=== PATIENT | male | born 1970 | race Caucasian/White ===

== ENCOUNTER 2024-05-01 08:42 | Inpatient (IN) | payer OTHER, SELFPAY ==
[2024-05-01] VITALS (39 sets, daily range): BP systolic 124–186; BP diastolic 83–174; PULSE 2–127; BMI 30.9; BMI 31.4
[2024-05-01 04:36] LABS: % Basophils 0.1 % (0-2); % Eosinophils 0.6 % (0-6); % Immature Granulocytes 0.3 % (0-0.5); % Lymphocytes 18.7 % (20.5-51.1); % Neutrophils 74.3 % (42.2-75.2); Absolute Lymphocytes 1.3 10^3/uL (1.2-3.4); Absolute Monocytes 0.4 10^3/uL (0.1-0.6); Absolute Neutrophils 5.3 10^3/uL (1.4-6.5); Hematocrit 38.6 % (39.0-52.0); Hemoglobin 12.5 g/dL (13.0-18.0); Mean Corp Hgb Conc. 32.4 g/dL (33.0-37.0); Mean Corpuscular Hgb 26.8 pg (27.0-31.0); Mean Corpuscular Volume 82.8 fL (80.0-94.0); Mean Platelet Volume 12.9 fL (7.4-10.4); Nucleated Red Blood Cells % 0 % (-); Platelet Count 186 10^3/uL (130-400); Red Blood Cell Count 4.66 10^6/uL (4.70-6.10); Red Cell Dist. Width 13.2 % (11.5-14.5); White Blood Cell Count 7.2 10^3/uL (4.8-10.8)
[2024-05-01] MEDS: NITROGLYCERIN PREMIX 250 IV (04:45)
[2024-05-01 04:48] LABS: COVID-19 Antigen Negative (Negative)
[2024-05-01 04:51] LABS: ALT (SGPT) 24 U/L (0-50); AST (SGOT) 23 U/L (17-59); Albumin 3.6 g/dl (3.5-5.0); Alkaline Phosphatase 109 U/L (38-126); Blood Urea Nitrogen 27 mg/dl (9-20); Calcium 9.4 mg/dl (8.4-10.2); Carbon Dioxide 26 mmol/L (22-30); Chloride 103 mmol/L (98-107); Estimated Creatinine Clearance 89 ml/min; Glucose 489 mg/dl (70-99); Potassium 4.2 mmol/L (3.5-5.1); Sodium 140 mmol/L (135-145); Total Bilirubin 0.5 mg/dl (0.2-1.3); Total Protein 6.6 g/dl (6.3-8.2); eGFR > 60.00
[2024-05-01 05:04] LABS: Venous Blood Gas B.E. -0.6 mmol/L (-4 to +4); Venous Blood Gas HCO3 25.4 mmol/L (22-27); Venous Blood Gas O2 Sat % 92.8 %; Venous Blood Gas pCO2 46 mmHg (35-48); Venous Blood Gas pH 7.35 (7.32-7.43); Venous Blood Gas pO2 64 mmHg (30-50)
[2024-05-01 05:06] LABS: Venous Blood Gas O2 Therapy 100%
[2024-05-01 05:08] LABS: NT-proBNP 9470 pg/ml; Troponin I 0.076 ng/ml
--- NOTE | 2024-05-01 05:44 | ED.GENMED ---
History of Present Illness
General
Chief Complaint: Breathing Problem
Time Seen by Provider: 05/01/24 04:22
History of Present Illness
History of Present Illness:
53-year-old male with history of diabetes presenting to the emergency department for difficulty breathing. Patient is from [facility], arrives with family. Notes for the past 6 days has been feeling short of breath. [place] symptoms, however has not had any improvement. Denies any known cardiac history. Denies cough or fever. Does note swelling to his lower extremities. Breathing worsened tonight. Denies associated chest pain. Denies
abdominal pain or vomiting. Denies ever having the symptoms in the past. Denies any history of blood clots. Denies additional acute medical complaints.
Phy Exam
Physical Exam
Physical Exam:
General: Acute respiratory
HEENT: protecting airway
Neck: appears supple
CV: Tachycardic, regular rhythm, no evidence of cyanosis
Resp: Increased work of breathing with accessory muscle use, diffuse crackles
Abd: Soft and non-distended, no tenderness to palpation
Extremities: No deformities, +2 pitting edema bilaterally
Neuro: alert, no focal neurologic deficit
: deferred
Rectal: deferred
Psych: Normal affect
Skin: Intact
Scores
Heart Failure Risk
Heart Failure Risk Score: Yes
History of Stroke or TIA: No
History of intubation for respiratory distress: No
Heart rate on ED arrival >/= 110: Yes
SaO2 <90% on arrival on room air: Yes
HR >/=110 during 3min walk test (or too ill to perform test): Yes
ECG has acute ischemic changes: No
Urea >/=12mmol/L (BUN 33.6mg/dL): No
Serum CO2>/=35mmol/L: Yes
Troponin I or T elevated to SD Level (0.4mg/dL): Yes
NT-proBNP >/=5,000ng/L (5,000pg/ml): Yes
HF Risk Score: 8
Admission Status: VERY HIGH RISK 81.2% Consider admission to hospital
Course
Orders/Labs/Results
Orders:
Orders
05/01/24 04:12
Electrocardiogram (*1) Urgent
Reason for Study: Other
Other Reason for Exam: Respiratory Distress
Cardiac Monitoring- Treatment ONCE
EKG- Treatment ONCE
IV Insert/Care/Rem.- Treatment PRN
O2 Therapy [RESP] Urgent
Titrate/Wean O2 to maintain O2 sat greater than (%): 93
Special Instructions: TO MAINTAIN CONTINUOUS O2 SATS >/= 93%
Pulse Ox/cont/shift [RESP] Urgent
Quantity: 1
Special Instructions: continuous pulse ox
05/01/24 04:13
Portable Chest Xray [CR Chest Portable - 1 View] Urgent
Comment:
Reason For Exam: sob
Reason Study Needs to be Portable: Patient Unstable
05/01/24 04:22
Bipap [RESP] Urgent
Patient to use own unit?: No
Inspiratory Pressure (cm H2O): 12
Expiratory Pressure (cm H2O): 5
05/01/24 04:26
COVID-19 Antigen Urgent
Source: Nasal Swab
Complete Blood Count/With Diff Urgent
Comprehensive Metabolic Panel Urgent
NT-proBNP Urgent
Troponin I Urgent
Influenza A+B Rapid Molecular Urgent
OSMAN Source: Nasal Swab
Specimen Description:
05/01/24 04:30
Nitroglycerin 100 mg/250 ml [Nitroglycerin Premix] 100 mg in 250 ml IV PER PROTOCOL
Initial dose in mcg/min, then titrate:: 5
Titrate to keep:: SBP < 160 mmHg
Titrate by mcg/min:: 5 mcg/min, may increase by 10 mcg/min if dose > 20 mcg/min
Frequency of titrations (minutes):: every 3-5 minutes
Maximum dose in mcg/min:: 200
Begin to taper infusion when:: Remained at goal for 2hrs
Taper by mcg/min:: 5 mcg/min
Frequency of taper (minutes) if patient maintains goal:: 30
Taper to off?: Yes
If infusion off & no longer maintaining goal:: Contact Provider
05/01/24 04:59
Venous Blood Gas Urgent
%Oxygen/Room Air: 100
05/01/24 05:02
Nitroglycerin 100 mg/250 ml [Nitroglycerin Premix] 100 mg in 250 ml .ROUTE .STK-MED
05/01/24 05:23
Furosemide [Lasix] 40 mg IV NOW STA
05/01/24 06:14
Insulin Aspart [NOVOLOG vial] 10 units SC NOW STA
Abnormal Lab Results
05/01/24 05/01/24
04:26 04:59
RBC 4.66 L 10^6/uL
(4.70-6.10)
Hgb 12.5 L g/dL
(13.0-18.0)
Hct 38.6 L %
(39.0-52.0)
MCH 26.8 L pg
(27.0-31.0)
MCHC 32.4 L g/dL
(33.0-37.0)
MPV 12.9 H fL
(7.4-10.4)
Lymphocytes % 18.7 L %
(20.5-51.1)
VBG pO2 64 H mmHg
(30-50)
BUN 27 H mg/dl
(9-20)
Glucose 489 H* mg/dl
(70-99)
Troponin I 0.076 H* ng/ml
05/01/24 04:26
05/01/24 04:26
Vital Signs
Initial and Last Documented VS:
Initial Vital Signs
Temp Pulse Resp Pulse Ox
99.0 F 130 32 66
05/01/24 04:15 05/01/24 04:15 05/01/24 04:15 05/01/24 04:15
Last Documented Vital Signs
Temp Pulse Resp BP Pulse Ox
99.0 F 110 16 144/90 97
05/01/24 04:15 05/01/24 06:13 05/01/24 06:10 05/01/24 06:10 05/01/24 06:10
MDM/Problems Addressed
MDM/Problems Addressed:
53-year-old male with history of diabetes presenting to the emergency department for about 1 week of dyspnea. Vital signs on arrival significant for tachycardia and tachypnea, hypoxia.
On exam, patient in obvious respiratory distress, increased work of breathing, retractions. EKG obtained, sinus tachycardia without evidence of acute ischemia. Lung exam has diffuse crackles. Blood pressure is also elevated. Clinically, appears
consistent with flash pulmonary edema, new onset CHF. Respiratory called for BiPAP and x-ray for a chest x-ray. X-ray confirms pulmonary edema. Plan for nitro drip, laboratory analysis, continued close respiratory monitoring.
Patient is improving clinically on BiPAP. Blood pressure is responding appropriately to nitro. Troponin is elevated, suspected ischemic demand. BNP is also elevated, consistent with CHF. Blood glucose noted to be elevated, will check VBG to
assess for evidence of DKA.
No metabolic acidosis or anion gap. Without concern for DKA. Will order insulin. Lasix ordered for volume overload state. Patient continues to clinically improved. Plan for admission for new onset CHF
*EKG
Interpreted by ED Provider?: Yes
EKG Intrepretation Date: 05/01/24
EKG Intrepretation Time: 06:04
Interpretation: normal
Comparison EKG: no comparison EKG present
Heart Rate: 141
Rate: tachycardiac
Rhythm: sinus
Ophiem: normal axis
Interval: normal interval
QRS Pattern: normal QRS
Ischemia: non-specific ST changes
*Critical Care Note
Total Time (30-74mins, 75-104mins- exclusive of procedures): 42
comment:
The high probability of a clinically significant, sudden or life threatening deterioration of the respiratory and cardiac system(s) required my full and direct attention, intervention and personal management. The aggregate critical care time was 42
minutes. This time is in addition to time spent performing reported procedures but includes the following:
[x] Data Review and interpretation
[x] Patient assessment and monitoring of vital signs
[x] Documentation
[x] Medication orders and management
ED Attending Note
-
Portions of this chart may have been created with voice recognition software.� Occasional wrong word or��sound alike� substitutions may have occurred due to the inherent limitations of voice recognition software.
Discharge Plan
Departure
Patient Disposition: Admit
Date of Disposition: 05/01/24
Time of Disposition: 06:22
Presentation/result/management discussed w/ accepting MD/DO: Hospitalist
Patient with high blood pressure during this ER visit?: Yes
Condition: Fair
Discharge Problem:
New onset of congestive heart failure, Acute respiratory distress
Prescriptions:
No Action
Unobtainable
0
Referrals:
NONE,* [Family Provider] -
Interventions
Interventions:
*General Assessment Last Done: 05/01/24 06:13
*Neglect/Abuse Screening Last Done: 05/01/24 06:13
*ED COVID-19 Vaccine History Last Done: 05/01/24 06:13
Discharge Date and Time
Print Language: DJIBOUTIAN
[2024-05-01] MEDS: LASIX 40 MG IV ×2 (06:11→15:47)
[2024-05-01] MEDS: NOVOLOG vial 10 UNITS SC (06:41)
[2024-05-01 07:12] LABS: Glucose - Point of Care 458 mg/dl (70-99)
[2024-05-01 07:49] LABS: Glucose 474 mg/dl (70-99)
--- NOTE | 2024-05-01 07:49 | HPS.HSE ---
Family Physician
-
Family Physician: * NONE
Chief Complaint
-
Shortness of breath
History of Present Illness
53-year-old male from [facility] here complaining of increasing shortness of breath. Symptoms started 6 days ago but progressively worsened over the past 24 hours.
Denies associated chest pain or other complaints.
History obtained via official [facility] back grinder as he only speaks in [facility].
No history of heart disease. Moved to [facility] recently and has a green card. Does not have a primary care doctor. Claims he only takes 1 medication and that is for diabetes.
Medical History
Past Medical History
Past Medical History: Reports Other
Additional Past Medical History:
DM2
Past Surgical History: Reports None
Social History
Tobacco: Non-smoker
Alcohol: None
Drug: None
Personal:
Living: With Family
Family History
Family History: Not pertinent
Allergies / Home Medications
Allergies reflects when Allergies were last updated in [facility].
Home Medications with original date entered in [facility]
Allergy/Medication List:
Allergies
Allergy/AdvReac Type Severity Reaction Status Date / Time
No Known Allergies Allergy Unverified 05/01/24 04:15
Home Medications
Unobtainable 05/01/24
Review of Systems
-
Unable to obtain full review of systems at this time due to: Language Barrier
History Source: Patient and Family
A 12 point ROS was completed and negative except as noted: Yes
Respiratory: Reports Trouble Breathing
Physical Exam
Vital Signs
Vital Signs
Temp Pulse Resp BP Pulse Ox
99.0 F 112 23 147/97 95
05/01/24 04:15 05/01/24 07:00 05/01/24 07:00 05/01/24 07:00 05/01/24 07:00
Physical Exam
General: Well Developed, Well Nourished, No Apparent Distress and Comfortable
HEENT: NormoCephalic, Anicteric and Moist mucous membranes
Respiratory: Crackles
Cardiac: S1/S2 and Regular Rhythm
GI: Soft, Non Tender and Non Distended
Musculoskeletal: No Clubbing, No Cyanosis, Edema, Left Lower Extremity and Edema, Right Lower Extremity
Skin: Warm and Dry
Neuro: Awake, Alert and Oriented
Hematologic/Lymphatic: No Lymphadenopathy
Psych: Calm
Laboratory Results
-
05/01/24 04:26
05/01/24 07:21
Laboratory Results
Total Bilirubin 0.5 mg/dl (0.2-1.3) 05/01/24 04:26
AST 23 U/L (17-59) 05/01/24 04:26
ALT 24 U/L (0-50) 05/01/24 04:26
Alkaline Phosphatase 109 U/L (38-126) 05/01/24 04:26
Troponin I 0.076 ng/ml H* 05/01/24 04:26
Impression/Plan
-
Acute hypoxic respiratory failure -due to acute pulmonary edema. Required BiPAP on arrival, now transition to nasal cannula oxygen 4 L. Chest x-ray shows interstitial and alveolar pulmonary opacities and probable bilateral pleural fluid.
Acute heart failure exacerbation -unknown type. Appears to be a new diagnosis of heart failure. BNP 9470. Admit to IVU. Continue IV Lasix. Check echocardiogram. Consult cardiology. Daily weights.
Hypertensive emergency -presentation with acute heart failure. Initial blood pressure 182/109 in the emergency room. Improved to 147/97 with IV Lasix and IV nitroglycerin. Patient denies history of hypertension. However, does not check blood
pressure at home. Not on antihypertensives at home. Does not have a primary care doctor. Continue IV Lasix. Add lisinopril. Monitor closely. Wean off nitroglycerin drip.
Troponin elevation -without significant EKG changes. Does not have chest pain. Will trend troponins. Cardiology consulted.
DM2 with hyperglycemia -not on insulin at home. Glucose 489 on presentation. Serum bicarbonate normal. No evidence of DKA. Check urinalysis. Beta hydroxybutyrate is normal. Check hemoglobin A1c, start basal/bolus insulin and corrective scale.
He takes an oral diabetes medication at home, obtains it from [facility]. I asked family to bring it in.
Obesity due to excess calories
Full code
Family updated at the bedside.
[2024-05-01 07:52] LABS: B-Hydroxybutyrate 0.21 mmol/L (0.02-0.27)
--- NOTE | 2024-05-01 09:07 | CON.CAR ---
Addendum entered and electronically signed by German Mccarty MD 05/01/24 12:59:
53 yo male with PMH of DM is admitted with progressive SOB and edema. No chest pain. Exam with tachy, irregular rhythm, no murmurs, 1+ LE edema. Cr 0.9. TnI 0.28. EKG: sinus tachy, anterior infarct.
Presentation seems consistent with acute failure. I suspect he may have reduced EF. Continue lasix 40mg IV bid. We will check an echo, and if EF reduced, will proceed to cardiac cath.
HTN emergency with elevated troponin and acute HF. Currently on nitro drip. Will wean. Lisinopril started. If remains stable, will add coreg.
Original Note:
Consultation
Consultation Request
Date/Time Consultation Requested: 05/01/2024 0800
Date/Time Consultation Performed: 05/01/2024 830
Requesting Provider: Dr. Savage
Performing Provider: Dr. Mccarty
Reason for Consultation: SOB, CHF
Medical History
-
Chief Complaint: SOB
History of Present Illness:
53-year-old patient with history of diabetes for approximately 30 years treated with metformin from [facility]. He presented to [facility] with acute shortness of breath which worsened over the last 3 nights. Last night was more intense and
extreme. He has had a cough with clear to white sputum at home. Upon arrival to [facility] he was noted to be hypertensive with acute hypoxic respiratory failure requiring BiPAP. He was treated with IV nitroglycerin and Lasix in the
emergency room. He has now been weaned to nasal cannula. BNP on arrival was 9470. Prior to this event they note that he had a URI several weeks ago which included a cough and fever. He was not tested for flu or COVID at that time. He self
treated at home.
-
His daughter and son-in-law were in the room were able to translate today as they speak Latvian.
-
He has been treated for diabetes for approximately 30 years. He was not aware of any history of hypertension or hyperlipidemia. His brother had open heart surgery around the age of 52 and is also diabetic.
-
He does not smoke or drink alcohol.
Past Medical History
Past Medical History: NIDDM
Past Surgical History: None
Social History
Tobacco: Non-Smoker
Alcohol: None
Family History
Family History: CAD (Brother open heart surgery at age 52)
Allergies / Home Medications
Allergy/AdvReac Type Severity Reaction Status Date / Time
No Known Allergies Allergy Unverified 05/01/24 04:15
�Medication �Instructions �Recorded �Confirmed �Type
Unobtainable 05/01/24 05/01/24 History
Review of Systems
-
History Source: Patient and Family
All other systems: Negative unless noted
Constitutional: No Symptoms
EENT: No Symptoms
Respiratory: Cough and Trouble Breathing
Cardiac: Diaphoresis
Abdomen/GI: No Symptoms
: No Symptoms
Musculoskeletal: No Symptoms
Skin: No Symptoms
Physical Exam
Vital Signs
Temp Pulse Resp BP Pulse Ox
99.0 F 113 23 152/94 95
05/01/24 04:15 05/01/24 08:45 05/01/24 08:45 05/01/24 08:30 05/01/24 08:45
Lab Results
05/01/24 04:26
05/01/24 07:21
Troponin I 0.076 ng/ml H* 05/01/24 04:26
Ape-B-Mtofwnzlmyt Pept 9470 pg/ml 05/01/24 04:26
Physical Exam
General: Well Developed, Well Nourished and No Apparent Distress
Respiratory: Crackles
Cardiac: S1/S2 and Regular Rhythm (Tachycardic)
GI: Soft, Non Tender and Normal Bowel Sounds
Musculoskeletal: No Edema (Mild bilateral lower extremity edema)
Skin: Warm
Neuro: AO x 3
Psych: Calm
Impression / Plan
-
Acute heart failure unknown type:
-Initially required BiPAP now weaned to nasal cannula
-Patient improved in the emergency room with IV nitroglycerin and IV Lasix.
-Plan echocardiogram.
-Trend troponins
-Add GDMT as indicated, lisinopril started
-check lipids
-add asa
Hypertension:
-Hypertensive emergency on admit. Currently on IV nitroglycerin with improved blood pressures
-Continue IV nitroglycerin and IV Lasix at this time
Diabetes:
-Appears he has been on metformin from [facility]. Treatment per primary team
Data Reviewed
-
EKG: Tracing Personally Visualized and interpreted (EKG from 05/01/2024 sinus tachycardia at 141 bpm, poor R wave progression nonspecific ST abnormality)
Radiology: Report Reviewed by me (cxr: Interstitial and alveolar pulmonary opacities and probable bilateral pleural fluid most in keeping with pulmonary edema.)
Labs: Labs Reviewed by me, Discussed with Physician, Discussed with Patient and Discussed with Family
[2024-05-01 09:29] LABS: Glucose - Point of Care 299 mg/dl (70-99)
[2024-05-01] MEDS: LOW STRENGTH ASPIRIN 324 MG PO (09:54)
[2024-05-01] MEDS: LANTUS 0.15 UNITS SC (11:46)
[2024-05-01] MEDS: ZESTRIL 5 MG PO (11:47)
[2024-05-01 12:03] LABS: Troponin I 0.281 ng/ml
[2024-05-01 12:51] LABS: Urine Albumin 3+ (Neg - Trace); Urine Bilirubin Negative (Negative); Urine Character Clear (Clear); Urine Color Yellow; Urine Glucose 3+ (Negative); Urine Ketone Negative (Negative); Urine Leukocyte Negative (Negative); Urine Nitrite Negative (Negative); Urine Occult Blood 1+ (Negative); Urine Specific Gravity 1.015 (<1.030); Urine Urobilinogen Negative (Neg - 1+)
[2024-05-01 12:55] LABS: Glucose - Point of Care 301 mg/dl (70-99)
[2024-05-01 13:49] LABS: Urine Bacteria Few (Negative); Urine Red Blood Cell 0-2 /HPF (0-2); Urine White Cell 0-2 /HPF (0-5)
[2024-05-01] MEDS: NOVOLOG FLEXPEN 5 UNITS SC (14:56)
[2024-05-01] MEDS: NOVOLOG FLEXPEN-LOW RESISTANCE 4 UNITS SC (14:56)
[2024-05-01] MEDS: LOVENOX 40 MG SC (18:05)
[2024-05-01] MEDS: NOVOLOG FLEXPEN-LOW RESISTANCE 2 UNITS SC (18:09)
[2024-05-01 18:10] LABS: Glucose - Point of Care 229 mg/dl (70-99)
[2024-05-01] MEDS: NOVOLOG FLEXPEN SC (18:10)
[2024-05-01 18:14] LABS: Troponin I 0.428 ng/ml
--- NOTE | 2024-05-01 18:28 | PTCARENOTE ---
Pt received from ED with acute CHF and bilateral ANN on nitroglycerin infusion at 5mcg. Pt speaks Uzbek, translation by his daughter and language line/I Pad. Breath sounds decreased 1/4 way up, pt with HOBSON with minimal exertion, diuresing slowly
with IV lasix. Troponins still trending, now at 0.428, aware. Pt denies any discomfort. Accuchecks 200-300 range with sliding scale and meal coverage. Telemetry shows sinus tach with SBP's 120-130's, plan to keep nitroglycerin at 5mcg
overnight. Pt will be NPO for 05/03 for an ECHO and possible cardiac cath.
--- NOTE | 2024-05-01 18:34 | PTCARENOTE ---
Unable to start CHF teaching today due to language issues and no family member present. Will plan to do this when able.
--- NOTE | 2024-05-01 22:31 | PTCARENOTE ---
Pt received at change of shift. VSS, Sinus tachy on tele with HR low 100s. Family member at bedside to assist with translating. Pt with no complaints of CP at this time and SOB only occasionally while talking. Pulse ox 97% on 4L NC. Nitro gtt
currently infusing at 5mcg. Pt. instructed to ring for assistance as needed for ambulating to bathroom. Plan of care discussed with pt and family member who verbalize understanding. Can make needs known. Call villanueva within reach.
[2024-05-01 23:07] LABS: Glucose - Point of Care 223 mg/dl (70-99)
[2024-05-01 23:39] LABS: Troponin I 0.613 ng/ml
[2024-05-01] MEDS: MELATONIN 5 MG PO (23:40)
[2024-05-01] MEDS: ROBITUSSIN DM 5 ML PO (23:40)
[2024-05-02 04:22] VITALS: BP 122/87
[2024-05-02 04:36] VITALS: BMI 31.1
[2024-05-02 05:26] LABS: Blood Urea Nitrogen 35 mg/dl (9-20); Calcium 8.8 mg/dl (8.4-10.2); Carbon Dioxide 27 mmol/L (22-30); Chloride 104 mmol/L (98-107); Estimated Creatinine Clearance 73 ml/min; Glucose 207 mg/dl (70-99); HDL Cholesterol 29 mg/dl; LDL Cholesterol, Calculated 142 mg/dl; Potassium 3.6 mmol/L (3.5-5.1); Sodium 140 mmol/L (135-145); Total Cholesterol 205 mg/dl (50-199); Triglyceride 172 mg/dl (10-149); Very Low Density Lipoprotein 34 mg/dl (0-30); eGFR > 60.00
[2024-05-02 05:37] LABS: Troponin I 0.719 ng/ml
[2024-05-02 07:18] VITALS: BP 137/86
[2024-05-02 07:22] LABS: Glucose - Point of Care 196 mg/dl (70-99)
[2024-05-02] MEDS: ZESTRIL 5 MG PO (08:02)
[2024-05-02] MEDS: LASIX 40 MG IV ×2 (08:02→15:49)
[2024-05-02] MEDS: LOW STRENGTH ASPIRIN 81 MG PO (08:02)
--- NOTE | 2024-05-02 08:17 | W.PN.HOSP.TC ---
Addendum entered and electronically signed by Pedro Savage DO 05/02/24 08:28:
History of latent tuberculosis -treated in 2017. Reviewed records with family.
Original Note:
Today's Communication/Plan
-
Wean off nitroglycerin
Wean down oxygen as able
Continue diuresis
Await hemoglobin A1c
Echocardiogram
N.p.o. after midnight
Assessment / Plan
Assessment / Plan
Gen-AAOx3, NAD
HEENT-NC, AT, anicteric, clear oral mm
Neck-supple
CV-reg, no M, +S1/S2
Lungs-clear B/L
Abd-soft, NT, ND
Ext-no edema
Musculoskeletal-no cyanosis, clubbing
Skin-warm and dry
Neuro-grossly non-focal
Psych-calm, cooperative
Acute hypoxic respiratory failure -due to acute pulmonary edema. Required BiPAP on arrival, subsequently transitioned to nasal cannula oxygen 4 L. Chest x-ray shows interstitial and alveolar pulmonary opacities and probable bilateral pleural
fluid. Still on 4 L nasal cannula oxygen, wean down as able.
Acute heart failure exacerbation -unknown type. Appears to be a new diagnosis of heart failure. Volume status improving, lower extremity edema much improved. Symptomatically he feels better. Continue IV Lasix. Start daily potassium supplements.
Echocardiogram pending.
Hypertensive emergency -presentation with acute heart failure. Initial blood pressure 182/109 in the emergency room. Improved to 147/97 with IV Lasix and IV nitroglycerin. Patient denies history of hypertension. However, does not check blood
pressure at home. Not on antihypertensives at home. Does not have a primary care doctor. Continue IV Lasix. Continue lisinopril, wean off nitroglycerin drip.
Troponin elevation -EKG on admission shows sinus tachycardia with nonspecific T wave changes. Does not have chest pain. Troponin slowly trending up, 0.719 this morning. Anticipate cardiac catheterization this hospitalization pending
echocardiogram. N.p.o. after midnight.
DM2 with hyperglycemia -not on insulin at home, uses metformin 500 mg twice daily. Glucose 489 on presentation, 207 this morning. Serum bicarbonate normal. No evidence of DKA. Hemoglobin A1c pending. In the hospital he is on Lantus 15 units
daily, 5 units aspart AC, low resistance corrective scale.
Obesity due to excess calories
Full code
Family updated at the bedside.
Anticipated Discharge: > 48 hours
Subjective/Interval History
-
Date of Service: May 02, 2024
Patient seen and examined. No shortness of breath or chest pain currently. Did have some shortness of breath during the night. Overall slept better. Family at the bedside helping to translate.
Objective Data
-
Labs:
Laboratory Results
05/02/24
04:31
Sodium 140
Potassium 3.6
Chloride 104
Carbon Dioxide 27
BUN 35 H
Creatinine 1.1
Glucose 207 H
Calcium 8.8
Vital Signs:
Vital Signs
Temp Pulse Resp BP Pulse Ox
97.7 F 95 24 137/86 98
05/02/24 07:16 05/02/24 07:18 05/02/24 07:51 05/02/24 07:18 05/02/24 07:53
I&O
05/01/24 05/02/24 05/03/24
06:59 06:59 06:59
Intake Total 240 / 240
Output Total 1400 / 1400
Balance -1160 / -1160
Review of Systems
-
Unable to obtain full review of systems at this time due to: Language Barrier
History Source: Patient, Family and Coordinated Provider
[2024-05-02] MEDS: NOVOLOG FLEXPEN 5 UNITS SC ×3 (09:29→17:51)
[2024-05-02] MEDS: NOVOLOG FLEXPEN-LOW RESISTANCE 1 UNITS SC ×2 (09:29→14:16)
[2024-05-02] MEDS: KCL 20 MEQ PO (09:30)
[2024-05-02] MEDS: LANTUS 0.15 UNITS SC (09:30)
[2024-05-02 11:23] VITALS: BP 126/87
--- NOTE | 2024-05-02 11:35 | W.PN.CD ---
Today's Communication / Plan
-
cont IV lasix
echo in AM
Impression / Plan
-
Acute heart failure unknown type:
-echo in AM
-we discussed topic of cath if LVEF is depressed (ASA started)
-cont IV lasix with close monitoring of labs and tele
Hypertension:
-Hypertensive emergency on admit. stop nitro drip, and add coreg 6.25mg bid. continue lisinopril 5mg daily.
Diabetes:
-Appears he has been on metformin from [facility]. Treatment per primary team
Physical Exam
Vital Signs/Labs
Vital Signs
Temp Pulse Resp BP Pulse Ox
98.3 F 95 20 137/86 98
05/02/24 11:21 05/02/24 07:18 05/02/24 11:21 05/02/24 07:18 05/02/24 11:21
05/01/24 05/02/24 05/03/24
06:59 06:59 06:59
Actual Weight 79.1 kg 79.5 kg
05/01/24 04:26
05/02/24 04:31
Triglycerides 172 mg/dl (10-149) H 05/02/24 04:31
LDL Cholesterol, Calc 142 mg/dl 05/02/24 04:31
VLDL Cholesterol, Calc 34 mg/dl (0-30) H 05/02/24 04:31
HDL Cholesterol 29 mg/dl 05/02/24 04:31
05/01/24
04:26
Wwq-O-Hwfvbanpmir Pept 9470
LAB Results
05/01/24 05/01/24 05/01/24
04:26 11:27 17:36
Troponin I 0.076 H* 0.281 H* D 0.428 H* D
05/01/24 05/02/24
23:07 04:31
Troponin I 0.613 H* D 0.719 H*
Physical Exam
Constitutional: No acute distress
EENT: Moist mucous membranes
Cardiovascular: Rhythm & rate is regular, Systolic murmur absent, Pedal edema present and JVD present
Respiratory: Respiratory effort normal and Lungs clear to auscul.
Neuro/Psych: AO x 3
Data Reviewed
-
Date of Service: May 02, 2024
EKG: Other (Tele: SR 80s)
Labs: Labs Reviewed by me
[2024-05-02 12:04] LABS: Troponin I 0.689 ng/ml
[2024-05-02] MEDS: COREG 6.25 MG PO ×2 (12:10→19:46)
[2024-05-02 12:58] LABS: Glycohemoglobin (HgbA1c) 12.6 % (4.0-5.6)
[2024-05-02 13:30] LABS: Glucose - Point of Care 184 mg/dl (70-99)
[2024-05-02 15:40] VITALS: BP 112/81
[2024-05-02 17:15] LABS: Glucose - Point of Care 224 mg/dl (70-99)
[2024-05-02] MEDS: NOVOLOG FLEXPEN-LOW RESISTANCE 2 UNITS SC (17:51)
[2024-05-02] MEDS: LOVENOX 40 MG SC (17:52)
--- NOTE | 2024-05-02 18:21 | PTCARENOTE ---
Pt OOB to chair today. Nitroglycerin infusion off @noon, pt started on coreg. Telemetry shows sinus rhythm @90's.Pt still states he is a little short of breath, 99% on 2L. Accuchecks @200, plan for diabetic consult. CHF information relayed to pt via
his daughter who translated, much more to learn.
[2024-05-02 19:41] VITALS: BP 140/90
[2024-05-02 22:29] LABS: Glucose - Point of Care 155 mg/dl (70-99)
[2024-05-02 22:30] VITALS: BP 131/85
--- NOTE | 2024-05-02 22:37 | PTCARENOTE ---
Pt remains SR/sinus tachy on tele with HR 90s-low 100s. No complaints of pain or SOB. Satting 97% on 2L. OOB with x1 assist. Pt NPO at midnight for Echo with possible cardiac cath to follow. Can make needs known. Call villanueva within reach.
[2024-05-03 04:38] VITALS: BP 136/91
[2024-05-03 04:46] VITALS: BMI 30.7
[2024-05-03 05:04] LABS: Glucose - Point of Care 111 mg/dl (70-99)
[2024-05-03 05:43] LABS: Blood Urea Nitrogen 38 mg/dl (9-20); Calcium 8.9 mg/dl (8.4-10.2); Carbon Dioxide 32 mmol/L (22-30); Chloride 102 mmol/L (98-107); Estimated Creatinine Clearance 80 ml/min; Glucose 123 mg/dl (70-99); Potassium 4.6 mmol/L (3.5-5.1); Sodium 140 mmol/L (135-145); eGFR > 60.00
[2024-05-03 07:52] VITALS: BP 144/92
[2024-05-03] MEDS: NOVOLOG FLEXPEN SC (07:52)
[2024-05-03] MEDS: NOVOLOG FLEXPEN-LOW RESISTANCE SC ×3 (07:52→17:17)
[2024-05-03] MEDS: LOW STRENGTH ASPIRIN 81 MG PO (07:55)
[2024-05-03] MEDS: ZESTRIL 5 MG PO (07:55)
[2024-05-03] MEDS: KCL 20 MEQ PO (07:55)
[2024-05-03] MEDS: COREG 6.25 MG PO ×2 (07:55→21:07)
[2024-05-03] MEDS: LASIX 40 MG IV ×2 (07:55→16:19)
[2024-05-03] MEDS: LANTUS 0.15 UNITS SC (09:33)
[2024-05-03 09:34] LABS: Glucose - Point of Care 114 mg/dl (70-99)
--- NOTE | 2024-05-03 09:44 | W.PN.HOSP.TC ---
Today's Communication/Plan
-
see bold
Assessment / Plan
Assessment / Plan
Acute hypoxic respiratory failure -due to acute pulmonary edema. Required BiPAP on arrival, subsequently transitioned to nasal cannula oxygen 4 L. Chest x-ray shows interstitial and alveolar pulmonary opacities and probable bilateral pleural
fluid. Still on 2 L nasal cannula oxygen, wean down as able.
Acute heart failure with a reduced ejection fraction-new diagnosis, Echo w/ EF 30-35%, global hypokinesis. Appreciate cardiology input, continue IV diuresis, may benefit from cardiac catheterization
Hypertensive emergency -presentation with acute heart failure. Initial blood pressure 182/109 in the emergency room. Blood pressure much improved status post IV nitroglycerin drip
Troponin elevation -EKG on admission shows sinus tachycardia with nonspecific T wave changes. Does not have chest pain. Troponin slowly trending up, 0.719 this morning. Started on aspirin 81 mg daily, anticipate cardiac catheterization this
hospitalization
DM2 with hyperglycemia -not on insulin at home, uses metformin 500 mg twice daily. Serum bicarbonate normal. No evidence of DKA. Hemoglobin A1c 12.6. In the hospital he is on Lantus 15 units daily, 5 units aspart AC, low resistance corrective
scale. Continue diabetes education, he will need to continue insulin upon discharge
Obesity due to excess calories
DVT prophylaxis�subcu Lovenox
Full code
Updated family at bedside 05/03
Total time spent to see the patient on the floor, examine the patient, review data and lab results, discuss treatment plan with patient, nursing staff around 50 minutes.
Physical Exam
General: No acute distress
HEENT: Normocephalic, Atraumatic, EOMI, MMM
Respiratory: Bibasilar crackles
Cardiac: Normal S1/S2, Regular Rate and Rhythm
GI: Soft, Nontender, Nondistended, Normal Bowel Sounds
Extremities: No Clubbing, Cyanosis
Moderate pitting bilateral lower extremity edema
Neuro: Nonfocal/Grossly Intact
Psych: Calm, Cooperative
Derm: No Visible lesions
Anticipated Discharge: > 48 hours
Subjective/Interval History
-
Date of Service: May 03, 2024
Shortness of breath improved. No chest pain, no nausea, no vomiting. No fever.
Objective Data
-
Labs:
Laboratory Results
05/03/24
04:36
Sodium 140
Potassium 4.6 D
Chloride 102
Carbon Dioxide 32 H
BUN 38 H
Creatinine 1.0
Glucose 123 H
Calcium 8.9
Vital Signs:
Vital Signs
Temp Pulse Resp BP Pulse Ox
97.8 F 94 20 136/91 99
05/03/24 04:39 05/03/24 04:38 05/03/24 04:39 05/03/24 04:38 05/03/24 04:39
I&O
05/02/24 05/03/24 05/04/24
06:59 06:59 06:59
Intake Total 240 / 240 240 / 240
Output Total 1400 / 1400 400 / 400
Balance -1160 / -1160 -160 / -160
--- NOTE | 2024-05-03 10:01 | PTCARENOTE ---
assumed care of pt from previous shift RN, sinus rhythm on tele, VSS, + peripheral pulses, trace edema to bilateral lower extremities. Lungs diminished, pox 98% on 2L NC. +BS, tolerating PO intake, voids spontaneously. PIV x2 flush easily. Plan of
care reviewed w the pt and his family, questions encouraged.
--- NOTE | 2024-05-03 10:01 | W.PN.CD ---
Today's Communication / Plan
-
Echo
IV diuresis
Med adjustment after IV diuresis
Education
May benefit from cath, lets see echo
Impression / Plan
-
Acute heart failure unknown type:
- echo today
- HF eduction, HF diet
- Diuresis, IV underway
- Anticipate GDMT but regardless of echo anticipate: MRA and SGLT-I and loop diuetic and ARNI vs ARB/MONIK-I, if LVEF low then HF BB as well
Abnormal troponin
- Lets see echo but likely nonischemic myocardial injury from hear failure
- May also have underlying CAD but a type I or II [place] this admit seems unlikely
Abnormal EKG, suggesting Ant [place] age undetermined
- Lets see what echo show => cath may be advisable
- Now on ASA
Hypertension
Diabetes, type II
BMI, 30.7
- Consider GLP1 agonist or GLP1 /GIP agonist
Subjective:
Feeling better
Physical Exam
Vital Signs/Labs
Vital Signs
Temp Pulse Resp BP Pulse Ox
97.8 F 94 20 136/91 99
05/03/24 04:39 05/03/24 04:38 05/03/24 04:39 05/03/24 04:38 05/03/24 04:39
05/02/24 05/03/24 05/04/24
06:59 06:59 06:59
Actual Weight 79.5 kg 78.5 kg
05/01/24 04:26
05/03/24 04:36
Triglycerides 172 mg/dl (10-149) H 05/02/24 04:31
LDL Cholesterol, Calc 142 mg/dl 05/02/24 04:31
VLDL Cholesterol, Calc 34 mg/dl (0-30) H 05/02/24 04:31
HDL Cholesterol 29 mg/dl 05/02/24 04:31
05/01/24
04:26
Ily-S-Ndjtfyunlxd Pept 9470
LAB Results
05/01/24 05/01/24 05/01/24
04:26 11:27 17:36
Troponin I 0.076 H* 0.281 H* D 0.428 H* D
05/01/24 05/02/24 05/02/24
23:07 04:31 11:30
Troponin I 0.613 H* D 0.719 H* 0.689 H*
Physical Exam
Constitutional: No acute distress
EENT: Anicteric
Cardiovascular: Rhythm & rate is regular and Pedal edema present
Respiratory: Respiratory effort normal and Crackles Present
GI: Soft and Distention absent
Neuro/Psych: AO x 3
Data Reviewed
-
Date of Service: May 03, 2024
[2024-05-03] MEDS: NOVOLOG FLEXPEN 5 UNITS SC ×3 (10:20→17:16)
[2024-05-03 11:34] VITALS: BP 130/79
[2024-05-03 12:08] VITALS: BMI 30.7
--- NOTE | 2024-05-03 13:29 | PTCARENOTE ---
pt sent for echo
--- NOTE | 2024-05-03 13:29 | CM ---
Chart reviewed. Patient does not speak Romansh, daughter do and at bedside. Patient is independent of ADLS, lives with his in a ground floor apartment, 7-8 NACHO, 0 DME. Patient does not have insurance. [facility] notified. Bridgett to see
patient and set them up with medical assistance. Plan is for the patient to return home. CM to follow
[2024-05-03 14:19] LABS: Glucose - Point of Care 153 mg/dl (70-99)
[2024-05-03] MEDS: NOVOLOG FLEXPEN-LOW RESISTANCE 1 UNITS SC (14:39)
[2024-05-03 15:04] VITALS: BP 126/88
[2024-05-03] MEDS: LOVENOX 40 MG SC (16:19)
--- NOTE | 2024-05-03 16:58 | W.PN.UPDATE ---
Update Note
Progress Note Update
Per Dr. Nathan, due to reduced EF, we will arrange for cath in AM. Discussed with patient using Polish fulfillment representative on IPAD and he is agreeable. I answered all questions. Discussed with nursing. Patient NPO for AM. He is on aspirin. solar lab technician aware.
[2024-05-03 17:21] LABS: Glucose - Point of Care 141 mg/dl (70-99)
[2024-05-03 19:03] VITALS: BP 137/82
[2024-05-03 21:58] LABS: Glucose - Point of Care 133 mg/dl (70-99)
[2024-05-03 22:44] VITALS: BP 119/80
[2024-05-04] VITALS (21 sets, daily range): BP systolic 67–153; BP diastolic 33–101
--- NOTE | 2024-05-04 02:45 | PTCARENOTE ---
Pt. NSR on monitor. VSS Denies pain or SOB. Ambulates independently in the room. NPO for cath.
[2024-05-04 05:01] LABS: Blood Urea Nitrogen 35 mg/dl (9-20); Calcium 8.3 mg/dl (8.4-10.2); Carbon Dioxide 31 mmol/L (22-30); Chloride 101 mmol/L (98-107); Estimated Creatinine Clearance 79 ml/min; Glucose 102 mg/dl (70-99); Magnesium 1.8 mg/dl (1.6-2.3); Potassium 3.9 mmol/L (3.5-5.1); Sodium 141 mmol/L (135-145); eGFR > 60.00
[2024-05-04 07:30] LABS: Glucose - Point of Care 116 mg/dl (70-99)
[2024-05-04] MEDS: NOVOLOG FLEXPEN-LOW RESISTANCE SC ×3 (07:30→17:14)
[2024-05-04] MEDS: COREG 6.25 MG PO ×2 (07:31→20:49)
[2024-05-04] MEDS: ZESTRIL 5 MG PO (07:31)
[2024-05-04] MEDS: LANTUS 0.15 UNITS SC (07:31)
[2024-05-04] MEDS: LOW STRENGTH ASPIRIN 81 MG PO (07:32)
[2024-05-04] MEDS: NOVOLOG FLEXPEN 5 UNITS SC ×3 (07:33→17:13)
[2024-05-04] MEDS: LASIX 40 MG IV ×2 (07:33→16:07)
[2024-05-04] MEDS: KCL 20 MEQ PO (07:34)
--- NOTE | 2024-05-04 08:28 | PTCARENOTE ---
Assumed care of pt from night RN. Pt has very limited ability to communicate as he is predominantly Telugu speaking. Language line utilized. VSS, CM shows NSR 90's, POX 94% on RA. Pt has remained NPO for CC this am. Dr. Monge in with pt to
explain procedure. Pt denies any pain or discomfort at this time. Remains NPO for CC.
--- NOTE | 2024-05-04 08:42 | W.PN.CD ---
Today's Communication / Plan
-
-
-
Diuresis
Cath
After recovery from cath/any revascularization then will add GDMT for HFrEF
-
-
Impression / Plan
-
Acute heart failure unknown type:
- echo 05/03/2024: LVLEF 30-35%, mild MR, PASP unable to be estimated
- HF eduction, HF diet
- Diuresis, IV underway
- Anticipate GDMT but regardless of echo anticipate: MRA and SGLT-I and loop diuetic and ARNI vs ARB/MONIK-I, if LVEF low then HF BB as well
- For cath today to assess for CAD given HF, abnormal troponin, poor LVEF with risk factor for CAD
Abnormal troponin
- Lets see echo but likely nonischemic myocardial injury from hear failure
- May also have underlying CAD but a type I or II [place] this admit seems unlikely
Abnormal EKG, suggesting Ant [place] age undetermined
- Lets see what echo show => cath may be advisable
- Now on ASA
Hypertension
Diabetes, type II
BMI, 30.7
- Consider GLP1 agonist or GLP1 /GIP agonist
Subjective:
Feeling better
Physical Exam
Vital Signs/Labs
Vital Signs
Temp Pulse Resp BP Pulse Ox
98.3 F 90 16 117/79 94
05/04/24 08:17 05/04/24 08:17 05/04/24 08:17 05/04/24 07:25 05/04/24 08:22
05/03/24 05/04/24 05/05/24
06:59 06:59 06:59
Actual Weight 78.5 kg 76.9 kg
05/01/24 04:26
05/04/24 04:22
Magnesium 1.8 mg/dl (1.6-2.3) 05/04/24 04:22
Triglycerides 172 mg/dl (10-149) H 05/02/24 04:31
LDL Cholesterol, Calc 142 mg/dl 05/02/24 04:31
VLDL Cholesterol, Calc 34 mg/dl (0-30) H 05/02/24 04:31
HDL Cholesterol 29 mg/dl 05/02/24 04:31
05/01/24
04:26
Mqm-R-Zvekeazwokt Pept 9470
LAB Results
05/01/24 05/01/24 05/01/24
11:27 17:36 23:07
Troponin I 0.281 H* D 0.428 H* D 0.613 H* D
05/02/24 05/02/24
04:31 11:30
Troponin I 0.719 H* 0.689 H*
Physical Exam
Constitutional: No acute distress
EENT: Anicteric
Cardiovascular: Rhythm & rate is regular and Pedal edema is absent
Respiratory: Respiratory effort normal and Lungs clear to auscul.
GI: Soft and Distention absent
Neuro/Psych: AO x 3
Data Reviewed
-
Date of Service: May 04, 2024
--- NOTE | 2024-05-04 08:52 | PTCARENOTE ---
Pt to CCL for ht cath.
--- NOTE | 2024-05-04 08:59 | W.PN.HOSP.TC ---
Today's Communication/Plan
-
see bold
Assessment / Plan
Assessment / Plan
Acute hypoxic respiratory failure -due to acute pulmonary edema. Required BiPAP on arrival, subsequently transitioned to nasal cannula oxygen 4 L. Chest x-ray shows interstitial and alveolar pulmonary opacities and probable bilateral pleural
fluid. Still on 2 L nasal cannula oxygen, wean down as able.
Acute heart failure with a reduced ejection fraction-new diagnosis, Echo w/ EF 30-35%, global hypokinesis. Appreciate cardiology input, continue IV diuresis
Hypertensive emergency -presentation with acute heart failure. Initial blood pressure 182/109 in the emergency room. Blood pressure normalized status post IV nitroglycerin drip
Troponin elevation
Multivessel coronary artery disease
-EKG on admission shows sinus tachycardia with nonspecific T wave changes. Does not have chest pain. Troponin peaked at 0.719
-Started on aspirin 81 mg daily, Coreg 6.25 mg twice a day, lisinopril 5 mg daily, and heparin drip
-05/04 cardiac catheterization shows multivessel coronary artery disease
-CT surgery consulted for further recommendations
DM2 with hyperglycemia -not on insulin at home, uses metformin 500 mg twice daily. Serum bicarbonate normal. No evidence of DKA. Hemoglobin A1c 12.6. In the hospital he is on Lantus 15 units daily, 5 units aspart AC, low resistance corrective
scale. Continue diabetes education, he will need to continue insulin upon discharge
Obesity due to excess calories
DVT prophylaxis�heparin drip
Full code
Updated family at bedside 05/03, 05/04
Total time spent to see the patient on the floor, examine the patient, review data and lab results, discuss treatment plan with patient, nursing staff around 45 minutes.
Physical Exam
General: No acute distress
HEENT: Normocephalic, Atraumatic, EOMI, MMM
Respiratory: Bibasilar crackles
Cardiac: Normal S1/S2, Regular Rate and Rhythm
GI: Soft, Nontender, Nondistended, Normal Bowel Sounds
Extremities: No Clubbing, Cyanosis
Moderate pitting bilateral lower extremity edema
Neuro: Nonfocal/Grossly Intact
Psych: Calm, Cooperative
Derm: No Visible lesions
Anticipated Discharge: > 48 hours
Subjective/Interval History
-
Date of Service: May 04, 2024
Shortness of breath resolved. No fever, no vomiting. No chest pain.
Objective Data
-
Labs:
Laboratory Results
05/04/24
04:22
Sodium 141
Potassium 3.9
Chloride 101
Carbon Dioxide 31 H
BUN 35 H
Creatinine 1.0
Glucose 102 H
Calcium 8.3 L
Vital Signs:
Vital Signs
Temp Pulse Resp BP Pulse Ox
98.3 F 90 16 117/79 94
05/04/24 08:17 05/04/24 08:17 05/04/24 08:17 05/04/24 07:25 05/04/24 08:22
I&O
05/03/24 05/04/24 05/05/24
06:59 06:59 06:59
Intake Total 240 / 240
Output Total 400 / 400 1025 / 1025
Balance -160 / -160 -1025 / -1025
[2024-05-04 09:52] LABS: ACT-LR - POC 242 Seconds (116-155)
--- NOTE | 2024-05-04 10:06 | ITS.CL.CATH ---
Audio Visual Collections Coordinator - Catheterization
Cardiac Catheterization
Procedure Report:
CARDIAC CATHETERIZATION REPORT
Date of Procedure: 05/04/2024
Referring: Mendez Nathan M.D.
Indication: New cardiomyopathy, diabetes, multiple coronary artery disease risk factors.
PROCEDURE:
1. Right heart catheterization.
2. Left heart catheterization.
3. Coronary angiography.
4. Successful IFR of the LAD.
ACCESS:
6 Cymro right radial artery.
5 Cymro right antecubital vein.
CATHETERS:
1. 5 Cymro balloon wedge.
2. 5 Cymro JL 3.5.
3. 5 Cymro JR4.
4. 6 Cymro EBU 3.5 guiding catheter.
HEMODYNAMIC DATA
Weight (kg): 76.7
AO (s/d/x mmHg): 118/81/94
LV (s/x mmHg): 120/27
PCWP (a/v/x mmHg): 37/30/27
PA (s/d/x mmHg): 42/28/32
RV (s/x mmHg): 42/16
RA (a/v/x mmHg): //
SVC SvO2 (%): 66.0
PA SvO2 (%): 56.2
SaO2 (%): 84.2
Hbg (g/dL): 10.7
CO (L/min): 8.60
CI (L/min/m2): 4.78
TPG (mmHg): 5
PVR (Nunes Units): 0.58
SVR (dynes*seconds*cm^-5): 726
AVO2 Diff (Volume %): 4.07
AV gradient (x, mmHg): None.
AV area (cm2): Normal.
LEFT VENTRICULOGRAPHY: Not performed.
CORONARY ANGIOGRAPHY
Dominance: Left.
Left Main: Normal size, bifurcating vessel. There is a 40-50% stenosis in the distal vessel leading into the LAD and circumflex.
LAD: Normal size vessel giving rise to 1 significant diagonal. There is diffuse disease within the mid vessel with a discrete, 60-70% lesion in the proximal/mid LAD, spanning the origin of the diagonal. There is a 40% ostial diagonal lesion.
There is a 70% lesion in the mid diagonal.
Ramus: Congenitally absent.
Circumflex: Normal size, dominant vessel giving rise to a single obtuse marginal before terminating as a diffusely diseased LPDA. There is a 90% lesion in the proximal circumflex spanning the origin of the marginal. There is a 80-90% lesion in
the distal circumflex as it turns into the LPDA. There is a focal, 90% lesion in the midsection of the obtuse marginal.
RCA: Small size, nondominant vessel. The vessel is diffusely diseased.
INTERVENTIONS
1. Successful IFR of the 60-70% proximal/mid LAD lesion, demonstrating occlusive disease (IFR = 0.83).
Narrative:
The decision was made to perform physiologic testing. The diagnostic catheter was removed over a wire and exchanged for a(n) 6 Cymro EBU 3.5 guiding catheter. The guiding catheter was advanced into the ascending aorta and seated in the left main
coronary artery. Additional heparin was given to obtain an ACT greater than 250 seconds. An iFR wire was zeroed outside of the body, then inserted into the guiding sheath. The wire was advanced and the transducer was normalized just outside of the
guiding catheter tip. The wire was advanced into the mid LAD. Three iFR measurements were taken. The lesion was determined to be occlusive (0.83).
Closure Device: Vascular band for the right radial artery, manual pressure for the right antecubital vein.
Radiation dose (mGy): 526.24
DAP (cm2.Gy): 43.5092
Fluoroscopy time (minutes): 6.3
Sedation time (minutes): 20
CONCLUSIONS:
1. Left dominant circulation with a 40-50% lesion in the distal left main, a 40% lesion in the ostium of the diagonal followed by 70% lesion in the mid diagonal, and 90% lesion in the proximal circumflex spanning the origin of the obtuse marginal,
and 80-90% lesion in the distal circumflex as it turns into the LPDA which is diffusely diseased, a focal, 90% lesion in the mid section of the obtuse marginal and an occlusive, 60-70% lesion in the proximal/mid LAD that spans the origin of the
diagonal (IFR = 0.83).
2. Severely elevated filling pressures (LVEDP = 27 mmHg, PCWP = 27 mmHg at 76.7 kg).
3. Severe ischemic cardiomyopathy (LVEF = 30-35%) by echocardiography.
RECOMMENDATIONS:
1. Expectant management after cardiac catheterization via right radial/antecubital approach.
2. Limited weight bearing on the right for one week.
3. Consultation with CT surgery regarding optimal revascularization strategy.
4. Aggressive secondary prevention with high-dose, high potency statin.
5. Diuresis.
6. Guideline directed medical therapy as hemodynamics will tolerate.
7. Referral to cardiac rehab.
Copy to: Mendez Nathan M.D.
Sal Monge DO, FACC, FACP
--- NOTE | 2024-05-04 10:32 | PTCARENOTE ---
Assumed care of pt upon tsf from CCL post ht cath. Pt returns to room, radial band intact, pulses normal with good CMS. Family at bedside, able to translate for pt. VSS, CM shows NSR, 70's, POX 97% on 2L n/c. clinical document improvement educator in with family.
--- NOTE | 2024-05-04 11:02 | CM ---
Chart reviewed. Patient is here from [facility], lives with his in a ground floor apartment, 7-8 NACHO, 0 DME. Plan is for the patient to return home. CM to follow
--- NOTE | 2024-05-04 11:11 | CONSULT.CT ---
Consultation
-
Requesting Provider: Sal Monge DO
Performing Provider: Joseph Green PA-C
Reason for Consultation: Multivessel coronary artery disease
Patient History
Physicians
Outpatient Blending Supervisor: None
Inpatient Blending Supervisor: Mendez Nathan MD (General); Sal Monge DO (Interventional)
History of Present Illness
Patient is a 53-year-old male with significant past medical history involving type 2 diabetes on metformin who presented to the emergency department last week with complaints of shortness of breath and increasing lower extremity edema. The patient
was noted to be in acute heart failure and briefly required BiPAP for oxygenation. The patient was diuresed. His oxygenation ultimately improved. Transthoracic echocardiogram was pursued revealed a left ventricular ejection fraction of
approximately 30% which was new. The patient has no prior history of significant heart disease that he is aware of however he did present with significant hypertension. There was also noted to be mild TR and MR. Aortic root was also dilated at 4
cm. Given these findings left heart cath was ultimately pursued to rule out significant coronary artery disease. Left heart cath reveals a left dominant system with multivessel coronary disease including a IFR positive LAD lesion. Given these
findings, his young age, and his diabetes, he was referred for consideration of CABG as the definitive revascularization strategy.
Currently he is resting comfortably. He remains on nasal cannula oxygen. He is accompanied by several family members who speak Kiswahili however the patient himself only speaks Telugu. He reports no chest pain. As previously stated, he has no
prior cardiac history. He has no history of arrhythmias. He has no history of CVA/TIA, liver/kidney dysfunction, dysphagia, bleeding or clotting disorders, varicose veins or vein stripping, recent melena/hematochezia. He does not use alcohol, he
smoked 1 cigarette/day for about 10 years per his family. He lives at home with his other family members. He does not use a cane or walker for ambulation. He does not wear oxygen at home. He notes prior history of open heart surgery with his
brother but he is unsure of what type of surgery he had.
Past Medical History
Type 2 diabetes, [id number]
Uncontrolled hypertension, newly diagnosed
Obesity with BMI 30
Heart failure with reduced ejection fraction, LVEF 30%, newly diagnosed
Past Surgical History
Past Surgical History: None
Social History
Alcohol: None
Drug: None
Tobacco: Former Smoker (1 cigarette/day for approximate 10 years)
Allergies
Allergy/AdvReac Type Severity Reaction Status Date / Time
No Known Allergies Allergy Unverified 05/01/24 04:15
Home Medications
�Medication �Instructions �Recorded �Confirmed �Type
metformin 500 mg tablet 500 mg PO BID Diabetes 05/01/24 05/01/24 History
Review of Systems
-
History Source: Patient and Family
General: Reports No Symptoms
HEENT: Reports No Symptoms
Respiratory: Reports SOB and HOBSON
Cardiac: Reports Edema
Abdomen/GI: Reports No Symptoms
: Reports No Symptoms
Musculoskeletal: Reports No Symptoms
Skin: Reports No Symptoms
Neurological: Reports No Symptoms
Vascular: Reports No Symptoms
Physical Exam
Vital Signs
Temp 98.3 F 05/04/24 08:17
Temp route: Oral 05/04/24 08:17
Pulse 90 05/04/24 08:17
Rhythm: Normal sinus rhythm 05/04/24 08:22
With- Sinus tachycardia 05/02/24 20:00
Resp Rate 16 05/04/24 08:17
Blood pressure 117/79 05/04/24 07:25
Blood pressure extremity used: Left upper arm 05/04/24 04:14
Position: Lying 05/04/24 04:14
MAP (cuff-Duyen Monitor) 91 05/04/24 07:25
SaO2 94 05/04/24 08:22
Nasal Cannula flow liters per minute 2 05/03/24 15:03
Oxygen Mode of Delivery Room air 05/04/24 08:22
Acceptable pain level during hospitalization? 0 05/01/24 04:15
Can the patient verbally communicate their pain? Yes 05/04/24 08:22
Actual Weight 76.9 kg 05/04/24 04:25
Body Mass Index (BMI) 30.0 05/04/24 04:25
Labs
05/04/24 04:22
Hemoglobin A1c 12.6 % (4.0-5.6) H 05/02/24 04:31
Troponin I 0.689 ng/ml H* 05/02/24 11:30
Ntz-N-Lsxybrztycl Pept 9470 pg/ml 05/01/24 04:26
Urinalysis
Urine Color Yellow 05/01/24 12:34
Urine Clarity Clear (Clear) 05/01/24 12:34
Urine pH 5.0 (5.0-9.0) 05/01/24 12:34
Ur Specific [place] 1.015 (<1.030) 05/01/24 12:34
Urine Ketones Negative (Negative) 05/01/24 12:34
Urine Occult Blood 1+ (Negative) A 05/01/24 12:34
Urine Bilirubin Negative (Negative) 05/01/24 12:34
Ur Leukocyte Esterase Negative (Negative) 05/01/24 12:34
Urine RBC 0-2 /HPF (0-2) 05/01/24 12:34
Urine WBC 0-2 /HPF (0-5) 05/01/24 12:34
Urine Glucose 3+ (Negative) A 05/01/24 12:34
Urine Albumin 3+ (Neg - Trace) A 05/01/24 12:34
Diagnostic Studies
Left heart cath 05/04/2024, Dr. Monge
CONCLUSIONS:
1. Left dominant circulation with a 40-50% lesion in the distal left main, a 40% lesion in the ostium of the diagonal followed by 70% lesion in the mid diagonal, and 90% lesion in the proximal circumflex spanning the origin of the obtuse marginal,
and 80-90% lesion in the distal circumflex as it turns into the LPDA which is diffusely diseased, a focal, 90% lesion in the mid section of the obtuse marginal and an occlusive, 60-70% lesion in the proximal/mid LAD that spans the origin of the
diagonal (IFR = 0.83).
2. Severely elevated filling pressures (LVEDP = 27 mmHg, PCWP = 27 mmHg at 76.7 kg).
3. Severe ischemic cardiomyopathy (LVEF = 30-35%) by echocardiography.
Exam
General: Well Developed, Well Nourished and No Apparent Distress
HEENT: Normocephalic and Anicteric
Neck: Trachea Midline
Respiratory: Clear
Cardiac: S1/S2 and Regular Rhythm
GI: Soft, Non Tender and Non Distended
Rectal: Deferred by Provider
Skin: Warm and Dry
Neuro: Awake and Alert
Psych: Calm
Assessment / Plan
-
1. Multivessel coronary artery disease: Given the patient's young age, multivessel coronary artery disease, history of diabetes, CABG will be considered as the definitive revascularization strategy. I reviewed the perioperative expectations with
the patient and his family including postoperative expected recovery and restrictions. They are interested in pursuing potential surgery. I have ordered preoperative risk stratification. Patient will be evaluated by Dr. Phillips who will provide
definitive recommendations regarding surgical candidacy/timing. Medical management of coronary artery disease per cardiology in the interim.
2. New heart failure reduced EF, LVEF 30%: GDMT per cardiology. Will be limited in the preoperative period.
3. Uncontrolled type 2 diabetes, [id number]: A1c is 12.6. Patient will need to be evaluated by diabetes educators. It is highly likely the patient will require insulin on discharge. Medical management of this per primary team.
4. Uncontrolled hypertension, newly diagnosed: Management per primary
5. Obesity (BMI greater than 30): Diet exercise counseling provided.
Thank you for allowing us participate in the care of this patient. The case will be reviewed in detail with the attending surgeon who will make final recommendations in the form of an addendum.
Data Reviewed
-
Spooling Supervisor: Image Personally Visualized and interpreted
Echo: Image Personally Visualized and interpreted
Radiology: Image Personally Visualized and interpreted
Labs: Labs Reviewed by me
Total Time Spent with Patient (in minutes): 60
[2024-05-04 11:12] LABS: Hematocrit 33.3 % (39.0-52.0); Hemoglobin 10.6 g/dL (13.0-18.0); Mean Corp Hgb Conc. 31.8 g/dL (33.0-37.0); Mean Corpuscular Hgb 26.8 pg (27.0-31.0); Mean Corpuscular Volume 84.3 fL (80.0-94.0); Platelet Count 160 10^3/uL (130-400); Red Blood Cell Count 3.95 10^6/uL (4.70-6.10); Red Cell Dist. Width 12.9 % (11.5-14.5); White Blood Cell Count 6.2 10^3/uL (4.8-10.8)
--- NOTE | 2024-05-04 11:15 | PTCARENOTE ---
Vital signs downloaded from previous shift [id number]
[2024-05-04 11:36] LABS: Glucose - Point of Care 89 mg/dl (70-99)
--- NOTE | 2024-05-04 14:12 | PTCARENOTE ---
Air has been slowly removed since back from laboratory technical specialist to IVR. R band now off and 2x2 drsg and Tegaderm drsg applied. + rad pulse present, no bleeding noted. Pt assisted to bathroom and voided yellow urine, stable on feet. Pt now eating late lunch.
--- NOTE | 2024-05-04 15:52 | PN.DE ---
Diabetes Education
- -
Consulted for Diabetes Education
53 year old male admitted with acute CHF, has hx of T2DM, current A1C of 12.6%, Was taking Metformin prior to admission.
Met with pt and family member at bedside in IVU to provide diabetes education- monitor and insulin instructions and was unsuccessful.
Pt and family states he is not feeling well, report severe weakness and numbness to RUE with fine motor deficit. Pt is not ready for diabetes education at this time. Will try again tomorrow at 10am when pt's Dtr is present- Time has been set up with
Dtr.
[2024-05-04] MEDS: HEPARIN 25000 UNITS/250 ML IV (16:08)
[2024-05-04] MEDS: FLUSH (NSS) 2 FLUSH IV (16:11)
--- NOTE | 2024-05-04 16:40 | PTCARENOTE ---
The patient is aaox3. His vital signs are stable. NSR is noted on the monitor. His right wrist and right brachial dressing are c/d/i. He has no complaint of pain. I reviewed his activity restriction with him. Heparin gtt started at 900units/hr per
order. All communication has been done through an seismic interpreter.
[2024-05-04 16:57] LABS: APTT 29.7 Sec (23.4-35.0)
[2024-05-04 17:08] LABS: Glucose - Point of Care 144 mg/dl (70-99)
[2024-05-04 21:49] LABS: Glucose - Point of Care 117 mg/dl (70-99)
[2024-05-04 23:23] LABS: APTT 40.3 Sec (23.4-35.0)
[2024-05-05] VITALS (7 sets, daily range): BP systolic 117–154; BP diastolic 78–95; BMI 29.5
[2024-05-05 05:09] LABS: B.E. 7.3 mmol/L; O2 Saturation % 90.1 % (94-98); PCO2 45 mmHg (35-48); pH 7.46 (7.35-7.45)
[2024-05-05 05:10] LABS: O2 Therapy ROOM AIR
[2024-05-05 05:11] LABS: PO2 53 mmHg (83-108)
--- NOTE | 2024-05-05 05:28 | PTCARENOTE ---
Pt NSR on monitor. VSS. No c/o of pain or SOB. Heparin adjusted per protocol. ABG PO2 53%. [employer] made aware. pt. placed on 2L
[2024-05-05 06:27] LABS: Hematocrit 29.8 % (39.0-52.0); Hemoglobin 9.7 g/dL (13.0-18.0); Mean Corp Hgb Conc. 32.6 g/dL (33.0-37.0); Mean Corpuscular Hgb 27.1 pg (27.0-31.0); Mean Corpuscular Volume 83.2 fL (80.0-94.0); Mean Platelet Volume 14.4 fL (7.4-10.4); Platelet Count 151 10^3/uL (130-400); Red Blood Cell Count 3.58 10^6/uL (4.70-6.10); Red Cell Dist. Width 12.6 % (11.5-14.5); White Blood Cell Count 5.6 10^3/uL (4.8-10.8)
[2024-05-05 06:30] LABS: INR 1.11; PT 14.1 Sec (11.4-14.6)
[2024-05-05 06:31] LABS: APTT 52.4 Sec (23.4-35.0)
[2024-05-05 06:59] LABS: ALT (SGPT) 24 U/L (0-50); AST (SGOT) 27 U/L (17-59); Albumin 2.5 g/dl (3.5-5.0); Alkaline Phosphatase 85 U/L (38-126); Blood Urea Nitrogen 39 mg/dl (9-20); Calcium 8.2 mg/dl (8.4-10.2); Carbon Dioxide 30 mmol/L (22-30); Chloride 101 mmol/L (98-107); Estimated Creatinine Clearance 71 ml/min; Glucose 98 mg/dl (70-99); Sodium 141 mmol/L (135-145); Total Bilirubin 0.2 mg/dl (0.2-1.3); Total Protein 5.2 g/dl (6.3-8.2); eGFR > 60.00
[2024-05-05 07:27] LABS: Glucose - Point of Care 100 mg/dl (70-99)
--- NOTE | 2024-05-05 07:47 | W.PN.HOSP.TC ---
Today's Communication/Plan
-
see bold
Assessment / Plan
Assessment / Plan
Troponin elevation
Multivessel coronary artery disease
-EKG on admission shows sinus tachycardia with nonspecific T wave changes. Does not have chest pain. Troponin peaked at 0.719
-Started on aspirin 81 mg daily, Coreg 6.25 mg twice a day, lisinopril 5 mg daily, and heparin drip
-05/04 cardiac catheterization shows multivessel coronary artery disease
-CT surgery following, plan for CABG next week
Acute hypoxic respiratory failure -due to acute pulmonary edema. Required BiPAP on arrival, subsequently transitioned to nasal cannula oxygen 4 L. Chest x-ray shows interstitial and alveolar pulmonary opacities and probable bilateral pleural
fluid. Still on 2 L nasal cannula oxygen, wean down as able.
Acute heart failure with a reduced ejection fraction-new diagnosis, Echo w/ EF 30-35%, global hypokinesis. Appreciate cardiology input, continue IV diuresis, trend creatinine
Bilateral pleural effusion -IR consulted for thoracentesis
Hypertensive emergency -presentation with acute heart failure. Initial blood pressure 182/109 in the emergency room. Blood pressure normalized status post IV nitroglycerin drip
DM2 with hyperglycemia -not on insulin at home, uses metformin 500 mg twice daily. Serum bicarbonate normal. No evidence of DKA. Hemoglobin A1c 12.6. In the hospital he is on Lantus 15 units daily, 5 units aspart AC, low resistance corrective
scale. Continue diabetes education, he will need to continue insulin upon discharge
Obesity due to excess calories
DVT prophylaxis�heparin drip
Full code
Updated family at bedside 05/03, 05/04
Total time spent to see the patient on the floor, examine the patient, review data and lab results, discuss treatment plan with patient, nursing staff around 40 minutes.
Physical Exam
General: No acute distress
HEENT: Normocephalic, Atraumatic, EOMI, MMM
Respiratory: Bibasilar crackles
Cardiac: Normal S1/S2, Regular Rate and Rhythm
GI: Soft, Nontender, Nondistended, Normal Bowel Sounds
Extremities: No Clubbing, Cyanosis
Moderate pitting bilateral lower extremity edema
Neuro: Nonfocal/Grossly Intact
Psych: Calm, Cooperative
Derm: No Visible lesions
Anticipated Discharge: > 48 hours
Subjective/Interval History
-
Date of Service: May 05, 2024
Shortness of breath resolved. No chest pain. No fever, no vomiting.
Objective Data
-
Labs:
Laboratory Results
05/04/24 05/05/24 05/05/24
23:03 05:00 05:59
WBC 5.6
Hgb 9.7 L
Hct 29.8 L
Plt Count 151
PT 14.1
INR 1.11
APTT 40.3 H 52.4 H
HCO3 32.0 H
Sodium 141
Potassium 4.0
Chloride 101
Carbon Dioxide 30
BUN 39 H
Creatinine 1.1
Glucose 98
Calcium 8.2 L
Total Bilirubin 0.2
AST 27
ALT 24
Alkaline Phosphatase 85
05/05/24
12:35
WBC
Hgb
Hct
Plt Count
PT
INR
APTT Pending
HCO3
Sodium
Potassium
Chloride
Carbon Dioxide
BUN
Creatinine
Glucose
Calcium
Total Bilirubin
AST
ALT
Alkaline Phosphatase
Vital Signs:
Vital Signs
Temp Pulse Resp BP Pulse Ox
98.5 F 86 18 117/81 97
05/05/24 07:27 05/05/24 04:56 05/05/24 07:27 05/05/24 04:56 05/05/24 07:27
I&O
05/04/24 05/05/2424
06:59 06:59 06:59
Intake Total 150 / 150
Output Total 1025 / 1025 875 / 875
Balance -1025 / -1025 -725 / -725
[2024-05-05] MEDS: LOW STRENGTH ASPIRIN 81 MG PO (08:24)
[2024-05-05] MEDS: NOVOLOG FLEXPEN 5 UNITS SC ×3 (08:25→18:13)
[2024-05-05] MEDS: COREG 6.25 MG PO ×2 (08:25→19:44)
[2024-05-05] MEDS: KCL 20 MEQ PO (08:25)
[2024-05-05] MEDS: NOVOLOG FLEXPEN-LOW RESISTANCE SC ×3 (08:25→18:14)
[2024-05-05] MEDS: LASIX 40 MG IV ×2 (08:25→16:12)
[2024-05-05] MEDS: ZESTRIL 5 MG PO (08:25)
[2024-05-05] MEDS: FLUSH (NSS) 2 FLUSH IV (08:26)
[2024-05-05] MEDS: LANTUS 0.15 UNITS SC (08:28)
--- NOTE | 2024-05-05 08:42 | PTCARENOTE ---
The patient is aaox3. His vital signs are stable. NSR is noted on the monitor. His Heparin gtt is running at 1300 units/hr. He has no complaints of pain or SOB. Lungs are decreased BB. I updated him on his upcoming tests and lab draws. His call villanueva
is within reach.
--- NOTE | 2024-05-05 08:48 | W.PN.CD ---
Today's Communication / Plan
-
CABG evaluation.
Impression / Plan
-
Impression/Plan: 53 y/o male with uncontrolled diabetes and HTN admitted with new HFrEF, cardiac catheterization confirming severe multivessel disease with ischemic cardiomyopathy.
#HFrEF
-Acute, improving.
-LVEF 30-35%.
-IV diuresis continues (furosemide 40 mg BID).
-GDMT:
-Beta kia = carvedilol 6.25 mg BID.
-ACEI/ARB/ARNi = Lisinopril 5 mg daily.
-SGLT2i = None.
-MRA =None.
#Abnormal troponin
-The patient does have surgical disease but does not complain of chest pain (diabetes may obscure his symptoms).
-Troponin has peaked and trended down.
#CAD
-Severe.
-The patient has multivessel disease including an obstructive pLAD spanning the origin of D1.
-Given DM, CTS has been consulted for CABG evaluation.
-High dose high potency statin.
#Hypertension
-Chronic, stable.
-Continue carvedilol/lisinopril.
#Diabetes, type II
-Chronic, uncontrolled.
-HbA1c = 12.6%.
-Insulin per primary team.
-The patient will benefit form SGLT2i and GLP-1 analog.
Subjective/Interval History:
Cardiac catheterization showed surgical disease.
CTS consulted.
Weight is down 1.5 kg.
SaO2 96% on 2LNC.
DATA:
TTE, 05/03/2024:
CONCLUSIONS
Moderately reduced left ventricular systolic function (LVEF 30 to 35%). Global
hypokinesis.
Normal RV size and function.
Mild mitral regurgitation.
Unable to estimate PASP due to incomplete TR envelope.
Mildly dilated aortic root (4.0 cm).
No prior study available for comparison.
Cardiac Catheterization, 05/04/2024:
CONCLUSIONS:
1. Left dominant circulation with a 40-50% lesion in the distal left main, a 40% lesion in the ostium of the diagonal followed by 70% lesion in the mid diagonal, and 90% lesion in the proximal circumflex spanning the origin of the obtuse marginal,
and 80-90% lesion in the distal circumflex as it turns into the LPDA which is diffusely diseased, a focal, 90% lesion in the mid section of the obtuse marginal and an occlusive, 60-70% lesion in the proximal/mid LAD that spans the origin of the
diagonal (IFR = 0.83).
2. Severely elevated filling pressures (LVEDP = 27 mmHg, PCWP = 27 mmHg at 76.7 kg).
3. Severe ischemic cardiomyopathy (LVEF = 30-35%) by echocardiography.
Physical Exam
Vital Signs/Labs
Vital Signs
Temp Pulse Resp BP Pulse Ox
36.9 C 86 18 123/79 97
05/05/24 07:27 05/05/24 08:00 05/05/24 07:27 05/05/24 07:24 05/05/24 07:27
05/03/24 05/04/24 05/05/24
11:59 11:59 11:59
Actual Weight 78.5 kg 76.9 kg 75.4 kg
05/05/24 05:59
05/05/24 05:59
PT 14.1 Sec (11.4-14.6) 05/05/24 05:59
INR 1.11 05/05/24 05:59
APTT 52.4 Sec (23.4-35.0) H 05/05/24 05:59
Magnesium 1.8 mg/dl (1.6-2.3) 05/04/24 04:22
Triglycerides 172 mg/dl (10-149) H 05/02/24 04:31
LDL Cholesterol, Calc 142 mg/dl 05/02/24 04:31
VLDL Cholesterol, Calc 34 mg/dl (0-30) H 05/02/24 04:31
HDL Cholesterol 29 mg/dl 05/02/24 04:31
05/01/24
04:26
[id number] Pept 9470
LAB Results
05/02/24
11:30
Troponin I 0.689 H*
Physical Exam
Constitutional: No acute distress and Comfortable
EENT: Anicteric and Moist mucous membranes
Cardiovascular: Rhythm & rate is regular, Pedal edema is absent, JVD pressure is normal, S1S2 is normal and Murmur/rub/gallop absent
Respiratory: Respiratory effort normal, Lungs clear to auscul., Wheeze Absent, Crackles Absent and Rhonchi Absent
GI: Soft, Distention absent, Flat, Non tender and Normal bowel sounds
Neuro/Psych: AO x 3
Other: Cath Site (Right radial access site is C/D/I.)
Data Reviewed
-
Date of Service: May 05, 2024
Medical Decision Making: Reviewed Test Results, Independent Historian Assessment and Test Interpretation
EKG: Tracing Personally Visualized and interpreted and Report Reviewed by me
Echo: Tracing Personally Visualized and interpreted and Report Reviewed by me
X-Ray/CT/US/MRI/NUC/PET: Image Personally Visualized and interpreted and Report Reviewed by me
Medical Tests (PFT, Pathology etc): Image Personally Visualized and interpreted and Report Reviewed by me
Labs: Labs Reviewed by me
--- NOTE | 2024-05-05 11:22 | CM ---
Chart reviewed. Patient is independent of ADLS, lives with his in a ground floor apartment, 7-8 NACHO, 0 DME. Patient does not speak icelandic, supportive daughters at bedside who translates for the patient. Patient waiting for Dr Phillips to
speak with him and the family. Plan is for the patient to return home. CM to follow
[2024-05-05 12:06] LABS: Glucose - Point of Care 128 mg/dl (70-99)
[2024-05-05 12:52] LABS: APTT 67.1 Sec (23.4-35.0)
[2024-05-05 13:53] LABS: Glucose - Point of Care 98 mg/dl (70-99)
[2024-05-05] MEDS: HEPARIN 25000 UNITS/250 ML IV (14:02)
--- NOTE | 2024-05-05 16:11 | W.PN.UPDATE ---
Update Note
Progress Note Update
Patient seen this afternoon about tentative surgical date. Unfortunately, after review patient still needs surgical optimization. Repeat CXR and repeat labs ordered. Surgery will be scheduled for next week. IR consult for B/L thoracentesis.
[2024-05-05] MEDS: FLUSH (NSS) 1 FLUSH IV (16:12)
[2024-05-05 17:24] LABS: Glucose - Point of Care 142 mg/dl (70-99)
[2024-05-05 20:00] LABS: APTT 79.2 Sec (23.4-35.0)
[2024-05-05 22:18] LABS: Glucose - Point of Care 170 mg/dl (70-99)
--- NOTE | 2024-05-05 23:39 | PTCARENOTE ---
Assumed care of patient at change of shift. Denies any pain or discomfort. Tele remains SR, HR in the 80-90's at rest. Pulse ox fluctuating from 89-93% RA. This RN applied 2L for comfort, pt currently sating 94-99% on 2L O2. Right radial/brachial
dressings C/D/I. IV Heparin gtt currently infusing at 14ml/hr. Next ptt due at 01:35. POC ongoing, call villanueva within reach.
[2024-05-06 01:34] VITALS: BP 141/89
[2024-05-06 01:58] LABS: APTT 93.6 Sec (23.4-35.0)
[2024-05-06 07:13] VITALS: BP 126/81
[2024-05-06 07:18] VITALS: BMI 28.7
--- NOTE | 2024-05-06 08:04 | W.PN.CD ---
Addendum entered and electronically signed by Sal Monge DO 05/11/24 22:21:
Response to CDI: Abnormal troponin is due to non-myocardial infarction troponin elevation from severe heart failure.
Original Note:
Today's Communication / Plan
-
Start dapagliflozin 10 mg daily.
CABG planning.
IR consult for thoracentesis.
Impression / Plan
-
Impression/Plan: 53 y/o male with uncontrolled diabetes and HTN admitted with new HFrEF, cardiac catheterization confirming severe multivessel disease with ischemic cardiomyopathy.
#HFrEF
-Acute, improving.
-LVEF 30-35%.
-IV diuresis continues (furosemide 40 mg BID).
-GDMT:
-Beta kia = carvedilol 6.25 mg BID.
-ACEI/ARB/ARNi = Lisinopril 5 mg daily.
-SGLT2i = Start dapagliflozin 10 mg daily.
-MRA =None.
#Abnormal troponin
-The patient does have surgical disease but does not complain of chest pain (diabetes may obscure his symptoms).
-Troponin has peaked and trended down.
#CAD
-Severe.
-The patient has multivessel disease including an obstructive pLAD spanning the origin of D1.
-Given DM, CTS has been consulted for CABG evaluation.
-High dose high potency statin.
#Hypertension
-Chronic, stable.
-Continue carvedilol/lisinopril.
#Diabetes, type II
-Chronic, uncontrolled.
-HbA1c = 12.6%.
-Insulin per primary team.
-The patient will benefit form SGLT2i and GLP-1 analog.
Subjective/Interval History:
Weight down 1.9 kg from yesterday (73.5 <-- 75.4).
CT surgery planning for CABG.
IR consulted for thoracentesis.
Blood pressure stable, even mildly elevated.
SaO2 99% on 2LNC.
Labs pending this morning.
DATA:
TTE, 05/03/2024:
CONCLUSIONS
Moderately reduced left ventricular systolic function (LVEF 30 to 35%). Global
hypokinesis.
Normal RV size and function.
Mild mitral regurgitation.
Unable to estimate PASP due to incomplete TR envelope.
Mildly dilated aortic root (4.0 cm).
No prior study available for comparison.
Cardiac Catheterization, 05/04/2024:
CONCLUSIONS:
1. Left dominant circulation with a 40-50% lesion in the distal left main, a 40% lesion in the ostium of the diagonal followed by 70% lesion in the mid diagonal, and 90% lesion in the proximal circumflex spanning the origin of the obtuse marginal,
and 80-90% lesion in the distal circumflex as it turns into the LPDA which is diffusely diseased, a focal, 90% lesion in the mid section of the obtuse marginal and an occlusive, 60-70% lesion in the proximal/mid LAD that spans the origin of the
diagonal (IFR = 0.83).
2. Severely elevated filling pressures (LVEDP = 27 mmHg, PCWP = 27 mmHg at 76.7 kg).
3. Severe ischemic cardiomyopathy (LVEF = 30-35%) by echocardiography.
Physical Exam
Vital Signs/Labs
Vital Signs
Temp Pulse Resp BP Pulse Ox
36.8 C 81 18 141/89 99
05/06/24 07:18 05/06/24 06:00 05/06/24 07:18 05/06/24 01:34 05/06/24 07:18
05/04/24 05/05/24 05/06/24
11:59 11:59 11:59
Actual Weight 76.9 kg 75.4 kg 73.5 kg
PT 14.1 Sec (11.4-14.6) 05/05/24 05:59
INR 1.11 05/05/24 05:59
APTT 93.6 Sec (23.4-35.0) H 05/06/24 01:40
Magnesium 1.8 mg/dl (1.6-2.3) 05/04/24 04:22
Triglycerides 172 mg/dl (10-149) H 05/02/24 04:31
LDL Cholesterol, Calc 142 mg/dl 05/02/24 04:31
VLDL Cholesterol, Calc 34 mg/dl (0-30) H 05/02/24 04:31
HDL Cholesterol 29 mg/dl 05/02/24 04:31
05/01/24
04:26
[id number] Pept 9470
Physical Exam
Constitutional: No acute distress and Comfortable
EENT: Anicteric and Moist mucous membranes
Cardiovascular: Rhythm & rate is regular, Pedal edema is absent, JVD pressure is normal, S1S2 is normal and Murmur/rub/gallop absent
Respiratory: Respiratory effort normal, Lungs clear to auscul., Wheeze Absent, Crackles Absent and Rhonchi Absent
GI: Soft, Distention absent, Flat, Non tender and Normal bowel sounds
Neuro/Psych: AO x 3
Other: Cath Site (Right radial access site is C/D/I.)
Data Reviewed
-
Date of Service: May 06, 2024
Medical Decision Making: Reviewed Test Results, Independent Historian Assessment and Test Interpretation
EKG: Tracing Personally Visualized and interpreted and Report Reviewed by me
Echo: Tracing Personally Visualized and interpreted and Report Reviewed by me
X-Ray/CT/US/MRI/NUC/PET: Image Personally Visualized and interpreted and Report Reviewed by me
Medical Tests (PFT, Pathology etc): Image Personally Visualized and interpreted and Report Reviewed by me
Labs: Labs Reviewed by me
Old Records: Reviewed
[2024-05-06 08:05] LABS: APTT 94.5 Sec (23.4-35.0)
[2024-05-06 08:06] LABS: Hematocrit 31.3 % (39.0-52.0); Mean Corp Hgb Conc. 31.9 g/dL (33.0-37.0); Mean Corpuscular Hgb 26.7 pg (27.0-31.0); Mean Corpuscular Volume 83.5 fL (80.0-94.0); Mean Platelet Volume 13.7 fL (7.4-10.4); Platelet Count 172 10^3/uL (130-400); Red Blood Cell Count 3.75 10^6/uL (4.70-6.10); Red Cell Dist. Width 12.7 % (11.5-14.5); White Blood Cell Count 5.2 10^3/uL (4.8-10.8)
[2024-05-06] MEDS: HEPARIN 25000 UNITS/250 ML IV (08:14)
[2024-05-06 08:40] LABS: Blood Urea Nitrogen 35 mg/dl (9-20); Calcium 8.6 mg/dl (8.4-10.2); Carbon Dioxide 34 mmol/L (22-30); Chloride 99 mmol/L (98-107); Estimated Creatinine Clearance 70 ml/min; Glucose 112 mg/dl (70-99); Potassium 3.9 mmol/L (3.5-5.1); Sodium 139 mmol/L (135-145); eGFR > 60.00
[2024-05-06 08:41] LABS: Glucose - Point of Care 109 mg/dl (70-99)
[2024-05-06] MEDS: KCL 20 MEQ PO (08:52)
[2024-05-06] MEDS: COREG 6.25 MG PO ×2 (08:52→20:31)
[2024-05-06] MEDS: LANTUS 0.15 UNITS SC (08:53)
[2024-05-06] MEDS: LASIX 40 MG IV ×2 (08:53→16:36)
[2024-05-06] MEDS: LOW STRENGTH ASPIRIN 81 MG PO (08:53)
[2024-05-06] MEDS: NOVOLOG FLEXPEN 5 UNITS SC ×3 (08:54→19:11)
[2024-05-06] MEDS: NOVOLOG FLEXPEN-LOW RESISTANCE SC ×2 (09:06→19:11)
--- NOTE | 2024-05-06 09:17 | W.PN.HOSP.TC ---
Today's Communication/Plan
-
see bold
Assessment / Plan
Assessment / Plan
Troponin elevation
Multivessel coronary artery disease
-EKG on admission shows sinus tachycardia with nonspecific T wave changes. Does not have chest pain. Troponin peaked at 0.719
-Started on aspirin 81 mg daily, Coreg 6.25 mg twice a day, lisinopril 5 mg daily, and heparin drip
-05/04 cardiac catheterization shows multivessel coronary artery disease
-CT surgery following, plan for CABG next week
Acute hypoxic respiratory failure -due to acute pulmonary edema. Required BiPAP on arrival, subsequently transitioned to nasal cannula oxygen 4 L. Chest x-ray shows interstitial and alveolar pulmonary opacities and probable bilateral pleural
fluid. Still on 2 L nasal cannula oxygen, wean down as able.
Acute heart failure with a reduced ejection fraction-new diagnosis, Echo w/ EF 30-35%, global hypokinesis. Appreciate cardiology input, started on , continue IV diuresis, trend creatinine
Bilateral pleural effusion -status post left thoracentesis draining 900 cc of pleural fluid on 05/06
Hypertensive emergency -presentation with acute heart failure. Initial blood pressure 182/109 in the emergency room. Blood pressure normalized status post IV nitroglycerin drip
DM2 with hyperglycemia -not on insulin at home, uses metformin 500 mg twice daily. Serum bicarbonate normal. No evidence of DKA. Hemoglobin A1c 12.6. In the hospital he is on Lantus 15 units daily, 5 units aspart AC, low resistance corrective
scale. Continue diabetes education, he will need to continue insulin upon discharge
Obesity due to excess calories
DVT prophylaxis�heparin drip
Full code
Updated family at bedside 05/03, 05/04
Total time spent to see the patient on the floor, examine the patient, review data and lab results, discuss treatment plan with patient, nursing staff around 39 minutes.
Physical Exam
General: No acute distress
HEENT: Normocephalic, Atraumatic, EOMI, MMM
Respiratory: Bibasilar crackles
Cardiac: Normal S1/S2, Regular Rate and Rhythm
GI: Soft, Nontender, Nondistended, Normal Bowel Sounds
Extremities: No Clubbing, Cyanosis
Moderate pitting bilateral lower extremity edema
Neuro: Nonfocal/Grossly Intact
Psych: Calm, Cooperative
Derm: No Visible lesions
Anticipated Discharge: > 48 hours
Subjective/Interval History
-
Date of Service: May 06, 2024
No shortness of breath. Has mild pain in his thoracentesis site. No fever, no vomiting.
Objective Data
-
Labs:
Laboratory Results
05/06/24 05/06/24 05/06/24
01:40 07:43 07:44
WBC 5.2
Hgb 10.0 L
Hct 31.3 L
Plt Count 172
APTT 93.6 H
Sodium 139
Potassium 3.9
Chloride 99
Carbon Dioxide 34 H
BUN 35 H
Creatinine 1.0
Glucose 112 H
Calcium 8.6
05/06/24
07:45
WBC
Hgb
Hct
Plt Count
APTT 94.5 H
Sodium
Potassium
Chloride
Carbon Dioxide
BUN
Creatinine
Glucose
Calcium
Vital Signs:
Vital Signs
Temp Pulse Resp BP Pulse Ox
98.2 F 82 18 126/81 99
05/06/24 07:18 05/06/24 08:00 05/06/24 07:18 05/06/24 07:13 05/06/24 07:18
I&O
05/05/24 05/06/24 05/07/24
06:59 06:59 06:59
Intake Total 150 / 150 648 / 648
Output Total 875 / 875 600 / 600
Balance -725 / -725 48 /
--- NOTE | 2024-05-06 10:04 | PTCARENOTE ---
Pt sent to IR for thoracentesis.
[2024-05-06 11:31] VITALS: BP 104/70
--- NOTE | 2024-05-06 11:45 | PTCARENOTE ---
Rec'd Pt post L thoracentesis, A,A+O, denies pain, VSS. Pt taken off of O2. O2 sat 96% on RA, he denies SOB. L back bandaid D+I.
--- NOTE | 2024-05-06 12:02 | CM ---
Addendum entered by Kizzy Morejon RN 05/07/24 08:41:
Patient completed the [employer] assistance form. Form faxed to [place] and [place].
Addendum entered by Kizzy Morejon RN 05/06/24 12:16:
Placed a free 30 day coupon in his red discharge folder
Original Note:
Pricing on Farxiga. Patient does not have a prescription plan. I used the stave inspector phone to talk with the patient. The patient and his only work 1-2 days a week, total income is less than 61,000 so he does qualify for the indigent
program. I gave him the paperwork to fill out with his daughters. CM to follow up with the patient's daughters.
[2024-05-06 12:22] LABS: Glucose - Point of Care 170 mg/dl (70-99)
[2024-05-06] MEDS: FARXIGA 10 MG PO (12:28)
[2024-05-06] MEDS: NOVOLOG FLEXPEN-LOW RESISTANCE 1 UNITS SC (12:29)
--- NOTE | 2024-05-06 15:19 | PN.CDI ---
CDI
- -
CDI:
Physician Documentation Request
Admit Date: 05/01/24 08:42
Dear Doctor Saleem,
Clinical Indicators:
Patient admitted with new HFrEF; s/p cardiac cath 05/05.
05/04 Cardiology PN, 'Abnormal troponin...likely nonischemic myocardial injury from hear failure May also have underlying CAD but a type I or II DE this admit seems unlikely...Abnormal EKG, suggesting Ant DE age undetermined'
05/05 Cardiology PN, 'Abnormal troponin-The patient does have surgical disease but does not complain of chest pain (diabetes may obscure his symptoms)...CAD-Severe.-The patient has multivessel disease including an obstructive pLAD spanning the
origin of D1.'
Troponin trend:
05/01/24 05/01/24 05/01/24
04:26 11:27 17:36
Troponin I 0.076 H* 0.281 H* D 0.428 H* D
05/01/24 05/02/24 05/02/24
23:07 04:31 11:30
Troponin I 0.613 H* D 0.719 H* 0.689 H*
Based on the above, could you clarify in the progress notes, the etiology of the abnormal troponin:
N STEMI
Type 2 DE
Non ischemic myocardial injury
Other, please specify
Use of terms such as suspected, likely, concern for, or probable (associated with a specific diagnosis that is being evaluated, monitored, or treated as if it exists) are acceptable and can be coded in the inpatient setting, when documented at the
time of discharge.
Thank you,
Ghislaine Hampton RN BSN
CDI Specialist
available via tiger text
Please use your independent medical judgment in providing your response.
[2024-05-06 16:41] VITALS: BP 128/87
[2024-05-06 18:57] LABS: Glucose - Point of Care 118 mg/dl (70-99)
[2024-05-06 18:58] VITALS: BP 137/83
[2024-05-06 21:51] LABS: Glucose - Point of Care 166 mg/dl (70-99)
[2024-05-06 23:34] VITALS: BP 120/76
[2024-05-07] VITALS (7 sets, daily range): BP systolic 106–145; BP diastolic 69–94; BMI 27.3
[2024-05-07] MEDS: HEPARIN 25000 UNITS/250 ML IV ×2 (02:33→17:56)
--- NOTE | 2024-05-07 06:35 | PTCARENOTE ---
Pt NSR on monitor. VSS Denies pain or SOB. Ambulates independently in the room. safety measures in place
[2024-05-07 07:22] LABS: Blood Urea Nitrogen 40 mg/dl (9-20); Calcium 9.1 mg/dl (8.4-10.2); Carbon Dioxide 31 mmol/L (22-30); Chloride 98 mmol/L (98-107); Estimated Creatinine Clearance 63 ml/min; Glucose 134 mg/dl (70-99); Potassium 4.3 mmol/L (3.5-5.1); Sodium 138 mmol/L (135-145); eGFR > 60.00
[2024-05-07 08:35] LABS: Glucose - Point of Care 119 mg/dl (70-99)
--- NOTE | 2024-05-07 09:03 | W.PN.HOSP.TC ---
Today's Communication/Plan
-
See bold
Assessment / Plan
Assessment / Plan
Troponin elevation
Multivessel coronary artery disease
-EKG on admission shows sinus tachycardia with nonspecific T wave changes. Does not have chest pain. Troponin peaked at 0.719
-Started on aspirin 81 mg daily, Coreg 6.25 mg twice a day, lisinopril 5 mg daily, and heparin drip
-05/04 cardiac catheterization shows multivessel coronary artery disease
-CT surgery following, plan for CABG next week
Acute hypoxic respiratory failure -due to acute pulmonary edema. Required BiPAP on arrival, subsequently transitioned to nasal cannula oxygen 4 L. Chest x-ray shows interstitial and alveolar pulmonary opacities and probable bilateral pleural
fluid. Resolved, now on RA
Acute heart failure with a reduced ejection fraction-new diagnosis, Echo w/ EF 30-35%, global hypokinesis. Appreciate cardiology input, started on , continue IV diuresis, trend creatinine
Bilateral pleural effusion -status post left thoracentesis draining 900 cc of pleural fluid on 05/06
Hypertensive emergency -presentation with acute heart failure. Initial blood pressure 182/109 in the emergency room. Blood pressure normalized status post IV nitroglycerin drip
DM2 with hyperglycemia -not on insulin at home, uses metformin 500 mg twice daily. Serum bicarbonate normal. No evidence of DKA. Hemoglobin A1c 12.6. In the hospital he is on Lantus 15 units daily, 5 units aspart AC, low resistance corrective
scale. Continue diabetes education, he will need to continue insulin upon discharge
Obesity due to excess calories
DVT prophylaxis�heparin drip
Full code
Updated family at bedside 05/03, 05/04, 05/07
Total time spent to see the patient on the floor, examine the patient, review data and lab results, discuss treatment plan with patient, nursing staff around 45 minutes.
Physical Exam
General: No acute distress
HEENT: Normocephalic, Atraumatic, EOMI, MMM
Respiratory: Bibasilar crackles
Cardiac: Normal S1/S2, Regular Rate and Rhythm
GI: Soft, Nontender, Nondistended, Normal Bowel Sounds
Extremities: No Clubbing, Cyanosis
Improving pitting bilateral lower extremity edema
Neuro: Nonfocal/Grossly Intact
Anticipated Discharge: > 48 hours
Subjective/Interval History
-
Date of Service: May 07, 2024
Has a mild cough. No chest pain, no shortness of breath, no palpitations. No fever, no vomiting.
Objective Data
-
Labs:
Laboratory Results
05/07/24
05:58
APTT 97.0 H
Sodium 138
Potassium 4.3
Chloride 98
Carbon Dioxide 31 H
BUN 40 H
Creatinine 1.1
Glucose 134 H
Calcium 9.1
Vital Signs:
Vital Signs
Temp Pulse Resp BP Pulse Ox
98.1 F 75 20 121/75 98
05/07/24 06:59 05/07/24 07:00 05/07/24 06:59 05/07/24 06:59 05/07/24 06:59
I&O
05/06/24 05/07/24 05/08/24
06:59 06:59 06:59
Intake Total 648 / 648 480 / 480
Output Total 600 / 600
Balance 48 / 48 480 / 480
[2024-05-07] MEDS: KCL 20 MEQ PO (09:19)
[2024-05-07] MEDS: LOW STRENGTH ASPIRIN 81 MG PO (09:20)
[2024-05-07] MEDS: LANTUS 0.15 UNITS SC (09:20)
[2024-05-07] MEDS: FARXIGA 10 MG PO (09:20)
[2024-05-07] MEDS: COREG 6.25 MG PO ×2 (09:21→19:56)
[2024-05-07] MEDS: TYLENOL 650 MG PO (09:21)
[2024-05-07] MEDS: LASIX 40 MG IV ×2 (09:24→16:36)
[2024-05-07] MEDS: NOVOLOG FLEXPEN-LOW RESISTANCE SC ×2 (09:25→17:52)
--- NOTE | 2024-05-07 09:25 | W.PN.CD ---
Addendum entered and electronically signed by Johnie Christine MD 05/07/24 10:20:
I saw and examined the patient.
The HIGH SCHOOL ACADEMIC COACH's note was reviewed and I agree with the note.
Comfortable. No chest pain. Lungs clear. Rhythm stable on telemetry. Continue with current medical therapy. Await CT evaluation in progress
Original Note:
Today's Communication / Plan
-
continue medical therapy.
awaiting CT surgery evaluation.
Impression / Plan
-
Impression/Plan: 53 y/o male with uncontrolled diabetes and HTN admitted with new HFrEF, cardiac catheterization confirming severe multivessel disease with ischemic cardiomyopathy.
#HFrEF
-Acute, improving with diuresis, weight is down overnight.
-LVEF 30-35%.
-IV diuresis continues (furosemide 40 mg BID).
-S/P left thoracentesis 05/06/24 with 900ml removed, denies SOB.
-GDMT:
-Beta kia = carvedilol 6.25 mg BID.
-ACEI/ARB/ARNi = Lisinopril 5 mg daily.
-SGLT2i = Start dapagliflozin 10 mg daily.
-MRA =None.
#CAD
-Severe on cath.
-The patient has multivessel disease including an obstructive pLAD spanning the origin of D1.
-Given DM, CTS has been consulted for CABG evaluation. Awaiting evaluation.
-High dose, high potency statin.
#Hypertension
-Chronic, stable.
-Continue carvedilol and lisinopril.
#HLD
-LDL 142, goal LDL is < 55.
-now on Lipitor 80mg daily.
#Diabetes, type II
-Chronic, uncontrolled.
-HbA1c = 12.6%.
-Insulin per primary team.
-On Farxiga now.
Subjective/Interval History:
exam and interviewed performed via Language Line with Estonian anesthesiologist and critical care Jason.
Weight down 9 lbs from yesterday! s/p left thoracentesis yesterday, 900ml removed.
he c/o mild soreness to left lung puncture site from thoracentesis. post CXR normal.
denies SOB.
CT surgery planning for CABG, awaiting evaluation.
DATA:
TTE, 05/03/2024:
CONCLUSIONS
Moderately reduced left ventricular systolic function (LVEF 30 to 35%). Global
hypokinesis.
Normal RV size and function.
Mild mitral regurgitation.
Unable to estimate PASP due to incomplete TR envelope.
Mildly dilated aortic root (4.0 cm).
No prior study available for comparison.
Cardiac Catheterization, 05/04/2024:
CONCLUSIONS:
1. Left dominant circulation with a 40-50% lesion in the distal left main, a 40% lesion in the ostium of the diagonal followed by 70% lesion in the mid diagonal, and 90% lesion in the proximal circumflex spanning the origin of the obtuse marginal,
and 80-90% lesion in the distal circumflex as it turns into the LPDA which is diffusely diseased, a focal, 90% lesion in the mid section of the obtuse marginal and an occlusive, 60-70% lesion in the proximal/mid LAD that spans the origin of the
diagonal (IFR = 0.83).
2. Severely elevated filling pressures (LVEDP = 27 mmHg, PCWP = 27 mmHg at 76.7 kg).
3. Severe ischemic cardiomyopathy (LVEF = 30-35%) by echocardiography.
Physical Exam
Vital Signs/Labs
Vital Signs
Temp Pulse Resp BP Pulse Ox
98.1 F 75 20 121/75 98
05/07/24 06:59 05/07/24 07:00 05/07/24 06:59 05/07/24 06:59 05/07/24 06:59
05/06/24 05/07/24 05/08/24
06:59 06:59 06:59
Actual Weight 153 lb 14.122 oz
05/06/24 07:44
05/07/24 05:58
PT 14.1 Sec (11.4-14.6) 05/05/24 05:59
INR 1.11 05/05/24 05:59
APTT 97.0 Sec (23.4-35.0) H 05/07/24 05:58
Magnesium 1.8 mg/dl (1.6-2.3) 05/04/24 04:22
Triglycerides 172 mg/dl (10-149) H 05/02/24 04:31
LDL Cholesterol, Calc 142 mg/dl 05/02/24 04:31
VLDL Cholesterol, Calc 34 mg/dl (0-30) H 05/02/24 04:31
HDL Cholesterol 29 mg/dl 05/02/24 04:31
05/01/24
04:26
Sbh-W-Gwtqgutboqh Pept 9470
Physical Exam
Constitutional: No acute distress and Comfortable
EENT: Anicteric and Moist mucous membranes
Cardiovascular: Rhythm & rate is regular
Respiratory: Respiratory effort normal, Lungs clear to auscul. and Other (soreness to left lung puncture site of thoracentesis)
GI: Soft, Non tender and Normal bowel sounds
Neuro/Psych: AO x 3
Other: Skin (warm, dry)
Data Reviewed
-
Date of Service: May 07, 2024
Medical Decision Making: Reviewed Test Results
EKG: Tracing Personally Visualized and interpreted
Echo: Report Reviewed by me
X-Ray/CT/US/MRI/NUC/PET: Report Reviewed by me
Labs: Labs Reviewed by me
Old Records: Reviewed
[2024-05-07] MEDS: NOVOLOG FLEXPEN 5 UNITS SC ×3 (09:26→17:52)
--- NOTE | 2024-05-07 09:43 | PTCARENOTE ---
pt continues to be sr on the monitor, hr in the 80s, vss. pt c/o 'back pain' and surgical site. Tylenol given, see MAR. Pt educated on plan of care and pt verbalized understanding. heparin gtt running per protocol, call villanueva within reach.
[2024-05-07 13:29] LABS: Glucose - Point of Care 186 mg/dl (70-99)
[2024-05-07] MEDS: NOVOLOG FLEXPEN-LOW RESISTANCE 1 UNITS SC (13:31)
--- NOTE | 2024-05-07 15:36 | CM ---
Preoperative and postoperative instructions and restrictions taught to the patient through the Ipad Interpretation using Lithuanian. I also went over showering instructions. I gave the patient the Cardiac Surgery Book, to review with his daughters
who speak Tajik. Patient is agreeable to a home visit by CT Transitional RN. Plan is for the patient to return home with CT Transitional RN.
[2024-05-07] MEDS: LIPITOR 80 MG PO (16:36)
--- NOTE | 2024-05-07 17:28 | PTCARENOTE ---
pt continues to be sr on the monitor, hr in the 80s, vss. pt educated on plan of care and pt verbalized understanding. heparin gtt running per protocol, see documentation. pt call villanueva within reach.
[2024-05-07 17:55] LABS: Glucose - Point of Care 121 mg/dl (70-99)
[2024-05-07 20:39] LABS: Glucose - Point of Care 103 mg/dl (70-99)
--- NOTE | 2024-05-07 22:08 | PTCARENOTE ---
Received patient at change of shift. SR on the monitor, HR in the 80s. Heparin gtt running as per protocol. Discussed plan of care with patient and his sister, pt verbalizes understanding. No complaints from pt at this time, call villanueva within reach.
[2024-05-08 04:33] VITALS: BP 108/76
[2024-05-08 04:48] VITALS: BMI 26.5
[2024-05-08 05:30] LABS: APTT 107.3 Sec (23.4-35.0)
[2024-05-08 05:37] LABS: Hematocrit 34.2 % (39.0-52.0); Hemoglobin 11.2 g/dL (13.0-18.0); Mean Corp Hgb Conc. 32.7 g/dL (33.0-37.0); Mean Corpuscular Hgb 27.1 pg (27.0-31.0); Mean Corpuscular Volume 82.6 fL (80.0-94.0); Platelet Count 216 10^3/uL (130-400); Red Blood Cell Count 4.14 10^6/uL (4.70-6.10); Red Cell Dist. Width 12.4 % (11.5-14.5); White Blood Cell Count 6.4 10^3/uL (4.8-10.8)
[2024-05-08 06:04] LABS: Blood Urea Nitrogen 45 mg/dl (9-20); Calcium 9.1 mg/dl (8.4-10.2); Carbon Dioxide 32 mmol/L (22-30); Chloride 97 mmol/L (98-107); Estimated Creatinine Clearance 58 ml/min; Glucose 126 mg/dl (70-99); Sodium 138 mmol/L (135-145); eGFR > 60.00
[2024-05-08 07:53] VITALS: BP 130/81
[2024-05-08 07:57] LABS: Glucose - Point of Care 126 mg/dl (70-99)
--- NOTE | 2024-05-08 08:04 | W.PN.CD ---
Addendum entered and electronically signed by Johnie Christine MD 05/08/24 08:16:
I saw and examined the patient.
The GOVERNMENT EMPLOYEE's note was reviewed and I agree with the note.
Stable. Lungs clear. No chest discomfort overnight
Reduce IV Lasix to daily and continue to monitor. May consider transitioning to oral dosing tomorrow.
CT surgery evaluation in progress
Original Note:
Today's Communication / Plan
-
reduce Lasix 40mg IV to daily and monitor.
Impression / Plan
-
Impression/Plan: 53 y/o male with uncontrolled diabetes and HTN admitted with new HFrEF, cardiac catheterization confirming severe multivessel disease with ischemic cardiomyopathy.
#HFrEF - Acute.
-improving with diuresis, weight is down 4 lbs overnight.
-LVEF 30-35%.
-continue IV diuresis with Lasix 40 mg, switch to daily today and montior.
-S/P left thoracentesis 05/06/24 with 900ml removed, denies SOB.
-repeat CXR this am appears improved.
-GDMT:
-Beta kia = carvedilol 6.25 mg BID.
-ACEI/ARB/ARNi = Lisinopril 5 mg daily, consider switching to Entresto post surgery.
-SGLT2i = Start dapagliflozin 10 mg daily.
-MRA =None.
#CAD
-Severe on cath.
-Multivessel disease including an obstructive pLAD spanning the origin of D1.
-Given DM, CTS has been consulted for CABG evaluation. Awaiting evaluation.
-High dose, high potency statin.
#Hypertension
-Chronic, stable.
-Continue carvedilol and lisinopril.
#HLD
-LDL 142, goal LDL is < 55.
-now on Lipitor 80mg daily.
#Diabetes, type II
-Chronic, uncontrolled.
-HbA1c = 12.6%.
-Insulin per primary team.
-On ga now.
Subjective/Interval History:
exam and interviewed performed via Language Line with [facility] picker/puller Ana.
Weight down 4lbs from yesterday. denies SOB.
CT surgery planning for CABG possibly Friday.
DATA:
TTE, 05/03/2024:
CONCLUSIONS
Moderately reduced left ventricular systolic function (LVEF 30 to 35%). Global
hypokinesis.
Normal RV size and function.
Mild mitral regurgitation.
Unable to estimate PASP due to incomplete TR envelope.
Mildly dilated aortic root (4.0 cm).
No prior study available for comparison.
Cardiac Catheterization, 05/04/2024:
CONCLUSIONS:
1. Left dominant circulation with a 40-50% lesion in the distal left main, a 40% lesion in the ostium of the diagonal followed by 70% lesion in the mid diagonal, and 90% lesion in the proximal circumflex spanning the origin of the obtuse marginal,
and 80-90% lesion in the distal circumflex as it turns into the LPDA which is diffusely diseased, a focal, 90% lesion in the mid section of the obtuse marginal and an occlusive, 60-70% lesion in the proximal/mid LAD that spans the origin of the
diagonal (IFR = 0.83).
2. Severely elevated filling pressures (LVEDP = 27 mmHg, PCWP = 27 mmHg at 76.7 kg).
3. Severe ischemic cardiomyopathy (LVEF = 30-35%) by echocardiography.
Physical Exam
Vital Signs/Labs
Vital Signs
Temp Pulse Resp BP Pulse Ox
98 F 81 18 108/76 97
05/08/24 04:30 05/08/24 05:00 05/08/24 04:30 05/08/24 04:33 05/08/24 04:30
05/07/24 05/08/24 05/09/24
06:59 06:59 06:59
Actual Weight 153 lb 14.122 oz 149 lb 7.574 oz
05/08/24 04:39
05/08/24 04:39
PT 14.1 Sec (11.4-14.6) 05/05/24 05:59
INR 1.11 05/05/24 05:59
APTT 107.3 Sec (23.4-35.0) H 05/08/24 04:39
Magnesium 1.8 mg/dl (1.6-2.3) 05/04/24 04:22
Triglycerides 172 mg/dl (10-149) H 05/02/24 04:31
LDL Cholesterol, Calc 142 mg/dl 05/02/24 04:31
VLDL Cholesterol, Calc 34 mg/dl (0-30) H 05/02/24 04:31
HDL Cholesterol 29 mg/dl 05/02/24 04:31
05/01/24
04:26
Rkx-K-Uhuhwbllbjf Pept 9470
Physical Exam
Constitutional: No acute distress and Comfortable
EENT: Anicteric and Moist mucous membranes
Cardiovascular: Rhythm & rate is regular
Respiratory: Respiratory effort normal
GI: Soft, Non tender and Normal bowel sounds
Neuro/Psych: AO x 3
Other: Skin (warm, dry)
Data Reviewed
-
Date of Service: May 08, 2024
Medical Decision Making: Reviewed Test Results
EKG: Tracing Personally Visualized and interpreted
Echo: Report Reviewed by me
X-Ray/CT/US/MRI/NUC/PET: Image Personally Visualized and interpreted
Labs: Labs Reviewed by me
Old Records: Reviewed
[2024-05-08] MEDS: NOVOLOG FLEXPEN-LOW RESISTANCE SC ×2 (08:27→12:31)
[2024-05-08] MEDS: NOVOLOG FLEXPEN 5 UNITS SC ×3 (08:27→17:43)
[2024-05-08] MEDS: KCL 20 MEQ PO (08:28)
[2024-05-08] MEDS: FARXIGA 10 MG PO (08:28)
[2024-05-08] MEDS: LANTUS 0.15 UNITS SC (08:28)
[2024-05-08] MEDS: LOW STRENGTH ASPIRIN 81 MG PO (08:29)
[2024-05-08] MEDS: COREG 6.25 MG PO ×2 (08:29→19:50)
[2024-05-08] MEDS: LASIX 40 MG IV (09:24)
[2024-05-08] MEDS: LASIX IV (10:39)
--- NOTE | 2024-05-08 10:57 | PTCARENOTE ---
Assumed care of pt from night RN. Pt received awake and alert, Ox3. Language line utilized as pt is from [facility]. Heparin drip infusing through right wrist at 1,400 units/hr, levels are therapeutic. Pt denies any pain or discomfort at this
time. Ambulating freely in room.
[2024-05-08 12:27] VITALS: BP 112/81
[2024-05-08 12:30] LABS: Glucose - Point of Care 145 mg/dl (70-99)
[2024-05-08] MEDS: HEPARIN 25000 UNITS/250 ML IV (12:33)
--- NOTE | 2024-05-08 15:02 | W.PN.HOSP.TC ---
Today's Communication/Plan
-
see bold
Assessment / Plan
Assessment / Plan
Multivessel coronary artery disease
Troponin elevation
-EKG on admission shows sinus tachycardia with nonspecific T wave changes. Does not have chest pain. Troponin peaked at 0.719
-Started on aspirin 81 mg daily, atorvastatin 80 mg at bedtime, Coreg 6.25 mg twice a day, lisinopril 5 mg daily, and heparin drip
-05/04 cardiac catheterization shows multivessel coronary artery disease
-CT surgery following, plan for CABG next week
Acute hypoxic respiratory failure -due to acute pulmonary edema. Required BiPAP on arrival, subsequently transitioned to nasal cannula oxygen 4 L. Chest x-ray shows interstitial and alveolar pulmonary opacities and probable bilateral pleural
fluid. Resolved, now on RA
Acute heart failure with a reduced ejection fraction-new diagnosis, Echo w/ EF 30-35%, global hypokinesis. Appreciate cardiology input, started on . Weight down 13 kg since admission. Lasix 40 mg IV twice daily changed to Lasix 40 mg IV
daily by cardiology
Bilateral pleural effusion -status post left thoracentesis draining 900 cc of pleural fluid on 05/06
Hypertensive emergency -presentation with acute heart failure. Initial blood pressure 182/109 in the emergency room. Blood pressure normalized status post IV nitroglycerin drip
DM2 with hyperglycemia -not on insulin at home, uses metformin 500 mg twice daily. Serum bicarbonate normal. No evidence of DKA. Hemoglobin A1c 12.6. In the hospital he is on Lantus 15 units daily, 5 units aspart AC, low resistance corrective
scale. Continue diabetes education, he will need to continue insulin upon discharge
Constipation�start MiraLAX daily, Colace 100 mg twice a day
DVT prophylaxis�heparin drip
Full code
Updated family at bedside 05/03, 05/04, 05/07, 05/08
Total time spent to see the patient on the floor, examine the patient, review data and lab results, discuss treatment plan with patient, nursing staff around 50 minutes.
Physical Exam
General: No acute distress
HEENT: Normocephalic, Atraumatic, EOMI, MMM
Respiratory: Bibasilar crackles
Cardiac: Normal S1/S2, Regular Rate and Rhythm
GI: Soft, Nontender, Nondistended, Normal Bowel Sounds
Extremities: No Clubbing, Cyanosis
Improving pitting bilateral lower extremity edema
Neuro: Nonfocal/Grossly Intact
Anticipated Discharge: > 48 hours
Subjective/Interval History
-
Date of Service: May 08, 2024
Patient complains of constipation, hard stools. No chest pain, no shortness of breath. No fever, no vomiting.
Objective Data
-
Labs:
Laboratory Results
05/08/24
04:39
WBC 6.4
Hgb 11.2 L
Hct 34.2 L
Plt Count 216 D
APTT 107.3 H
Sodium 138
Potassium 4.0
Chloride 97 L
Carbon Dioxide 32 H
BUN 45 H
Creatinine 1.2
Glucose 126 H
Calcium 9.1
Vital Signs:
Vital Signs
Temp Pulse Resp BP Pulse Ox
98 F 84 16 130/81 94
05/08/24 08:08 05/08/24 08:08 05/08/24 08:08 05/08/24 07:53 05/08/24 08:08
I&O
05/07/24 05/08/24 05/09/24
06:59 06:59 06:59
Intake Total 480 / 480
Balance 480 / 480
[2024-05-08] MEDS: MIRALAX 17 GRAMS PO (15:30)
[2024-05-08] MEDS: COLACE 100 MG PO (15:30)
[2024-05-08 15:49] VITALS: BP 119/72
[2024-05-08] MEDS: NOVOLOG FLEXPEN-LOW RESISTANCE 1 UNITS SC (17:43)
[2024-05-08 17:44] LABS: Glucose - Point of Care 157 mg/dl (70-99)
[2024-05-08] MEDS: LIPITOR 80 MG PO (17:44)
[2024-05-08 19:41] VITALS: BP 100/57
[2024-05-08] MEDS: COLACE PO (20:00)
[2024-05-08 21:05] LABS: Glucose - Point of Care 209 mg/dl (70-99)
[2024-05-08 22:23] VITALS: BP 128/79
--- NOTE | 2024-05-08 22:47 | PTCARENOTE ---
Pt resting most of shift in bed with family at bedside. No c/o pain. Sinus on telemetry. Heparin gtt continued at 1400 unit/hr. call villanueva within reach.
[2024-05-09 04:21] VITALS: BP 110/78
[2024-05-09 04:42] VITALS: BMI 26.6
[2024-05-09 05:01] LABS: APTT 101.9 Sec (23.4-35.0)
[2024-05-09 05:53] LABS: Blood Urea Nitrogen 41 mg/dl (9-20); Calcium 8.8 mg/dl (8.4-10.2); Carbon Dioxide 23 mmol/L (22-30); Chloride 104 mmol/L (98-107); Estimated Creatinine Clearance 58 ml/min; Glucose 146 mg/dl (70-99); Potassium 4.1 mmol/L (3.5-5.1); Sodium 139 mmol/L (135-145); eGFR > 60.00
[2024-05-09] MEDS: HEPARIN 25000 UNITS/250 ML IV (06:27)
[2024-05-09 07:08] VITALS: BP 109/70
[2024-05-09 07:10] LABS: Glucose - Point of Care 163 mg/dl (70-99)
[2024-05-09] MEDS: LASIX 40 MG IV (08:20)
[2024-05-09] MEDS: MIRALAX 17 GRAMS PO (08:20)
[2024-05-09] MEDS: FARXIGA 10 MG PO (08:21)
[2024-05-09] MEDS: KCL 20 MEQ PO (08:21)
[2024-05-09] MEDS: COREG 6.25 MG PO ×2 (08:21→20:20)
[2024-05-09] MEDS: COLACE 100 MG PO ×2 (08:22→20:21)
[2024-05-09] MEDS: LOW STRENGTH ASPIRIN 81 MG PO (08:22)
[2024-05-09] MEDS: LANTUS 0.15 UNITS SC (08:22)
[2024-05-09] MEDS: NOVOLOG FLEXPEN 5 UNITS SC ×2 (08:24→12:28)
[2024-05-09] MEDS: NOVOLOG FLEXPEN-LOW RESISTANCE 1 UNITS SC (08:24)
--- NOTE | 2024-05-09 08:49 | W.PN.HOSP.TC ---
Today's Communication/Plan
-
see bold
Assessment / Plan
Assessment / Plan
Multivessel coronary artery disease
Troponin elevation
-EKG on admission shows sinus tachycardia with nonspecific T wave changes. Does not have chest pain. Troponin peaked at 0.719
-Started on aspirin 81 mg daily, atorvastatin 80 mg at bedtime, Coreg 6.25 mg twice a day, lisinopril 5 mg daily, and heparin drip
-05/04 cardiac catheterization shows multivessel coronary artery disease
-CT surgery following, plan for CABG poss Friday
Acute hypoxic respiratory failure -due to acute pulmonary edema. Required BiPAP on arrival, subsequently transitioned to nasal cannula oxygen 4 L. Chest x-ray shows interstitial and alveolar pulmonary opacities and probable bilateral pleural
fluid. Resolved, now on RA
Acute heart failure with a reduced ejection fraction-new diagnosis, Echo w/ EF 30-35%, global hypokinesis. Appreciate cardiology input, started on . Weight down 13 kg since admission. Status post IV Lasix, now on Lasix 20 mg p.o. daily
Bilateral pleural effusion -status post left thoracentesis draining 900 cc of pleural fluid on 05/06
Hypertensive emergency -presentation with acute heart failure. Initial blood pressure 182/109 in the emergency room. Blood pressure normalized status post IV nitroglycerin drip
DM2 with hyperglycemia -not on insulin at home, uses metformin 500 mg twice daily. Serum bicarbonate normal. No evidence of DKA. Hemoglobin A1c 12.6. Increase Lantus 16 units daily, 6 units aspart AC, low resistance corrective scale. Continue
diabetes education, he will need to continue insulin upon discharge
Constipation�resolved on MiraLAX daily, Colace 100 mg twice a day
DVT prophylaxis�heparin drip
Full code
Total time spent to see the patient on the floor, examine the patient, review data and lab results, discuss treatment plan with patient, nursing staff around 45 minutes.
Physical Exam
General: No acute distress
HEENT: Normocephalic, Atraumatic, EOMI, MMM
Respiratory: Bibasilar crackles
Cardiac: Normal S1/S2, Regular Rate and Rhythm
GI: Soft, Nontender, Nondistended, Normal Bowel Sounds
Extremities: No Clubbing, Cyanosis
Improving pitting bilateral lower extremity edema
Neuro: Nonfocal/Grossly Intact
Anticipated Discharge: > 48 hours
Subjective/Interval History
-
Date of Service: May 09, 2024
Constipation resolved. No chest pain, no shortness of breath. No fever, no vomiting
Objective Data
-
Labs:
Laboratory Results
05/09/24
04:30
APTT 101.9 H
Sodium 139
Potassium 4.1
Chloride 104
Carbon Dioxide 23
BUN 41 H
Creatinine 1.2
Glucose 146 H
Calcium 8.8
Vital Signs:
Vital Signs
Temp Pulse Resp BP Pulse Ox
98.6 F 80 20 109/70 96
05/09/24 07:05 05/09/24 07:08 05/09/24 07:05 05/09/24 07:08 05/09/24 07:08
I&O
05/08/24 05/09/24 05/10/24
06:59 06:59 06:59
Intake Total 168 / 168
Balance 168 / 168
--- NOTE | 2024-05-09 09:09 | W.PN.CD ---
Today's Communication / Plan
-
Stable. No symptoms overnight
changed to Lasix p.o.
Impression / Plan
-
Impression/Plan: 53 y/o male with uncontrolled diabetes and HTN admitted with new HFrEF, cardiac catheterization confirming severe multivessel disease with ischemic cardiomyopathy.
#HFrEF - Acute.
-improving with diuresis, weight is down 4 lbs overnight.
-LVEF 30-35%.
-Changed Lasix p.o.
-S/P left thoracentesis 05/06/24 with 900ml removed, denies SOB.
-repeat CXR this am appears improved.
-GDMT:
-Beta kia = carvedilol 6.25 mg BID.
-ACEI/ARB/ARNi = Lisinopril 5 mg daily, consider switching to Entresto post surgery.
-SGLT2i = Start dapagliflozin 10 mg daily.
-MRA =None.
#CAD
-Severe on cath.
-Multivessel disease including an obstructive pLAD spanning the origin of D1.
-Given DM, CTS has been consulted for CABG evaluation. Awaiting evaluation.
-High dose, high potency statin.
#Hypertension
-Chronic, stable.
-Continue carvedilol and lisinopril.
#HLD
-LDL 142, goal LDL is < 55.
-now on Lipitor 80mg daily.
#Diabetes, type II
-Chronic, uncontrolled.
-HbA1c = 12.6%.
-Insulin per primary team.
-On Farxiga now.
Subjective/Interval History:
exam and interviewed performed via Language Line with [facility] rib chopper Ana.
Weight down 4lbs from yesterday. denies SOB.
CT surgery planning for CABG possibly Friday.
DATA:
TTE, 05/03/2024:
CONCLUSIONS
Moderately reduced left ventricular systolic function (LVEF 30 to 35%). Global
hypokinesis.
Normal RV size and function.
Mild mitral regurgitation.
Unable to estimate PASP due to incomplete TR envelope.
Mildly dilated aortic root (4.0 cm).
No prior study available for comparison.
Cardiac Catheterization, 05/04/2024:
CONCLUSIONS:
1. Left dominant circulation with a 40-50% lesion in the distal left main, a 40% lesion in the ostium of the diagonal followed by 70% lesion in the mid diagonal, and 90% lesion in the proximal circumflex spanning the origin of the obtuse marginal,
and 80-90% lesion in the distal circumflex as it turns into the LPDA which is diffusely diseased, a focal, 90% lesion in the mid section of the obtuse marginal and an occlusive, 60-70% lesion in the proximal/mid LAD that spans the origin of the
diagonal (IFR = 0.83).
2. Severely elevated filling pressures (LVEDP = 27 mmHg, PCWP = 27 mmHg at 76.7 kg).
3. Severe ischemic cardiomyopathy (LVEF = 30-35%) by echocardiography.
Physical Exam
Vital Signs/Labs
Vital Signs
Temp Pulse Resp BP Pulse Ox
98.6 F 80 20 109/70 96
05/09/24 07:05 05/09/24 07:08 05/09/24 07:05 05/09/24 07:08 05/09/24 07:08
05/08/24 05/09/24 05/10/24
06:59 06:59 06:59
Actual Weight 67.8 kg 68.1 kg
05/08/24 04:39
05/09/24 04:30
PT 14.1 Sec (11.4-14.6) 05/05/24 05:59
INR 1.11 05/05/24 05:59
APTT 101.9 Sec (23.4-35.0) H 05/09/24 04:30
Magnesium 1.8 mg/dl (1.6-2.3) 05/04/24 04:22
Triglycerides 172 mg/dl (10-149) H 05/02/24 04:31
LDL Cholesterol, Calc 142 mg/dl 05/02/24 04:31
VLDL Cholesterol, Calc 34 mg/dl (0-30) H 05/02/24 04:31
HDL Cholesterol 29 mg/dl 05/02/24 04:31
05/01/24
04:26
Vnq-T-Mdkrytpqhga Pept 9470
Physical Exam
Constitutional: No acute distress
Cardiovascular: Rhythm & rate is regular
Respiratory: Respiratory effort normal and Lungs clear to auscul.
GI: Soft
Neuro/Psych: Alert
Data Reviewed
-
Date of Service: May 09, 2024
Medical Decision Making: Reviewed Test Results
Labs: Labs Ordered by me
--- NOTE | 2024-05-09 09:50 | PTCARENOTE ---
Assumed care of pt from night RN. Pt received awake and alert, Ox3. VSS, CM shows NSR 80's, POX 95% on RA. Heparin drip infusing through RFA at 1,400 units/hr, levels therapeutic. Pt denies any pain or discomfort, plan for CABG on Friday.
[2024-05-09 11:27] VITALS: BP 100/67
[2024-05-09 12:17] LABS: Glucose - Point of Care 221 mg/dl (70-99)
[2024-05-09] MEDS: NOVOLOG FLEXPEN-LOW RESISTANCE 2 UNITS SC (12:28)
[2024-05-09 15:34] VITALS: BP 114/78
[2024-05-09 16:33] LABS: Glucose - Point of Care 140 mg/dl (70-99)
[2024-05-09] MEDS: NOVOLOG FLEXPEN 6 UNITS SC (16:54)
[2024-05-09] MEDS: NOVOLOG FLEXPEN-LOW RESISTANCE SC (16:54)
[2024-05-09] MEDS: LIPITOR 80 MG PO (16:56)
[2024-05-09 19:41] VITALS: BP 131/81
--- NOTE | 2024-05-09 21:35 | PTCARENOTE ---
Received patient at change of shift. SR on the monitor, Hr in the 80s. Heparin running as per protocol. No complaints from pt at this time, call villanueva within reach.
[2024-05-09 22:42] VITALS: BP 106/64
[2024-05-09 22:46] LABS: Glucose - Point of Care 223 mg/dl (70-99)
[2024-05-10] MEDS: HEPARIN 25000 UNITS/250 ML IV ×2 (01:58→19:44)
[2024-05-10 02:02] VITALS: BP 120/76
[2024-05-10 02:43] LABS: Hematocrit 33.9 % (39.0-52.0); Hemoglobin 11.3 g/dL (13.0-18.0); Mean Corp Hgb Conc. 33.3 g/dL (33.0-37.0); Mean Corpuscular Volume 83.9 fL (80.0-94.0); Platelet Count 204 10^3/uL (130-400); Red Blood Cell Count 4.04 10^6/uL (4.70-6.10); Red Cell Dist. Width 12.3 % (11.5-14.5); White Blood Cell Count 6.6 10^3/uL (4.8-10.8)
[2024-05-10 02:56] LABS: APTT 102.5 Sec (23.4-35.0)
[2024-05-10 03:14] LABS: Blood Urea Nitrogen 47 mg/dl (9-20); Calcium 8.8 mg/dl (8.4-10.2); Carbon Dioxide 26 mmol/L (22-30); Chloride 99 mmol/L (98-107); Estimated Creatinine Clearance 53 ml/min; Glucose 285 mg/dl (70-99); Magnesium 2.3 mg/dl (1.6-2.3); Potassium 4.6 mmol/L (3.5-5.1); Sodium 137 mmol/L (135-145); eGFR > 60.00
[2024-05-10 05:39] VITALS: BMI 26.3
--- NOTE | 2024-05-10 06:00 | W.PN.CT ---
Today's Communication / Plan
-
Plan:
-Cont. current medical management/optimization
-Ongoing preop workup
-Cont. current meds (ASA, Heparin gtt, Coreg, Lipitor, Lasix, Farxiga, Novolog, Lantus)
-Avoid MONIK-I/ARBs 48hrs prior to surgery
-For CABG by Dr. Penn, Friday05/12/24
-Will cont. to closely monitor
Assessment / Plan
-
Assessment:
-Severe 3v CAD/40-50% distal LM
-SOB
-Acute systolic CHF
-ICM (EF 30-35% per TTE 05/03)
-Mild MR
-Mildly dilated aortic root (4.0 cm)
-Recent Tachycardia
-HTN
-HLD
-T2DM (hgb A1C 12.6)
-Former tobacco use (1 cigarette/day x 10 years)
-B/L LE edema
-Mild elevation of right hemidiaphragm
-B/L pleural effusion
-S/P L thoracentesis (900 cc clear anson pleural fluid), 05/06/24; Right effusion resolved with diuresis
Discussed patient care with: Cardiology, Nursing, Respiratory Therapy, Pharmacy and Care Team
Subjective
-
Date of Service: May 10, 2024
No issues overnight. Denies CP/SOB
Objective Data
-
Lab Results
05/10/24 02:10
05/10/24 02:10
PT 14.1 Sec (11.4-14.6) 05/05/24 05:59
INR 1.11 05/05/24 05:59
APTT 102.5 Sec (23.4-35.0) H 05/10/24 02:10
Vital Signs
Vital Signs
Temp Pulse Resp BP Pulse Ox
98.1 F 78 18 120/76 97
05/10/24 02:01 05/10/24 02:02 05/10/24 02:01 05/10/24 02:02 05/10/24 02:01
CT Intake/Output/Weight
05/09/24 05/09/24 05/10/24
06:59 18:59 06:59
Intake Total 168 / 168
Balance 168 / 168
SaO2: 97 (RA)
Physical Exam
-
General: Awake, Oriented and AOx3
Cardiovascular: Regular rate & rhythm and No Murmurs
Respiratory: Decreased Breath Sounds (at bases, otherwise clear)
Incision: Clean, Dry, Intact and Dressing Intact
Extremities: Edema +1
Data Reviewed
-
Lab Results: Results Reviewed
Medications: Active Meds Reviewed
Chest X-Ray: Report Reviewed and Image Reviewed
ECG: Report Reviewed and Image Reviewed
[2024-05-10 07:00] VITALS: BP 100/70
[2024-05-10 07:06] LABS: Glucose - Point of Care 169 mg/dl (70-99)
--- NOTE | 2024-05-10 07:49 | W.PN.CD ---
Today's Communication / Plan
-
start lisinopril 2.5 bid
awaiting surgical consult
Impression / Plan
-
Impression/Plan: 53 y/o male with uncontrolled diabetes and HTN admitted with new HFrEF, cardiac catheterization confirming severe multivessel disease with ischemic cardiomyopathy.
#HFrEF - Acute.
-improving with diuresis, weight is down 4 lbs overnight.
-LVEF 30-35%.
-Changed Lasix p.o.
-S/P left thoracentesis 05/06/24 with 900ml removed, denies SOB.
-GDMT:
-Beta kia = carvedilol 6.25 mg BID.
-ACEI/ARB/ARNi = On no ACEI/ARB now. Need to find COST OF ENTRESTO before starting
-SGLT2i = Start dapagliflozin 10 mg daily.
-MRA =None.
#CAD
-Severe on cath.
-Multivessel disease including an obstructive pLAD spanning the origin of D1.
-Given DM, CTS has been consulted for CABG evaluation. Awaiting evaluation. To my view he appears operable (LAD, diag, OM) with suboptimal targets
-High dose, high potency statin.
#Hypertension
-Chronic, stable.
-Continue carvedilol and lisinopril.
#HLD
-LDL 142, goal LDL is < 55.
-now on Lipitor 80mg daily.
#Diabetes, type II
-Chronic, uncontrolled.
-HbA1c = 12.6%.
-Insulin per primary team.
-On Farxiga now.
Subjective/Interval History:
Feels well
CT surgery planning for CABG possibly Friday.
DATA:
TTE, 05/03/2024:
CONCLUSIONS
Moderately reduced left ventricular systolic function (LVEF 30 to 35%). Global
hypokinesis.
Normal RV size and function.
Mild mitral regurgitation.
Unable to estimate PASP due to incomplete TR envelope.
Mildly dilated aortic root (4.0 cm).
No prior study available for comparison.
Cardiac Catheterization, 05/04/2024:
CONCLUSIONS:
1. Left dominant circulation with a 40-50% lesion in the distal left main, a 40% lesion in the ostium of the diagonal followed by 70% lesion in the mid diagonal, and 90% lesion in the proximal circumflex spanning the origin of the obtuse marginal,
and 80-90% lesion in the distal circumflex as it turns into the LPDA which is diffusely diseased, a focal, 90% lesion in the mid section of the obtuse marginal and an occlusive, 60-70% lesion in the proximal/mid LAD that spans the origin of the
diagonal (IFR = 0.83).
2. Severely elevated filling pressures (LVEDP = 27 mmHg, PCWP = 27 mmHg at 76.7 kg).
3. Severe ischemic cardiomyopathy (LVEF = 30-35%) by echocardiography.
Physical Exam
Vital Signs/Labs
Vital Signs
Temp Pulse Resp BP Pulse Ox
98.1 F 78 18 120/76 99
05/10/24 06:58 05/10/24 02:02 05/10/24 06:58 05/10/24 02:02 05/10/24 06:58
05/09/24 05/10/24 05/11/24
06:59 06:59 06:59
Actual Weight 150 lb 2.157 oz 148 lb 2.41 oz
05/10/24 02:10
05/10/24 02:10
PT 14.1 Sec (11.4-14.6) 05/05/24 05:59
INR 1.11 05/05/24 05:59
APTT 102.5 Sec (23.4-35.0) H 05/10/24 02:10
Magnesium 2.3 mg/dl (1.6-2.3) 05/10/24 02:10
Triglycerides 172 mg/dl (10-149) H 05/02/24 04:31
LDL Cholesterol, Calc 142 mg/dl 05/02/24 04:31
VLDL Cholesterol, Calc 34 mg/dl (0-30) H 05/02/24 04:31
HDL Cholesterol 29 mg/dl 05/02/24 04:31
05/01/24
04:26
Lqm-W-Oknjzymgaoq Pept 9470
Physical Exam
Constitutional: No acute distress and Comfortable
Cardiovascular: Rhythm & rate is regular and Systolic murmur absent
Respiratory: Respiratory effort normal, Lungs clear to auscul., Wheeze Absent and Crackles Absent
GI: Soft and Normal bowel sounds
Neuro/Psych: AO x 3 and Motor deficits absent
Data Reviewed
-
Date of Service: May 10, 2024
--- NOTE | 2024-05-10 08:11 | W.PN.HOSP.TC ---
Today's Communication/Plan
-
Continue current care
Assessment / Plan
Assessment / Plan
Gen-AAOx3, NAD
HEENT-NC, AT, anicteric, clear oral mm
Neck-supple
CV-reg, no M, +S1/S2
Lungs-clear B/L
Abd-soft, NT, ND
Ext-no edema
Musculoskeletal-no cyanosis, clubbing
Skin-warm and dry
Neuro-grossly non-focal
Psych-calm, cooperative
Multivessel coronary artery disease
Troponin elevation
-EKG on admission shows sinus tachycardia with nonspecific T wave changes. Does not have chest pain. Troponin peaked at 0.719
-Started on aspirin 81 mg daily, atorvastatin 80 mg at bedtime, Coreg 6.25 mg twice a day, lisinopril 5 mg daily, and heparin drip
-05/04 cardiac catheterization shows multivessel coronary artery disease
-CT surgery following, plan for CABG poss Friday
Acute hypoxic respiratory failure -due to acute pulmonary edema. Required BiPAP on arrival, subsequently transitioned to nasal cannula oxygen 4 L. Chest x-ray shows interstitial and alveolar pulmonary opacities and probable bilateral pleural
fluid. Resolved, now on RA
Acute heart failure with a reduced ejection fraction-new diagnosis, Echo w/ EF 30-35%, global hypokinesis. Appreciate cardiology input, started on . Weight down 13 kg since admission. Status post IV Lasix, now on Lasix 20 mg p.o. daily
Bilateral pleural effusion -status post left thoracentesis draining 900 cc of pleural fluid on 05/06
Hypertensive emergency -presentation with acute heart failure. Initial blood pressure 182/109 in the emergency room. Blood pressure normalized status post IV nitroglycerin drip
DM2 with hyperglycemia -not on insulin at home, uses metformin 500 mg twice daily. Serum bicarbonate normal. No evidence of DKA. Hemoglobin A1c 12.6. Increase Lantus 16 units daily, 6 units aspart AC, low resistance corrective scale. Continue
diabetes education, he will need to continue insulin upon discharge
Constipation�resolved on MiraLAX daily, Colace 100 mg twice a day
DVT prophylaxis�heparin drip
Full code
Anticipated Discharge: > 48 hours
Subjective/Interval History
-
Date of Service: May 10, 2024
Patient seen and examined. No complaints.
Objective Data
-
Labs:
Laboratory Results
05/10/24
02:10
WBC 6.6
Hgb 11.3 L
Hct 33.9 L
Plt Count 204
APTT 102.5 H
Sodium 137
Potassium 4.6
Chloride 99
Carbon Dioxide 26
BUN 47 H
Creatinine 1.3
Glucose 285 H
Calcium 8.8
Vital Signs:
Vital Signs
Temp Pulse Resp BP Pulse Ox
98.1 F 72 18 100/70 99
05/10/24 06:58 05/10/24 08:00 05/10/24 06:58 05/10/24 07:00 05/10/24 06:58
I&O
05/09/24 05/10/24 05/11/24
06:59 06:59 06:59
Intake Total 168 / 168
Balance 168 / 168
Review of Systems
-
Unable to obtain full review of systems at this time due to: Language Barrier
History Source: Patient
All other systems: Reviewed and negative
[2024-05-10] MEDS: NOVOLOG FLEXPEN 6 UNITS SC ×3 (09:04→17:52)
[2024-05-10] MEDS: NOVOLOG FLEXPEN-LOW RESISTANCE 1 UNITS SC (09:04)
[2024-05-10] MEDS: COLACE 100 MG PO ×2 (09:04→19:43)
[2024-05-10] MEDS: LANTUS 0.16 UNITS SC (09:05)
[2024-05-10] MEDS: LOW STRENGTH ASPIRIN 81 MG PO (09:05)
[2024-05-10] MEDS: LASIX 20 MG PO (09:05)
[2024-05-10] MEDS: KCL 20 MEQ PO (09:06)
[2024-05-10] MEDS: FARXIGA 10 MG PO (09:06)
[2024-05-10] MEDS: MIRALAX 17 GRAMS PO (09:06)
[2024-05-10] MEDS: COREG 6.25 MG PO ×2 (09:06→19:43)
--- NOTE | 2024-05-10 09:47 | PTCARENOTE ---
Received patient this morning resting in bed, IV heparin infusing with PTT at a therapeutic level. Family at the bedside, patient offers no complaints.
[2024-05-10 11:29] VITALS: BP 107/68
[2024-05-10 13:12] LABS: Glucose - Point of Care 214 mg/dl (70-99)
[2024-05-10] MEDS: NOVOLOG FLEXPEN-LOW RESISTANCE 2 UNITS SC (13:12)
--- NOTE | 2024-05-10 13:58 | CM ---
dc plans remain home with when medically stable.
[2024-05-10 15:27] VITALS: BP 114/77
[2024-05-10 17:51] LABS: Glucose - Point of Care 115 mg/dl (70-99)
[2024-05-10] MEDS: NOVOLOG FLEXPEN-LOW RESISTANCE SC (17:51)
[2024-05-10] MEDS: LIPITOR 80 MG PO (17:52)
[2024-05-10 19:39] VITALS: BP 114/78
[2024-05-10 21:23] LABS: Glucose - Point of Care 159 mg/dl (70-99)
[2024-05-10 22:24] VITALS: BP 114/82
[2024-05-11] VITALS (9 sets, daily range): BP systolic 93–149; BP diastolic 66–87; BMI 25.9
--- NOTE | 2024-05-11 00:26 | W.PN.CT ---
Today's Communication / Plan
-
Plan:
-Cont. current medical management/optimization
-Monitor K, 5.2 today. Placed kcl on hold. Cont. diuresis
-Ongoing preop workup
-Cont. current meds (ASA, Heparin gtt, Coreg, Lipitor, Lasix, Farxiga, Novolog, Lantus)
-Avoid MONIK-I/ARBs 48hrs prior to surgery
-For CABG by Dr. Penn, tomorrow 05/12/24
-Will cont. to closely monitor
Assessment / Plan
-
Assessment:
-Severe 3v CAD/40-50% distal LM
-SOB
-Acute systolic CHF
-ICM (EF 30-35% per TTE 05/03); EF 40-45% per TTE 05/10/24
-Mild MR
-Mildly dilated aortic root (4.0 cm)
-Recent Tachycardia
-HTN
-HLD
-T2DM (hgb A1C 12.6)
-Former tobacco use (1 cigarette/day x 10 years)
-B/L LE edema
-Mild elevation of right hemidiaphragm
-B/L pleural effusion
-S/P L thoracentesis (900 cc clear anson pleural fluid), 05/06/24; Right effusion resolved with diuresis
Discussed patient care with: Cardiology, Nursing, Respiratory Therapy, Pharmacy and Care Team
Subjective
-
Date of Service: May 11, 2024
No issues overnight. Denies CP/SOB
Objective Data
-
Lab Results
05/10/24 02:10
PT 14.1 Sec (11.4-14.6) 05/05/24 05:59
INR 1.11 05/05/24 05:59
APTT 102.5 Sec (23.4-35.0) H 05/10/24 02:10
Vital Signs
Vital Signs
Temp Pulse Resp BP Pulse Ox
98.4 F 83 18 114/82 98
05/10/24 22:25 05/10/24 23:00 05/10/24 22:25 05/10/24 22:24 05/10/24 22:25
CT Intake/Output/Weight
05/10/24 05/10/24 05/11/24
06:59 18:59 06:59
Intake Total 720 / 720
Balance 720 / 720
SaO2: 98 (RA)
Physical Exam
-
General: Awake, Oriented and AOx3
Cardiovascular: Regular rate & rhythm, No Murmurs, No Rub and No Gallop
Respiratory: Clear
Incision: Clean, Dry, Intact and Dressing Intact
Data Reviewed
-
Lab Results: Results Reviewed
Medications: Active Meds Reviewed
Chest X-Ray: Report Reviewed and Image Reviewed
ECG: Report Reviewed and Image Reviewed
[2024-05-11 05:03] LABS: Blood Urea Nitrogen 44 mg/dl (9-20); Calcium 8.9 mg/dl (8.4-10.2); Carbon Dioxide 26 mmol/L (22-30); Chloride 101 mmol/L (98-107); Estimated Creatinine Clearance 53 ml/min; Glucose 164 mg/dl (70-99); Magnesium 2.5 mg/dl (1.6-2.3); Potassium 5.2 mmol/L (3.5-5.1); Sodium 137 mmol/L (135-145); eGFR > 60.00
--- NOTE | 2024-05-11 07:37 | W.PN.CD ---
Today's Communication / Plan
-
Hold lasix today
Impression / Plan
-
Impression/Plan: 53 y/o male with uncontrolled diabetes and HTN admitted with new HFrEF, cardiac catheterization confirming severe multivessel disease with ischemic cardiomyopathy.
#HFrEF - Acute.
-improved with diuresis, weight is down 28 lbs since arrival. Now 146.
- He is dry and BP low this AM (88systolic)
- Hold Lasix today
-LVEF 30-35%.
-S/P left thoracentesis 05/06/24 with 900ml removed, denies SOB.
-GDMT:
-Beta kia = carvedilol 6.25 mg BID.
-ACEI/ARB/ARNi = On no ACEI/ARB now. Need to find COST OF ENTRESTO before starting. BP low today so no ACEI/ARB
-SGLT2i = Start dapagliflozin 10 mg daily.
-MRA =None.
#CAD
-Severe on cath.
-Multivessel disease including an obstructive pLAD spanning the origin of D1.
-Given DM, CTS has been consulted for CABG evaluation. CABG planned. To my view he appears operable (LAD, diag, OM) with suboptimal targets
-High dose, high potency statin.
#Hypertension
-Chronic, stable.
-Continue carvedilol and lisinopril.
#HLD
-LDL 142, goal LDL is < 55.
-now on Lipitor 80mg daily.
#Diabetes, type II
-Chronic, uncontrolled.
-HbA1c = 12.6%.
-Insulin per primary team.
-On Farxiga now.
Subjective/Interval History:
Feels well
No CP, SOB
DATA:
TTE, 05/03/2024:
CONCLUSIONS
Moderately reduced left ventricular systolic function (LVEF 30 to 35%). Global
hypokinesis.
Normal RV size and function.
Mild mitral regurgitation.
Unable to estimate PASP due to incomplete TR envelope.
Mildly dilated aortic root (4.0 cm).
No prior study available for comparison.
Cardiac Catheterization, 05/04/2024:
CONCLUSIONS:
1. Left dominant circulation with a 40-50% lesion in the distal left main, a 40% lesion in the ostium of the diagonal followed by 70% lesion in the mid diagonal, and 90% lesion in the proximal circumflex spanning the origin of the obtuse marginal,
and 80-90% lesion in the distal circumflex as it turns into the LPDA which is diffusely diseased, a focal, 90% lesion in the mid section of the obtuse marginal and an occlusive, 60-70% lesion in the proximal/mid LAD that spans the origin of the
diagonal (IFR = 0.83).
2. Severely elevated filling pressures (LVEDP = 27 mmHg, PCWP = 27 mmHg at 76.7 kg).
3. Severe ischemic cardiomyopathy (LVEF = 30-35%) by echocardiography.
Physical Exam
Vital Signs/Labs
Vital Signs
Temp Pulse Resp BP Pulse Ox
98.2 F 85 18 93/68 100
05/11/24 07:37 05/11/24 04:00 05/11/24 07:37 05/11/24 03:54 05/11/24 07:37
05/10/24 05/11/24 05/12/24
06:59 06:59 06:59
Actual Weight 148 lb 2.41 oz 146 lb 2.664 oz
05/10/24 02:10
05/11/24 03:59
PT 14.1 Sec (11.4-14.6) 05/05/24 05:59
INR 1.11 05/05/24 05:59
APTT 102.5 Sec (23.4-35.0) H 05/10/24 02:10
Magnesium 2.5 mg/dl (1.6-2.3) H 05/11/24 03:59
Triglycerides 172 mg/dl (10-149) H 05/02/24 04:31
LDL Cholesterol, Calc 142 mg/dl 05/02/24 04:31
VLDL Cholesterol, Calc 34 mg/dl (0-30) H 05/02/24 04:31
HDL Cholesterol 29 mg/dl 05/02/24 04:31
05/01/24
04:26
Iwo-H-Ujpadsvktxd Pept 9470
Physical Exam
Constitutional: No acute distress and Comfortable
Cardiovascular: Rhythm & rate is regular
Respiratory: Respiratory effort normal, Lungs clear to auscul., Wheeze Absent and Crackles Absent
GI: Soft and Normal bowel sounds
Neuro/Psych: AO x 3 and Motor deficits absent
Data Reviewed
-
Date of Service: May 11, 2024
[2024-05-11 08:15] LABS: Glucose - Point of Care 138 mg/dl (70-99)
[2024-05-11 08:48] LABS: Glucose - Point of Care 198 mg/dl (70-99)
[2024-05-11] MEDS: COLACE 100 MG PO ×2 (08:54→20:44)
[2024-05-11] MEDS: LOW STRENGTH ASPIRIN 81 MG PO (08:54)
[2024-05-11] MEDS: COREG 6.25 MG PO ×2 (08:55→20:44)
[2024-05-11] MEDS: LANTUS 0.16 UNITS SC (08:56)
[2024-05-11] MEDS: MIRALAX 17 GRAMS PO (08:56)
[2024-05-11] MEDS: NOVOLOG FLEXPEN-LOW RESISTANCE 1 UNITS SC ×2 (08:58→13:56)
[2024-05-11] MEDS: NOVOLOG FLEXPEN 6 UNITS SC ×3 (08:59→18:05)
[2024-05-11 13:41] LABS: Glucose - Point of Care 164 mg/dl (70-99)
[2024-05-11] MEDS: HEPARIN 25000 UNITS/250 ML IV (13:45)
--- NOTE | 2024-05-11 14:50 | W.PN.HOSP.TC ---
Today's Communication/Plan
-
N.p.o. after midnight
Assessment / Plan
Assessment / Plan
Gen-AAOx3, NAD
HEENT-NC, AT, anicteric, clear oral mm
Neck-supple
CV-reg, no M, +S1/S2
Lungs-clear B/L
Abd-soft, NT, ND
Ext-no edema
Musculoskeletal-no cyanosis, clubbing
Skin-warm and dry
Neuro-grossly non-focal
Psych-calm, cooperative
Multivessel coronary artery disease
-05/04 cardiac catheterization shows multivessel coronary artery disease
-CT surgery following, plan for CABG poss Friday
Acute hypoxic respiratory failure -due to acute pulmonary edema. Required BiPAP on arrival, subsequently transitioned to nasal cannula oxygen 4 L. Chest x-ray shows interstitial and alveolar pulmonary opacities and probable bilateral pleural
fluid. Resolved, now on
Acute heart failure with a reduced ejection fraction-new diagnosis, Echo w/ EF 30-35%, global hypokinesis. Appreciate cardiology input, started on . Weight down 13 kg since admission. Lasix on hold as per cardiology. Appears dry.
Hyperkalemia -stop potassium supplements.
Bilateral pleural effusion -status post left thoracentesis draining 900 cc of pleural fluid on 05/06
Hypertensive emergency -presentation with acute heart failure. Initial blood pressure 182/109 in the emergency room. Blood pressure normalized status post IV nitroglycerin drip
DM2 with hyperglycemia -not on insulin at home, uses metformin 500 mg twice daily. Serum bicarbonate normal. No evidence of DKA. Hemoglobin A1c 12.6%. Increase Lantus 16 units daily, 6 units aspart AC, low resistance corrective scale. Continue
diabetes education, he will need to continue insulin upon discharge
Constipation�resolved on MiraLAX daily, Colace 100 mg twice a day
DVT prophylaxis�heparin drip
Full code
Anticipated Discharge: > 48 hours
Subjective/Interval History
-
Date of Service: May 11, 2024
Patient seen and examined. No complaints.
Objective Data
-
Labs:
Laboratory Results
05/11/24
03:59
Sodium 137
Potassium 5.2 H
Chloride 101
Carbon Dioxide 26
BUN 44 H
Creatinine 1.3
Glucose 164 H
Calcium 8.9
Vital Signs:
Vital Signs
Temp Pulse Resp BP Pulse Ox
98.6 F 77 20 112/71 99
05/11/24 11:03 05/11/24 09:00 05/11/24 11:03 05/11/24 07:35 05/11/24 11:03
I&O
05/10/24 05/11/24 05/12/24
06:59 06:59 06:59
Intake Total 720 / 720
Balance 720 / 720
Review of Systems
-
History Source: Patient
All other systems: Reviewed and negative
--- NOTE | 2024-05-11 15:50 | PTCARENOTE ---
BP 111/72 in R arm. While taking L arm BP, Pt's family walked in and Pt was talking to all of them, BP 146/87. BP them rechecked in R arm 134/84.
[2024-05-11] MEDS: LIPITOR 80 MG PO (18:00)
[2024-05-11 18:04] LABS: Glucose - Point of Care 222 mg/dl (70-99)
[2024-05-11] MEDS: NOVOLOG FLEXPEN-LOW RESISTANCE 2 UNITS SC (18:06)
--- NOTE | 2024-05-11 21:45 | PTCARENOTE ---
Assumed care of pt from carter RN. Pt admitted into room 2265 for CVOR prep. Pt is Mongolian speaking - family there to help translate and Ipad language line utilized. Pt SR on the tele monitor. HR 70s. BP stable. Pt on RA. POX 100%. Lung sounds
diminished at the bases. Deep breathing encouraged. Abdomen soft/nontender. +BS. Pt voiding independently w/o issue. Right arm cath sites intact and [employer]. Left arm pink band restriction on for poss radial harvest. Right forearm IV CDI. Heparin
infusing per protocol. Pt clipped and given first CHG shower. Gown and linens changed. See worklist for full nursing assessment and interventions. Call villanueva within reach.
[2024-05-11 22:26] LABS: Glucose - Point of Care 146 mg/dl (70-99)
[2024-05-12] VITALS (24 sets, daily range): BP systolic 76–122; BP diastolic 64–81; BMI 25.9
--- NOTE | 2024-05-12 00:05 | PTCARENOTE ---
No change in assessment. VSS. SR on the tele monitor. HR 70s. Heparin infusing per protocol. Call villanueva within reach.
[2024-05-12 04:38] LABS: Glucose - Point of Care 127 mg/dl (70-99)
[2024-05-12 04:39] LABS: Hematocrit 36.6 % (39.0-52.0); Mean Corp Hgb Conc. 32.8 g/dL (33.0-37.0); Mean Corpuscular Hgb 26.7 pg (27.0-31.0); Mean Corpuscular Volume 81.5 fL (80.0-94.0); Mean Platelet Volume 11.8 fL (7.4-10.4); Platelet Count 235 10^3/uL (130-400); Red Blood Cell Count 4.49 10^6/uL (4.70-6.10); Red Cell Dist. Width 12.5 % (11.5-14.5); White Blood Cell Count 7.2 10^3/uL (4.8-10.8)
[2024-05-12 04:50] LABS: APTT 95.9 Sec (23.4-35.0)
[2024-05-12 05:07] LABS: Blood Urea Nitrogen 48 mg/dl (9-20); Carbon Dioxide 22 mmol/L (22-30); Chloride 102 mmol/L (98-107); Estimated Creatinine Clearance 53 ml/min; Glucose 129 mg/dl (70-99); Magnesium 2.4 mg/dl (1.6-2.3); Sodium 138 mmol/L (135-145); eGFR > 60.00
--- NOTE | 2024-05-12 05:29 | DOWNTIME ---
There was a [facility] Downtime on 05/12/2024 from 0100 to 05/12/2024 at 0355. Downtime documentation of patient's care, including medication administrations, has been reconciled in the electronic record per guidelines. Refer to the
patient's paper chart under the miscellaneous tab to see printed paper medication records and downtime forms.
--- NOTE | 2024-05-12 05:30 | PTCARENOTE ---
No change in assessment. VSS. Labs drawn and sent. NPO since midnight. Pt given second CHG shower. Gown and linens changed. Pt updated on plan for the morning. Heparin infusing per protocol. Family at bedside. Call villanueva within reach.
[2024-05-12] MEDS: LOPRESSOR 25 MG PO (06:06)
[2024-05-12] MEDS: MAGNESIUM OXIDE 500 MG PO (06:06)
[2024-05-12] MEDS: BACTROBAN 2% OINTMENT 1 APPLIC NASAL ×2 (06:06→19:16)
[2024-05-12] MEDS: PROTONIX 40 MG PO (06:06)
--- NOTE | 2024-05-12 06:20 | W.CVOR.SURPR ---
CVOR Surgeon Immed Pre Op
-
CARDIAC SURGERY ATTENDING:
I have examined this patient prior to performance of the scheduled procedure.
The patient's condition is unchanged from the time of the dictated/written History and
Physical and the patient is able to undergo the scheduled procedure.
I have previously met at length with Mr Lexii Donaldson and his family with the aid of a sailing officer present via video conferencing. We have discussed his pathology, the postoperative interventions, the associated operative risks (including, but not
limited to, , stroke, NE, arrhythmia, PNA, ABRIL/F, bleeding, and infection), the expected in-hospital postprocedural course, and expected outpatient recovery. All questions have been answered to the best of my abilities. I believe he will
benefit from surgical coronary revascularization anticipate WELLINGTON to LAD, greater saphenous vein to his OM1, and potential greater saphenous vein to D1 (will require intraoperative assessment). The patient's coronaries are all congenitally quite
small with multivessel CAD present. His right coronary does is a very small, nondominant vessel. It is encouraging, that post medical therapy, his LVEF has improved from an initial 30 to 35% to a most recent 40 to 45%.
I met with Mr. Lexii Donaldson and his family again this morning and confirmed there were no additional questions.
Michael Penn M.D.
[phone]
[2024-05-12 07:22] LABS: ACT+ - POC 104 Seconds (82-134)
[2024-05-12 08:22] LABS: Urine Albumin 3+ (Neg - Trace); Urine Bilirubin Negative (Negative); Urine Character Clear (Clear); Urine Color Yellow; Urine Glucose 3+ (Negative); Urine Ketone Negative (Negative); Urine Leukocyte Trace (Negative); Urine Nitrite Negative (Negative); Urine Occult Blood 2+ (Negative); Urine Urobilinogen Negative (Neg - 1+)
--- NOTE | 2024-05-12 08:36 | CM ---
Reviewed chart. Mr. Donaldson is in the operating room. Prior to admission he resides with his spouse in a ground floor apartment with seven steps to enter. Prior to admission he was independent with ambulation and adls. He does not have any DME
in the home. He does not have any health insurance or a prescription plan. Medical work-up in progress. The discharge plan is to return home with his spouse and a home visit by the Cardiothoracic Transitional Care Nurse when medically stable.
[2024-05-12 08:47] LABS: Urine Amorphous Seen
[2024-05-12 08:49] LABS: Urine White Cell 0-2 /HPF (0-5)
[2024-05-12 09:23] LABS: ACT+ - POC 489 Seconds (82-134)
[2024-05-12 09:52] LABS: B.E. - POC -0.4 mmol/L; Glucose - POC 146 mg/dl (70-99); HCO3 - POC 24 mmol/L (21-29); Hematocrit - POC 39 % PCV (42-52); Hemodilution- POC No; Hemoglobin Calculated - POC 13.3; Ionized Calcium - POC 1.19 mmol/L (1.12-1.27); PCO2 - POC 39 mmHg (35-45); PO2 - POC 406 mmHg (80-100); POC Comment BASELINE; Potassium - POC 5.3 mmol/L (3.6-5.0); Sodium - POC 137 mmol/L (135-145)
[2024-05-12 10:00] LABS: ACT+ - POC 482 Seconds (82-134)
[2024-05-12 10:11] LABS: ACT+ - POC 530 Seconds (82-134)
[2024-05-12 10:33] LABS: ACT+ - POC 497 Seconds (82-134)
[2024-05-12 10:54] LABS: B.E. - POC -0.4 mmol/L; Glucose - POC 147 mg/dl (70-99); HCO3 - POC 24 mmol/L (21-29); Hematocrit - POC 30 % PCV (42-52); Hemodilution- POC Yes; Hemoglobin Calculated - POC 10.3; Ionized Calcium - POC 1.01 mmol/L (1.12-1.27); O2 Saturation %Calculated-POC 99.7 % (92-96); PCO2 - POC 35 mmHg (35-45); PO2 - POC 192 mmHg (80-100); POC Comment CPB; Sodium - POC 135 mmol/L (135-145); pH - POC 7.43 (7.35-7.45)
[2024-05-12 11:02] LABS: ACT+ - POC 519 Seconds (82-134)
[2024-05-12 11:09] LABS: B.E. - POC -1.1 mmol/L; Glucose - POC 125 mg/dl (70-99); HCO3 - POC 24 mmol/L (21-29); Hematocrit - POC 29 % PCV (42-52); Hemodilution- POC Yes; Hemoglobin Calculated - POC 9.8; O2 Saturation %Calculated-POC 99.9 % (92-96); PCO2 - POC 40 mmHg (35-45); PO2 - POC 272 mmHg (80-100); POC Comment CPB; Potassium - POC 6.4 mmol/L (3.6-5.0); Sodium - POC 134 mmol/L (135-145); pH - POC 7.39 (7.35-7.45)
[2024-05-12 11:16] LABS: ACT+ - POC 517 Seconds (82-134)
[2024-05-12] MEDS: COLACE PO (11:29)
[2024-05-12] MEDS: LANTUS SC (11:29)
[2024-05-12] MEDS: COREG PO (11:29)
[2024-05-12] MEDS: MIRALAX PO (11:30)
[2024-05-12] MEDS: LOW STRENGTH ASPIRIN PO (11:30)
[2024-05-12] MEDS: NOVOLOG FLEXPEN-LOW RESISTANCE SC ×2 (11:31→16:16)
[2024-05-12] MEDS: NOVOLOG FLEXPEN SC ×4 (11:31→17:16)
[2024-05-12 11:34] LABS: ACT+ - POC 511 Seconds (82-134)
[2024-05-12 11:35] LABS: Glucose - POC 132 mg/dl (70-99); HCO3 - POC 26 mmol/L (21-29); Hematocrit - POC 31 % PCV (42-52); Hemodilution- POC Yes; Hemoglobin Calculated - POC 10.7; Ionized Calcium - POC 1.04 mmol/L (1.12-1.27); O2 Saturation %Calculated-POC 99.8 % (92-96); PCO2 - POC 40 mmHg (35-45); PO2 - POC 236 mmHg (80-100); POC Comment WARM; Potassium - POC 6.7 mmol/L (3.6-5.0); Sodium - POC 135 mmol/L (135-145); pH - POC 7.41 (7.35-7.45)
[2024-05-12 11:42] LABS: ACT+ - POC 489 Seconds (82-134)
[2024-05-12 11:55] LABS: ACT+ - POC 483 Seconds (82-134)
[2024-05-12 11:57] LABS: B.E. - POC -2.9 mmol/L; Glucose - POC 133 mg/dl (70-99); HCO3 - POC 23 mmol/L (21-29); Hematocrit - POC 30 % PCV (42-52); Hemodilution- POC Yes; Hemoglobin Calculated - POC 10.1; Ionized Calcium - POC 1.01 mmol/L (1.12-1.27); O2 Saturation %Calculated-POC 99.9 % (92-96); PCO2 - POC 44 mmHg (35-45); PO2 - POC 283 mmHg (80-100); POC Comment WARM; Potassium - POC 6.1 mmol/L (3.6-5.0); Sodium - POC 137 mmol/L (135-145); pH - POC 7.33 (7.35-7.45)
[2024-05-12 12:05] LABS: ACT+ - POC 470 Seconds (82-134)
[2024-05-12 12:15] LABS: ACT+ - POC 485 Seconds (82-134)
--- NOTE | 2024-05-12 12:23 | CON.INTV ---
Consultation
Consultation Request
Date/Time Consultation Requested: 05/12/2024- PM
Date/Time Consultation Performed: 05/12/2024- PM
Requesting Provider: Cardiovascular surgery
Performing Provider: Dr. Walker
Reason for Consultation: Postoperative ventilator/critical care management
Medical History
-
Chief Complaint: CAD
History of Present Illness:
53-year-old male with history of hypertension, hyperlipidemia, diabetes who was admitted with CHF and noted to have significant multivessel CAD and underwent CABG-film tests checker consulted for postoperative ventilator/critical care management 05/12/2024.
Past Medical History
Past Medical History: None (Hypertension. Hyperlipidemia. Diabetes. CAD.)
Social History
Tobacco: Non-smoker
Alcohol: None
Drug: None
Personal:
Living: With Family
Occupational Exposures: No known asbestos exposure
Environmental Exposures: No known tuberculosis exposure
Family History
Family History: Other (Brother-CAD/open heart surgery 52 years old)
Allergies / Home Medications
Allergies
Allergy/AdvReac Type Severity Reaction Status Date / Time
No Known Allergies Allergy Unverified 05/01/24 04:15
Home Medications
�Medication �Instructions �Recorded �Confirmed �Last Taken �Type
metformin 500 mg tablet 500 mg PO BID Diabetes 05/01/24 05/01/24 1 Day Ago History
~04/30/24
Review of Systems
-
Unable to Obtain full review of systems at this time due to: Other (Per HPI)
Vitals / Labs / Diagnostic Testing
Vital Signs
Temp Pulse Resp BP Pulse Ox
98.4 F 78 16 122/79 99
05/12/24 04:16 05/12/24 06:06 05/12/24 04:16 05/12/24 06:06 05/12/24 04:16
Lab Data
05/12/24 04:22
05/12/24 04:22
Laboratory Results
05/12/24
04:22
APTT 95.9 H
Diagnostic Testing:
Physical Exam
-
Exam:
Well-nourished and well-developed in no apparent distress
HEENT-atraumatic, normocephalic, oral tracheal intubation
Heart-regular rate and rhythm-no murmurs, rubs or gallops
Chest-clear to auscultation, no wheezes, crackles, median sternotomy bandage is not removed
Abdomen soft nondistended
Extremities-no cyanosis, clubbing, edema and good peripheral pulses
Integument-intact, no rashes, lesions or ecchymosis
Neurologically not alert, not oriented, not moving any of his extremities sedated on a ventilator
Assessment
-
53-year-old male with history of hypertension, hyperlipidemia, diabetes who was admitted with CHF and noted to have significant multivessel CAD and underwent CABG-film tests checker consulted for postoperative ventilator/critical care management 05/12/2024.
Significant multivessel CAD
Status post CAB x 3-WELLINGTON-LAD, GSV-D1, GSV-OM1-05/12/2024 Dr. Penn
CHF-reduced EF
Mild iagcve-hajrifvdvn-diwydunbxf 12.0
Hyperkalemia
Bilateral pleural effusions status post left thoracentesis--900 mL pleural fluid 05/06/2024
Recent hypertensive emergency
Hyperglycemia
Constipation
Conditions present prior to admission:
Hypertension.
Hyperlipidemia.
Diabetes.
CAD.
Family history premature CAD
Plan
Ventilator settings reviewed
FiO2 will be weaned
Minute ventilation will be adjusted
Arterial blood gases will be monitored
Spontaneous breathing trial will be attempted with hopeful extubation after anesthesia/sedation wear off
Pulmonary artery catheter parameters will be followed
Pressors/antihypertensive/inotropes/diuretics will be provided as needed
Monitor chest tube output
Monitor hemoglobin
Monitor platelet count and coags
Transfuse blood product if needed
CT surgery following chest tubes
Monitor blood sugar
Insulin drip per protocol
Aspiration precautions
VAP prevention protocol
DVT prophylaxis
Early nutrition
Early mobilization
Critical care statement: A total of 50 minutes of critical care time was provided for this patient today. This includes management of ventilator, spontaneous breathing trial, arterial blood gases, pressors, of unstable vital signs, evaluation of the
patient at bedside, reviewing the patient's pertinent medical records including radiographs, microbiology, laboratory evaluations, and discussion with primary team and critical care nursing.
Diagnostic data:
Chest x-ray 05/10/2024-stable mild elevation right hemidiaphragm
CT chest 05/04/2024-moderate bilateral pleural effusions with compressive atelectasis, patchy groundglass opacification in both lungs consistent with groundglass pulmonary edema
Echocardiogram-transesophageal 05/12/2024-EF 40-45%, stage II diastolic dysfunction, mild sessile atheroma distal aortic arch
Echocardiogram 05/03/2024-
Cardiac catheterization 05/04/24-70% mid diagonal, 90% lesion proximal circumflex, 90% distal circumflex lesion, 90% mid section obtuse marginal and 70% lesion proximal/mid LAD with severely elevated filling pressures-27 and severe ischemic
cardiomyopathy EF 30%
Data Reviewed
-
EKG: Report reviewed by me
Radiology: Report reviewed by me
CT Scan: Report reviewed by me
Medical Tests (Nuc Med, Echo etc): Report reviewed by me
Labs: Labs reviewed by me
Old Records: Reviewed
Critical Care Time (in minutes): 50
[2024-05-12 12:26] LABS: B.E. - POC 0.8 mmol/L; Glucose - POC 135 mg/dl (70-99); HCO3 - POC 25 mmol/L (21-29); Hematocrit - POC 30 % PCV (42-52); Hemodilution- POC Yes; Hemoglobin Calculated - POC 10.2; Ionized Calcium - POC 1.16 mmol/L (1.12-1.27); O2 Saturation %Calculated-POC 99.9 % (92-96); PCO2 - POC 39 mmHg (35-45); PO2 - POC 299 mmHg (80-100); POC Comment WARM; Sodium - POC 138 mmol/L (135-145); pH - POC 7.42 (7.35-7.45)
[2024-05-12 12:33] LABS: ACT+ - POC 120 Seconds (82-134)
--- NOTE | 2024-05-12 13:01 | W.IMMPOSTOP ---
Addendum entered and electronically signed by Michael Penn MD 05/12/24 14:35:
[id number]
Original Note:
Surgical Immed Post Op Note
-
CARDIAC SURGERY OPERATIVE NOTE:
Preoperative Dx:
Uncontrolled DM II
HTN
New HFrEF
Multivessel CAD w/ ischemic cardiomyopathy
Postoperative Dx:
Same
Procedures:
1) Median sternotomy
2) Takedown of WELLINGTON (narrow pedicle)
3) Endoscopic harvest/prep of LLE GSV
4) CABG x 3 (WELLINGTON to LAD, GSV to D1, GSV to OM1)
5) ELAA
Surgeon:
Michael Penn M.D.
Assistants:
Vazquez FajardoAShagufta; endoscopic harvest/prep of LLE GSV; certified surgical tech/first assistant
Chinedu Candelario PBriaA.-C.; closure of LLE GSV incision and [id number] sternotomy closure
Anesthesia:
Jc Ibrahim M.D.
Perfusion:
Aleksandra Vo.CBriaP.; XC: 92min, CPB 152min
Findings:
WELLINGTON was healthy appearing conduit w/ ELD 2.5mm - very brisk blood flow
GSV was a variable conduit w/ ELD ranging from 2.0mm-3.5mm; some segments w/ thin vanegas; 1 midpoint suture repair was required (excluded from use)
LAD was visible on the epicardial surface distally, midpoint anastomosis performed just distal to D2, vessel identified under epicardial adipose tissue and very shallow (<0.5mm) amount of myocardium. LAD was extensively calcified throughout its
course, relatively normal vanegas at anastomotic site. ELD 2.25mm
D1 was visible on the epicardial surface. This vessel was profoundly calcified throughout its course. I found a spot at the distal third that was amenable to bypass, but the vessel was quite small at this location ~1mm or slightly less.
Anastomosis performed over 1.0mm shunt that just barely fit into this coronary target.
OM1 was visible on the epicardial surface. This vessel was profoundly calcified throughout its course. I found a spot at its midpoint that was amenable to bypass. This vessel had an ELD of 1.4mm, anastomosis performed over a 1.0mm shunt.
There was good backbleeding from both vein grafts upon completion of proximal coronary anastomoses
Upon release of partial aortic clamp and inspection of the vein grafts, there was a segment of the graft to the OM1 approximately 2.5cm in length that was quite small comparative to the rest of this conduit. This had been unappreciated
previously. I was not satisfied with the appearance of this segment and opted to resect this portion. The proximal was controlled with clips, transected, & oversewn. I performed a rjuq-aw-jvaj anastomosis off the GSV to D1 at the level of the
mid-main PA. I was extremely satisfied with the appearance of the final anastomosis and lie of the vein grafts.
Intraoperative flow-probe transit time U/S assessment demonstrated excellent flow in the GSV to the OM1 and in the WELLINGTON to LAD. The flow in the GSV to D1 was present but comparatively less. This is consistent with the small size of this distal
coronary target w/ limited runoff.
Pt. w/o Hx of AF, but on SELVIN assessment he had significant low flow in his CHUCHO - I opted to ELAA w/ a 45mm AtriClip
Complications:
None
Implants:
CT x 4 (B/L pleural, inferior mediastinal, superior mediastinal)
Sternal wires x 8
Sternal 'X' plate & 8 - 14mm screws
Condition:
90 sinus. 95/51. 14/5. CVP 3. CO/CI: 3.2/1.9. 100%
GTTS: dobutamine 2, insulin 1, precedex 0.5
Stable/guarded to CTICU
[2024-05-12 13:10] LABS: B.E. - POC -1.5 mmol/L; Glucose - POC 126 mg/dl (70-99); HCO3 - POC 23 mmol/L (21-29); Hematocrit - POC 28 % PCV (42-52); Hemodilution- POC Yes; Hemoglobin Calculated - POC 9.4; Ionized Calcium - POC 1.13 mmol/L (1.12-1.27); PCO2 - POC 37 mmHg (35-45); PO2 - POC 415 mmHg (80-100); POC Comment POST; Potassium - POC 5.3 mmol/L (3.6-5.0); Sodium - POC 139 mmol/L (135-145)
[2024-05-12] MEDS: NSS 500 IV (13:30)
--- NOTE | 2024-05-12 13:30 | PTCARENOTE ---
Received pt from [facility]. Pt is intubated and sedated. On Insulin, Precedex, Dobutamine, and Nitro. Milly 3. NSR on monitor. no wires, Juliette @ 45. IJ Cordis to KVO. L radial a-line. zeroed and calibrated. B/P:124/64, HR: 92. + pulses, - edema, Sternal
incision with Aquacel, no drainage present. Lungs clear, diminished in bases, E/T tube size 8.0, 23 @ lip. FIO2 60% POX 100, Meds X2, L&R Pleural C/T, draining red fluid, WNL. Hypoactive BS, abdomen soft. Burgos intact, draining clear, yellow fluid
WNL. Right 20g PVA.
[2024-05-12 13:35] LABS: Glucose - Point of Care 130 mg/dl (70-99)
[2024-05-12 13:40] LABS: B.E. -2.2 mmol/L; HCO3 22.3 mmol/L (21-28); Ionized Calcium 1.22 mMOL/L (1.15-1.33); O2 Saturation % 98.8 % (94-98); PCO2 36 mmHg (35-48); PO2 187 mmHg (83-108); Sodium 135 mMOL/L (136-145)
[2024-05-12 13:43] LABS: Mixed Venous O2 Saturation 67.3 %
[2024-05-12 13:48] LABS: Hematocrit 27.4 % (39.0-52.0); Hemoglobin 9.3 g/dL (13.0-18.0); Platelet Count 136 10^3/uL (130-400)
[2024-05-12] MEDS: ANCEF 10 IV ×2 (14:00)
[2024-05-12] MEDS: NEURONTIN PO ×2 (14:01→17:15)
[2024-05-12] MEDS: CARDENE 200 IV (14:01)
[2024-05-12 14:03] LABS: Blood Urea Nitrogen 40 mg/dl (9-20); Estimated Creatinine Clearance 58 ml/min; Glucose 131 mg/dl (70-99); Magnesium 3.3 mg/dl (1.6-2.3)
[2024-05-12 14:09] LABS: APTT 32.7 Sec (23.4-35.0)
--- NOTE | 2024-05-12 14:15 | PTCARENOTE ---
NSR on monitor. Peep changed on ventilator to 7 per CTNP Susana, respiratory notified.
[2024-05-12 15:02] LABS: Glucose - Point of Care 134 mg/dl (70-99)
[2024-05-12 15:10] LABS: B.E. -2.1 mmol/L; HCO3 22.3 mmol/L (21-28); O2 Saturation % 98.7 % (94-98); PCO2 36 mmHg (35-48); PO2 166 mmHg (83-108)
[2024-05-12 15:19] LABS: PT 18.2 Sec (11.4-14.6)
[2024-05-12] MEDS: TYLENOL PO (15:20)
--- NOTE | 2024-05-12 15:29 | W.PN.CD ---
Addendum entered and electronically signed by Mendez Nathan MD 05/12/24 17:30:
I saw and examined the patient.
The RESEARCH PROFESSOR's note was reviewed and I agree with the note.
Comment: On exam cardiac rub is present. EKG good, no pericarditis changes. Intraop SELVIN showed improved LVEF on post-surgery study.
Original Note:
Today's Communication / Plan
-
Follow telemetry
Postoperative management per CT surgery
Impression / Plan
-
Impression/Plan: 53 y/o male with uncontrolled diabetes and HTN admitted with new HFrEF, cardiac catheterization confirming severe multivessel disease with ischemic cardiomyopathy.
CAD S/P CABG x 3 (Bree�LAD, GSV�D1, GSV�OM1), by Dr. Penn 05/12/2024
-On Cardene
-Postoperative report pending
-EKG with prolonged QT, EKG in a.m.
-High dose high potency statin
-Follow telemetry
#HFrEF (LVEF 40-45%) - Acute.
Ischemic cardiomyopathy
-Improved with diuresis, weight is down 28 lbs since arrival, LVEF was also 30-35% initially
-S/P left thoracentesis 05/06/24 with 900ml removed, denies SOB.
-GDMT as tolerated:
-Beta kia = carvedilol 6.25 mg BID.
-ACEI/ARB/ARNi = On no ACEI/ARB pre-op. Case management to mejia Entresto.
-SGLT2i = Start dapagliflozin 10 mg daily.
-MRA = None.
-Trend daily weight, I/O, and BMP
-Heart failure education
#Hypertension
-Chronic, stable.
-Continue carvedilol
#HLD
-LDL 142, goal LDL is < 55.
-Now on Lipitor 80mg daily.
#Diabetes, type II
-Chronic, uncontrolled.
-HbA1c = 12.6%.
-Insulin per primary team.
-On [facility] now.
Subjective/Interval History:
Intubated and sedated on mechanical ventilation
DATA:
TTE, 05/03/2024:
CONCLUSIONS
Moderately reduced left ventricular systolic function (LVEF 30 to 35%). Global
hypokinesis.
Normal RV size and function.
Mild mitral regurgitation.
Unable to estimate PASP due to incomplete TR envelope.
Mildly dilated aortic root (4.0 cm).
No prior study available for comparison.
Cardiac Catheterization, 05/04/2024:
CONCLUSIONS:
1. Left dominant circulation with a 40-50% lesion in the distal left main, a 40% lesion in the ostium of the diagonal followed by 70% lesion in the mid diagonal, and 90% lesion in the proximal circumflex spanning the origin of the obtuse marginal,
and 80-90% lesion in the distal circumflex as it turns into the LPDA which is diffusely diseased, a focal, 90% lesion in the mid section of the obtuse marginal and an occlusive, 60-70% lesion in the proximal/mid LAD that spans the origin of the
diagonal (IFR = 0.83).
2. Severely elevated filling pressures (LVEDP = 27 mmHg, PCWP = 27 mmHg at 76.7 kg).
3. Severe ischemic cardiomyopathy (LVEF = 30-35%) by echocardiography.
Physical Exam
Vital Signs/Labs
Vital Signs
Temp Pulse Resp BP Pulse Ox
97.2 F 86 14 91/67 100
05/12/24 15:00 05/12/24 15:00 05/12/24 15:00 05/12/24 15:00 05/12/24 15:00
05/11/24 05/12/24 05/13/24
06:59 06:59 06:59
Actual Weight 66.3 kg 66.4 kg
05/12/24 13:31
PT 14.1 Sec (11.4-14.6) 05/05/24 05:59
INR 1.11 05/05/24 05:59
APTT 95.9 Sec (23.4-35.0) H 05/12/24 04:22
Magnesium 3.3 mg/dl (1.6-2.3) H 05/12/24 13:31
Triglycerides 172 mg/dl (10-149) H 05/02/24 04:31
LDL Cholesterol, Calc 142 mg/dl 05/02/24 04:31
VLDL Cholesterol, Calc 34 mg/dl (0-30) H 05/02/24 04:31
HDL Cholesterol 29 mg/dl 05/02/24 04:31
05/01/24
04:26
Glm-I-Wxciqpmaqur Pept 9470
Physical Exam
Constitutional: No acute distress and Comfortable
EENT: Anicteric and Moist mucous membranes
Cardiovascular: Rhythm & rate is regular, Pedal edema is absent and Rub present
Respiratory: Lungs clear to auscul. and Other (Mechanical ventilation)
GI: Soft, Distention absent, Flat, Non tender and Normal bowel sounds
Neuro/Psych: Other (Sedated)
Other: Skin (Warm and dry without edema)
Data Reviewed
-
Date of Service: May 12, 2024
--- NOTE | 2024-05-12 15:53 | PTCARENOTE ---
NSR on monitor. Patient continues with assistance from the ventilator. Eye opening to voice x1. Family was at bedside for visit. Assessment of needs ongoing.
[2024-05-12 16:03] LABS: Glucose - Point of Care 129 mg/dl (70-99)
[2024-05-12] MEDS: OFIRMEV 100 IV (16:09)
[2024-05-12 17:00] LABS: Glucose - Point of Care 110 mg/dl (70-99)
[2024-05-12] MEDS: PACERONE PO (17:15)
[2024-05-12] MEDS: LIPITOR PO (17:16)
--- NOTE | 2024-05-12 17:20 | PTCARENOTE ---
Cpap trial imitated, pt apneic unable to maintain respirations. Will retrial when pt is more alert. Pt family visited, nursing assessment unchanged from prior
[2024-05-12 17:45] LABS: Hematocrit 29.4 % (39.0-52.0); Hemoglobin 9.9 g/dL (13.0-18.0); Platelet Count 164 10^3/uL (130-400)
[2024-05-12] MEDS: ASPIRIN 300 MG RECTAL (17:50)
[2024-05-12 18:10] LABS: Glucose - Point of Care 90 mg/dl (70-99)
[2024-05-12] MEDS: ANCEF 5 IV (18:19)
[2024-05-12] MEDS: DILAUDID 0.25 MG IV (18:24)
[2024-05-12] MEDS: ZOFRAN 4 MG IV (19:03)
[2024-05-12 19:06] LABS: Glucose - Point of Care 103 mg/dl (70-99)
[2024-05-12] MEDS: SENOKOT-S PO (19:17)
[2024-05-12 19:55] LABS: B.E. -3.3 mmol/L; HCO3 22.1 mmol/L (21-28); Ionized Calcium 1.23 mMOL/L (1.15-1.33); O2 Saturation % 98.7 % (94-98); PCO2 40 mmHg (35-48); PO2 197 mmHg (83-108); Potassium 5.4 mMOL/L (3.5-5.1); pH 7.35 (7.35-7.45)
--- NOTE | 2024-05-12 20:28 | RESPNOTE ---
pt extubated at 2000 per MD order, pt suctioned orally and down ETT prior to extubation, pt extubated without incident. pt able to vocalize, no stridor present. placed on 6L NC
--- NOTE | 2024-05-12 21:00 | PTCARENOTE ---
Assumed care of pt from dayshift RN. Walking rounds completed. Pt SR on the tele monitor. HR 80-90s. +Rub. A-line BP's 100-140s/60s. Cuff BP's 80-100/70s. PAPs 20's/teens. CVP ~8. CI: 2.33. CO: 3.94. Palpable pulses throughout. Trace edema present
in bilateral hands. Pt placed to CPAP by respiratory therapy @1914. ABG drawn and sent @1944. Per CTPA - okay to extubate pt. Pt extubated to 6 L NC w/ respiratory therapy. POX 100%. Pt AAOx3. Mediastinal CTx2 and R/L pleural CT to -20 suction, no
air-leak noted, and output WNL. Abdomen soft/nontender. Hypoactive BS. Burgos catheter CDI and draining yellow urine >30 ml/hr. All surgical sites stable. CT dressing CDI. Right IJ cordis w/ [place] @45 cm CDI. Left radial a-line CDI. All lines leveled,
zeroed, and flushed. Glycemic protocol followed. Dobutamine infusing as ordered. Pt on/off Cardene per protocol. See worklist for full VS / I&O's, interventions, and complete nursing assessment. Call villanueva within reach.
[2024-05-12] MEDS: SODIUM BICARBONATE 50 MEQ IV (21:08)
[2024-05-12 21:14] LABS: Glucose - Point of Care 83 mg/dl (70-99)
[2024-05-12 21:42] LABS: B.E. -0.8 mmol/L; HCO3 23.4 mmol/L (21-28); O2 Saturation % 98.7 % (94-98); PCO2 36 mmHg (35-48); PO2 229 mmHg (83-108); Potassium 4.7 mMOL/L (3.5-5.1); pH 7.42 (7.35-7.45)
[2024-05-12] MEDS: TYLENOL 1000 MG PO (22:08)
[2024-05-12] MEDS: NEURONTIN 100 MG PO (22:53)
[2024-05-12] MEDS: PACERONE 200 MG PO (22:53)
[2024-05-12 22:58] LABS: Glucose - Point of Care 94 mg/dl (70-99)
[2024-05-13] VITALS (27 sets, daily range): BP systolic 77–122; BP diastolic 53–71; BMI 26.5
--- NOTE | 2024-05-13 00:33 | PTCARENOTE ---
Pt reassessed. Pt SR on the tele monitor. HR 80-90s. BP 100s/60s. PAPs 20s/teens. CVP ~ 4-8. CI: 3.03 CO: 5.11. [place] and a-line leveled, zeroed, and flushed. Pt on 4 L NC. POX 100%. CT assessment unchanged. Output WNL. Burgos catheter CDI and
draining yellow urine >30 mL/hr. All surgical sites stable. Glycemic protocol followed. Dobutamine titrated off per protocol. VS and I&Os as documented in worklist. Call villanueva within reach.
[2024-05-13 01:21] LABS: Glucose - Point of Care 100 mg/dl (70-99)
[2024-05-13 02:05] LABS: Glucose - Point of Care 103 mg/dl (70-99)
[2024-05-13] MEDS: ROXICODONE 5 MG PO ×3 (02:54→21:51)
[2024-05-13] MEDS: ANCEF 5 IV ×2 (02:54→12:07)
[2024-05-13 03:00] LABS: Glucose - Point of Care 102 mg/dl (70-99)
[2024-05-13 03:15] LABS: Hematocrit 27.8 % (39.0-52.0); Hemoglobin 9.1 g/dL (13.0-18.0); Mean Corp Hgb Conc. 32.7 g/dL (33.0-37.0); Mean Corpuscular Hgb 27.9 pg (27.0-31.0); Mean Corpuscular Volume 85.3 fL (80.0-94.0); Platelet Count 166 10^3/uL (130-400); Red Blood Cell Count 3.26 10^6/uL (4.70-6.10); Red Cell Dist. Width 12.9 % (11.5-14.5); White Blood Cell Count 11.1 10^3/uL (4.8-10.8)
--- NOTE | 2024-05-13 03:53 | PTCARENOTE ---
No acute change in assessment. Pt SR on the tele monitor. HR 80s. BP 110's/60s. Levo infusing as ordered to keep MAP >65. PAP's 20s/10-teens. CVP 5-7. CI: 2.38 CO: 4.03. All lines leveled, zeroed, and flushed. Pt on 2 L NC. POX 100%. CT assessment
unchanged from original. All surgical sites stable. Burgos catheter CDI. Glycemic protocol followed. Labs drawn and sent. EKG obtained. Pt repositioned in bed. See MAR for pain medicine administration. Call villanueva within reach.
[2024-05-13 04:07] LABS: Glucose - Point of Care 89 mg/dl (70-99)
[2024-05-13 04:11] LABS: Blood Urea Nitrogen 42 mg/dl (9-20); Calcium 8.3 mg/dl (8.4-10.2); Carbon Dioxide 24 mmol/L (22-30); Chloride 107 mmol/L (98-107); Estimated Creatinine Clearance 50 ml/min; Glucose 101 mg/dl (70-99); Magnesium 2.9 mg/dl (1.6-2.3); Potassium 4.9 mmol/L (3.5-5.1); Sodium 141 mmol/L (135-145); eGFR > 60.00
[2024-05-13 05:23] LABS: Glucose - Point of Care 102 mg/dl (70-99)
[2024-05-13] MEDS: TYLENOL 1000 MG PO ×3 (06:22→21:52)
--- NOTE | 2024-05-13 06:30 | W.PN.CT ---
Today's Communication / Plan
-
-pod #1
-no significant issues overnight
-CI 2.28, CO 3.86. Drips: Levo 1, Insulin. Dobut off at midnight
-CT output: 2 meds 60/100, 2 pleur 70/140 in 12/24 hrs
-deline
-d/c Burgos
-continue insulin drip
-current meds (ASA, Plavix, Lipitor, Lopressor, Amio, Protonix)
-encourage IS, OOB
-encourage IS, OOB
Assessment / Plan
-
Assessment:
-s/p CABG x 3 (WELLINGTON to LAD, GSV to D1, GSV to OM1); LLE GSV; ELAA w/ a 45mm AtriClip on 05/12/24, pod #1
-Intraop SELVIN: LVEF preop approx 40-45% and postop approximately 50-55% with improved regional wall motion. CHUCHO has been clipped with a residual lumen measuring 0.47 cm. No color Doppler flow is noted distal to the clip.
-Severe 3v CAD/40-50% distal LM
-SOB
-Acute systolic CHF
-ICM (EF 30-35% per TTE 05/03); EF 40-45% per TTE 05/10/24
-Mild MR
-Mildly dilated aortic root (4.0 cm)
-Recent Tachycardia
-HTN
-HLD
-T2DM (hgb A1C 12.6)
-Former tobacco use (1 cigarette/day x 10 years)
-B/L LE edema
-Mild elevation of right hemidiaphragm
-B/L pleural effusion
-S/P L thoracentesis (900 cc clear anson pleural fluid), 05/06/24; Right effusion resolved with diuresis
-Acute postop blood loss anemia - stable, no transfusion
-Acute postop atelectasis
-Acute postop hypovolemia with subsequent hypervolemia
Discussed patient care with: Nursing and Care Team
Subjective
Procedure
-s/p CABG x 3 (WELLIGNTON to LAD, GSV to D1, GSV to OM1); LLE GSV; ELAA w/ a 45mm AtriClip on 05/12/24
-
Date of Service: May 12, 2024
Objective Data
-
Lab Results
05/12/24 16:57
05/12/24 13:31
PT 18.2 Sec (11.4-14.6) H 05/12/24 13:31
INR 1.50 05/12/24 13:31
APTT 32.7 Sec (23.4-35.0) 05/12/24 13:31
Vital Signs
Vital Signs
Temp Pulse Resp BP Pulse Ox
99.3 F 98 16 107/70 100
05/12/24 21:00 05/12/24 21:00 05/12/24 21:00 05/12/24 21:00 05/12/24 21:00
CT Intake/Output/Weight
05/12/24 05/12/24 05/13/24
06:59 18:59 06:59
Intake Total 154 / 634 198.4 / 268.8 70.4 / 268.8
Output Total 640 / 950 310 / 950
Balance 154 / 634 -441.6 / -681.2 -239.6 / -681.2
SaO2: 100
Physical Exam
-
General: Awake and AOx3
Cardiovascular: Regular rate & rhythm, No Murmurs and Rub
Respiratory: Decreased Breath Sounds
Sternum: Stable
Incision: Clean, Dry and Dressing Intact
Extremities: No Edema
Data Reviewed
-
Lab Results: Results Reviewed
Medications: Active Meds Reviewed
Chest X-Ray: Report Reviewed and Image Reviewed
ECG: Report Reviewed and Image Reviewed
--- NOTE | 2024-05-13 07:04 | W.PN.CD ---
Today's Communication / Plan
-
Continue routine post operative management.
Pain control/chest tube management per CT surgery.
Impression / Plan
-
Impression/Plan: 53 y/o male with uncontrolled diabetes and HTN admitted with new HFrEF, cardiac catheterization confirming severe multivessel disease with ischemic cardiomyopathy, now s/p CABG x3.
#CAD
-New diagnosis this admission.
-S/P CABG x 3 (Bree�LAD, GSV�D1, GSV�OM1) by Dr. Penn, 05/12/2024.
-S/P LAAE (#45 AtriClip).
-Routine post operative care.
-Continue pressors (norepinephrine) and inotropes to maintain MAP > 65 mmHg, CI > 1.8 L/min/m2.
-GDMT as hemodynamics will tolerate.
-High dose, high potency statin.
#HFrEF (LVEF 40-45%) - Acute.
Ischemic cardiomyopathy
-Improved with diuresis, weight is down 28 lbs since arrival, LVEF was also 30-35% initially
-S/P left thoracentesis 05/06/24 with 900ml removed, denies SOB.
-GDMT as tolerated:
-Beta kia = carvedilol 6.25 mg BID - currently on hold while he recovers from surgery.
-ACEI/ARB/ARNi = On no ACEI/ARB pre-op. Case management to roberto Rubio.
-SGLT2i = dapagliflozin on hold.
-MRA = None.
-Trend daily weight, I/O, and BMP.
-Heart failure education.
#Hypertension
-Chronic, stable.
-Currently requiring norepinephrine.
#HLD
-LDL 142, goal LDL is < 55.
-Continue atorvastatin 80mg daily.
#Diabetes, type II
-Chronic, uncontrolled.
-HbA1c = 12.6%.
-Insulin per primary team.
-Restart dapagliflozin when appropriate.
Subjective/Interval History:
Extubated post op yesterday.
Remains on norepinephrine to maintain MAP > 65 mmHg.
Weight is up 1.4 kg from yesterday.
SaO2 100% on 2LNC.
DATA:
TTE, 05/03/2024:
CONCLUSIONS
Moderately reduced left ventricular systolic function (LVEF 30 to 35%). Global
hypokinesis.
Normal RV size and function.
Mild mitral regurgitation.
Unable to estimate PASP due to incomplete TR envelope.
Mildly dilated aortic root (4.0 cm).
No prior study available for comparison.
Cardiac Catheterization, 05/04/2024:
CONCLUSIONS:
1. Left dominant circulation with a 40-50% lesion in the distal left main, a 40% lesion in the ostium of the diagonal followed by 70% lesion in the mid diagonal, and 90% lesion in the proximal circumflex spanning the origin of the obtuse marginal,
and 80-90% lesion in the distal circumflex as it turns into the LPDA which is diffusely diseased, a focal, 90% lesion in the mid section of the obtuse marginal and an occlusive, 60-70% lesion in the proximal/mid LAD that spans the origin of the
diagonal (IFR = 0.83).
2. Severely elevated filling pressures (LVEDP = 27 mmHg, PCWP = 27 mmHg at 76.7 kg).
3. Severe ischemic cardiomyopathy (LVEF = 30-35%) by echocardiography.
SELVIN, 05/12/2024:
CONCLUSIONS
Mild global LV dysfunction. Overall LVEF is approximately 40-45%.
Stage II Diastolic dysfunction.
Mildly dilated left atrium.
Trace pulmonic insufficiency.
Mild sessile atheroma seen in the distal aortic arch and proximal descending
aorta.
POST OPERATIVE FINDINGS
The patient underwent a CABG on bypass and LA appendage clipping. Postop
rhythm remains sinus. RV and LV function both appear more vigorous. Overall
LVEF is now approximately 50-55% with improved regional wall motion. All
valves appear to be functioning normally. CHUCHO has been clipped with a residual
lumen measuring 0.47 cm. No color Doppler flow is noted distal to the clip.
Aortic scan is unchanged.
Physical Exam
Vital Signs/Labs
Vital Signs
Temp Pulse Resp BP Pulse Ox
36.6 C 89 16 96/70 100
05/13/24 06:00 05/13/24 06:15 05/13/24 06:15 05/13/24 06:00 05/13/24 06:15
05/11/24 05/12/24 05/13/24
11:59 11:59 11:59
Actual Weight 66.3 kg 66.4 kg 67.8 kg
05/13/24 03:08
05/13/24 03:08
PT 18.2 Sec (11.4-14.6) H 05/12/24 13:31
INR 1.50 05/12/24 13:31
APTT 32.7 Sec (23.4-35.0) 05/12/24 13:31
Magnesium 2.9 mg/dl (1.6-2.3) H 05/13/24 03:08
Triglycerides 172 mg/dl (10-149) H 05/02/24 04:31
LDL Cholesterol, Calc 142 mg/dl 05/02/24 04:31
VLDL Cholesterol, Calc 34 mg/dl (0-30) H 05/02/24 04:31
HDL Cholesterol 29 mg/dl 05/02/24 04:31
05/01/24
04:26
Fwe-D-Ijukwfrfxlb Pept 9470
Physical Exam
Constitutional: No acute distress and Comfortable
EENT: Anicteric and Moist mucous membranes
Cardiovascular: Rhythm & rate is regular, Pedal edema is absent and S1S2 is normal
Respiratory: Respiratory effort normal, Lungs clear to auscul., Wheeze Absent, Crackles Absent and Rhonchi Absent
GI: Soft, Distention absent, Flat, Non tender and Normal bowel sounds
Neuro/Psych: AO x 3
Data Reviewed
-
Date of Service: May 13, 2024
Medical Decision Making: Reviewed Test Results, Independent Historian Assessment and Test Interpretation
EKG: Tracing Personally Visualized and interpreted and Report Reviewed by me
Echo: Tracing Personally Visualized and interpreted and Report Reviewed by me
X-Ray/CT/US/MRI/NUC/PET: Image Personally Visualized and interpreted and Report Reviewed by me
Medical Tests (PFT, Pathology etc): Image Personally Visualized and interpreted and Report Reviewed by me
Labs: Labs Reviewed by me
[2024-05-13 07:06] LABS: Glucose - Point of Care 110 mg/dl (70-99)
--- NOTE | 2024-05-13 07:26 | W.PN.INTV ---
Today's Communication / Plan
Recommendations
Tolerated extubation
Wean FiO2
Begin to deline
Continue insulin drip
Monitor chest tube output
Assessment
-
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
Significant multivessel CAD
Status post CAB x 3-WELLINGTON-LAD, GSV-D1, GSV-OM1-05/12/2024 Dr. Penn
CHF-reduced EF
Mild flxncr-pprjksbuvz-vdtexiswwf 12.0
Hyperkalemia
Bilateral pleural effusions status post left thoracentesis--900 mL pleural fluid 05/06/2024
Recent hypertensive emergency
Hyperglycemia
Constipation
Conditions present prior to admission:
Hypertension.
Hyperlipidemia.
Diabetes.
CAD.
Family history premature CAD
Plan
Tolerated extubation
Wean FiO2
Encourage incentive spirometry
Increase activity
Aspiration precautions
Pulmonary artery catheter and arterial line will be removed
Pressors have been weaned
Continue to monitor chest tube output
Follow hemoglobin
Continue to follow platelet count and coags
Transfuse blood product as needed
CT surgery following chest tubes as well
Follow blood sugar
Insulin supplementation continues as needed
Early nutrition
Early mobilization
DVT prophylaxis
Remains on insulin drip-flash ranging crewmember will continue to follow
Critical care statement: A total of 35 minutes of critical care time was provided for this patient today. This includes management of ventilator, spontaneous breathing trial, arterial blood gases, pressors, of unstable vital signs, insulin drip
management, evaluation of the patient at bedside, reviewing the patient's pertinent medical records including radiographs, microbiology, laboratory evaluations, and discussion with primary team and critical care nursing.
Diagnostic data:
Chest x-ray 05/10/2024-stable mild elevation right hemidiaphragm
CT chest 05/04/2024-moderate bilateral pleural effusions with compressive atelectasis, patchy groundglass opacification in both lungs consistent with groundglass pulmonary edema
Echocardiogram-transesophageal 05/12/2024-EF 40-45%, stage II diastolic dysfunction, mild sessile atheroma distal aortic arch
Echocardiogram 05/03/2024-
Cardiac catheterization 05/04/24-70% mid diagonal, 90% lesion proximal circumflex, 90% distal circumflex lesion, 90% mid section obtuse marginal and 70% lesion proximal/mid LAD with severely elevated filling pressures-27 and severe ischemic
cardiomyopathy EF 30%
Subjective Dataa
Subjective Data
Date of Service:
Date of Service: May 13, 2024
Chief Complaint: J2E[employer] Architect Follow Up and Pulmonary Follow Up
Subjective:
Tolerated extubation, still some shortness of breath, pain controlled, no complaints of abdominal pain
Review of Systems
General: Other (Per HPI)
Objective Data
Data Reviewed
Vital Signs / I&O / Oxygen:
Vital Signs
Temp Pulse Resp BP Pulse Ox
98 F 84 16 86/65 100
05/13/24 06:00 05/13/24 07:00 05/13/24 07:00 05/13/24 07:00 05/13/24 07:00
Intake and Output
05/12/24 05/13/24 05/14/24
06:59 06:59 06:59
Intake Total 634 / 634 659.2 / 677.4 18.2 / 18.2
Output Total 1600 / 1620 20 / 20
Balance 634 / 634 -940.8 / -942.6 -1.8 / -1.8
SaO2 [CPAP/PSV] 100
SaO2 [SIMV] 100
SaO2 100
Nasal Cannula flow liters per 2
minute
Labs/Micro/Reports
Lab Data
05/13/24 03:08
05/13/24 03:08
Laboratory Results
05/12/24 05/12/24 05/12/24
13:31 14:57 19:43
PT 18.2 H
INR 1.50
APTT 32.7
pH 7.40 7.40 7.35
pCO2 36 36 40
pO2 187 H 166 H 197 H
HCO3 22.3 22.3 22.1
O2 Delivery Level Not Reportable
05/12/24
21:37
PT
INR
APTT
pH 7.42
pCO2 36
pO2 229 H
HCO3 23.4
O2 Delivery Level Not Reportable
--- NOTE | 2024-05-13 07:41 | W.PN.ANS.POP ---
Anesthesia Post Operative
- Anesthesia Post Op Note
Vital Signs Stable-See Nursing Note: Yes
Airway Patent: Yes
Adequate Pain Control: Yes
Change in Mental Status: No
Current Postoperative Nausea & Vomiting: No
Anesthesia Complications: No
General Anesthetic Recall: No
Unplanned Admission: No
Post Op Hydration Adequate: Yes
[2024-05-13 08:56] LABS: Glucose - Point of Care 104 mg/dl (70-99)
[2024-05-13] MEDS: SENOKOT-S 1 TABLET PO ×2 (08:56→19:55)
[2024-05-13] MEDS: NEURONTIN 100 MG PO ×3 (08:56→21:52)
[2024-05-13] MEDS: MAGNESIUM OXIDE PO ×2 (08:56→09:02)
[2024-05-13] MEDS: LOW STRENGTH ASPIRIN 81 MG PO (08:56)
[2024-05-13] MEDS: PLAVIX 75 MG PO (08:56)
[2024-05-13] MEDS: PACERONE 200 MG PO ×3 (08:56→21:52)
[2024-05-13] MEDS: PROTONIX 40 MG PO (08:56)
[2024-05-13] MEDS: LIDOCAINE 4% PATCH 1 PATCH TOPICAL (08:56)
[2024-05-13] MEDS: BACTROBAN 2% OINTMENT 1 APPLIC NASAL ×2 (08:58→19:55)
[2024-05-13] MEDS: LOPRESSOR PO (08:58)
[2024-05-13] MEDS: NOVOLOG FLEXPEN SC ×3 (09:00→14:08)
--- NOTE | 2024-05-13 10:09 | PTCARENOTE ---
assumed care of pt from previous shift RN, sinus rhythm on tele, bp labile Levophed titrated as per order, + peripheral pulses, no edema. Lungs diminished, pox 100% on 2L NC, coughing and deep breathing encouraged. +bs, tolerating PO intake, pt is
DTV. MSI w antibacterial dressing intact, left leg MONIK wrap in place. CT x4 w minimal amount of drainage. PIV w insulin infusing as per glycemic protocol, Right IJ cordis w KVO and levophed. pt was medicated for pain at change of shift w good
result. Plan of care reviewed w the pt using director of retail analytics, questions encouraged.
[2024-05-13] MEDS: LR 500 IV (10:55)
[2024-05-13 11:35] LABS: Glucose - Point of Care 136 mg/dl (70-99)
[2024-05-13] MEDS: CALCIUM GLUCONATE 100 IV (12:07)
--- NOTE | 2024-05-13 12:16 | PTCARENOTE ---
Levophed remains at 1mcg, pt tolerated clear liquid breakfast. Minimal OP from CTs.
[2024-05-13 13:24] LABS: Glucose - Point of Care 139 mg/dl (70-99)
[2024-05-13] MEDS: NSS IV (13:38)
--- NOTE | 2024-05-13 13:42 | CM ---
called [facility] patient assistance program to inquire if a non-[place] citizen can be covered. they said NO. pt is uneligible for the program. Yamilet eagle.
--- NOTE | 2024-05-13 14:52 | PTCARENOTE ---
pt assisted OOB to chair, tolerated well.
[2024-05-13 15:28] LABS: Glucose - Point of Care 135 mg/dl (70-99)
[2024-05-13] MEDS: ProAmatine 2.5 MG PO (17:45)
[2024-05-13] MEDS: LIPITOR 80 MG PO (17:45)
[2024-05-13] MEDS: NOVOLOG FLEXPEN 2 UNITS SC (17:46)
[2024-05-13 17:52] LABS: Glucose - Point of Care 183 mg/dl (70-99)
--- NOTE | 2024-05-13 18:00 | PTCARENOTE ---
pt unable to void, bladder scanned for 588ml, straight cath'ed for 550ml.
[2024-05-13 19:03] LABS: Glucose - Point of Care 159 mg/dl (70-99)
[2024-05-13] MEDS: MAGNESIUM OXIDE 500 MG PO (19:55)
--- NOTE | 2024-05-13 20:00 | PTCARENOTE ---
PT AAOx4 w/ complaints of pain but refusing pain medicine. NS VSS, x4CT with minmal drainage, all surgical sights CDI, all access lines WNL. see worklist for detailed assessment
[2024-05-13 21:57] LABS: Glucose - Point of Care 299 mg/dl (70-99)
[2024-05-13 23:14] LABS: Glucose - Point of Care 307 mg/dl (70-99)
[2024-05-13 23:14] LABS: Glucose - Point of Care 238 mg/dl (70-99)
[2024-05-14] VITALS (17 sets, daily range): BP systolic 88–134; BP diastolic 60–76; PULSE 76; O2SAT 99; BMI 27.7
--- NOTE | 2024-05-14 | PTCARENOTE ---
no change from previous assessment
[2024-05-14 00:26] LABS: Glucose - Point of Care 174 mg/dl (70-99)
[2024-05-14 01:24] LABS: Glucose - Point of Care 178 mg/dl (70-99)
[2024-05-14 02:52] LABS: Glucose - Point of Care 124 mg/dl (70-99)
--- NOTE | 2024-05-14 04:13 | W.PN.CT ---
Today's Communication / Plan
-
-pod #2
-no significant issues overnight
-Drips: Levo 1 on and off, Insulin.
-CT output: 2 meds 100/160, 2 pleur 150/240 in 12/24 hrs
-got Ca, 500 LR and started on Midodrine 2.5 tid on 05/13 for hypotension. Lopressor held
-current meds (ASA, Plavix, Lipitor, Amio, Protonix)
-encourage IS, OOB
Assessment / Plan
-
Assessment:
-s/p CABG x 3 (WELLINGTON to LAD, GSV to D1, GSV to OM1); LLE GSV; ELAA w/ a 45mm AtriClip on 05/12/24, pod #2
-Intraop SELVIN: LVEF preop approx 40-45% and postop approximately 50-55% with improved regional wall motion. CHUCHO has been clipped with a residual lumen measuring 0.47 cm. No color Doppler flow is noted distal to the clip.
-Severe 3v CAD/40-50% distal LM
-SOB
-Acute systolic CHF
-ICM (EF 30-35% per TTE 05/03); EF 40-45% per TTE 05/10/24
-Mild MR
-Mildly dilated aortic root (4.0 cm)
-Recent Tachycardia
-HTN
-HLD
-T2DM (hgb A1C 12.6)
-Former tobacco use (1 cigarette/day x 10 years)
-B/L LE edema
-Mild elevation of right hemidiaphragm
-B/L pleural effusion
-S/P L thoracentesis (900 cc clear anson pleural fluid), 05/06/24; Right effusion resolved with diuresis
-Acute postop blood loss anemia - stable, no transfusion
-Acute postop atelectasis
-Acute postop hypovolemia with subsequent hypervolemia
-Acute postop hypotension, possibly d/t vasoplegia
-Acute postop urinary retention
Discussed patient care with: Nursing and Care Team
Subjective
Procedure
-s/p CABG x 3 (WELLINGTON to LAD, GSV to D1, GSV to OM1); LLE GSV; ELAA w/ a 45mm AtriClip on 05/12/24
-
Date of Service: May 14, 2024
Objective Data
-
PT 18.2 Sec (11.4-14.6) H 05/12/24 13:31
INR 1.50 05/12/24 13:31
APTT 32.7 Sec (23.4-35.0) 05/12/24 13:31
Vital Signs
Vital Signs
Temp Pulse Resp BP Pulse Ox
98.2 F 80 11 105/68 94
05/14/24 02:00 05/14/24 02:15 05/14/24 02:15 05/14/24 00:00 05/13/24 16:00
CT Intake/Output/Weight
05/13/24 05/13/24 05/14/24
06:59 18:59 06:59
Intake Total 460.8 / 677.4 865.8 / 865.8
Output Total 960 / 1620 700 / 800 100 / 800
Balance -499.2 / -942.6 165.8 / 65.8 -100 / 65.8
SaO2: 94
Physical Exam
-
General: Awake and AOx3
Cardiovascular: Regular rate & rhythm, No Murmurs and +Rub
Respiratory: Decreased Breath Sounds
Sternum: Stable
Incision: Clean, Dry and Dressing Intact
Extremities: No Edema b/l
Data Reviewed
-
Lab Results: Results Reviewed
Medications: Active Meds Reviewed
Chest X-Ray: Report Reviewed and Image Reviewed
ECG: Report Reviewed and Image Reviewed
[2024-05-14 04:36] LABS: Glucose - Point of Care 127 mg/dl (70-99)
[2024-05-14 04:50] LABS: Hematocrit 24.4 % (39.0-52.0); Hemoglobin 7.9 g/dL (13.0-18.0); Mean Corp Hgb Conc. 32.4 g/dL (33.0-37.0); Mean Corpuscular Hgb 27.8 pg (27.0-31.0); Mean Corpuscular Volume 85.9 fL (80.0-94.0); Platelet Count 155 10^3/uL (130-400); Red Blood Cell Count 2.84 10^6/uL (4.70-6.10); Red Cell Dist. Width 12.9 % (11.5-14.5); White Blood Cell Count 9.6 10^3/uL (4.8-10.8)
[2024-05-14 05:10] LABS: Blood Urea Nitrogen 54 mg/dl (9-20); Calcium 8.2 mg/dl (8.4-10.2); Carbon Dioxide 27 mmol/L (22-30); Chloride 105 mmol/L (98-107); Estimated Creatinine Clearance 46 ml/min; Glucose 129 mg/dl (70-99); Magnesium 2.8 mg/dl (1.6-2.3); Potassium 4.6 mmol/L (3.5-5.1); Sodium 137 mmol/L (135-145); eGFR 55.67
[2024-05-14 07:04] LABS: Glucose - Point of Care 68 mg/dl (70-99)
[2024-05-14] MEDS: TYLENOL 1000 MG PO ×3 (07:12→20:14)
[2024-05-14 07:16] LABS: Glucose - Point of Care 119 mg/dl (70-99)
--- NOTE | 2024-05-14 07:56 | W.PN.INTV ---
Today's Communication / Plan
Recommendations
Wean insulin drip
Wean oxygen
Wean pressors
Monitor chest tube output
Diuresis per cardiology
Assessment
-
53-year-old male with history of hypertension, hyperlipidemia, diabetes who was admitted with CHF and noted to have significant multivessel CAD and underwent CABG-sounding device operator consulted for postoperative ventilator/critical care management 05/12/2024.
Significant multivessel CAD
Status post CAB x 3-WELLINGTON-LAD, GSV-D1, GSV-OM1-05/12/2024 Dr. Penn
CHF-reduced EF
Mild lowxgu-toqqjevhds-mkxdwwlvvl 12.0
Hyperkalemia
Bilateral pleural effusions status post left thoracentesis--900 mL pleural fluid 05/06/2024
Recent hypertensive emergency
Hyperglycemia
Constipation
Conditions present prior to admission:
Hypertension.
Hyperlipidemia.
Diabetes.
CAD.
Family history premature CAD
Plan
Tolerated extubation-respiratory status stable
Wean FiO2-currently on nasal cannula
Incentive spirometry encouraged again
Increase activity
Aspiration precautions
Deline
Continue to monitor chest tube output
Follow hemoglobin
Continue to follow platelet count and coags
Transfuse blood product as needed
CT surgery following chest tubes as well
Cardiology following-correspondence reviewed
Gentle diuresis
Follow blood sugar
Insulin supplementation continues as needed
Early nutrition
Early mobilization
DVT prophylaxis
Reviewed with at the bedside
If able to be weaned off insulin drip and downgraded to telemetry then sounding device operator will sign off-call pulmonary with respiratory issues
Critical care statement: A total of 32 minutes of critical care time was provided for this patient today. This includes management of ventilator, spontaneous breathing trial, arterial blood gases, pressors, of unstable vital signs, insulin drip
management, evaluation of the patient at bedside, reviewing the patient's pertinent medical records including radiographs, microbiology, laboratory evaluations, and discussion with primary team and critical care nursing.
Diagnostic data:
Chest x-ray 05/10/2024-stable mild elevation right hemidiaphragm
CT chest 05/04/2024-moderate bilateral pleural effusions with compressive atelectasis, patchy groundglass opacification in both lungs consistent with groundglass pulmonary edema
Echocardiogram-transesophageal 05/12/2024-EF 40-45%, stage II diastolic dysfunction, mild sessile atheroma distal aortic arch
Echocardiogram 05/03/2024-
Cardiac catheterization 05/04/24-70% mid diagonal, 90% lesion proximal circumflex, 90% distal circumflex lesion, 90% mid section obtuse marginal and 70% lesion proximal/mid LAD with severely elevated filling pressures-27 and severe ischemic
cardiomyopathy EF 30%
Subjective Dataa
Subjective Data
Date of Service:
Date of Service: May 14, 2024
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
Subjective:
Out of bed, some chest tube site pain, no shortness of breath, blood pressure marginal, no abdominal pain
Review of Systems
General: Other (Per HPI)
Objective Data
Data Reviewed
Vital Signs / I&O / Oxygen:
Vital Signs
Temp Pulse Resp BP Pulse Ox
98.3 F 77 13 134/64 97
05/14/24 06:00 05/14/24 07:30 05/14/24 07:30 05/14/24 06:51 05/14/24 07:30
Intake and Output
05/13/24 05/14/24 05/15/24
06:59 06:59 06:59
Intake Total 659.2 / 677.4 865.8 / 865.8
Output Total 1600 / 1620 930 / 930
Balance -940.8 / -942.6 -64.2 / -64.2
SaO2 [CPAP/PSV] 100
SaO2 [SIMV] 100
SaO2 97
Nasal Cannula flow liters per 2
minute
Physical Exam
General: Respiratory Distress (n) and Comfortable
HEENT: Normocephalic, Anicteric and Moist Mucous Membranes
Cardiovascular: Regular Rhythm
Respiratory: Wheeze (n), Crackles, Rhonchi (n), Non-Labored Respirations, Accessory Resp Muscle Use (n) and Stridor (n)
GI: Soft, Non Distended and Non Tender
Neurology: Awake, Alert and No Motor Deficits
Skin: Warm, Good Color, Cyanosis (n), Jaundice (n) and Rash (n)
Labs/Micro/Reports
Lab Data
05/14/24 04:28
05/14/24 04:28
--- NOTE | 2024-05-14 08:08 | W.PN.CD ---
Today's Communication / Plan
-
weaned off pressors overnight: perhaps can start Toprol XL tomorrow
trend Cr
will likely need IV lasix after pRBC today
Impression / Plan
-
Impression/Plan: 53 y/o male with uncontrolled diabetes and HTN admitted with new HFrEF, cardiac catheterization confirming severe multivessel disease with ischemic cardiomyopathy, now s/p CABG x3.
#CAD
-New diagnosis this admission.
-S/P CABG x 3 (Bree�LAD, GSV�D1, GSV�OM1) by Dr. Penn, 05/12/2024.
-S/P LAAE (#45 AtriClip).
-weaned from pressors overnight
-ASA, Plavix, atorvastatin 80mg daily
#HFrEF (LVEF 40-45%) - Acute.
#Ischemic cardiomyopathy
-Improved with diuresis, weight is down significantly since arrival, LVEF was also 30-35% initially
-S/P left thoracentesis 05/06/24 with 900ml removed
-GDMT as tolerated:
-Beta kia = was on coreg, now with lower BP post op, can use Toprol XL once BP improves
-ACEI/ARB/ARNi = On no ACEI/ARB pre-op. Looks like does not have coverage for entresto. Assess for valsartan once renal function and BP improve.
-SGLT2i = lack of prescription plan will limit
-MRA = None. Assess for aldactone once renal function and BP improve.
-Trend daily weight, I/O, and BMP.
-Heart failure education.
#Hypertension
-Chronic, but BP low post op: monitor
#HLD
-LDL 142, goal LDL is < 55.
-Continue atorvastatin 80mg daily.
#Diabetes, type II
-Chronic, uncontrolled.
-HbA1c = 12.6%.
-Insulin per primary team.
-Restart dapagliflozin if able to get prescription coverage
Subjective/Interval History:
Weaned off pressors overnight.
Sitting in chair.
DATA:
TTE, 05/03/2024:
CONCLUSIONS
Moderately reduced left ventricular systolic function (LVEF 30 to 35%). Global
hypokinesis.
Normal RV size and function.
Mild mitral regurgitation.
Unable to estimate PASP due to incomplete TR envelope.
Mildly dilated aortic root (4.0 cm).
No prior study available for comparison.
Cardiac Catheterization, 05/04/2024:
CONCLUSIONS:
1. Left dominant circulation with a 40-50% lesion in the distal left main, a 40% lesion in the ostium of the diagonal followed by 70% lesion in the mid diagonal, and 90% lesion in the proximal circumflex spanning the origin of the obtuse marginal,
and 80-90% lesion in the distal circumflex as it turns into the LPDA which is diffusely diseased, a focal, 90% lesion in the mid section of the obtuse marginal and an occlusive, 60-70% lesion in the proximal/mid LAD that spans the origin of the
diagonal (IFR = 0.83).
2. Severely elevated filling pressures (LVEDP = 27 mmHg, PCWP = 27 mmHg at 76.7 kg).
3. Severe ischemic cardiomyopathy (LVEF = 30-35%) by echocardiography.
SELVIN, 05/12/2024:
CONCLUSIONS
Mild global LV dysfunction. Overall LVEF is approximately 40-45%.
Stage II Diastolic dysfunction.
Mildly dilated left atrium.
Trace pulmonic insufficiency.
Mild sessile atheroma seen in the distal aortic arch and proximal descending
aorta.
POST OPERATIVE FINDINGS
The patient underwent a CABG on bypass and LA appendage clipping. Postop
rhythm remains sinus. RV and LV function both appear more vigorous. Overall
LVEF is now approximately 50-55% with improved regional wall motion. All
valves appear to be functioning normally. CHUCHO has been clipped with a residual
lumen measuring 0.47 cm. No color Doppler flow is noted distal to the clip.
Aortic scan is unchanged.
Physical Exam
Vital Signs/Labs
Vital Signs
Temp Pulse Resp BP Pulse Ox
98.3 F 77 13 134/64 97
05/14/24 06:00 05/14/24 07:30 05/14/24 07:30 05/14/24 06:51 05/14/24 07:30
05/13/24 05/14/24 05/15/24
06:59 06:59 06:59
Actual Weight 67.8 kg 70.9 kg
05/14/24 04:28
05/14/24 04:28
PT 18.2 Sec (11.4-14.6) H 05/12/24 13:31
INR 1.50 05/12/24 13:31
APTT 32.7 Sec (23.4-35.0) 05/12/24 13:31
Magnesium 2.8 mg/dl (1.6-2.3) H 05/14/24 04:28
Triglycerides 172 mg/dl (10-149) H 05/02/24 04:31
LDL Cholesterol, Calc 142 mg/dl 05/02/24 04:31
VLDL Cholesterol, Calc 34 mg/dl (0-30) H 05/02/24 04:31
HDL Cholesterol 29 mg/dl 05/02/24 04:31
05/01/24
04:26
Exd-R-Vrumrmgtqwd Pept 9470
Physical Exam
Constitutional: No acute distress
EENT: Moist mucous membranes
Cardiovascular: Rhythm & rate is regular, Systolic murmur absent, Pedal edema present and JVD present
Respiratory: Respiratory effort normal and Lungs clear to auscul.
Neuro/Psych: Alert
Data Reviewed
-
Date of Service: May 14, 2024
EKG: Tracing Personally Visualized and interpreted and Other (Tele: NSR 80s)
Labs: Labs Reviewed by me
[2024-05-14 08:21] LABS: Glucose - Point of Care 168 mg/dl (70-99)
[2024-05-14] MEDS: CALCIUM GLUCONATE 100 IV ×2 (08:24→08:32)
[2024-05-14] MEDS: NOVOLOG FLEXPEN 2 UNITS SC (08:32)
[2024-05-14] MEDS: BACTROBAN 2% OINTMENT 1 APPLIC NASAL ×2 (08:49→20:14)
[2024-05-14] MEDS: LIDOCAINE 4% PATCH 1 PATCH TOPICAL (08:49)
[2024-05-14] MEDS: VITAMIN C 250 MG PO (08:50)
[2024-05-14] MEDS: PLAVIX 75 MG PO (08:50)
[2024-05-14] MEDS: ProAmatine 5 MG PO ×3 (08:50→18:04)
[2024-05-14] MEDS: FEOSOL 325 MG PO (08:50)
[2024-05-14] MEDS: PROTONIX 40 MG PO (08:50)
[2024-05-14] MEDS: SENOKOT-S 1 TABLET PO ×2 (08:50→20:15)
[2024-05-14] MEDS: MUCINEX 600 MG PO ×2 (08:50→20:15)
[2024-05-14] MEDS: LOW STRENGTH ASPIRIN 81 MG PO (08:50)
[2024-05-14] MEDS: NEURONTIN 100 MG PO ×3 (08:50→20:15)
[2024-05-14] MEDS: PACERONE 200 MG PO ×3 (08:51→20:15)
[2024-05-14] MEDS: CALCIUM GLUCONATE 1000 MG IV (08:58)
[2024-05-14] MEDS: NOVOLIN R INSULIN INFUSION 100 IV (09:12)
[2024-05-14 09:16] LABS: Glucose - Point of Care 182 mg/dl (70-99)
--- NOTE | 2024-05-14 09:45 | PN.DE.MGMTRT ---
Insulin Management
- -
05/14/2024: Diabetes Management Consult
53 year old male admitted on 05/01 with new HFrEF-->Cardiac catheterization confirming severe MVD with ischemic cardiomyopathy. Now s/p CABG x3
PMH: HTN, HLD, CAD, uncontrolled T2DM, A1C 12.6%. 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
Diabetes mgt consulted on 05/14/2024 to assist transition off glycemic protocol.
Pre-op diabetes regimen included Lantus 16 units daily and NovoLog 6 units AC with corrective insulin
Pt awake, sitting up in chair, offers no complaints, able to discuss diabetes mgt.
Has been on CCGP x48 hrs post-op. Will transition off gtt to SQ insulin.
Give Lantus 15 units NOW, turn drip off 1 hr after administering Lantus. Cr 1.5(baseline 1), eGFR 55.67
Will start NovoLog 8 units AC and Lantus 15 units @ HS with moderate corrective insulin
Start Farxiga 10mg daily if Cr trends down. HOLD Metformin due to ABRIL. Change diet to 1800 alva HH diet.
Will follow and make further adjustments if needed.
Pt will need diabetes education for monitor and insulin instructions on Friday.
Diabetes History
- -
Type of Diabetes: 2 requiring insulin
Pre-Admission Diabetes Regimen
05/14/24
04:28
Creatinine 1.5 H
Lab Results
Hemoglobin A1c 12.6 % (4.0-5.6) H 05/02/24 04:31
Insulin Pump Settings
IP Diabetes Regimen
05/13/24 05/13/24 05/13/24
11:33 13:23 15:26
Glucose
POC Glucose 136 H 139 H 135 H
05/13/24 05/13/24 05/13/24
17:39 19:02 21:56
Glucose
POC Glucose 183 H 159 H 299 H
05/13/24 05/13/24 05/14/24
23:10 23:12 00:23
Glucose
POC Glucose 307 H 238 H 174 H
05/14/24 05/14/24 05/14/24
01:21 02:51 04:28
Glucose 129 H
POC Glucose 178 H 124 H
05/14/24 05/14/24 05/14/24
04:33 07:03 07:14
Glucose
POC Glucose 127 H 68 L 119 H
05/14/24 05/14/24
08:20 09:15
Glucose
POC Glucose 168 H 182 H
Meal type: Dinner
Meal type: Breakfast
Amount consumed: 100%
Patient Education
--- NOTE | 2024-05-14 09:46 | PTCARENOTE ---
assumed care of pt from previous shift RN, sinus rhythm on tele, left radial vanessa leveled and zeroed, + peripheral pulses, trace edema noted. Lungs diminished, pox 98% on RA. +bs, tolerating PO intake, bladder scans monitored. Right IJ cordis w KVO
infusing, PIV w insulin as per glycemic. PRBC transfusion completed. MSI w antibacterial dressing intact, CTs w minimal amount of drainage. Family at bedside. Plan of care reviewed and questions encouraged.
[2024-05-14] MEDS: LANTUS 0.15 UNITS SC ×2 (10:48→20:15)
[2024-05-14 10:49] LABS: Glucose - Point of Care 169 mg/dl (70-99)
[2024-05-14] MEDS: LASIX 20 MG IV (11:57)
--- NOTE | 2024-05-14 12:01 | PTCARENOTE ---
pt bladder scanned for 500ml. pt is not uncomfortable and does not want to be straight cathed. Lasix administered as ordered. Will continue to monitor pt.
[2024-05-14 13:09] LABS: Glucose - Point of Care 150 mg/dl (70-99)
[2024-05-14] MEDS: NOVOLOG FLEXPEN 8 UNITS SC ×2 (13:18→17:58)
[2024-05-14] MEDS: NOVOLOG FLEXPEN-MODERATE RESISTANCE 1 UNITS SC (13:18)
[2024-05-14] MEDS: NSS 500 IV (14:12)
--- NOTE | 2024-05-14 14:27 | PTCARENOTE ---
vanessa removed as ordered. Pt unable to void. Bladder scanned for 766ml. Burgos replaced per Dr. Penn. 800ml yellow urine in return. Pt tolerated.
--- NOTE | 2024-05-14 14:39 | CM ---
Reviewed chart. Met with Mr. Donaldson and his daughter to review discharge plans. Mr. Donaldson was sleeping. Reviewed with his daughter. She states prior to admission he resides with his spouse and son in an apartment with six steps to enter.
She states prior to admission he was independent with ambulation ad adls. He does not have any DME in the home. He does not have any health insurance at this time. We reviewed a home visit by the Transitional Care Nurse. She is agreeable to a
home visit. Medical work-up in progress. The discharge plan is to return home with his spouse and son and a home visit by the Cardiothoracic Transitional Care Nurse when medically stable.
[2024-05-14] MEDS: FLOMAX 0.4 MG PO (15:24)
[2024-05-14 17:58] LABS: Glucose - Point of Care 228 mg/dl (70-99)
[2024-05-14] MEDS: NOVOLOG FLEXPEN-MODERATE RESISTANCE 3 UNITS SC (17:58)
[2024-05-14] MEDS: LIPITOR 80 MG PO (18:04)
--- NOTE | 2024-05-14 20:01 | PTCARENOTE ---
Pt received from outgoing RN, pt aaox4, daughter at bedside for translation as need, VSS, 2LNC, CT x4, Burgos, Rt IJ cordis, pain controlled, Qhs BS check, Sternum incisional dressing CDI.
[2024-05-14 20:15] LABS: Glucose - Point of Care 278 mg/dl (70-99)
--- NOTE | 2024-05-14 23:40 | PTCARENOTE ---
pt reassessment unchanged from previous, vss, soft BP, 2lnc, CT x4, walter, Rt Ij cordis, pain controlled.
[2024-05-15] VITALS (16 sets, daily range): BP systolic 97–119; BP diastolic 65–75; PULSE 77; O2SAT 97–98; BMI 28.3
[2024-05-15 04:21] LABS: Hematocrit 27.1 % (39.0-52.0); Hemoglobin 8.9 g/dL (13.0-18.0); Mean Corp Hgb Conc. 32.8 g/dL (33.0-37.0); Mean Corpuscular Hgb 27.5 pg (27.0-31.0); Mean Corpuscular Volume 83.6 fL (80.0-94.0); Mean Platelet Volume 12.4 fL (7.4-10.4); Platelet Count 149 10^3/uL (130-400); Red Blood Cell Count 3.24 10^6/uL (4.70-6.10); Red Cell Dist. Width 13.2 % (11.5-14.5); White Blood Cell Count 9.7 10^3/uL (4.8-10.8)
--- NOTE | 2024-05-15 04:33 | PTCARENOTE ---
pt reassessment unchanged from previous, vss, 2lnc, nsr, rt ij cordis, ct x4, walter, am labs collected
[2024-05-15 04:47] LABS: Blood Urea Nitrogen 55 mg/dl (9-20); Calcium 7.7 mg/dl (8.4-10.2); Carbon Dioxide 28 mmol/L (22-30); Chloride 103 mmol/L (98-107); Estimated Creatinine Clearance 53 ml/min; Glucose 180 mg/dl (70-99); Magnesium 2.7 mg/dl (1.6-2.3); Potassium 5.9 mmol/L (3.5-5.1); Sodium 134 mmol/L (135-145); eGFR > 60.00
[2024-05-15] MEDS: TYLENOL 1000 MG PO ×3 (05:02→22:34)
[2024-05-15 05:37] LABS: Blood Urea Nitrogen 54 mg/dl (9-20); Calcium 7.8 mg/dl (8.4-10.2); Carbon Dioxide 29 mmol/L (22-30); Chloride 102 mmol/L (98-107); Estimated Creatinine Clearance 50 ml/min; Glucose 177 mg/dl (70-99); Potassium 5.8 mmol/L (3.5-5.1); Sodium 133 mmol/L (135-145); eGFR > 60.00
[2024-05-15] MEDS: NOVOLIN R 10 UNITS IV (06:01)
[2024-05-15] MEDS: DEXTROSE 50% SYRINGE 12.5 GRAMS IV (06:02)
[2024-05-15] MEDS: CALCIUM CHLORIDE 10% SYRINGE 1000 MG IV (06:02)
--- NOTE | 2024-05-15 06:14 | W.PN.CT ---
Addendum entered and electronically signed by Michael Penn MD 05/15/24 08:53:
I saw and examined the patient.
The PA's note was reviewed and I agree with the note.
Comment:
UO ok, creat 1.4, follow hyperkalemia - recheck labs this afternoon
D/C CTs
Maintain walter - tolerating flomax - voiding trial Friday at [facility]
ASA/plavix, lipitor, amio, holding BB
OOB/IS
Original Note:
Today's Communication / Plan
-
-pod #3
-K 5.8 this am (re-checked)- tx with Ca and insulin with D50. Check BMP at 8 am
-Cr trended down - 1.4 today (1.5 on 05/14 and 1.3 preop)
-CT output: 2 meds , 2 pleur 20/160 in 12/24 hrs
-hg improved, 8.9 today, after getting 1 pRBC 05/14
-sbp 90s - on Midodrine 5 tid
-diuresed with 20 iv Lasix on 05/14 (UO 850)- continue
-current meds (ASA, Plavix, Lipitor, Amio, Protonix). Holding BB d/t low BP
-encourage IS, OOB
Assessment / Plan
-
Assessment:
-s/p CABG x 3 (WELLINGTON to LAD, GSV to D1, GSV to OM1); LLE GSV; ELAA w/ a 45mm AtriClip on 05/12/24, pod #3
-Intraop SELVIN: LVEF preop approx 40-45% and postop approximately 50-55% with improved regional wall motion. CHUCHO has been clipped with a residual lumen measuring 0.47 cm. No color Doppler flow is noted distal to the clip.
-Severe 3v CAD/40-50% distal LM
-SOB
-Acute systolic CHF
-ICM (EF 30-35% per TTE 05/03); EF 40-45% per TTE 05/10/24
-Mild MR
-Mildly dilated aortic root (4.0 cm)
-Recent Tachycardia
-HTN
-HLD
-T2DM (hgb A1C 12.6)
-Former tobacco use (1 cigarette/day x 10 years)
-B/L LE edema
-Mild elevation of right hemidiaphragm
-B/L pleural effusion
-S/P L thoracentesis (900 cc clear anson pleural fluid), 05/06/24; Right effusion resolved with diuresis
-Acute postop blood loss anemia - stable, no transfusion
-Acute postop atelectasis
-Acute postop hypovolemia with subsequent hypervolemia
-Acute postop hypotension, possibly d/t vasoplegia
-Acute postop urinary retention
-Acute postop hyperkalemia
Discussed patient care with: Nursing and Care Team
Subjective
Procedure
-s/p CABG x 3 (WELLINGTON to LAD, GSV to D1, GSV to OM1); LLE GSV; ELAA w/ a 45mm AtriClip on 05/12/24
-
Date of Service: May 15, 2024
Objective Data
-
Lab Results
05/15/24 04:10
PT 18.2 Sec (11.4-14.6) H 05/12/24 13:31
INR 1.50 05/12/24 13:31
APTT 32.7 Sec (23.4-35.0) 05/12/24 13:31
Vital Signs
Vital Signs
Temp Pulse Resp BP Pulse Ox
98.2 F 74 15 97/65 99
05/15/24 04:05 05/15/24 04:05 05/15/24 04:05 05/15/24 04:05 05/15/24 04:05
CT Intake/Output/Weight
05/14/24 05/14/24 05/15/24
06:59 18:59 06:59
Intake Total 617 / 817 200 / 817
Output Total 230 / 930 1050 / 1555 505 / 1555
Balance -230 / -64.2 -433 / -738 -305 / -738
SaO2: 99
Physical Exam
-
General: Awake and AOx3
Cardiovascular: Regular rate & rhythm, No Murmurs and No Rub
Respiratory: Decreased Breath Sounds
Sternum: Stable
Incision: Clean, Dry and Intact
Extremities: No Edema
Abdomen: soft, nontender, nondistended, + bowel sounds
Data Reviewed
-
Lab Results: Results Reviewed
Medications: Active Meds Reviewed
Chest X-Ray: Report Reviewed and Image Reviewed
ECG: Report Reviewed and Image Reviewed
--- NOTE | 2024-05-15 06:25 | PTCARENOTE ---
hyperkalemia on AM labs, 5.9 treatment with 12.5g D50, insulin R 10units IVP. low CA 7.7, 1g calcium chloride IVP. Repeat BMP @ 0800
[2024-05-15 07:51] LABS: Glucose - Point of Care 184 mg/dl (70-99)
--- NOTE | 2024-05-15 08:00 | PTCARENOTE ---
Patient care assumed at 0700. Patient is Azeri speaking with language line present in room. Daughter is also bedside. Patient fully alert and oriented, denies significant pain. Pt on 2LNC, O2 sats 98% with no shortness of breath. Chest tube x4
in place and connected to wall suction, no signs of air leak or crepitus present. Patient NSR 70-80. BP stable. OOB to chair with assistance x1-2 for meals . Consumed 100% of breakfast, well tolerated. Pulses palpable. Burgos catheter present. RIJ
cordis present and infusing with KVO.
--- NOTE | 2024-05-15 08:00 | W.PN.CD ---
Today's Communication / Plan
-
- Correct hyperkalemia
- Diuresis
- Insulin and glucose. Kayexalate.
Impression / Plan
-
Impression/Plan: 53 y/o male with uncontrolled diabetes and HTN admitted with new HFrEF, cardiac catheterization confirming severe multivessel disease with ischemic cardiomyopathy, now s/p CABG x3.
#CAD
-New diagnosis this admission.
-S/P CABG x 3 (Bree�LAD, GSV�D1, GSV�OM1) by Dr. Penn, 05/12/2024.
-S/P LAAE (#45 AtriClip).
-off pressors
-s/p PRBC
-ASA, Plavix, atorvastatin 80mg daily
#HFrEF (LVEF 40-45%) - Acute on ?chronic.
-Diuresis with transfusion
#Ischemic cardiomyopathy
-Improved with diuresis, weight is down significantly since arrival, LVEF was also 30-35% initially
-S/P left thoracentesis 05/06/24 with 900ml removed
-GDMT as tolerated: (Limited at this time due to hypotension)
-Beta kia = was on coreg, now with lower BP post op, can use Toprol XL once BP improves
-ACEI/ARB/ARNi = On no ACEI/ARB pre-op. Looks like does not have coverage for entresto. Assess for valsartan once renal function and BP improve.
-SGLT2i = lack of prescription plan will limit
-MRA = None. Assess for aldactone once renal function and BP improve.
-Trend daily weight, I/O, and BMP.
-Heart failure education.
#Hypertension
-Chronic, but BP low post op: monitor
-On Midodrine for now.
#HLD
-LDL 142, goal LDL is < 55.
-Continue atorvastatin 80mg daily.
#Diabetes, type II
-Chronic, uncontrolled.
-HbA1c = 12.6%.
-Insulin per primary team.
-Restart dapagliflozin if able to get prescription coverage
# Hyperkalemia
- s/p D50 and insulin
- recheck david with Cr improving. .
Subjective/Interval History:
OOB.
Chest tubes are out.
DATA:
TTE, 05/03/2024:
CONCLUSIONS
Moderately reduced left ventricular systolic function (LVEF 30 to 35%). Global
hypokinesis.
Normal RV size and function.
Mild mitral regurgitation.
Unable to estimate PASP due to incomplete TR envelope.
Mildly dilated aortic root (4.0 cm).
No prior study available for comparison.
Cardiac Catheterization, 05/04/2024:
CONCLUSIONS:
1. Left dominant circulation with a 40-50% lesion in the distal left main, a 40% lesion in the ostium of the diagonal followed by 70% lesion in the mid diagonal, and 90% lesion in the proximal circumflex spanning the origin of the obtuse marginal,
and 80-90% lesion in the distal circumflex as it turns into the LPDA which is diffusely diseased, a focal, 90% lesion in the mid section of the obtuse marginal and an occlusive, 60-70% lesion in the proximal/mid LAD that spans the origin of the
diagonal (IFR = 0.83).
2. Severely elevated filling pressures (LVEDP = 27 mmHg, PCWP = 27 mmHg at 76.7 kg).
3. Severe ischemic cardiomyopathy (LVEF = 30-35%) by echocardiography.
SELVIN, 05/12/2024:
CONCLUSIONS
Mild global LV dysfunction. Overall LVEF is approximately 40-45%.
Stage II Diastolic dysfunction.
Mildly dilated left atrium.
Trace pulmonic insufficiency.
Mild sessile atheroma seen in the distal aortic arch and proximal descending
aorta.
POST OPERATIVE FINDINGS
The patient underwent a CABG on bypass and LA appendage clipping. Postop
rhythm remains sinus. RV and LV function both appear more vigorous. Overall
LVEF is now approximately 50-55% with improved regional wall motion. All
valves appear to be functioning normally. CHUCHO has been clipped with a residual
lumen measuring 0.47 cm. No color Doppler flow is noted distal to the clip.
Aortic scan is unchanged.
Physical Exam
Vital Signs/Labs
Vital Signs
Temp Pulse Resp BP Pulse Ox
97.9 F 78 16 101/67 96
05/15/24 07:53 05/15/24 07:53 05/15/24 07:53 05/15/24 07:53 05/15/24 07:53
05/14/24 05/15/24 05/16/24
06:59 06:59 06:59
Actual Weight 70.9 kg 72.4 kg
05/15/24 04:10
PT 18.2 Sec (11.4-14.6) H 05/12/24 13:31
INR 1.50 05/12/24 13:31
APTT 32.7 Sec (23.4-35.0) 05/12/24 13:31
Magnesium 2.7 mg/dl (1.6-2.3) H 05/15/24 04:10
Triglycerides 172 mg/dl (10-149) H 05/02/24 04:31
LDL Cholesterol, Calc 142 mg/dl 05/02/24 04:31
VLDL Cholesterol, Calc 34 mg/dl (0-30) H 05/02/24 04:31
HDL Cholesterol 29 mg/dl 05/02/24 04:31
05/01/24
04:26
Szu-P-Qjvwjfpekhn Pept 9470
Physical Exam
Constitutional: No acute distress and Comfortable
EENT: Anicteric and Moist mucous membranes
Cardiovascular: Rhythm & rate is regular, JVD pressure is normal and Systolic murmur absent
Respiratory: Respiratory effort normal, Wheeze Absent and Crackles Absent
GI: Soft, Non tender and Normal bowel sounds
Neuro/Psych: Alert, Oriented and AO x 3
Data Reviewed
-
Date of Service: May 15, 2024
Medical Decision Making: Reviewed Test Results, Independent Historian Assessment and Test Interpretation
EKG: Tracing Personally Visualized and interpreted
Echo: Report Reviewed by me
Labs: Labs Reviewed by me
Old Records: Reviewed
Critical Care Time (in minutes): 32
[2024-05-15] MEDS: VITAMIN C 250 MG PO (08:03)
[2024-05-15] MEDS: LOW STRENGTH ASPIRIN 81 MG PO (08:03)
[2024-05-15] MEDS: MUCINEX 600 MG PO ×2 (08:04→20:17)
[2024-05-15] MEDS: ProAmatine 5 MG PO ×3 (08:05→18:24)
[2024-05-15] MEDS: SENOKOT-S 1 TABLET PO ×2 (08:05→20:17)
[2024-05-15] MEDS: NEURONTIN 100 MG PO ×3 (08:05→22:34)
[2024-05-15] MEDS: PLAVIX 75 MG PO (08:05)
[2024-05-15] MEDS: PROTONIX 40 MG PO (08:05)
[2024-05-15] MEDS: PACERONE 200 MG PO ×3 (08:05→22:34)
[2024-05-15] MEDS: FEOSOL 325 MG PO (08:06)
[2024-05-15] MEDS: BACTROBAN 2% OINTMENT 1 APPLIC NASAL ×2 (08:06→20:16)
[2024-05-15 08:58] LABS: Blood Urea Nitrogen 50 mg/dl (9-20); Calcium 8.7 mg/dl (8.4-10.2); Carbon Dioxide 26 mmol/L (22-30); Chloride 104 mmol/L (98-107); Estimated Creatinine Clearance 58 ml/min; Glucose 162 mg/dl (70-99); Potassium 5.1 mmol/L (3.5-5.1); Sodium 135 mmol/L (135-145); eGFR > 60.00
[2024-05-15] MEDS: NOVOLOG FLEXPEN 8 UNITS SC ×3 (09:00→19:03)
[2024-05-15] MEDS: NOVOLOG FLEXPEN-MODERATE RESISTANCE 1 UNITS SC ×3 (09:00→19:04)
[2024-05-15 11:23] LABS: Glucose - Point of Care 180 mg/dl (70-99)
[2024-05-15] MEDS: LIDOCAINE 4% PATCH 1 PATCH TOPICAL (11:48)
[2024-05-15] MEDS: LASIX 20 MG IV (12:12)
[2024-05-15] MEDS: NSS 500 IV (12:17)
--- NOTE | 2024-05-15 14:17 | PTCARENOTE ---
Patient ambulated down halls with cardiac rehab and RN, very well tolerated. Patient now on room air, maintaining sufficient O2 sats. Chest tubes x4 discontinued, dressing applied. Lasix IV given. Burgos still in place. Burgos care complete. Consumed
100% of lunch.
[2024-05-15 16:59] LABS: Glucose - Point of Care 166 mg/dl (70-99)
--- NOTE | 2024-05-15 17:23 | PTCARENOTE ---
Patient assessment unchanged from prior. Patient denies pain. OOB as tolerated. Frequently using I.S. Tolerating meals. Vital signs stable.
[2024-05-15] MEDS: LIPITOR 80 MG PO (18:24)
--- NOTE | 2024-05-15 21:00 | PTCARENOTE ---
Patient received resting in bed. Family at bedside. Patient A+A+Ox3. No neurological deficits noted. Patient assisted to bathroom with assist x1. Sternal precautions. Positive BM. Patient back to bed. Room air. SpO2 97%. Chest tube
dressing intact. Heart rate 70-80's. Sinus Rhythm. Blood pressure 118/71 (85). Patient with no c/o chest pain, pressure or discomfort. Burgos catheter intact. 200 ml yellow urine. Sternal dressing intact. Left groin and left knee incision
intact - Open to air. Positive, palpable pulses. No c/o pain or discomfort. Right I.J. Cordis. Assessment as documented.
[2024-05-15 22:30] LABS: Glucose - Point of Care 265 mg/dl (70-99)
[2024-05-15] MEDS: FLOMAX 0.4 MG PO (22:34)
[2024-05-15] MEDS: LANTUS 0.15 UNITS SC (22:35)
[2024-05-16] VITALS (9 sets, daily range): BP systolic 79–131; BP diastolic 57–81; BMI 28.3
--- NOTE | 2024-05-16 00:30 | PTCARENOTE ---
Patient sleeping without difficulty. Family member sleeping in room. No further changes from previous assessment.
--- NOTE | 2024-05-16 04:33 | W.PN.CT ---
Addendum entered and electronically signed by Michael Penn MD 05/16/24 09:17:
I saw and examined the patient.
The PA's note was reviewed and I agree with the note.
Comment:
D/C walter - voiding trial
OOB/IS/ambulate
D/C planning for 1-2 days
Original Note:
Today's Communication / Plan
-
-pod #4
-pt looks and feels better, asking to d/c Walter
-follow K and Cr
-diuresed with 20 iv Lasix 05/15- UO 1025
-BP improved- on Midodrine 5 tid, tolerating Flomax
-current meds (ASA, Plavix, Lipitor, Amio, Midodrine, Flomax, Protonix). Holding BB d/t low BP
-encourage IS, OOB
Assessment / Plan
-
Assessment:
-s/p CABG x 3 (WELLINGTON to LAD, GSV to D1, GSV to OM1); LLE GSV; ELAA w/ a 45mm AtriClip on 05/12/24, pod #4
-Intraop SELVIN: LVEF preop approx 40-45% and postop approximately 50-55% with improved regional wall motion. CHUCHO has been clipped with a residual lumen measuring 0.47 cm. No color Doppler flow is noted distal to the clip.
-Severe 3v CAD/40-50% distal LM
-SOB
-Acute systolic CHF
-ICM (EF 30-35% per TTE 05/03); EF 40-45% per TTE 05/10/24
-Mild MR
-Mildly dilated aortic root (4.0 cm)
-Recent Tachycardia
-HTN
-HLD
-T2DM (hgb A1C 12.6)
-Former tobacco use (1 cigarette/day x 10 years)
-B/L LE edema
-Mild elevation of right hemidiaphragm
-B/L pleural effusion
-S/P L thoracentesis (900 cc clear anson pleural fluid), 05/06/24; Right effusion resolved with diuresis
-Acute postop blood loss anemia - stable, no transfusion
-Acute postop atelectasis
-Acute postop hypovolemia with subsequent hypervolemia
-Acute postop hypotension, possibly d/t vasoplegia
-Acute postop urinary retention- s/p reinsertion of Walter 05/14, Flomax started
-Acute postop hyperkalemia
Discussed patient care with: Nursing and Care Team
Subjective
Procedure
-s/p CABG x 3 (WELLINGTON to LAD, GSV to D1, GSV to OM1); LLE GSV; ELAA w/ a 45mm AtriClip on 05/12/24
-
Date of Service: May 16, 2024
Objective Data
-
PT 18.2 Sec (11.4-14.6) H 05/12/24 13:31
INR 1.50 05/12/24 13:31
APTT 32.7 Sec (23.4-35.0) 05/12/24 13:31
Vital Signs
Vital Signs
Temp Pulse Resp BP Pulse Ox
98.9 F 78 18 119/70 97
05/15/24 22:30 05/16/24 02:00 05/15/24 22:30 05/15/24 22:34 05/15/24 22:30
CT Intake/Output/Weight
05/15/24 05/15/24 05/16/24
06:59 18:59 06:59
Intake Total 200 / 817 1080 / 1640 560 / 1640
Output Total 505 / 1555 1025 / 1225 200 / 1225
Balance -305 / -738 55 / 415 360 / 415
SaO2: 97
Physical Exam
-
General: Awake and AOx3
Cardiovascular: Regular rate & rhythm, No Murmurs and Rub
Respiratory: Decreased Breath Sounds
Sternum: Stable
Incision: Clean, Dry and Intact
Extremities: No Edema
Abdomen: soft, nontender, nondisted, +bowel sounds, +BM
Data Reviewed
-
Lab Results: Results Reviewed
Medications: Active Meds Reviewed
Chest X-Ray: Report Reviewed and Image Reviewed
ECG: Report Reviewed and Image Reviewed
--- NOTE | 2024-05-16 05:30 | PTCARENOTE ---
Patient A+A+Ox3. No neurological deficits noted. AM labs collected and sent. Burgos 600 ml. Standing scale weight 72.4 kg. Patient back to sleep. Assessment/Interventions.
[2024-05-16] MEDS: TYLENOL 1000 MG PO ×2 (05:35→22:31)
[2024-05-16] MEDS: NSS 500 IV (05:35)
[2024-05-16 06:06] LABS: Blood Urea Nitrogen 48 mg/dl (9-20); Carbon Dioxide 27 mmol/L (22-30); Chloride 101 mmol/L (98-107); Estimated Creatinine Clearance 58 ml/min; Glucose 174 mg/dl (70-99); Magnesium 2.2 mg/dl (1.6-2.3); Potassium 5.3 mmol/L (3.5-5.1); Sodium 135 mmol/L (135-145); eGFR > 60.00
[2024-05-16 08:00] LABS: Mean Corp Hgb Conc. 33.3 g/dL (33.0-37.0); Mean Corpuscular Hgb 28.5 pg (27.0-31.0); Mean Corpuscular Volume 85.4 fL (80.0-94.0); Platelet Count 180 10^3/uL (130-400); Red Blood Cell Count 3.16 10^6/uL (4.70-6.10); Red Cell Dist. Width 12.9 % (11.5-14.5); White Blood Cell Count 8.9 10^3/uL (4.8-10.8)
--- NOTE | 2024-05-16 08:00 | PTCARENOTE ---
Patient AAOx3. VSS. NSR. RA. Burgos present still. draining anson urine. IV lasix to be given this AM. OOB in chair. no complaints of pain at this time.will continue to monitor.
[2024-05-16] MEDS: NOVOLOG FLEXPEN 8 UNITS SC ×3 (08:08→18:13)
[2024-05-16] MEDS: NOVOLOG FLEXPEN-MODERATE RESISTANCE 1 UNITS SC ×3 (08:08→18:15)
[2024-05-16] MEDS: BACTROBAN 2% OINTMENT 1 APPLIC NASAL (08:10)
[2024-05-16] MEDS: LIDOCAINE 4% PATCH TOPICAL (08:12)
[2024-05-16 08:14] LABS: Glucose - Point of Care 167 mg/dl (70-99)
[2024-05-16] MEDS: NEURONTIN 100 MG PO ×3 (08:19→22:30)
[2024-05-16] MEDS: PROTONIX 40 MG PO (08:19)
[2024-05-16] MEDS: PLAVIX 75 MG PO (08:19)
[2024-05-16] MEDS: ProAmatine 5 MG PO ×3 (08:19→18:08)
[2024-05-16] MEDS: PACERONE 200 MG PO ×3 (08:19→22:31)
[2024-05-16] MEDS: LOW STRENGTH ASPIRIN 81 MG PO (08:20)
[2024-05-16] MEDS: FEOSOL 325 MG PO (08:20)
[2024-05-16] MEDS: VITAMIN C 250 MG PO (08:20)
[2024-05-16] MEDS: MUCINEX 600 MG PO ×2 (08:20→20:16)
[2024-05-16] MEDS: SENOKOT-S 1 TABLET PO ×2 (08:20→20:16)
[2024-05-16] MEDS: LASIX 20 MG IV (11:32)
[2024-05-16 12:58] LABS: Glucose - Point of Care 198 mg/dl (70-99)
[2024-05-16] MEDS: LIPITOR 80 MG PO (18:08)
[2024-05-16] MEDS: TYLENOL PO (18:09)
[2024-05-16 18:13] LABS: Glucose - Point of Care 181 mg/dl (70-99)
--- NOTE | 2024-05-16 21:00 | PTCARENOTE ---
Patient received OOB in chair. Patient A+A+Ox3. No neurological deficits noted. Patient assisted to bathroom then to bed with minimal assistance. Sternal Precautions. Voided. Positive BM. No c/o dizziness or lightheadedness. Room air. SpO2
99%. Sinus Rhythm. Heart rate 80's. Blood pressure 117/72 (86). No c/o chest pain, pressure or discomfort. Sternal dressing intact. Chest tube dressing removed - 4 sutures intact - Open to air. Left groin puncture site. Left knee incision -
Surgical adhesive - Open to air. Bilateral lower extremity edema. Positive, palpable pulses. Patient's family member staying in room. Assessment as documented.
[2024-05-16 22:27] LABS: Glucose - Point of Care 235 mg/dl (70-99)
[2024-05-16] MEDS: LANTUS 0.15 UNITS SC (22:30)
[2024-05-17] VITALS (14 sets, daily range): BP systolic 104–137; BP diastolic 67–84; PULSE 84; O2SAT 98; BMI 28.5
--- NOTE | 2024-05-17 00:30 | PTCARENOTE ---
Patient sleeping without difficulty. Family member sleeping in room. Assessment as documented.
--- NOTE | 2024-05-17 04:15 | PTCARENOTE ---
Patient rang call villanueva to go to bathroom. Patient A+A+Ox3. No neurological deficits noted. Patient assisted to bathroom. Voided. Washed face. Patient back to bed. Standing scale weight 72.9 kg. Right I.J. Cordis removed without difficulty -
MD order/Therapy complete. No c/o pain or discomfort. Assessment/Interventions as documented.
[2024-05-17 04:26] LABS: Hemoglobin 9.5 g/dL (13.0-18.0); Mean Corp Hgb Conc. 32.8 g/dL (33.0-37.0); Mean Corpuscular Hgb 28.1 pg (27.0-31.0); Mean Corpuscular Volume 85.8 fL (80.0-94.0); Mean Platelet Volume 11.4 fL (7.4-10.4); Platelet Count 241 10^3/uL (130-400); Red Blood Cell Count 3.38 10^6/uL (4.70-6.10); Red Cell Dist. Width 12.7 % (11.5-14.5); White Blood Cell Count 8.4 10^3/uL (4.8-10.8)
[2024-05-17 04:35] LABS: Blood Urea Nitrogen 49 mg/dl (9-20); Calcium 7.8 mg/dl (8.4-10.2); Carbon Dioxide 26 mmol/L (22-30); Chloride 98 mmol/L (98-107); Estimated Creatinine Clearance 58 ml/min; Glucose 206 mg/dl (70-99); Magnesium 2.1 mg/dl (1.6-2.3); Potassium 5.4 mmol/L (3.5-5.1); Sodium 133 mmol/L (135-145); eGFR > 60.00
--- NOTE | 2024-05-17 05:06 | W.PN.CT ---
Today's Communication / Plan
-
-pod #5
-follow K and Cr, K remains elevated despite diuresis
-Burgos DCd, flomax stopped 2/2 orthostasis.
-BP improved- on Midodrine 5 tid
-current meds (ASA, Plavix, Lipitor, Amio, Midodrine, Protonix). Holding BB d/t low BP
-encourage IS, OOB
Assessment / Plan
-
Assessment:
-s/p CABG x 3 (WELLINGTON to LAD, GSV to D1, GSV to OM1); LLE GSV; ELAA w/ a 45mm AtriClip on 05/12/24, pod #5
-Intraop SELVIN: LVEF preop approx 40-45% and postop approximately 50-55% with improved regional wall motion. CHUCHO has been clipped with a residual lumen measuring 0.47 cm. No color Doppler flow is noted distal to the clip.
-Severe 3v CAD/40-50% distal LM
-SOB
-Acute systolic CHF
-ICM (EF 30-35% per TTE 05/03); EF 40-45% per TTE 05/10/24
-Mild MR
-Mildly dilated aortic root (4.0 cm)
-Recent Tachycardia
-HTN
-HLD
-T2DM (hgb A1C 12.6)
-Former tobacco use (1 cigarette/day x 10 years)
-B/L LE edema
-Mild elevation of right hemidiaphragm
-B/L pleural effusion
-S/P L thoracentesis (900 cc clear anson pleural fluid), 05/06/24; Right effusion resolved with diuresis
-Acute postop blood loss anemia - stable, no transfusion
-Acute postop atelectasis
-Acute postop hypovolemia with subsequent hypervolemia
-Acute postop hypotension, possibly d/t vasoplegia
-Acute postop urinary retention- s/p reinsertion of Burgos 05/14, Flomax started
-Acute postop hyperkalemia
Subjective
Procedure
-s/p CABG x 3 (WELLINGTON to LAD, GSV to D1, GSV to OM1); LLE GSV; ELAA w/ a 45mm AtriClip on 05/12/24
-
Date of Service: May 17, 2024
Objective Data
-
Lab Results
05/17/24 03:38
05/17/24 03:38
PT 18.2 Sec (11.4-14.6) H 05/12/24 13:31
INR 1.50 05/12/24 13:31
APTT 32.7 Sec (23.4-35.0) 05/12/24 13:31
Vital Signs
Vital Signs
Temp Pulse Resp BP Pulse Ox
98.9 F 82 16 137/84 95
05/17/24 03:30 05/17/24 03:32 05/17/24 03:30 05/17/24 03:32 05/17/24 03:30
CT Intake/Output/Weight
05/16/24 05/16/24 05/17/24
06:59 18:59 06:59
Intake Total 830 / 1910 70 / 400 330 / 400
Output Total 800 / 1825 250 / 250
Balance 30 / 85 -180 / 150 330 / 150
SaO2: 95
Physical Exam
-
General: Awake and AOx3
Cardiovascular: Regular rate & rhythm, No Murmurs and No Rub
Respiratory: Clear and Equal
Sternum: Stable
Incision: Clean, Dry and Dressing Intact
Extremities: No Edema and No Erythema
Data Reviewed
-
Lab Results: Results Reviewed
Medications: Active Meds Reviewed
Chest X-Ray: Report Reviewed
ECG: Report Reviewed
[2024-05-17] MEDS: TYLENOL PO (05:50)
[2024-05-17] MEDS: LOW STRENGTH ASPIRIN 81 MG PO (08:07)
[2024-05-17] MEDS: FEOSOL 325 MG PO (08:07)
[2024-05-17] MEDS: PROTONIX 40 MG PO (08:07)
[2024-05-17] MEDS: LIDOCAINE 4% PATCH TOPICAL (08:07)
[2024-05-17] MEDS: NEURONTIN 100 MG PO ×3 (08:07→21:16)
[2024-05-17] MEDS: SENOKOT-S 1 TABLET PO ×2 (08:07→20:18)
[2024-05-17] MEDS: ProAmatine 5 MG PO (08:07)
[2024-05-17] MEDS: MUCINEX 600 MG PO ×2 (08:07→20:18)
[2024-05-17] MEDS: PLAVIX 75 MG PO (08:07)
[2024-05-17] MEDS: PACERONE 200 MG PO (08:07)
[2024-05-17] MEDS: VITAMIN C 250 MG PO (08:07)
[2024-05-17] MEDS: NSS IV (08:08)
[2024-05-17 08:14] LABS: Glucose - Point of Care 188 mg/dl (70-99)
--- NOTE | 2024-05-17 08:15 | W.PN.CD ---
Today's Communication / Plan
-
Wean off of midodrine.
Furosemide 40 mg IV this morning.
D/C amiodarone (possible cause of hyperkalemia).
Low potassium diet.
Propensity for hyperkalemia will make it difficult to titrate GDMT,
Impression / Plan
-
Impression/Plan: 53 y/o male with uncontrolled diabetes and HTN admitted with new HFrEF, cardiac catheterization confirming severe multivessel disease with ischemic cardiomyopathy, now s/p CABG x3.
#CAD
-New diagnosis this admission.
-S/P CABG x 3 (Bree�LAD, GSV�D1, GSV�OM1) by Dr. Penn, 05/12/2024.
-S/P LAAE (#45 AtriClip).
-Ambulate.
-Encourage incentive spirometry.
-ASA, atorvastatin 80mg daily.
-Continue clopidogrel for [ ] days.
#HFrEF (LVEF 40-45%)
-Acute.
-Improved with diuresis, weight is down significantly since arrival, but now creeping back up.
-Furosemide 40 mg IV this morning.
#Ischemic cardiomyopathy
-New diagnosis this admission.
-LVEF was 30-35% initially, improved to 50-55% on postoperative SELVIN evaluation.
-S/P left thoracentesis 05/06/24 with 900ml removed.
-GDMT as tolerated: (Limited at this time due to hypotension)
-Beta kia = Currently limited by hypotension.
-ACEI/ARB/ARNi = On no ACEI/ARB pre-op. Looks like does not have coverage for sacubitril/valsartan. Assess for ACEI/ARB once renal function and BP improve.
-SGLT2i = Limited by lack of health insurance.
-MRA = None. Assess for spironolactone once renal function and BP improve.
-Decrease midodrine and assess BP.
#Hypertension
-Chronic, but BP low post op.
-On Midodrine for now but BP's now 130. I would favor holding today and monitoring response as we try to start GDMT (again, we need to streamline medications).
#HLD
-LDL 142, goal LDL is < 55.
-Continue atorvastatin 80mg daily.
#Diabetes, type II
-Chronic, uncontrolled.
-HbA1c = 12.6%.
-Insulin per primary team.
-Restart dapagliflozin if able to get prescription coverage.
# Hyperkalemia
-Acute but persistent.
-Increase furosemide and monitor with more diuresis.
-Low potassium diet.
-Start Lokelma if needed.
-Possibly due to beta kia affect of amiodarone?
Subjective/Interval History:
Weight is up to 72.9 kg (baseline around 66.4 after being diuresed).
Hypotensive yesterday (79/58 mmHg @ 8:54). BP much improved this morning (137/84 mmHg).
Currently receiving midodrine 5 mg TID.
Furosemide 20 mg IV is ineffective.
Given lack of health insurance, we need to focus on streamlining medications.
K+ remains high at 5.4. Renal function has normalized (Cr = 1.2). No obvious medication causes (K+ sparing diuretic, ACEI/ARB, heparin/beta ika).
DATA:
TTE, 05/03/2024:
CONCLUSIONS
Moderately reduced left ventricular systolic function (LVEF 30 to 35%). Global
hypokinesis.
Normal RV size and function.
Mild mitral regurgitation.
Unable to estimate PASP due to incomplete TR envelope.
Mildly dilated aortic root (4.0 cm).
No prior study available for comparison.
Cardiac Catheterization, 05/04/2024:
CONCLUSIONS:
1. Left dominant circulation with a 40-50% lesion in the distal left main, a 40% lesion in the ostium of the diagonal followed by 70% lesion in the mid diagonal, and 90% lesion in the proximal circumflex spanning the origin of the obtuse marginal,
and 80-90% lesion in the distal circumflex as it turns into the LPDA which is diffusely diseased, a focal, 90% lesion in the mid section of the obtuse marginal and an occlusive, 60-70% lesion in the proximal/mid LAD that spans the origin of the
diagonal (IFR = 0.83).
2. Severely elevated filling pressures (LVEDP = 27 mmHg, PCWP = 27 mmHg at 76.7 kg).
3. Severe ischemic cardiomyopathy (LVEF = 30-35%) by echocardiography.
SELVIN, 05/12/2024:
CONCLUSIONS
Mild global LV dysfunction. Overall LVEF is approximately 40-45%.
Stage II Diastolic dysfunction.
Mildly dilated left atrium.
Trace pulmonic insufficiency.
Mild sessile atheroma seen in the distal aortic arch and proximal descending
aorta.
POST OPERATIVE FINDINGS
The patient underwent a CABG on bypass and LA appendage clipping. Postop
rhythm remains sinus. RV and LV function both appear more vigorous. Overall
LVEF is now approximately 50-55% with improved regional wall motion. All
valves appear to be functioning normally. CHUCHO has been clipped with a residual
lumen measuring 0.47 cm. No color Doppler flow is noted distal to the clip.
Aortic scan is unchanged.
Physical Exam
Vital Signs/Labs
Vital Signs
Temp Pulse Resp BP Pulse Ox
37.2 C 82 16 137/84 95
05/17/24 03:30 05/17/24 03:32 05/17/24 03:30 05/17/24 03:32 05/17/24 05:09
05/15/24 05/16/24 05/17/24
11:59 11:59 11:59
Actual Weight 72.4 kg 72.4 kg 72.9 kg
05/17/24 03:38
05/17/24 03:38
PT 18.2 Sec (11.4-14.6) H 05/12/24 13:31
INR 1.50 05/12/24 13:31
APTT 32.7 Sec (23.4-35.0) 05/12/24 13:31
Magnesium 2.1 mg/dl (1.6-2.3) 05/17/24 03:38
Triglycerides 172 mg/dl (10-149) H 05/02/24 04:31
LDL Cholesterol, Calc 142 mg/dl 05/02/24 04:31
VLDL Cholesterol, Calc 34 mg/dl (0-30) H 05/02/24 04:31
HDL Cholesterol 29 mg/dl 05/02/24 04:31
05/01/24
04:26
[id number] Pept [id number]
Physical Exam
Constitutional: No acute distress and Comfortable
EENT: Anicteric and Moist mucous membranes
Cardiovascular: Rhythm & rate is regular, Pedal edema is absent, JVD pressure is normal, S1S2 is normal and Murmur/rub/gallop absent
Respiratory: Respiratory effort normal, Lungs clear to auscul., Wheeze Absent, Crackles Absent and Rhonchi Absent
GI: Soft, Distention absent, Flat, Non tender and Normal bowel sounds
Neuro/Psych: AO x 3
Data Reviewed
-
Date of Service: May 17, 2024
Medical Decision Making: Reviewed Test Results, Independent Historian Assessment, Test Interpretation and Review of Case with other Provider
EKG: Tracing Personally Visualized and interpreted and Report Reviewed by me
Echo: Tracing Personally Visualized and interpreted and Report Reviewed by me
X-Ray/CT/US/MRI/NUC/PET: Image Personally Visualized and interpreted and Report Reviewed by me
Medical Tests (PFT, Pathology etc): Image Personally Visualized and interpreted and Report Reviewed by me
Labs: Labs Reviewed by me
Old Records: Reviewed
--- NOTE | 2024-05-17 08:26 | PTCARENOTE ---
assumed care of pt from previous shift RN, sinus rhythm on tele, VSS. Lungs diminished, coughing and deep breathing encouraged. +bs, tolerating PO intake, voids spontaneously. PIV flushes easily. Post op sites stable. Plan of care reviewed w the pt
and questions.
--- NOTE | 2024-05-17 08:28 | PN.DE.MGMTRT ---
Insulin Management
- -
05/17/2024: Diabetes Management F/U:
53 year old male admitted on 05/01 with new HFrEF-->Cardiac catheterization confirming severe MVD with ischemic cardiomyopathy. Now s/p CABG x3
PMH: HTN, HLD, CAD, uncontrolled T2DM, A1C 12.6%. Was taking Metformin 500mg BID [employer].
Diabetes mgt consulted on 05/14/2024 to assist transition off glycemic protocol.
Pre-op diabetes regimen included Lantus 16 units daily and NovoLog 6 units AC with corrective insulin
Pt awake, sitting up in chair, offers no complaints, able to discuss diabetes mgt. Multiple family members at bedside
Transitioned off gtt to SQ insulin on 05/14. Cr improved to 1.2 (baseline 1), eGFR >60 today
05/16 premeal range 167 to 198, FBG 206 this AM.
Had a lengthy visit with pt via language line- datastage developer # [id number]. Pt states he has no insurance and financially incapable of managing monthly cost of insulin or oral diabetes medications. Explained to pt and emphasized importance of optimal
glucose control s/p CABG to avoid complications.
Pt had misconception of his current healthcare coverage. He was under the impression that all his medications will be provided by the hospital at no cost.
After a lengthy discussion, pt and family were agreeable to 70/30 Novolin that he can obtain from [facility]
Will start 70/30- 25 units BID, 1st dose at dinner time. Cont Metformin 1000 mg BID nd moderate corrective insulin with meals
Will follow and make further adjustments if needed.
Provided diabetes education for monitor and insulin instructions today- please see diabetes education note.
Diabetes History
- -
Type of Diabetes: 2 requiring insulin
Pre-Admission Diabetes Regimen
05/17/24
03:38
Creatinine 1.2
Lab Results
Hemoglobin A1c 12.6 % (4.0-5.6) H 05/02/24 04:31
Insulin Pump Settings
IP Diabetes Regimen
05/16/24 05/16/24 05/16/24
12:57 18:12 22:25
Glucose
POC Glucose 198 H 181 H 235 H
05/17/24 05/17/24
03:38 08:13
Glucose 206 H
POC Glucose 188 H
Meal type: Dinner
Meal type: Lunch
Amount consumed: 100%
Amount consumed: 75%
Patient Education
[2024-05-17] MEDS: NOVOLOG FLEXPEN-MODERATE RESISTANCE 1 UNITS SC (08:51)
[2024-05-17] MEDS: NOVOLOG FLEXPEN 8 UNITS SC (08:51)
--- NOTE | 2024-05-17 08:58 | PTCARENOTE ---
reviewed insulin administration using insulin pen with the patient and his family. Pt will demonstrate how to inject himself with next meal. Questions encouraged.
[2024-05-17] MEDS: FARXIGA 10 MG PO (11:59)
[2024-05-17] MEDS: LASIX 40 MG IV (11:59)
--- NOTE | 2024-05-17 12:22 | PTCARENOTE ---
2 view CXR completed, pt worked w cardiac rehab. Post op dressings removed, shower completed.
[2024-05-17] MEDS: NOVOLOG FLEXPEN 10 UNITS SC (13:47)
[2024-05-17] MEDS: TYLENOL 1000 MG PO ×2 (13:48→21:16)
[2024-05-17] MEDS: NOVOLOG FLEXPEN-MODERATE RESISTANCE SC ×2 (13:48→17:18)
[2024-05-17 13:49] LABS: Glucose - Point of Care 108 mg/dl (70-99)
--- NOTE | 2024-05-17 15:05 | PN.DE ---
Diabetes Education
- -
Met with Mr. Donaldson with several family members at bedside.
Provided Contour Next Ez glucometer but advised pt to go to [facility] and obtain ReliOn meter given the financial burden he expressed. Pt states that he has a working meter at home. Reviewed proper testing technique for obtaining a blood glucose, new
testing pattern given and expected results as noted in take home education booklet. Discussed action of 70/30 insulin as well as symptoms and treatment of hypoglycemia. Aware to check blood glucose fasting and before dinner, inject 70/30 Novolin
insulin in stomach and eat in 10-20 minutes and, rotate sites. Aware to store insulin pens that are not in use in the refrigerator. Instructions with poor return demonstration using the glucometer and insulin pen were noted and result of 114 mg/dl
before lunch. Pt complaining of poor vision including vision loss in right eye. States he can not manage the frequent glucose monitoring, nor insulin administration at home due to his vision problems. He is hoping that his will be able to
manage it all.
Discussed importance of checking blood sugars at least 2x/day to assess food/medication effect on his BS, reducing CHO intake, and being active.
Pt requested RX for test strips and lancets for the Contour Next Ez glucometer, as well as pen needles at discharge. States he is gong to look into obtaining health insurance come May and that he should be able to afford the supplies.
--- NOTE | 2024-05-17 15:37 | PTCARENOTE ---
Rec'd pt as a transfer from CVICU at 1440. Pt on TELE monitor in NSR, VSS, and pt AAO*3. Pt demonstrated understanding of sternal precautions and strict I+O monitoring continues. Pt Nancy speaking with hospital harness racing handicapper at bedside. PT denied
any pain or discomfort. Oriented pt to unit. Pt resting at bedside with family and call villanueva within reach.
--- NOTE | 2024-05-17 16:07 | CM ---
Reviewed chart. Met with Mr. Donaldson and his son to review discharge plans. He is not ready for discharge today. Telephone call to [facility] Medical Assistance Office to check on status of application. Prior to admission he resides spouse and
son in an apartment with six steps to enter. He ambulated in the hallway and did the stairs today. He currently does not have any health insurance. Medical work-up in progress. The discharge plan is to return home with his spouse and son and a
home visit by the Transitional Care Nurse when medically stable.
[2024-05-17 17:12] LABS: Glucose - Point of Care 105 mg/dl (70-99)
[2024-05-17] MEDS: TYLENOL 650 MG PO (17:21)
[2024-05-17] MEDS: LIPITOR 80 MG PO (17:25)
[2024-05-17] MEDS: ProAmatine 2.5 MG PO (17:25)
[2024-05-17] MEDS: GLUCOPHAGE 1000 MG PO (19:05)
[2024-05-17] MEDS: NOVOLOG MIX 70/30 FLEXPEN 25 UNITS SC (19:05)
[2024-05-17 19:06] LABS: Glucose - Point of Care 114 mg/dl (70-99)
[2024-05-17] MEDS: LOPRESSOR 12.5 MG PO (20:18)
[2024-05-17 22:08] LABS: Glucose - Point of Care 119 mg/dl (70-99)
[2024-05-18] VITALS (8 sets, daily range): BP systolic 102–141; BP diastolic 65–86; PULSE 93; O2SAT 98–100; BMI 28.0
[2024-05-18 04:39] LABS: Ionized Calcium 1.18 mMOL/L (1.15-1.33)
--- NOTE | 2024-05-18 04:40 | W.PN.CT ---
Today's Communication / Plan
-
Plan:
-No major issues overnight
-BP improving
-Denies further lightheadedness/orthostasis
-Placed Midodrine as PRN order
-K is stable @ 5.2
-Cont. current meds (ASA, Plavix, Lipitor, Amio, Midodrine, Protonix). Holding BB d/t low BP
-Encourage IS, OOB
-Home today
Assessment / Plan
-
Assessment:
-s/p CABG x 3 (WELLINGTON to LAD, GSV to D1, GSV to OM1); LLE GSV; ELAA w/ a 45mm AtriClip on 05/12/24, pod #5
-Intraop SELVIN: LVEF preop approx 40-45% and postop approximately 50-55% with improved regional wall motion. CHUCHO has been clipped with a residual lumen measuring 0.47 cm. No color Doppler flow is noted distal to the clip.
-Severe 3v CAD/40-50% distal LM
-SOB
-Acute systolic CHF
-ICM (EF 30-35% per TTE 05/03); EF 40-45% per TTE 05/10/24
-Mild MR
-Mildly dilated aortic root (4.0 cm)
-Recent Tachycardia
-HTN
-HLD
-T2DM (hgb A1C 12.6)
-Former tobacco use (1 cigarette/day x 10 years)
-B/L LE edema
-Mild elevation of right hemidiaphragm
-B/L pleural effusion
-S/P L thoracentesis (900 cc clear anson pleural fluid), 05/06/24; Right effusion resolved with diuresis
-Acute postop blood loss anemia - stable, no transfusion
-Acute postop atelectasis
-Acute postop hypovolemia with subsequent hypervolemia
-Acute postop hypotension, possibly d/t vasoplegia
-Acute postop urinary retention- s/p reinsertion of Burgos 05/14, Flomax started
-Acute postop hyperkalemia
-Acute postop orthostasis
Discussed patient care with: Cardiology, Nursing, Respiratory Therapy, Pharmacy and Care Team
Subjective
Procedure
-s/p CABG x 3 (WELLINGTON to LAD, GSV to D1, GSV to OM1); LLE GSV; ELAA w/ a 45mm AtriClip on 05/12/24
-
Date of Service: May 18, 2024
Pt offers no complaints, wants to go home
Objective Data
-
PT 18.2 Sec (11.4-14.6) H 05/12/24 13:31
INR 1.50 05/12/24 13:31
APTT 32.7 Sec (23.4-35.0) 05/12/24 13:31
Vital Signs
Vital Signs
Temp Pulse Resp BP Pulse Ox
98.3 F 81 18 112/81 97
05/18/24 04:12 05/18/24 04:06 05/18/24 04:12 05/18/24 04:06 05/18/24 04:12
CT Intake/Output/Weight
05/17/24 05/17/24 05/18/24
06:59 18:59 06:59
Intake Total 330 / 400 100 / 100
Output Total 200 / 200
Balance 330 / 150 -100 / -100
SaO2: 97 (RA)
Physical Exam
-
General: Awake, Oriented and AOx3
Cardiovascular: Regular rate & rhythm, No Murmurs, No Rub and No Gallop
Respiratory: Decreased Breath Sounds
Sternum: Stable
Incision: Clean, Dry, Intact and Dressing Intact
Extremities: No Edema
Data Reviewed
-
Lab Results: Results Reviewed
Medications: Active Meds Reviewed
Chest X-Ray: Report Reviewed and Image Reviewed
ECG: Report Reviewed and Image Reviewed
[2024-05-18 04:53] LABS: Hematocrit 33.9 % (39.0-52.0); Mean Corp Hgb Conc. 32.4 g/dL (33.0-37.0); Mean Corpuscular Volume 83.3 fL (80.0-94.0); Mean Platelet Volume 10.2 fL (7.4-10.4); Platelet Count 356 10^3/uL (130-400); Red Blood Cell Count 4.07 10^6/uL (4.70-6.10); White Blood Cell Count 9.1 10^3/uL (4.8-10.8)
[2024-05-18 05:11] LABS: Blood Urea Nitrogen 42 mg/dl (9-20); Calcium 8.5 mg/dl (8.4-10.2); Carbon Dioxide 26 mmol/L (22-30); Chloride 102 mmol/L (98-107); Estimated Creatinine Clearance 53 ml/min; Glucose 82 mg/dl (70-99); Magnesium 2.2 mg/dl (1.6-2.3); Potassium 5.2 mmol/L (3.5-5.1); Sodium 139 mmol/L (135-145); eGFR > 60.00
[2024-05-18] MEDS: TYLENOL 1000 MG PO ×2 (05:43→13:28)
[2024-05-18] MEDS: CALCIUM GLUCONATE 100 IV (05:44)
--- NOTE | 2024-05-18 06:04 | PTCARENOTE ---
Pt NSR on monitor. AAOx3. Denies pain. Bladder scan for 945ml. Pt instructed to urinate. Post void residual 248ml
[2024-05-18] MEDS: VITAMIN C 250 MG PO (08:33)
[2024-05-18] MEDS: NOVOLOG MIX 70/30 FLEXPEN 25 UNITS SC (08:33)
[2024-05-18 08:34] LABS: Glucose - Point of Care 102 mg/dl (70-99)
[2024-05-18] MEDS: GLUCOPHAGE 1000 MG PO ×2 (08:34→17:01)
[2024-05-18] MEDS: MUCINEX 600 MG PO (08:34)
[2024-05-18] MEDS: PLAVIX 75 MG PO (08:34)
[2024-05-18] MEDS: SENOKOT-S 1 TABLET PO (08:34)
[2024-05-18] MEDS: FARXIGA 10 MG PO (08:34)
[2024-05-18] MEDS: LIDOCAINE 4% PATCH 1 PATCH TOPICAL (08:34)
[2024-05-18] MEDS: FEOSOL 325 MG PO (08:34)
[2024-05-18] MEDS: PROTONIX 40 MG PO (08:34)
[2024-05-18] MEDS: NEURONTIN 100 MG PO (08:34)
[2024-05-18] MEDS: LOW STRENGTH ASPIRIN 81 MG PO (08:34)
[2024-05-18] MEDS: NOVOLOG FLEXPEN-MODERATE RESISTANCE SC ×2 (08:41→12:06)
--- NOTE | 2024-05-18 09:22 | PN.DE.MGMTRT ---
Insulin Management
- -
05/18/2024: Diabetes Management Follow up:
53 year old male admitted on 05/01 with new HFrEF-->Cardiac catheterization confirming severe MVD with ischemic cardiomyopathy. Now s/p CABG x3
PMH: HTN, HLD, CAD, uncontrolled T2DM, A1C 12.6%. 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
Diabetes mgt consulted on 05/14/2024 to assist transition off glycemic protocol.
Pre-op diabetes regimen included Lantus 16 units daily and NovoLog 6 units AC with corrective insulin
Pt awake, sitting up in chair, offers no complaints, able to discuss diabetes mgt. Language line used for accuracy Canvas Repairer #[id number].
Transitioned off gtt to SQ insulin on 05/14. Cr improved to 1.2 (baseline 1), eGFR >60 today
05/17 premeal range 105 to 188, FBG 102 this AM.
05/17 ROBERTO CARLOS Mcdermott had a lengthy visit with pt via language line- loan processing supervisor # [id number]. Pt states he has no insurance and financially incapable of managing monthly cost of insulin or oral diabetes medications. Explained to pt and emphasized
importance of optimal glucose control s/p CABG to avoid complications.
Pt had misconception of his current healthcare coverage. He was under the impression that all his medications will be provided by the hospital at no cost.
05/18 70/30- 25 units BID, started 05/17 1st dose at dinner time with Metformin 1000 mg BID and moderate corrective insulin with meals. Fasting glucose this AM 102. Patient received 25 units of 70/30. Pre lunch glucose 63. Will reduce 70/30
dose to 22 units BID.
With customer training specialist reviewed steps for glucose monitor. Had customer training specialist discuss with patient cost of test strips and lancets. Instructed patient using customer training specialist on use of vial and syringe as that is most cost effective. He is able to return
demonstrate drawing up 25 units of insulin. Had customer training specialist remind patient glucose is tested before each meal and bedtime and insulin is taken 10 minutes before breakfast and 10 minutes before dinner.
Per CM vial and syringe prescriptions have been placed in ambulatory orders.
Will follow and make further adjustments if needed.
Provided diabetes education for monitor and insulin instructions today- please see diabetes education note.
Diabetes History
- -
Type of Diabetes: 2 requiring insulin
Pre-Admission Diabetes Regimen
05/18/24
04:32
Creatinine 1.3
Lab Results
Hemoglobin A1c 12.6 % (4.0-5.6) H 05/02/24 04:31
Insulin Pump Settings
IP Diabetes Regimen
05/17/24 05/17/24 05/17/24
13:46 17:11 19:05
Glucose
POC Glucose 108 H 105 H 114 H
05/17/24 05/18/24 05/18/24
22:06 04:32 08:32
Glucose 82
POC Glucose 119 H 102 H
Meal type: Dinner
Amount consumed: 100%
Patient Education
--- NOTE | 2024-05-18 09:28 | PTCARENOTE ---
2% CHG wipes, meds given with a sip of water. NPO since midnight.
--- NOTE | 2024-05-18 09:46 | W.PN.CD ---
Today's Communication / Plan
-
continue BB
No MONIK/ARB/ARNI or spironolactone with current potassium level. Can be reasessedin follow up
can continue low dose diuretic. Monitor weights, BP and renal function
Impression / Plan
-
Impression/Plan: 53 y/o male with uncontrolled diabetes and HTN admitted with new HFrEF, cardiac catheterization confirming severe multivessel disease with ischemic cardiomyopathy, now s/p CABG x3.
#CAD
-New diagnosis this admission.
-S/P CABG x 3 (Bree�LAD, GSV�D1, GSV�OM1) by Dr. Penn, 05/12/2024.
-S/P LAAE (#45 AtriClip).
-Ambulate.
-Encourage incentive spirometry.
-ASA, atorvastatin 80mg daily.
#HFrEF (LVEF 40-45%)
-Acute.
-Improved with diuresis, weight is down significantly since arrival, but now creeping back up.
#Ischemic cardiomyopathy
-New diagnosis this admission.
-LVEF was 30-35% initially, improved to 50-55% on postoperative SELVIN evaluation.
-S/P left thoracentesis 05/06/24 with 900ml removed.
-GDMT as tolerated: (Limited at this time due to hypotension)
-Beta kia = Currently limited by hypotension.
-ACEI/ARB/ARNi = On no ACEI/ARB pre-op. Looks like does not have coverage for sacubitril/valsartan. Assess for ACEI/ARB once renal function, potassium and BP improve. Can be assessed as outpatient.
-SGLT2i = Limited by lack of health insurance.
-MRA = Not on with current level of potassium\\
- low dose lasix
-Midodrine now PRN
#HLD
-LDL 142, goal LDL is < 55.
-Continue atorvastatin 80mg daily.
#Diabetes, type II
-Chronic, uncontrolled.
-HbA1c = 12.6%.
-Insulin per primary team.
-Restart dapagliflozin if able to get prescription coverage.
# Hyperkalemia. improvement
-continue furosemide
-Low potassium diet.
Subjective/Interval History:
DATA:
TTE, 05/03/2024:
CONCLUSIONS
Moderately reduced left ventricular systolic function (LVEF 30 to 35%). Global
hypokinesis.
Normal RV size and function.
Mild mitral regurgitation.
Unable to estimate PASP due to incomplete TR envelope.
Mildly dilated aortic root (4.0 cm).
No prior study available for comparison.
Cardiac Catheterization, 05/04/2024:
CONCLUSIONS:
1. Left dominant circulation with a 40-50% lesion in the distal left main, a 40% lesion in the ostium of the diagonal followed by 70% lesion in the mid diagonal, and 90% lesion in the proximal circumflex spanning the origin of the obtuse marginal,
and 80-90% lesion in the distal circumflex as it turns into the LPDA which is diffusely diseased, a focal, 90% lesion in the mid section of the obtuse marginal and an occlusive, 60-70% lesion in the proximal/mid LAD that spans the origin of the
diagonal (IFR = 0.83).
2. Severely elevated filling pressures (LVEDP = 27 mmHg, PCWP = 27 mmHg at 76.7 kg).
3. Severe ischemic cardiomyopathy (LVEF = 30-35%) by echocardiography.
SELVIN, 05/12/2024:
CONCLUSIONS
Mild global LV dysfunction. Overall LVEF is approximately 40-45%.
Stage II Diastolic dysfunction.
Mildly dilated left atrium.
Trace pulmonic insufficiency.
Mild sessile atheroma seen in the distal aortic arch and proximal descending
aorta.
POST OPERATIVE FINDINGS
The patient underwent a CABG on bypass and LA appendage clipping. Postop
rhythm remains sinus. RV and LV function both appear more vigorous. Overall
LVEF is now approximately 50-55% with improved regional wall motion. All
valves appear to be functioning normally. CHUCHO has been clipped with a residual
lumen measuring 0.47 cm. No color Doppler flow is noted distal to the clip.
Aortic scan is unchanged.
Physical Exam
Vital Signs/Labs
Vital Signs
Temp Pulse Resp BP Pulse Ox
98.4 F 84 18 119/83 97
05/18/24 08:13 05/18/24 08:15 05/18/24 08:13 05/18/24 08:15 05/18/24 08:13
05/17/24 05/18/24 05/19/24
06:59 06:59 06:59
Actual Weight 72.9 kg 71.6 kg
05/18/24 04:32
05/18/24 04:32
PT 18.2 Sec (11.4-14.6) H 05/12/24 13:31
INR 1.50 05/12/24 13:31
APTT 32.7 Sec (23.4-35.0) 05/12/24 13:31
Magnesium 2.2 mg/dl (1.6-2.3) 05/18/24 04:32
Triglycerides 172 mg/dl (10-149) H 05/02/24 04:31
LDL Cholesterol, Calc 142 mg/dl 05/02/24 04:31
VLDL Cholesterol, Calc 34 mg/dl (0-30) H 05/02/24 04:31
HDL Cholesterol 29 mg/dl 05/02/24 04:31
05/01/24
04:26
Ggf-P-Omonxjoksfk Pept [id number]
Physical Exam
Constitutional: No acute distress
EENT: Anicteric
Cardiovascular: Rhythm & rate is regular
GI: Soft
Neuro/Psych: Alert
Data Reviewed
-
Date of Service: May 18, 2024
Medical Decision Making: Reviewed Test Results
X-Ray/CT/US/MRI/NUC/PET: Report Reviewed by me
Medical Tests (PFT, Pathology etc): Report Reviewed by me
Labs: Labs Reviewed by me
[2024-05-18] MEDS: TOPROL XL 12.5 MG PO (10:07)
[2024-05-18] MEDS: LASIX 20 MG PO (10:07)
[2024-05-18 12:04] LABS: Glucose - Point of Care 63 mg/dl (70-99)
[2024-05-18 12:26] LABS: Glucose - Point of Care 77 mg/dl (70-99)
--- NOTE | 2024-05-18 13:28 | W.DCSUMMARY ---
Discharge Summary
Discharge Data
Date of Admission: 05/01/24
Date of Discharge: 05/18/24
Total time spent discharging patient (in min): 65
-
Pending Results: No
Hospital Course
Primary care physician:
None
Outpatient food aide:
Jac
Inpatient consultants:
CBC, intensivists, anesthesia, diabetes management, interventional radiology
Procedures:
1. Coronary artery bypass grafting x 3 (VENTURA-LAD, SVG-D1, SVG-OM1) & LAAC
Primary Diagnosis:
1. Multivessel coronary artery disease with ischemic cardiomyopathy
Secondary Diagnoses:
1. Uncontrolled diabetes type 2
2. Hypertension
3. Heart failure with reduced ejection fraction
4. Hyperlipidemia
HPI: 53-year-old male from [facility] presented to [facility] on 05/01 with increasing shortness of breath. He was found to have a reduced ejection fraction and left heart cath confirmed multivessel disease. Therefore patient was taken to
CT surgery.
Hospital course:
Patient was admitted on 05/01 for increased shortness of breath. Left heart cath on 05/04 revealed multivessel disease. On 05/06 patient had a left thoracentesis that drained -900. While he intermittently preoperatively he was diuresed with Lasix.
He was eventually taken to the CV OR on 05/12 for coronary artery bypass with Dr. Penn. Postoperatively he returned to the CVICU on dobutamine, Precedex, insulin, and nitro infusions. Patient's PEEP was increased to 7 and nitroglycerin was
switched to cardiac and for blood pressure control. Patient was eventually extubated later that evening and started on Levophed. On 05/13 postoperative day 1, patient remained on Levophed and was given calcium along with midodrine supplementation
for blood pressure control. He was also given 250 mL of lactated Ringer's. Blood pressure remained controlled so arterial line was removed. Burgos catheter was removed however patient had acute urinary retention and was straight cathed. On 05/14
postoperative day #2 patient received 1 unit of packed red blood cells along with 20 mg of IV Lasix. He was transitioned off his insulin drip and downgraded to telemetry status. His Burgos catheter was reinserted for recurrent urinary retention and
Flomax was started. On 05/15 postoperative day 3, patient's orthostatics improved on midodrine and chest tubes were removed. He was again diuresed with 20 mg of IV Lasix. On 05/16 postoperative day 4, patient again complained of lightheadedness
standing up and Flomax was discontinued. His Burgos catheter was removed and patient was able to void without difficulty. Cordis was removed and he was again diuresed with Lasix. On 05/17 postoperative day #5, midodrine was weaned. Amiodarone was
discontinued due to persistent hyperkalemia and beta-kia was resumed. On 05/18 postoperative day #6 patient was stable with medication changes and was discharged home. Due to his lack of insurance patient was not discharged on Entresto. His
prescriptions were given to him with the aid of case management.
Home medication changes:
SEE BELOW
Discharge Plan
-
Patient Disposition: Home (Routine Discharge)
Discharge Diagnosis/Procedures: CAD, acute heart failure
Condition: Fair
Diet: Low Cholesterol and Diabetic, Carb Controlled
Driving Restrictions: Not until seen by your Dr
Bathing Restrictions: OK to Shower
Other Services: Cardiac Rehab
Specialty Instructions: Weigh Daily- Call MD for wt gain/loss 3 lbs overnight/5 lbs in 1 week
Activity Restrictions/Additional Instructions:
ACTIVITY:
-No strenuous activity: no heavy lifting, pushing, pulling anything over 15 pounds for one month
-continue to use stairs as tolerated
DRIVING RESTRICTIONS:
-No driving for one month or until approved by your surgeon
WOUND CARE:
-Shower daily. Use soap & water.
-No lotions, creams or powders on incision area.
DIET:
-continue a low fat/low cholesterol diet.
-IF you are diabetic, continue carb controlled diet.
CARDIAC REHAB:
-Please make appointment to start in 5-6 weeks with your local hospital program. (See Cardiac Rehabilitation Discharge Booklet).
SPECIALTY INSTRUCTIONS:
-Weigh yourself daily. Call your physician for any weight gain/loss of 3 lbs overnight or 5 lbs in one week.
-REPORT any clicking noise or uneven appearance of your sternum to your surgeon immediately.
-If you smoke, you are instructed to quit. The OR smoking hotline phone number is [phone]
Instructions: *PCP/Other Chief Lock Operator Heart Failure Instructions
Referrals:
CT Transitional Care Nurse [Outside]
Tamara Sargent NP [Specified Professional Personl] - 06/21/24 9:00 am
NONE,* [Family Provider] -
Michael Penn MD [Active] - 06/15/24 2:00 pm
Prescriptions:
New
atorvastatin 80 mg Tablet
80 mg PO QPM Qty: 30 2RF
aspirin 81 mg Tablet,Chewable
81 mg PO DAILY Qty: 0 2RF
clopidogrel 75 mg Tablet
75 mg PO DAILY Qty: 30 2RF
midodrine 5 mg Tablet
5 mg PO BID Qty: 60 0RF
acetaminophen 325 mg Tablet
650 mg PO Q4HPRN PRN (Reason: mild pain,headache,temp >101F ) Qty: 0 0RF
furosemide 20 mg Tablet
20 mg PO Q48H Qty: 10 0RF
metoprolol succinate 25 mg Tablet Extended Release 24 Hr
12.5 mg PO DAILY Qty: 60 0RF
metformin 1,000 mg Tablet
1,000 mg PO BID@0800,1700 Qty: 60 0RF
Novolin 70/30 U-100 Insulin 100 unit/mL (70-30) Suspension
22 unit SC BID@0800,1700 Qty: 1 0RF
(DME) insulin syringe-needle U-100 [Insulin Syringe] 1 mL 29 gauge x 1/2' Syringe
Qty: 100 0RF
Rx Instructions:
As Directed
Discontinued
metformin 500 mg Tablet
500 mg PO BID
Discharge Orders:
Discharge Patient (As Directed); Ordered 05/18/24
Ordered By: Yesi Lei
Care Plan Goals
Care Plan Goals:
Problem: Readiness for enhanced knowledge related to diagnosis and treatment plan
Goal: Understand your diagnosis and treatment plan needs, including medications if applicable.
Instructions: Know your diagnosis, underlying causes and treatment plan options, including medications if applicable. Consult with your health care team to learn about your diagnosis and treatment plan, including medications if applicable.
Discharge Date and Time
Discharge Date/Time: 05/18/24 18:15
Print Language: SUDANESE
[2024-05-18] MEDS: NSS IV (13:45)
[2024-05-18 14:25] LABS: Glucose - Point of Care 172 mg/dl (70-99)
--- NOTE | 2024-05-18 14:53 | CM ---
spoke to pt in room via wastewater analyst. pt confirmed he does have a green card. i explained that if he is approved for medical assistance it woud cover him for a year including perscriptions and outpatient services/MD visits. pt/family in the process of
collecting all documentation and have been in contact with [facility]. pt/family expressed they have no money for his meds at this time. i priced his dc meds with Steph in the pharmacy. called Yanelis Oseguera of the [employer] and she approved the cost of
$159.08. scripts sent to pharmacy with instructions that pt will be going home today and would need a 30 day supply only. pt/family told that once MA is active he can fill scripts with that insurance. If he does not get approved, pt can go to
[facility] with note that he did not qualify for MA. pt/family verbalized understanding.
[2024-05-18 16:18] LABS: Glucose - Point of Care 188 mg/dl (70-99)
[2024-05-18] MEDS: NOVOLOG FLEXPEN-MODERATE RESISTANCE 1 UNITS SC (17:00)
[2024-05-18] MEDS: NOVOLOG MIX 70/30 FLEXPEN 22 UNITS SC (17:00)
[2024-05-18] MEDS: LIPITOR 80 MG PO (17:01)
[2024-05-18] MEDS: NEURONTIN PO (17:01)
--- NOTE | 2024-05-18 17:23 | PTCARENOTE ---
Patient discharged to home. Discharge teaching provided to patient and daughter, they verbalized understanding. IV and telemetry removed. Medications for 1 month provided to patient. Teaching provided on his new medications provided, verbalized
understanding. [facility] to follow up at home
--- NOTE | 2024-05-19 12:26 | W.HF.CON ---
Heart Failure
- LV Function
Left ventricular function study result: LV Ejection fraction 41-49%
Ejection Fraction Percentage: 40-45
- ARNI
Patient already on ARNI: No
Heart Failure ARNI Contraindication: Hyperkalemia
Heart Failure ARNI Not Indicated: LV Ejection Fraction >/= 40%
- ACEI/ARB
Patient already on ACEI/ARB: No
Heart Failure ACEI/ARB Contraindication: Hyperkalemia
Heart Failure ACEI/ARB Not Indicated: LV Ejection Fraction > 40%
- Beta Loy
Patient already on Evidence Based Beta Loy: Yes
- Mineralocorticord Receptor Antagonist
Patient already on MRA: No
Heart Failure MRA Contraindication: Hyperkalemia - serum >5
Heart Failure MRA Not Indicated: LV Ejection Fraction > 40%
- SGLT-2 Inhibitor
Patient already on SGLT-2 Inhibitor: No
Heart Failure SGLT-2 Inhibitor Contraindication: Patient Refusal
Heart Failure SGLT-2 Inhibitor Not Indicated: LV Ejection Fraction >40%
- NYHA CHF Classification
NYHA CHF Classification Level: Class III - Symptoms w/ min exertion, interferes w/ nml daily activity
- ACC/AHA Stage
ACC/AHA Stage: Stage C: Symptomatic Heart Failure
== END 2024-05-18 18:15 | disposition home or self-care (01) | DRG 233 ==
LOC: IVU 08:42
PROVIDERS: Clinical Nurse Specialist Acute Care; Family Medicine; Internal Medicine Cardiovascular Disease; Nurse Practitioner; Nurse Practitioner Adult Health; Physician Assistant Medical; Radiology Diagnostic Radiology; ADMITTING PHYSICIAN Hospitalist; ATTENDING PHYSICIAN Thoracic Surgery (Cardiothoracic Vascular Surgery); CONSULT PHYSICIAN Internal Medicine; CONSULT PHYSICIAN Internal Medicine Critical Care Medicine; CONSULT PHYSICIAN Thoracic Surgery (Cardiothoracic Vascular Surgery); EMERGENCY PHYSICIAN Student in an Organized Health Care Education/Training Program
PROC: 4A023N8 Measurement of Cardiac Sampling and Pressure, Bilateral, Percutaneous Approach (ICD-10-PCS; 2024-05-04)
PROC: 4A033BC Measurement of Arterial Pressure, Coronary, Percutaneous Approach (ICD-10-PCS; 2024-05-04)
PROC: B2111ZZ Fluoroscopy of Multiple Coronary Arteries using Low Osmolar Contrast (ICD-10-PCS; 2024-05-04)
PROC: 0W9B3ZX Drainage of Left Pleural Cavity, Percutaneous Approach, Diagnostic (ICD-10-PCS; 2024-05-06)
PROC: 02L70CK Occlusion of Left Atrial Appendage with Extraluminal Device, Open Approach (ICD-10-PCS; 2024-05-12)
PROC: 02100A9 Bypass Coronary Artery, One Artery from Left Internal Mammary with Autologous Arterial Tissue, Open Approach (ICD-10-PCS; 2024-05-12)
PROC: 0211093 Bypass Coronary Artery, Two Arteries from Coronary Artery with Autologous Venous Tissue, Open Approach (ICD-10-PCS; 2024-05-12)
PROC: 06BQ4ZZ Excision of Left Saphenous Vein, Percutaneous Endoscopic Approach (ICD-10-PCS; 2024-05-12)
PROC: 5A1221Z Performance of Cardiac Output, Continuous (ICD-10-PCS; 2024-05-12)
PROC: 30233N1 Transfusion of Nonautologous Red Blood Cells into Peripheral Vein, Percutaneous Approach (ICD-10-PCS; 2024-05-14)
DX: I11.0 Hypertensive heart disease with heart failure (principal); I50.21 Acute systolic (congestive) heart failure; J96.01 Acute respiratory failure with hypoxia; I16.1 Hypertensive emergency; D62 Acute posthemorrhagic anemia; J91.8 Pleural effusion in other conditions classified elsewhere; J95.89 Other postprocedural complications and disorders of respiratory system, not elsewhere classified; J98.11 Atelectasis; E66.09 Other obesity due to excess calories; Z68.30 Body mass index [BMI] 30.0-30.9, adult; E11.65 Type 2 diabetes mellitus with hyperglycemia; I5A Non-ischemic myocardial injury (non-traumatic); I95.81 Postprocedural hypotension; I25.5 Ischemic cardiomyopathy; I25.10 Atherosclerotic heart disease of native coronary artery without angina pectoris; E78.5 Hyperlipidemia, unspecified; E87.5 Hyperkalemia; K59.00 Constipation, unspecified; R33.9 Retention of urine, unspecified; R42 Dizziness and giddiness; Z59.71 Insufficient health insurance coverage; Z79.84 Long term (current) use of oral hypoglycemic drugs; Z87.09 Personal history of other diseases of the respiratory system; Z87.891 Personal history of nicotine dependence; Z82.49 Family history of ischemic heart disease and other diseases of the circulatory system; Z83.3 Family history of diabetes mellitus
CPT/HCPCS: 93308; 32555; 71045; 71046; 71250; 80048; 80053; 80061; 81003; 81015; 82010; 82248; 82330; 82565; 82805; 82810; 82947; 82962; 83036; 83735; 83880; 84132; 84302; 84484; 84520; 85014; 85018; 85025; 85027; 85049; 85347; 85610; 85730; 86850; 86900; 86901; 86920; 87502; 87811; 93005; 93306; 93312; 93320; 93325; 93460; 93799; 93880; 93970; 94002; 94660; 96365; 96366; 96372; 96375; 99291; C1769; C1894; P9016; P9047; Q9967

== ENCOUNTER → 2024-09-03 08:11 | Outpatient (REF) | payer OTHER, SELFPAY | LOC: RCS 08:11 | PROVIDERS: ATTENDING PHYSICIAN Nurse Practitioner | DX: I25.10 Atherosclerotic heart disease of native coronary artery without angina pectoris (principal); E87.5 Hyperkalemia; I95.81 Postprocedural hypotension; I50.20 Unspecified systolic (congestive) heart failure | CPT/HCPCS: 93306 ==

== ENCOUNTER 2024-11-24 21:26 | Inpatient (IN) | payer OTHER, SELFPAY ==
[2024-11-24] VITALS (13 sets, daily range): BP systolic 157–184; BP diastolic 90–103; BMI 33.4; BMI 31.8
[2024-11-24 16:49] LABS: % Basophils 0.3 % (0-2); % Eosinophils 4.6 % (0-6); % Immature Granulocytes 0.2 % (0-0.5); % Lymphocytes 23.7 % (20.5-51.1); % Monocytes 6.4 % (1.7-9.3); % Neutrophils 64.8 % (42.2-75.2); Absolute Eosinophils 0.3 10^3/uL (0-0.7); Absolute Lymphocytes 1.4 10^3/uL (1.2-3.4); Absolute Monocytes 0.4 10^3/uL (0.1-0.6); Absolute Neutrophils 3.9 10^3/uL (1.4-6.5); Hematocrit 31.5 % (39.0-52.0); Hemoglobin 10.2 g/dL (13.0-18.0); Mean Corp Hgb Conc. 32.4 g/dL (33.0-37.0); Mean Corpuscular Volume 86.5 fL (80.0-94.0); Mean Platelet Volume 12.2 fL (7.4-10.4); Nucleated Red Blood Cells % 0 % (-); Platelet Count 170 10^3/uL (130-400); Red Blood Cell Count 3.64 10^6/uL (4.70-6.10); Red Cell Dist. Width 13.5 % (11.5-14.5); White Blood Cell Count 6.1 10^3/uL (4.8-10.8)
[2024-11-24 17:09] LABS: ALT (SGPT) 31 U/L (0-50); AST (SGOT) 31 U/L (17-59); Albumin 2.8 g/dl (3.5-5.0); Alkaline Phosphatase 75 U/L (38-126); Blood Urea Nitrogen 21 mg/dl (9-20); Calcium 8.2 mg/dl (8.4-10.2); Carbon Dioxide 28 mmol/L (22-30); Chloride 108 mmol/L (98-107); Estimated Creatinine Clearance 92 ml/min; Glucose 144 mg/dl (70-99); Potassium 4.7 mmol/L (3.5-5.1); Sodium 141 mmol/L (135-145); Total Bilirubin 0.4 mg/dl (0.2-1.3); Total Protein 5.8 g/dl (6.3-8.2); eGFR > 60.00
[2024-11-24 17:21] LABS: Troponin I < 0.012 ng/ml
[2024-11-24 17:23] LABS: INR 1.04; PT 14.1 Sec (11.4-14.6)
[2024-11-24 18:07] LABS: NT-proBNP 2710 pg/ml
[2024-11-24] MEDS: LASIX 40 MG IV (19:03)
--- NOTE | 2024-11-24 19:36 | ED.GENMED ---
History of Present Illness
General
Chief Complaint: Swelling
Source: patient and family
Time Seen by Provider: 11/24/24 17:37
History of Present Illness
History of Present Illness:
54-year-old male who presents with progressive dyspnea on exertion, weakness, leg swelling. Family states that has been progressive over some time. Started getting worse when he returned to work. He did have open heart surgery back in April.
No current chest pain. States laying in bed he feels a little short of breath but better. Family admits that despite cardiology changing his medications, he has not had good blood pressure control.
Past History
Past History
ED Past Medical History: CAD, CHF, HTN and NIDDM
ED Past Surgical History: Cardiac (April 2024 three-vessel bypass, atrial clip)
Phy Exam
Physical Exam
Physical Exam:
CONSTITUTIONAL Patient alert and oriented to person, place and time. Well-appearing. Vital signs reviewed.
HEAD atraumatic, normocephalic.
EYES eyelids normal to inspection, Extraocular muscles intact, Conjunctiva normal, Sclera normal.
NECK normal range of motion, Trachea midline, no jugular venous distention.
RESPIRATORY CHEST No respiratory distress noted, Chest expansion equal, wheezing bilaterally
CARDIOVASCULAR regular rate and rhythm, Heart sounds normal.
ABDOMEN abdomen nontender, Bowel sounds normal. Mild distention
BACK normal inspection, no obvious deformities
UPPER EXTREMITY range of motion normal, Motor strength normal, no cyanosis, no edema.
LOWER EXTREMITY range of motion normal, Motor strength normal, no cyanosis, bilateral lower extremity edema.
NEURO Speech normal, No focal motor deficits, Timur coma scale 15, Memory normal, Cranial Nerves intact to screening exam.
SKIN skin warm, dry, and normal in color.
Scores
Heart Failure Risk
Heart Failure Risk Score: Yes
History of Stroke or TIA: No
History of intubation for respiratory distress: No
Heart rate on ED arrival >/= 110: No
SaO2 <90% on arrival on room air: No
HR >/=110 during 3min walk test (or too ill to perform test): Yes
ECG has acute ischemic changes: No
Urea >/=12mmol/L (BUN 33.6mg/dL): No
Serum CO2>/=35mmol/L: No
Troponin I or T elevated to CO Level (0.4mg/dL): No
NT-proBNP >/=5,000ng/L (5,000pg/ml): No
HF Risk Score: 2
Admission Status: MEDIUM RISK 9.2% Consider observation or discharge to home with homecare & f/u visit to PCP/Documentation Nurse, or SNF for treatment
Course
Orders/Labs/Results
Orders:
Orders
11/24/24 16:23
EKG [Electrocardiogram (*1)] Urgent
Reason for Study: Chest Pain
EKG- Treatment ONCE
11/24/24 16:42
Complete Blood Count/With Diff Urgent
Comprehensive Metabolic Panel Urgent
NT-proBNP Urgent
Comment: ADD ON
Prothrombin Time Urgent
Troponin I Urgent
11/24/24 17:02
Add On- LAB Urgent
Tests Added?: BNP
11/24/24 18:40
Furosemide [Lasix] 40 mg IV NOW STA
CR Chest - 2 Views Urgent
Comment:
Reason For Exam: sob, LE edema
11/24/24 19:35
Nitroglycerin Ointment [Nitro-Bid] 1 inch TOPICAL NOW STA
Nitroglycerin Sublingual [Nitrostat (Sublingual)] 0.4 mg SL NOW STA
Abnormal Lab Results
11/24/24
16:42
RBC 3.64 L 10^6/uL
(4.70-6.10)
Hgb 10.2 L g/dL
(13.0-18.0)
Hct 31.5 L %
(39.0-52.0)
MCHC 32.4 L g/dL
(33.0-37.0)
MPV 12.2 H fL
(7.4-10.4)
Chloride 108 H mmol/L
(98-107)
BUN 21 H mg/dl
(9-20)
Glucose 144 H mg/dl
(70-99)
Calcium 8.2 L mg/dl
(8.4-10.2)
Total Protein 5.8 L g/dl
(6.3-8.2)
Albumin 2.8 L g/dl
(3.5-5.0)
11/24/24 16:42
11/24/24 16:42
Vital Signs
Initial and Last Documented VS:
Initial Vital Signs
Temp Pulse Resp BP Pulse Ox
97.9 F 78 18 179/103 97
11/24/24 16:24 11/24/24 16:24 11/24/24 16:24 11/24/24 16:24 11/24/24 16:24
Last Documented Vital Signs
Temp Pulse Resp BP Pulse Ox
98.5 F 84 21 157/93 95
11/24/24 17:45 11/24/24 20:00 11/24/24 20:00 11/24/24 20:00 11/24/24 20:00
MDM/Problems Addressed
Differential Diagnosis Includes:
PE, pericardial fusion, CHF, ACS
MDM/Problems Addressed:
Acute CHF, uncontrolled hypertension
*Radiology
Radiology exam reviewed: preliminary read by ED provider (CHF)
*Pulse Oximetry
Patient hypoxic: no
*EKG
Interpreted by ED Provider?: Yes
Interpretation: abnormal
Rate: normal
Rhythm: sinus
[place]: normal axis
Ischemia: non-specific ST changes
*Incinerator Plant General Supervisor Interpretation
Rate: normal
Interpretation: normal
Rhythm: sinus
*Critical Care Note
Total Time (30-74mins, 75-104mins- exclusive of procedures): 42 minutes
Data Reviewed
Review of Other/Old Records Reveals: Operative Reports (October 2023 CT surgery operative report reviewed) and Discharge Summary (Discharge summary reviewed from October 2023)
Source: patient and family
Prescriptions/Medications Considered But Not Given:
Consider nitro drip for now will apply Nitropaste after sublingual bolus
Patient Management
Discussion with other providers: Hospitalist
Escalation/DeEscalation of care consider admission/obs:
54-year-old male with history of coronary bypass who presents with progressive dyspnea and lower extremity swelling. Peers to have CHF given his wheezing, chest x-ray and lower extremity edema. Diurese. Treat with nitroglycerin paste for now
until reassessed. May consider drip if blood pressure remains hypertensive
ED Attending Note
-
Portions of this chart may have been created with voice recognition software.� Occasional wrong word or��sound alike� substitutions may have occurred due to the inherent limitations of voice recognition software.
Discharge Plan
Departure
Patient Disposition: Admit
Date of Disposition: 11/24/24
Time of Disposition: 19:42
Admit to: Telemetry
Presentation/result/management discussed w/ accepting MD/DO: Hospitalist
Discharge Problem:
Acute CHF (congestive heart failure), Uncontrolled hypertension
Prescriptions:
No Action
atorvastatin 80 mg Tablet
80 mg PO QPM Qty: 30 2RF
aspirin 81 mg Tablet,Chewable
81 mg PO DAILY Qty: 0 2RF
clopidogrel 75 mg Tablet
75 mg PO DAILY Qty: 30 2RF
midodrine 5 mg Tablet
5 mg PO BID Qty: 60 0RF
acetaminophen 325 mg Tablet
650 mg PO Q4HPRN PRN (Reason: mild pain,headache,temp >101F ) Qty: 0 0RF
furosemide 20 mg Tablet
20 mg PO Q48H Qty: 10 0RF
metoprolol succinate 25 mg Tablet Extended Release 24 Hr
12.5 mg PO DAILY Qty: 60 0RF
metformin 1,000 mg Tablet
1,000 mg PO BID@0800,1700 Qty: 60 0RF
Novolin 70/30 U-100 Insulin 100 unit/mL (70-30) Suspension
22 unit SC BID@0800,1700 Qty: 1 0RF
(DME) insulin syringe-needle U-100 [Insulin Syringe] 1 mL 29 gauge x 1/2' Syringe
Qty: 100 0RF
Rx Instructions:
As Directed
Referrals:
Virginie Alvarez MD [Family Provider] -
Interventions
Interventions:
*Risk Screen - Suicide Last Done: 11/24/24 16:24
*General Assessment Last Done: 11/24/24 17:45
*Neglect/Abuse Screening Last Done: 11/24/24 16:24
*ED- Fall Risk Assessment Last Done: 11/24/24 17:45
*ED COVID-19 Vaccine History Last Done: 11/24/24 17:45
ED- Cardiac Assessment Last Done: 11/24/24 17:45
ED- Pulmonary Assessment Last Done: 11/24/24 17:45
ED-Skin Assessment Last Done: 11/24/24 17:45
Discharge Date and Time
Print Language: LUX[place]
[2024-11-24] MEDS: NITRO-BID 1 INCH TOPICAL ×2 (19:51→23:35)
[2024-11-24] MEDS: NITROSTAT (SUBLINGUAL) 0.4 MG SL (19:52)
--- NOTE | 2024-11-24 20:29 | HPS.HSE ---
Family Physician
-
Family Physician: Virginie Alvarez MD
Chief Complaint
-
shortness of breath
History of Present Illness
Mr. Lexii Donaldson is a 54 yo man with hx CAD s/p CABG 05/20, essential HTN, NIDDM presents to the ER with progressive shortness of breath.
Patient states that since surgery he has had intermittent swelling. Last night he was walking and felt short of breath. He called his PCP this morning who directed him to ER. Currently he is feeling better. Denies current chest pain.
No recent fevers/chills/ nausea/vomiting/diarrhea.
His daughter helps him with his medications.
Medical History
Past Medical History
Past Medical History: Reports Other
Additional Past Medical History:
NIDDM, essential HTN, CAR s/p CABG 2023
Past Surgical History: Reports Cardiac
Social History
Tobacco: Non-smoker
Alcohol: None
Drug: None
Personal:
Living: With Family
Family History
Family History: Not pertinent
Allergies / Home Medications
Allergies reflects when Allergies were last updated in [employer].
Home Medications with original date entered in [employer]
Allergy/Medication List:
Allergies
Allergy/AdvReac Type Severity Reaction Status Date / Time
No Known Allergies Allergy Verified 11/24/24 16:24
Home Medications
acetaminophen 325 mg tablet 650 mg (2 x 325 mg) PO Q4HPRN PRN mild pain,headache,temp >101F #0 tabs 05/17/24
aspirin 81 mg chewable tablet 81 mg PO DAILY Blood clot prevention/tx #0 tabs 05/17/24
atorvastatin 80 mg tablet 80 mg PO QPM #30 tabs 05/17/24
clopidogrel 75 mg tablet 75 mg PO DAILY #30 tabs 05/17/24
insulin syringe-needle U-100 1 mL 29 gauge x 1/2' (Insulin Syringe) #100 ea 05/18/24
metformin 1,000 mg tablet 1,000 mg PO BID@0800,1700 #60 tabs 05/18/24
carvedilol 6.25 mg tablet 6.25 mg PO BID 11/24/24
insulin human U-100 NPH-regulr 70-30 mix 100 unit/mL subcutaneous susp (Novolin 70/30 U-100 Insulin) 18 unit SC BID@0800,1700 11/24/24
Review of Systems
-
History Source: Patient
A 12 point ROS was completed and negative except as noted: Yes
Physical Exam
Vital Signs
Vital Signs
Temp Pulse Resp BP Pulse Ox
98.5 F 84 21 157/93 95
11/24/24 17:45 11/24/24 20:00 11/24/24 20:00 11/24/24 20:00 11/24/24 20:00
Physical Exam
General: No Apparent Distress
HEENT: PERRLA
Respiratory: Clear; No Wheezes
Cardiac: S1/S2, Regular Rhythm, Murmur and JVD
GI: Soft and Non Tender
Musculoskeletal: Edema, Left Lower Extremity and Edema, Right Lower Extremity
Skin: Warm and Dry; No Rash
Neuro: AO x 3
Psych: Calm
Laboratory Results
-
11/24/24 16:42
11/24/24 16:42
Laboratory Results
PT 14.1 Sec (11.4-14.6) 11/24/24 16:42
INR 1.04 11/24/24 16:42
Total Bilirubin 0.4 mg/dl (0.2-1.3) 11/24/24 16:42
AST 31 U/L (17-59) 11/24/24 16:42
ALT 31 U/L (0-50) 11/24/24 16:42
Alkaline Phosphatase 75 U/L (38-126) 11/24/24 16:42
Troponin I < 0.012 ng/ml 11/24/24 16:42
Data Reviewed
-
Diagnostic Radiology: Report Reviewed by me
Lab Data: Labs Reviewed by me
Impression/Plan
-
Mr. Lexii Donaldson is a 54 yo man with hx CAD s/p CABG 05/20, essential HTN, NIDDM presents to the ER with progressive shortness of breath.
Triage VS: T 97.9, P 78, RR 18, BP 179/103, SpO2 97%
LABS: WBC 6.1, Hg 10.2, PLT 170, Na 141, K+ 4.7, Cl 108, CO2 28, Cr 0.9, Glucose 144, liver enzymes WNL, Trop < 0.012, BNP 2710
EKG: NSR @ 83, t wave flattening lateral leads
TTE 09/03/24
CONCLUSIONS
Normal biventricular size and systolic function without regional wall motion
abnormality. Estimated LVEF 50-55%.
Mild/moderate mitral regurgitation.
Compared to 05/10/24: LVEF has improved from 40-45% to 50-55%. MR has
progressed from mild to mild/moderate
MAR: IV Lasix, nitro topical and subL
Heart Failure mildly reduced EF, acute exacerbation
Mild to Moderate MR
-per daughter, patient is no longer taking lasix
-s/p Lasix 40mg IV in ER
-admit to telemetry
-continue Lasix 40mg IV QD
-daily weights, strict I/O
-Cardiology consult
-trend Troponin
Essential HTN
Hypertensive Urgency
-give home Coreg dose now
-nitro paste
CAD s/p CABG 04/2024
-continue RESERVATION AGENT Asa/Plavix/Statn
-RESERVATION AGENT Coreg
IDDM
-patient is on 70/30 18 units BID
-will order NPH 8 units BID for now, adjust as needed
-RESERVATION AGENT Metformin
-ISS
DVT PPx SCD
FULL CODE
Patient's daughter was updated and confirmed med list (she is French speaking)
76 minutes spent on patient care
[2024-11-24] MEDS: COREG 6.25 MG PO (21:14)
[2024-11-24] MEDS: FLUSH (NSS) 1 FLUSH IV (21:16)
[2024-11-24] MEDS: LIPITOR 80 MG PO (23:36)
[2024-11-24 23:43] LABS: Glucose - Point of Care 222 mg/dl (70-99)
[2024-11-25] VITALS (7 sets, daily range): BP systolic 132–179; BP diastolic 72–109; BMI 31.4
[2024-11-25 00:39] LABS: Troponin I < 0.012 ng/ml
[2024-11-25] MEDS: NITRO-BID 1 INCH TOPICAL (05:55)
[2024-11-25 06:28] LABS: Hematocrit 29.7 % (39.0-52.0); Hemoglobin 9.7 g/dL (13.0-18.0); Mean Corp Hgb Conc. 32.7 g/dL (33.0-37.0); Mean Corpuscular Hgb 28.3 pg (27.0-31.0); Mean Corpuscular Volume 86.6 fL (80.0-94.0); Mean Platelet Volume 12.4 fL (7.4-10.4); Platelet Count 169 10^3/uL (130-400); Red Blood Cell Count 3.43 10^6/uL (4.70-6.10); Red Cell Dist. Width 13.6 % (11.5-14.5); White Blood Cell Count 5.9 10^3/uL (4.8-10.8)
[2024-11-25 06:51] LABS: Troponin I < 0.012 ng/ml
[2024-11-25 07:21] LABS: Blood Urea Nitrogen 19 mg/dl (9-20); Calcium 8.4 mg/dl (8.4-10.2); Carbon Dioxide 27 mmol/L (22-30); Chloride 109 mmol/L (98-107); Estimated Creatinine Clearance 89 ml/min; Glucose 128 mg/dl (70-99); Magnesium 1.6 mg/dl (1.6-2.3); Potassium 4.3 mmol/L (3.5-5.1); Sodium 141 mmol/L (135-145); eGFR > 60.00
[2024-11-25 07:51] LABS: TSH Reflex To Free T4 1.36 uIU/ml (0.47-4.68)
[2024-11-25] MEDS: LASIX 40 MG IV ×2 (08:48→16:14)
[2024-11-25 08:50] LABS: Glucose - Point of Care 136 mg/dl (70-99)
[2024-11-25] MEDS: PLAVIX 75 MG PO (08:53)
[2024-11-25] MEDS: LOW STRENGTH ASPIRIN 81 MG PO (08:53)
[2024-11-25 08:54] LABS: Glycohemoglobin (HgbA1c) 8.6 % (4.0-5.6)
[2024-11-25] MEDS: GLUCOPHAGE 1000 MG PO ×2 (08:54→17:31)
[2024-11-25] MEDS: COREG 6.25 MG PO ×2 (08:54→19:59)
[2024-11-25] MEDS: NOVOLOG FLEXPEN-LOW RESISTANCE SC (08:57)
[2024-11-25] MEDS: HUMULIN N KWIKPEN 8 UNITS SC ×2 (08:57→17:31)
--- NOTE | 2024-11-25 10:03 | CM ---
Patient seen bedside. Spoke w/ patient's daughter via phone for initial assessment, patient not fluent in [place]. Patient is a 54 yo man with hx CAD s/p CABG 05/20, essential HTN, NIDDM presents to the ER with progressive shortness of breath.
Patient resides w/ spouse and sister in a ground flr apartment- 6 steps to enter. Patient is independent w/ ambulating, no device required. Independent w/ ADLs. Denies SNF hx. [facility] in the past.
Address, points of contact and insurance verified
PCP: Virginie Alvarez
Pharmacy: [facility]
Plan: Anticipate home, no needs
--- NOTE | 2024-11-25 10:13 | CON.CAR ---
Addendum entered and electronically signed by Sohan Chauhan MD 11/25/24 14:09:
I saw and examined the patient.
The ENROBING MACHINE OPERATOR's note was reviewed and I agree with the note.
Comment: 54-year-old male known to Dr. Barber history of CAD status post CABG in 2023, hypertension, & diabetes, presents for evaluation of increasing shortness of breath and weakness over the past week. He has had increased swelling in the
abdomen and legs. It does not appear that he is weighing himself. He was believed to have CHF surrounding his CAB. He is currently feeling a bit better with diuresis. On exam he has a regular rate and rhythm normal S1-S2 no murmur rubs or
gallops were appreciated lungs were clear to auscultation bilaterally extremities were 1-2+ pitting edema in the legs, he is alert and oriented x 3. EKG shows s table from prior normal sinus rhythm with nonspecific ST-T wave changes unchanged from
prior. Chest x-ray shows pulmonary edema. Overall, findings consistent with a new diagnosis of heart failure with preserved ejection fraction. Will begin IV diuresis and continue with intensive monitoring of his electrolytes, rhythm and blood
pressure. CHF team consult as needed. In the past he had hyperkalemia this has resolved. Will try to initiate MRA and ARB collect carefully. Will ask case management to mejia out SGLT2 inhibitors which would help us manage his potassium levels.
Hopefully with Lasix, he will be able to tolerate these agents. He was not on any home dose of loop diuretic, this will likely need to change. Otherwise he is not having any chest pain. There are no ischemic changes. Will continue current OMT.
Will follow.
Original Note:
Consultation
Consultation Request
Date/Time Consultation Requested: 11/24/24 2216
Date/Time Consultation Performed: 11/25/24 1014
Requesting Provider: Dr. Mckeon
Performing Provider: Yamilet AZEVEDO for Dr. Chauhan
Reason for Consultation: CHF
Medical History
-
Chief Complaint: SOB
History of Present Illness:
54 y/o male (patient of Dr. Sampson) with hypertension, diabetes, CAD s/p CABG April 2024 (VENTURA-LAD, SVG-D1, SVG-OM1, CHUCHO clip) who is here for evaluation of SOB and weakness x 6 days. There is also abdominal and leg swelling. He does not
monitor weights. He is admitted for CHF and is being diuresed. Family was on phone and helped with translation and we were able to communicate effectively.
Past Medical History
Past Medical History: CAD, HTN and NIDDM (on insulin)
Social History
Tobacco: Non-Smoker
Family History
Family History: Early CAD (brother)
Allergies / Home Medications
Allergy/AdvReac Type Severity Reaction Status Date / Time
No Known Allergies Allergy Verified 11/24/24 16:24
�Medication �Instructions �Recorded �Confirmed �Type
acetaminophen 325 mg tablet 650 mg (2 x 325 mg) PO Q4HPRN PRN 05/17/24 11/24/24 Rx
mild pain,headache,temp >101F #0
tabs
aspirin 81 mg chewable tablet 81 mg PO DAILY Blood clot 05/17/24 11/24/24 Rx
prevention/tx #0 tabs
atorvastatin 80 mg tablet 80 mg PO QPM #30 tabs 05/17/24 11/24/24 Rx
clopidogrel 75 mg tablet 75 mg PO DAILY #30 tabs 05/17/24 11/24/24 Rx
insulin syringe-needle U-100 1 mL #100 ea 05/18/24 Rx
29 gauge x 1/2' (Insulin Syringe)
metformin 1,000 mg tablet 1,000 mg PO BID@0800,1700 #60 tabs 05/18/24 11/24/24 Rx
carvedilol 6.25 mg tablet 6.25 mg PO BID Heart Failure 11/24/24 11/24/24 History
insulin human U-100 NPH-regulr 18 unit SC BID@0800,1700 Diabetes 11/24/24 11/24/24 History
70-30 mix 100 unit/mL subcutaneous
susp (Novolin 70/30 U-100 Insulin)
Review of Systems
-
History Source: Patient
All other systems: Negative unless noted
Constitutional: Other (weakness)
Respiratory: Trouble Breathing
Musculoskeletal: Edema
Physical Exam
Vital Signs
Temp Pulse Resp BP Pulse Ox
98 F 92 18 168/96 98
11/25/24 07:50 11/25/24 08:48 11/25/24 07:50 11/25/24 08:48 11/25/24 07:50
Lab Results
11/25/24 06:19
11/25/24 06:19
Troponin I < 0.012 ng/ml 11/25/24 06:19
Jby-M-Zdtmntuyxfy Pept 2710 pg/ml 11/24/24 16:42
Physical Exam
General: Well Developed, Well Nourished and No Apparent Distress
HEENT: Normocephalic and Anicteric
Cardiac: Regular Rhythm and Peripheral Edema (mild BLE edema)
Skin: Warm and Dry
Neuro: AO x 3
Psych: Calm
Impression / Plan
-
Kmsxd-vh-lilewbp HFrecEF:
-Echo 09/03/24: Normal biventricular size and systolic function without regional wall motion abnormality. Estimated LVEF 50-55%. Mild/moderate mitral regurgitation.
-continue IV diuresis, will adjust to BID- requires intensive monitoring
-will add spironolactone and mejia SGLT2I. Of note, hyperkalemia noted in past, so will have to monitor, but currently K+ fine.
-weight in office 09/17/24 74 kg, currently 80 kg.
-CHF education
CAD with hx CABG:
-stable
-on ASA, Plavix, statin, BB
-trops normal, EKG stable
HTN:
-BP's elevated on arrival
-losartan added, spironolactone to be added
-monitor with medicine adjustments
DM:
-on insulin
-management per primary
Data Reviewed
-
EKG: Tracing Personally Visualized and interpreted (NSR, non-specific T abnormality)
Radiology: Report Reviewed by me (Minor congestive heart failure.)
Medical Tests (Nuc Med, Echo etc): Report Reviewed by me (Echo 09/03/24: Normal biventricular size and systolic function without regional wall motion abnormality. Estimated LVEF 50-55%. Mild/moderate mitral regurgitation. )
Labs: Labs Reviewed by me
--- NOTE | 2024-11-25 10:27 | W.PN.HOSP.TC ---
Today's Communication/Plan
-
IV diuresis
Assessment / Plan
Assessment / Plan
Impression
Mr. Lexii Donaldson is a 54 yo man with hx CAD s/p CABG 05/20, essential HTN, NIDDM presents to the ER with progressive shortness of breath.
Acute CHF preserved/recovered EF.
Acute pulmonary edema secondary to above.
Other conditions:
CAD status post CABG 05/20.
Essential hypertension
IDDM.
Obesity with BMI 31
Plan:
TTE 09/03/24
CONCLUSIONS
Normal biventricular size and systolic function without regional wall motion
abnormality. Estimated LVEF 50-55%.
Mild/moderate mitral regurgitation.
Acute CHF preserved/recovered EF.
Noted with accelerated hypertension upon admission.
Acute pulmonary edema, mild
No evidence of respiratory distress. Patient not required supplemental oxygen upon presentation.
Not on diuretics prior to presentation. Report discontinued at May 2024.
Exam with peripheral lower extremity edema
ECG without ischemia. Negative cardiac markers.
Noted elevated pro CHF BNP, although below baseline
Dyspnea improved with diuresis
Continue IV Lasix monitoring daily weight and renal function
Continue Coreg.
Stop Nitropaste
GDMT. Will add losartan. Need to check cost for SGLT2 inhibitor.
Cardiology evaluation
CAD with history of CABG 05/20.
Chest pain-free on presentation
On DAPT prior to admission.? Give any long-term indication for dual antiplatelet therapy at this point.
Continue Coreg.
Continue statin
Accelerated hypertension possibly in the settings of volume overload
Monitor BP trend with diuresis.
Continue Coreg.
Add losartan
IDDM 2
Hemoglobin A1c 8.5.
Suspect diabetic nephropathy given proteinuria
MONIK/ARB/SGLT2 would be beneficial
Continue current regimen with insulin and metformin.
Basal bolus protocol with serial Accu-Cheks
Anticipated Discharge: 24 - 48 hours
Subjective/Interval History
-
Date of Service: November 25, 2024
Objective Data
-
Labs:
Laboratory Results
11/25/24
06:19
WBC 5.9
Hgb 9.7 L
Hct 29.7 L
Plt Count 169
Sodium 141
Potassium 4.3
Chloride 109 H
Carbon Dioxide 27
BUN 19
Creatinine 0.9
Glucose 128 H
Calcium 8.4
Vital Signs:
Vital Signs
Temp Pulse Resp BP Pulse Ox
98 F 92 18 168/96 98
11/25/24 07:50 11/25/24 08:48 11/25/24 07:50 11/25/24 08:48 11/25/24 07:50
Physical Exam
-
General: Well Developed and No Apparent Distress
HEENT: Normocephalic, Atraumatic and Moist Mucous Membranes
Respiratory: Clear to Auscultation
Cardiac: Regular Rhythm, S1/S2 and Other (Bilateral lower extremity edema); Negative Murmur, Rub or Gallop
GI: Soft, Nontender, Nondistended and Normal Bowel Sounds; Negative Organomegaly
Rectal: Deferred by Provider
Musculoskeletal: No Clubbing, No Cyanosis and No Edema
Skin: Negative Rash
Neuro: Nonfocal/Grossly Intact
[2024-11-25] MEDS: COZAAR 50 MG PO (11:34)
[2024-11-25 11:49] LABS: Glucose - Point of Care 170 mg/dl (70-99)
[2024-11-25] MEDS: NOVOLOG FLEXPEN-LOW RESISTANCE 1 UNITS SC ×2 (13:20→17:32)
[2024-11-25] MEDS: ALDACTONE 25 MG PO (13:23)
[2024-11-25 17:04] LABS: Glucose - Point of Care 192 mg/dl (70-99)
[2024-11-25] MEDS: LIPITOR 80 MG PO (17:30)
[2024-11-25 21:42] LABS: Glucose - Point of Care 116 mg/dl (70-99)
[2024-11-26] VITALS (7 sets, daily range): BP systolic 139–188; BP diastolic 80–110; BMI 29.5
[2024-11-26] MEDS: APRESOLINE 5 MG IV (04:19)
[2024-11-26 06:59] LABS: Blood Urea Nitrogen 26 mg/dl (9-20); Calcium 8.8 mg/dl (8.4-10.2); Carbon Dioxide 29 mmol/L (22-30); Chloride 104 mmol/L (98-107); Estimated Creatinine Clearance 78 ml/min; Glucose 110 mg/dl (70-99); Potassium 4.3 mmol/L (3.5-5.1); Sodium 139 mmol/L (135-145); eGFR > 60.00
[2024-11-26 08:07] LABS: Glucose - Point of Care 105 mg/dl (70-99)
--- NOTE | 2024-11-26 08:45 | W.PN.CD ---
Today's Communication / Plan
-
Valsartan start, increase coreg
cont iv diuresis
pricing of entresto and sglt2i
Complains of right leg pain
Impression / Plan
-
Dwqvz-qc-caosbbv HFmrEF EF ~45%:
-Echo 09/03/24: below
-continue IV diuresis, will adjust to BID- requires intensive monitoring
-GDMT: Switch losartan to valsartan and increase (priced Entresto), pricing of sglt2i, increase coreg, cont spironolactone
-weight in office 09/17/24 74 kg, currently 80 kg.
-CHF education
CAD with hx CABG:
-stable
-on ASA, Plavix, statin, BB
-trops normal, EKG stable
HTN:
-switch losartan to valsartan
- increase coreg
- cont diuresis
DM:
-on insulin
-management per primary
Subjective: Feeling better but still swelling
Echo Nov 25 2024: CONCLUSIONS
Mildly depressed left ventricular systolic function. Global hypokinesis.
Left ventricular ejection fraction is 46% by Smith's biplane method of discs.
Stage I diastolic dysfunction suggestive of abnormal relaxation and increased
filling pressures.
Trace aortic regurgitation.
Compared to the prior on 09/03/24, EF is now mildly depressed from 50-55% on the
prior study.
Physical Exam
Vital Signs/Labs
Vital Signs
Temp Pulse Resp BP Pulse Ox
98 F 85 18 172/92 94
11/26/24 08:16 11/26/24 08:16 11/26/24 08:16 11/26/24 08:16 11/26/24 08:16
11/25/24 11/26/24 11/27/24
06:59 06:59 06:59
Actual Weight 177 lb 1 oz 166 lb 8 oz
11/25/24 06:19
11/26/24 06:01
PT 14.1 Sec (11.4-14.6) 11/24/24 16:42
INR 1.04 11/24/24 16:42
Magnesium 1.6 mg/dl (1.6-2.3) 11/25/24 06:19
11/24/24
16:42
Kqx-B-Qfuyecnptap Pept 2710
LAB Results
11/24/24 11/24/24 11/25/24
16:42 23:55 06:19
Troponin I < 0.012 < 0.012 < 0.012
Physical Exam
Constitutional: No acute distress and Comfortable
EENT: Anicteric
Cardiovascular: Rhythm & rate is regular and Pedal edema present
Respiratory: Respiratory effort normal and Lungs clear to auscul.
GI: Soft
Neuro/Psych: AO x 3
Data Reviewed
-
Date of Service: November 26, 2024
EKG: Tracing Personally Visualized and interpreted (sr )
Echo: Report Reviewed by me
Labs: Labs Reviewed by me
[2024-11-26] MEDS: NOVOLOG FLEXPEN-LOW RESISTANCE SC (08:53)
[2024-11-26] MEDS: GLUCOPHAGE 1000 MG PO ×2 (08:54→17:15)
[2024-11-26] MEDS: PLAVIX 75 MG PO (08:54)
[2024-11-26] MEDS: ALDACTONE 25 MG PO (08:54)
[2024-11-26] MEDS: LOW STRENGTH ASPIRIN 81 MG PO (08:54)
[2024-11-26] MEDS: DIOVAN 80 MG PO (08:54)
[2024-11-26] MEDS: HUMULIN N KWIKPEN 8 UNITS SC ×2 (08:55→17:15)
[2024-11-26] MEDS: LASIX 40 MG IV ×2 (08:55→17:14)
[2024-11-26] MEDS: COREG 12.5 MG PO ×2 (08:57→21:00)
[2024-11-26] MEDS: COZAAR PO (09:03)
[2024-11-26] MEDS: COREG PO (09:03)
[2024-11-26 12:09] LABS: Glucose - Point of Care 183 mg/dl (70-99)
[2024-11-26] MEDS: NOVOLOG FLEXPEN-LOW RESISTANCE 1 UNITS SC ×2 (12:28→17:15)
--- NOTE | 2024-11-26 13:54 | W.PN.HOSP.TC ---
Today's Communication/Plan
-
IV diuresis with increased dose of Lasix to twice daily.
Remains suboptimally controlled. Coreg increased.
Aldactone added.
Pricing for Entresto/SGLT2 inhibitor
Assessment / Plan
Assessment / Plan
Impression
Mr. Lexii Donaldson is a 54 yo man with hx CAD s/p CABG 05/20, essential HTN, NIDDM presents to the ER with progressive shortness of breath.
Acute CHF preserved/recovered EF.
Acute pulmonary edema secondary to above.
Other conditions:
CAD status post CABG 05/20.
Essential hypertension
IDDM.
Obesity with BMI 31
Plan:
TTE 09/03/24
CONCLUSIONS
Normal biventricular size and systolic function without regional wall motion
abnormality. Estimated LVEF 50-55%.
Mild/moderate mitral regurgitation.
Acute CHF preserved/recovered EF.
Noted with accelerated hypertension upon admission.
Acute pulmonary edema, mild
No evidence of respiratory distress. Patient not required supplemental oxygen upon presentation.
Not on diuretics prior to presentation. Report discontinued at May 2024.
Exam with peripheral lower extremity edema
ECG without ischemia. Negative cardiac markers.
Noted elevated pro CHF BNP, although below baseline
Dyspnea improved with diuresis
Continue IV Lasix monitoring daily weight and renal function
Continue Coreg.
Stop Nitropaste
GDMT. Initiated on valsartan. CM consultation for ARNI, SGLT2 inhibitor pricing
Cardiology evaluation
CAD with history of CABG 05/20.
Chest pain-free on presentation
On DAPT prior to admission.? Give any long-term indication for dual antiplatelet therapy at this point.
Continue Coreg.
Continue statin
Accelerated hypertension possibly in the settings of volume overload
Monitor BP trend with diuresis.
Continue Coreg.
Add losartan
IDDM 2
Hemoglobin A1c 8.5.
Suspect diabetic nephropathy given proteinuria
MONIK/ARB/SGLT2 would be beneficial
Continue current regimen with insulin and metformin.
Basal bolus protocol with serial Accu-Cheks
Anticipated Discharge: 24 - 48 hours
Subjective/Interval History
-
Date of Service: November 26, 2024
Objective Data
-
Labs:
Laboratory Results
11/26/24
06:01
Sodium 139
Potassium 4.3
Chloride 104
Carbon Dioxide 29
BUN 26 H
Creatinine 1.0
Glucose 110 H
Calcium 8.8
Vital Signs:
Vital Signs
Temp Pulse Resp BP Pulse Ox
98.1 F 92 18 153/96 96
11/26/24 11:37 11/26/24 11:37 11/26/24 11:37 11/26/24 11:37 11/26/24 11:37
I&O
11/25/24 11/26/24 11/27/24
06:59 06:59 06:59
Intake Total 480 / 480
Output Total 800 / 800
Balance -320 / -320
Physical Exam
-
General: Well Developed and No Apparent Distress
HEENT: Normocephalic, Atraumatic and Moist Mucous Membranes
Respiratory: Clear to Auscultation
Cardiac: Regular Rhythm, S1/S2 and Other (Bilateral lower extremity edema); Negative Murmur, Rub or Gallop
GI: Soft, Nontender, Nondistended and Normal Bowel Sounds; Negative Organomegaly
Rectal: Deferred by Provider
Musculoskeletal: No Clubbing, No Cyanosis and No Edema
Skin: Negative Rash
Neuro: Nonfocal/Grossly Intact
--- NOTE | 2024-11-26 16:42 | CM ---
Received consult to check prices for the following medications: Farxiga 10 mg daily, Jardiance 10 mg daily, Entresto 24/26 mg daily.
Placed a call to patient's pharmacy, [facility] in [place] and spoke with a pharmacy intake coordinator named, Kassie. She stated that all 3 medications would be covered at 100 percent or very close to it as patient has the state's Medicaid plan. Will relay to
attending.
[2024-11-26 16:56] LABS: Glucose - Point of Care 158 mg/dl (70-99)
[2024-11-26] MEDS: LIPITOR 80 MG PO (17:15)
[2024-11-26 21:14] LABS: Glucose - Point of Care 181 mg/dl (70-99)
[2024-11-27 03:17] VITALS: BP 140/82
[2024-11-27 06:00] VITALS: BMI 28.3
[2024-11-27 06:11] LABS: Blood Urea Nitrogen 32 mg/dl (9-20); Calcium 8.8 mg/dl (8.4-10.2); Carbon Dioxide 31 mmol/L (22-30); Chloride 99 mmol/L (98-107); Estimated Creatinine Clearance 63 ml/min; Glucose 93 mg/dl (70-99); Potassium 3.8 mmol/L (3.5-5.1); Sodium 138 mmol/L (135-145); eGFR > 60.00
[2024-11-27 07:05] VITALS: BP 141/86
[2024-11-27 08:04] LABS: Glucose - Point of Care 99 mg/dl (70-99)
[2024-11-27] MEDS: NOVOLOG FLEXPEN-LOW RESISTANCE SC (08:34)
[2024-11-27] MEDS: ALDACTONE 25 MG PO (08:35)
[2024-11-27] MEDS: DIOVAN 80 MG PO (08:35)
[2024-11-27] MEDS: LOW STRENGTH ASPIRIN 81 MG PO (08:35)
[2024-11-27] MEDS: GLUCOPHAGE 1000 MG PO ×2 (08:35→17:24)
[2024-11-27] MEDS: PLAVIX 75 MG PO (08:35)
[2024-11-27] MEDS: COREG 12.5 MG PO ×2 (08:35→20:47)
[2024-11-27] MEDS: HUMULIN N KWIKPEN 8 UNITS SC ×2 (08:36→17:25)
[2024-11-27] MEDS: FLUSH (NSS) 2 FLUSH IV (08:36)
[2024-11-27] MEDS: LASIX 40 MG IV ×2 (08:36→17:22)
[2024-11-27 11:00] VITALS: BP 153/90
[2024-11-27 11:22] LABS: Glucose - Point of Care 159 mg/dl (70-99)
--- NOTE | 2024-11-27 11:50 | W.PN.HOSP.TC ---
Today's Communication/Plan
-
Continue current regimen
Plan to transition ARB to ARNI
Plan to add SGLT2i if affordable
Continue Lasix for now, close to euvolemia
Assessment / Plan
Assessment / Plan
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
Noted with accelerated hypertension upon admission, Acute mild pulmonary edema, elevated BNP
No evidence of respiratory distress. Patient not required supplemental oxygen upon presentation.
Not on diuretics prior to presentation, Reported they were discontinued in May 2024.
Exam with peripheral lower extremity edema that is now resolved
ECG without ischemia. Negative cardiac markers.
Dyspnea improved with diuresis
Continue IV Lasix, monitoring daily weight and renal function
Continue carvedilol, MRA, ARB for GDMT, plan for ARB ->ARNI and SGLT2i
Approaching euvolemia
#CAD with history of CABG 05/20.
Chest pain-free on presentation
On DAPT, carvedilol, high intensity statin
Was on Nitropaste however discontinued
No signs of ACS here
#Accelerated hypertension
possibly in the settings of volume overload
Monitor BP trend with diuresis.
Was on carvedilol; Aldactone, valsartan were added here
Blood pressure remains borderline high
#IDDM 2
Hemoglobin A1c 8.5.
Suspect diabetic nephropathy given proteinuria
MONIK/ARB + SGLT2 would be beneficial
Continue current regimen with insulin and metformin.
Basal bolus protocol with serial Accu-Cheks
DVT prophylaxis: SCDs
CODE STATUS: Full code
Diet: Carb controlled, 48 ounce of far, 2 g sodium restriction
Family updated at the bedside 11/27
Anticipated Discharge: 24 - 48 hours
Subjective/Interval History
-
Date of Service: November 27, 2024
Seen and examined at the bedside with multiple family members. No acute events reported. AFVSS
Labs today are stable. Remains comfortable on room air. Denies chest pain or anginal equivalents
Denies any new complaints as of this morning and states he feels well. Family helped provide interpreting services
Objective Data
-
Labs:
Laboratory Results
11/27/24
05:28
Sodium 138
Potassium 3.8
Chloride 99
Carbon Dioxide 31 H
BUN 32 H
Creatinine 1.1
Glucose 93
Calcium 8.8
Vital Signs:
Vital Signs
Temp Pulse Resp BP Pulse Ox
98.2 F 100 18 153/90 97
11/27/24 11:00 11/27/24 11:00 11/27/24 11:00 11/27/24 11:00 11/27/24 11:00
I&O
11/26/24 11/27/24 11/28/24
06:59 06:59 06:59
Intake Total 480 / 480 1200 / 1200
Output Total 800 / 800
Balance -320 / -320 1200 / 1200
Review of Systems
-
History Source: Patient
All other systems: Reviewed and negative
Physical Exam
-
General: Well Developed, Well Nourished, No Apparent Distress and Comfortable
HEENT: Normocephalic, Atraumatic, Moist Mucous Membranes and Anicteric
Respiratory: Clear to Auscultation and Non Labored Respirations; Negative Accessory Resp Muscle Use
Cardiac: Regular Rhythm and S1/S2; Negative Murmur, Rub or Gallop
GI: Soft, Nontender, Nondistended and Normal Bowel Sounds
Musculoskeletal: No Clubbing, No Cyanosis, No Edema and Other
Skin: Warm, Dry, Normal Turgor and Other (Surgical scar of LLE); Negative Rash
Neuro: AO x 3 and Nonfocal/Grossly Intact; Negative Tremors
Psych: Calm
Data Reviewed
-
Labs: Labs Reviewed by me and Discussed with Patient
[2024-11-27] MEDS: NOVOLOG FLEXPEN-LOW RESISTANCE 1 UNITS SC ×2 (12:29→17:24)
--- NOTE | 2024-11-27 16:06 | W.PN.CD ---
Today's Communication / Plan
-
Movto to Entresto
Move to PO Lasix tomorrow morning
Add SGLT2-I as outpatient as he has had many med changes
Impression / Plan
-
Dvwyd-nj-iuzofkf HFmrEF EF ~45%:
-Echo 09/03/24: below
-Move to PO Lasix starting 11/28/2024
-GDMT: Entresto, sglt2i, are affordable => move to Entresto.
- Will defer SGLt2-i to office, many med changes already.
- All meds are affordable.
- on increased coreg, and new spironolactone
-weight in office 09/17/24 74 kg, currently 80 kg.
-CHF education
CAD with hx CABG:
-stable
-on ASA, Plavix, statin, BB
-trops normal, EKG stable
HTN, not at goal, but meds just increased
DM, on insulin, consider GLP1 agonist
Subjective: Feeling better and improved swelling
Echo Nov 25 2024:
Mildly depressed left ventricular systolic function. Global hypokinesis.
Left ventricular ejection fraction is 46% by Smith's biplane method of discs.
Stage I diastolic dysfunction suggestive of abnormal relaxation and increased
filling pressures.
Trace aortic regurgitation.
Compared to the prior on 09/03/24, EF is now mildly depressed from 50-55% on the
prior study.
Physical Exam
Vital Signs/Labs
Vital Signs
Temp Pulse Resp BP Pulse Ox
98.2 F 100 18 153/90 97
11/27/24 11:00 11/27/24 11:00 11/27/24 11:00 11/27/24 11:00 11/27/24 11:00
11/26/24 11/27/24 11/28/24
06:59 06:59 06:59
Actual Weight 75.523 kg 72.348 kg
11/25/24 06:19
11/27/24 05:28
PT 14.1 Sec (11.4-14.6) 11/24/24 16:42
INR 1.04 11/24/24 16:42
Magnesium 1.6 mg/dl (1.6-2.3) 11/25/24 06:19
11/24/24
16:42
Jju-W-Uqatkwsdpfl Pept 2710
LAB Results
11/24/24 11/24/24 11/25/24
16:42 23:55 06:19
Troponin I < 0.012 < 0.012 < 0.012
Physical Exam
Constitutional: No acute distress
EENT: Anicteric
Cardiovascular: Rhythm & rate is regular and Pedal edema is absent
Respiratory: Respiratory effort normal and Lungs clear to auscul.
GI: Soft and Distention absent
Neuro/Psych: AO x 3
Data Reviewed
-
Date of Service: November 27, 2024
[2024-11-27 16:17] LABS: Glucose - Point of Care 158 mg/dl (70-99)
[2024-11-27 16:30] VITALS: BP 151/82
[2024-11-27] MEDS: LIPITOR 80 MG PO (17:25)
[2024-11-27 19:41] VITALS: BP 148/90
[2024-11-27] MEDS: ENTRESTO 49 MG/51 MG 1 TAB PO (20:48)
[2024-11-27 21:23] LABS: Glucose - Point of Care 218 mg/dl (70-99)
[2024-11-27 23:33] VITALS: BP 137/91
[2024-11-28] VITALS (7 sets, daily range): BP systolic 81–166; BP diastolic 51–93; PULSE 78–81; BMI 27.5
[2024-11-28 06:52] LABS: Blood Urea Nitrogen 38 mg/dl (9-20); Calcium 8.8 mg/dl (8.4-10.2); Carbon Dioxide 31 mmol/L (22-30); Chloride 99 mmol/L (98-107); Estimated Creatinine Clearance 57 ml/min; Glucose 141 mg/dl (70-99); Magnesium 1.4 mg/dl (1.6-2.3); Potassium 4.3 mmol/L (3.5-5.1); Sodium 137 mmol/L (135-145); eGFR > 60.00
[2024-11-28 07:59] LABS: Glucose - Point of Care 141 mg/dl (70-99)
[2024-11-28] MEDS: NOVOLOG FLEXPEN-LOW RESISTANCE SC ×2 (08:28→16:58)
[2024-11-28] MEDS: ENTRESTO 49 MG/51 MG 1 TAB PO (08:36)
[2024-11-28] MEDS: PLAVIX 75 MG PO (08:38)
[2024-11-28] MEDS: LOW STRENGTH ASPIRIN 81 MG PO (08:38)
[2024-11-28] MEDS: GLUCOPHAGE 1000 MG PO ×2 (08:38→16:59)
[2024-11-28] MEDS: HUMULIN N KWIKPEN 8 UNITS SC ×2 (08:38→16:58)
[2024-11-28] MEDS: COREG 12.5 MG PO ×2 (08:38→19:56)
[2024-11-28] MEDS: ALDACTONE 25 MG PO (08:38)
[2024-11-28] MEDS: LASIX 40 MG PO (08:38)
[2024-11-28] MEDS: MAGNESIUM SULFATE 50 IV (09:11)
[2024-11-28 12:09] LABS: Glucose - Point of Care 191 mg/dl (70-99)
[2024-11-28] MEDS: NOVOLOG FLEXPEN-LOW RESISTANCE 1 UNITS SC (12:14)
--- NOTE | 2024-11-28 13:07 | W.PN.CD ---
Today's Communication / Plan
-
Given new orthostasis:
- Will need to back off of meds and add/increase more slowly
- Will stop Entresto for now and add as outpatient
- Plan to add SGLT2-I as outpatient
- All meds are affordable
Impression / Plan
-
Light headed this AM with orthostatic BP changes
- Will need to back off of meds and add/increase more slowly
- Will stop Entresto for now and add as outpatient
Dlzaf-jt-duvyyoy HFmrEF EF ~45%:
-Echo 09/03/24: below
-Moved to PO Lasix starting 11/28/2024
-GDMT: Entresto, sglt2i, are affordable
- Will stop Entresto (just started yesterday) for now and add as outpatient
- Will defer SGLt2-i to office, many med changes already.
- All meds are affordable.
- on increased coreg, and new spironolactone
-weight in office 09/17/24 74 kg, currently 80 kg. => now weight is 70.4 kg (variable scale??)
-CHF education
CAD with hx CABG:
-stable
-on ASA, Plavix, statin, BB
-trops normal, EKG stable
HTN, not at goal, but meds just increased
DM, on insulin, consider GLP1 agonist
Subjective: Feeling better and improved swelling.Dizzy in bathroom this AM
Echo Nov 25 2024:
Mildly depressed left ventricular systolic function. Global hypokinesis.
Left ventricular ejection fraction is 46% by Smith's biplane method of discs.
Stage I diastolic dysfunction suggestive of abnormal relaxation and increased
filling pressures.
Trace aortic regurgitation.
Compared to the prior on 09/03/24, EF is now mildly depressed from 50-55% on the
prior study.
Physical Exam
Vital Signs/Labs
Vital Signs
Temp Pulse Resp BP Pulse Ox
98.3 F 79 18 120/73 97
11/28/24 11:34 11/28/24 11:34 11/28/24 11:34 11/28/24 11:34 11/28/24 11:34
11/27/24 11/28/24 11/29/24
06:59 06:59 06:59
Actual Weight 72.348 kg 70.449 kg
11/25/24 06:19
11/28/24 04:48
PT 14.1 Sec (11.4-14.6) 11/24/24 16:42
INR 1.04 11/24/24 16:42
Magnesium 1.4 mg/dl (1.6-2.3) L 11/28/24 04:48
11/24/24
16:42
Lnj-J-Jxcbqmgokjj Pept 2710
Data Reviewed
-
Date of Service: November 28, 2024
--- NOTE | 2024-11-28 13:17 | W.PN.HOSP.TC ---
Today's Communication/Plan
-
Hold ARNI
Continue other GDMT
Continue oral
Trend orthostatic vitals
Telemetry
Assessment / Plan
Assessment / Plan
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
Noted with accelerated hypertension upon admission, Acute mild pulmonary edema, elevated BNP
No evidence of respiratory distress. Patient not required supplemental oxygen upon presentation.
Not on diuretics prior to presentation, Reported they were discontinued in May 2024.
Exam with peripheral lower extremity edema that is now resolved
ECG without ischemia. Negative cardiac markers.
Dyspnea improved with diuresis
Continue PO Lasix, monitoring daily weight and renal function
Continue carvedilol, MRA for GDMT; consider SGLT2i
Did not tolerate ARNI as he developed orthostasis
#Orthostatic hypotension
Secondary to GDMT; symptomatically presented 11/28
Orthostatic vital signs were positive and associated with symptoms
Discussed with cardiology who is holding ARNI
Monitor orthostatic vitals here
#CAD with history of CABG 05/20.
Chest pain-free on presentation
On DAPT, carvedilol, high intensity statin
Was on Nitropaste however discontinued
No signs of ACS here
#Accelerated hypertension
possibly in the settings of volume overload
Monitor BP trend with diuresis.
Was on carvedilol; Aldactone added here
Blood pressure remains borderline high
#IDDM 2
Hemoglobin A1c 8.5.
Suspect diabetic nephropathy given proteinuria
MONIK/ARB + SGLT2i would be beneficial given his diabetes
Continue current regimen with insulin and metformin.
Basal bolus protocol with serial Accu-Cheks
DVT prophylaxis: SCDs
CODE STATUS: Full code
Diet: Carb controlled, 48 ounce of far, 2 g sodium restriction
Family updated at the bedside 11/27
Anticipated Discharge: 24 - 48 hours
Subjective/Interval History
-
Date of Service: November 28, 2024
Seen and examined at the bedside. No acute events reported overnight. AFVSS this morning
Patient states he had some dizziness when standing up today. Checked orthostatic vital signs that were positive. Cardiology holding Entresto
Denies any other new complaints this morning
Objective Data
-
Labs:
Laboratory Results
11/28/24
04:48
Sodium 137
Potassium 4.3
Chloride 99
Carbon Dioxide 31 H
BUN 38 H
Creatinine 1.2
Glucose 141 H
Calcium 8.8
Vital Signs:
Vital Signs
Temp Pulse Resp BP Pulse Ox
98.3 F 79 18 120/73 97
11/28/24 11:34 11/28/24 11:34 11/28/24 11:34 11/28/24 11:34 11/28/24 11:34
I&O
11/27/24 11/28/24 11/29/24
06:59 06:59 06:59
Intake Total 1200 / 1200 660 / 660 480 / 480
Balance 1200 / 1200 660 / 660 480 / 480
Review of Systems
-
History Source: Patient
All other systems: Reviewed and negative
Physical Exam
-
General: Well Developed, Well Nourished, No Apparent Distress and Comfortable
HEENT: Normocephalic, Atraumatic, Moist Mucous Membranes and Anicteric
Respiratory: Clear to Auscultation and Non Labored Respirations; Negative Rales
Cardiac: Regular Rhythm and S1/S2; Negative Murmur, Rub or Gallop
GI: Soft, Nontender and Normal Bowel Sounds
Musculoskeletal: No Clubbing, No Cyanosis and No Edema
Skin: Warm, Dry and Normal Turgor; Negative Rash
Neuro: AO x 3 and Nonfocal/Grossly Intact
Psych: Calm
Data Reviewed
-
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
Labs: Labs Reviewed by me and Discussed with Patient
[2024-11-28 16:48] LABS: Glucose - Point of Care 126 mg/dl (70-99)
[2024-11-28] MEDS: LIPITOR 80 MG PO (16:59)
[2024-11-28 21:38] LABS: Glucose - Point of Care 110 mg/dl (70-99)
[2024-11-29 03:18] VITALS: BP 117/78
[2024-11-29 06:00] VITALS: BMI 27.2
[2024-11-29 07:30] LABS: Glucose - Point of Care 110 mg/dl (70-99)
[2024-11-29 07:35] VITALS: BP 102/64; BP 87/58; PULSE 80; PULSE 83
[2024-11-29 08:09] LABS: Blood Urea Nitrogen 42 mg/dl (9-20); Calcium 8.8 mg/dl (8.4-10.2); Carbon Dioxide 32 mmol/L (22-30); Chloride 100 mmol/L (98-107); Estimated Creatinine Clearance 53 ml/min; Glucose 115 mg/dl (70-99); Potassium 4.7 mmol/L (3.5-5.1); Sodium 137 mmol/L (135-145); eGFR > 60.00
--- NOTE | 2024-11-29 08:10 | W.PN.CD ---
Addendum entered and electronically signed by Yan Gomes MD 11/29/24 08:22:
He is also complaining of what sounds like claudication with history of atherosclerotic disease. Should get JUSTIN/PVRs as an outpatient.
Original Note:
Today's Communication / Plan
-
Recheck orthostatic vitals
Stop daily Lasix. Will use as needed for weight gain.
Continue BB and MRA
Impression / Plan
-
54-year-old male known to Dr. Sampson history of CAD status post CABG in 2023, hypertension, & diabetes, presents for evaluation of increasing shortness of breath and weakness, found to have new HF with mildly reduced EF.
Orthostasis
- Suspect due to dehydration. Weight is down. Creatinine and BUN are up.
- Still lightheaded this a.m. Recheck orthostatics.
- Stop daily Lasix. Will use as needed dosing based on weight.
- Entresto stopped. Last dose 11/28/24. Will hold off on ARB for now given persistent orthostatic symptoms.
Hngiq-af-spmbllq HFmrEF EF ~45%:
- TTE 11/25/2024: LVEF 46%, stage I DD, trace AR
- Appears too dry at 153 lb. Moved to PO Lasix starting 11/28/2024. Switch to as needed dosing.
- GDMT: Entresto, sglt2i are affordable
-- Continue carvedilol (increased to 12.5 twice daily this admission)
-- Continue spironolactone (started this admission)
-- Entresto stopped due to orthostasis.
-- SGLT2 inhibitor affordable but not started due to orthostasis and many med changes. Consider outpatient.
-CHF education
CAD with hx CABG:
-stable
-on ASA, Plavix, statin, BB
-trops normal, EKG stable
HTN, not at goal, but meds just increased
DM, on insulin, consider GLP1 agonist
Subjective: Still dizzy with standing this morning. Left calf pain when he walks.
Telemetry: No alarms
Echo Nov 25 2024:
Mildly depressed left ventricular systolic function. Global hypokinesis.
Left ventricular ejection fraction is 46% by Smith's biplane method of discs.
Stage I diastolic dysfunction suggestive of abnormal relaxation and increased
filling pressures.
Trace aortic regurgitation.
Compared to the prior on 09/03/24, EF is now mildly depressed from 50-55% on the
prior study.
Physical Exam
Vital Signs/Labs
Vital Signs
Temp Pulse Resp BP Pulse Ox
98.1 F 84 16 117/78 99
11/29/24 03:18 11/29/24 03:18 11/29/24 03:18 11/29/24 03:18 11/29/24 03:18
11/28/24 11/29/24 11/30/24
06:59 06:59 06:59
Actual Weight 155 lb 5 oz 153 lb 7 oz
11/29/24 06:33
PT 14.1 Sec (11.4-14.6) 11/24/24 16:42
INR 1.04 11/24/24 16:42
Magnesium 2.0 mg/dl (1.6-2.3) 11/29/24 06:33
11/24/24
16:42
Jzi-D-Qzapsuvvzyp Pept 2710
Physical Exam
Constitutional: No acute distress and Comfortable
Cardiovascular: Rhythm & rate is regular, Pedal edema is absent, S1S2 is normal and Murmur/rub/gallop absent
Respiratory: Respiratory effort normal and Lungs clear to auscul.
Neuro/Psych: AO x 3
Data Reviewed
-
Date of Service: November 29, 2024
Medical Decision Making: Reviewed Test Results, Independent Historian Assessment, Test Interpretation and Review of Case with other Provider
EKG: Tracing Personally Visualized and interpreted
Echo: Report Reviewed by me
X-Ray/CT/US/MRI/NUC/PET: Report Reviewed by me
Labs: Labs Reviewed by me
[2024-11-29 08:14] LABS: % Basophils 0.3 % (0-2); % Eosinophils 2.5 % (0-6); % Immature Granulocytes 0.3 % (0-0.5); % Monocytes 6.4 % (1.7-9.3); % Neutrophils 62.5 % (42.2-75.2); Absolute Eosinophils 0.2 10^3/uL (0-0.7); Absolute Lymphocytes 1.9 10^3/uL (1.2-3.4); Absolute Monocytes 0.4 10^3/uL (0.1-0.6); Absolute Neutrophils 4.2 10^3/uL (1.4-6.5); Hematocrit 36.7 % (39.0-52.0); Hemoglobin 11.9 g/dL (13.0-18.0); Mean Corp Hgb Conc. 32.4 g/dL (33.0-37.0); Mean Corpuscular Hgb 27.5 pg (27.0-31.0); Mean Corpuscular Volume 84.8 fL (80.0-94.0); Mean Platelet Volume 12.9 fL (7.4-10.4); Nucleated Red Blood Cells % 0 % (-); Platelet Count 206 10^3/uL (130-400); Red Blood Cell Count 4.33 10^6/uL (4.70-6.10); Red Cell Dist. Width 13.2 % (11.5-14.5); White Blood Cell Count 6.7 10^3/uL (4.8-10.8)
[2024-11-29] MEDS: NOVOLOG FLEXPEN-LOW RESISTANCE SC (08:32)
[2024-11-29] MEDS: LOW STRENGTH ASPIRIN 81 MG PO (09:35)
[2024-11-29] MEDS: LASIX PO (09:35)
[2024-11-29] MEDS: PLAVIX 75 MG PO (09:35)
[2024-11-29] MEDS: GLUCOPHAGE 1000 MG PO ×2 (09:38→17:34)
[2024-11-29] MEDS: HUMULIN N KWIKPEN 8 UNITS SC ×2 (09:38→17:36)
[2024-11-29] MEDS: ALDACTONE PO (09:40)
[2024-11-29] MEDS: COREG PO (09:40)
[2024-11-29 11:12] VITALS: BP 148/77
[2024-11-29 12:34] LABS: Glucose - Point of Care 183 mg/dl (70-99)
[2024-11-29] MEDS: NOVOLOG FLEXPEN-LOW RESISTANCE 1 UNITS SC ×2 (12:51→17:35)
[2024-11-29 15:15] VITALS: BP 99/63
--- NOTE | 2024-11-29 16:22 | CM ---
Chart reviewed. Care ongoing at this time
Cardio following
Plan: Home, no needs when stable
[2024-11-29 16:33] LABS: Glucose - Point of Care 168 mg/dl (70-99)
[2024-11-29] MEDS: LIPITOR 80 MG PO (17:34)
--- NOTE | 2024-11-29 17:58 | W.PN.HOSP.TC ---
Today's Communication/Plan
-
ABRIL with creatinine rising to 1.3 with orthostasis baseline
Hold Lasix
Hold Aldactone
Continue Coreg with caution but
Previously started ARB held as well due to soft BP/orthostasis
Assessment / Plan
Assessment / Plan
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
Noted with accelerated hypertension upon admission, Acute mild pulmonary edema, elevated BNP
No evidence of respiratory distress. Patient not required supplemental oxygen upon presentation.
Not on diuretics prior to presentation, Reported they were discontinued in May 2024.
Exam with peripheral lower extremity edema that is now resolved
ECG without ischemia. Negative cardiac markers.
Dyspnea improved with diuresis
ABRIL with creatinine rising to 1.3 with orthostasis baseline
Hold Lasix
Hold Aldactone
Continue Coreg with caution but
Previously started ARB held as well due to soft BP/orthostasis
#Orthostatic hypotension
Secondary to GDMT; symptomatically presented 11/28
Orthostatic vital signs were positive and associated with symptoms
Discussed with cardiology who is holding ARNI
Monitor orthostatic vitals here
#CAD with history of CABG 05/20.
Chest pain-free on presentation
On DAPT, carvedilol, high intensity statin
Was on Nitropaste however discontinued
No signs of ACS here
#Accelerated hypertension
possibly in the settings of volume overload
Monitor BP trend with diuresis.
Was on carvedilol; Aldactone added here
Blood pressure remains borderline high
#IDDM 2
Hemoglobin A1c 8.5.
Suspect diabetic nephropathy given proteinuria
MONIK/ARB + SGLT2i would be beneficial given his diabetes
Continue current regimen with insulin and metformin.
Basal bolus protocol with serial Accu-Cheks
DVT prophylaxis: SCDs
CODE STATUS: Full code
Diet: Carb controlled, 48 ounce of far, 2 g sodium restriction
Family updated at the bedside 5/3
Anticipated Discharge: 24 - 48 hours
Subjective/Interval History
-
Date of Service: November 29, 2024
Objective Data
-
Labs:
Laboratory Results
11/29/24
06:33
WBC 6.7
Hgb 11.9 L D
Hct 36.7 L
Plt Count 206 D
Sodium 137
Potassium 4.7
Chloride 100
Carbon Dioxide 32 H
BUN 42 H
Creatinine 1.3
Glucose 115 H
Calcium 8.8
Vital Signs:
Vital Signs
Temp Pulse Resp BP Pulse Ox
98.1 F 96 18 99/63 97
11/29/24 15:15 11/29/24 15:15 11/29/24 15:15 11/29/24 15:15 11/29/24 15:15
I&O
11/28/24 11/29/24 11/30/24
06:59 06:59 06:59
Intake Total 660 / 660 1020 / 1020 360 / 360
Output Total 800 / 800
Balance 660 / 660 1020 / 1020 -440 / -440
[2024-11-29 19:49] VITALS: BP 106/67
[2024-11-29] MEDS: COREG 12.5 MG PO (21:27)
[2024-11-29 21:49] LABS: Glucose - Point of Care 143 mg/dl (70-99)
[2024-11-29 23:45] VITALS: BP 93/64
[2024-11-30] VITALS (7 sets, daily range): BP systolic 75–187; BP diastolic 45–101; PULSE 84–89; BMI 27.4
[2024-11-30 08:03] LABS: Blood Urea Nitrogen 41 mg/dl (9-20); Calcium 8.6 mg/dl (8.4-10.2); Carbon Dioxide 31 mmol/L (22-30); Chloride 102 mmol/L (98-107); Estimated Creatinine Clearance 57 ml/min; Glucose 134 mg/dl (70-99); Potassium 4.6 mmol/L (3.5-5.1); Sodium 136 mmol/L (135-145); eGFR > 60.00
[2024-11-30 08:04] LABS: Glucose - Point of Care 126 mg/dl (70-99)
--- NOTE | 2024-11-30 08:43 | W.PN.CD ---
Today's Communication / Plan
-
Awaiting orthostasis to improve may need to cut back on coreg if continues to be an issue
Impression / Plan
-
54-year-old male known to Dr. Sampson history of CAD status post CABG in 2023, hypertension, & diabetes, presents for evaluation of increasing shortness of breath and weakness, found to have new HF with mildly reduced EF.
Orthostasis
- Improving; likely from increased meds and lasix
- Stop daily Lasix. Will use as needed dosing based on weight.
- Entresto stopped. Last dose 11/28/24. Will hold off on ARB for now given persistent orthostatic symptoms.
Gaaub-rp-yxjqhkl HFmrEF EF ~45%:
- TTE 11/25/2024: LVEF 46%, stage I DD, trace AR
- Appears too dry at 153 lb. Moved to PO Lasix starting 11/28/2024. Switch to as needed dosing.
- GDMT: Entresto, sglt2i are affordable
-- Continue carvedilol (increased to 12.5 twice daily this admission)
-- Continue spironolactone (started this admission)
-- Entresto stopped due to orthostasis.
-- SGLT2 inhibitor affordable but not started due to orthostasis and many med changes. Consider outpatient.
-CHF education
CAD with hx CABG:
-stable
-on ASA, Plavix, statin, BB
-trops normal, EKG stable
HTN, not at goal, but meds just increased
DM, on insulin, consider GLP1 agonist
Subjective: Improved dizziness but still present Left calf pain when he walks.
Telemetry: No alarms
Echo Nov 25 2024:
Mildly depressed left ventricular systolic function. Global hypokinesis.
Left ventricular ejection fraction is 46% by Smith's biplane method of discs.
Stage I diastolic dysfunction suggestive of abnormal relaxation and increased
filling pressures.
Trace aortic regurgitation.
Compared to the prior on 09/03/24, EF is now mildly depressed from 50-55% on the
prior study.
Physical Exam
Vital Signs/Labs
Vital Signs
Temp Pulse Resp BP Pulse Ox
97.8 F 78 18 139/82 100
11/30/24 03:54 11/30/24 03:54 11/30/24 03:54 11/30/24 03:54 11/30/24 03:54
11/29/24 11/30/24 12/01/24
06:59 06:59 06:59
Actual Weight 153 lb 7 oz 154 lb 7 oz
11/29/24 06:33
11/30/24 06:45
PT 14.1 Sec (11.4-14.6) 11/24/24 16:42
INR 1.04 11/24/24 16:42
Magnesium 2.0 mg/dl (1.6-2.3) 11/29/24 06:33
11/24/24
16:42
Mny-N-Ifcwtfbqxwk Pept 2710
Physical Exam
Constitutional: No acute distress and Comfortable
EENT: Anicteric
Cardiovascular: Rhythm & rate is regular and Pedal edema is absent
Respiratory: Respiratory effort normal and Lungs clear to auscul.
GI: Soft
Neuro/Psych: AO x 3
Data Reviewed
-
Date of Service: November 30, 2024
Medical Decision Making: Reviewed Test Results
EKG: Tracing Personally Visualized and interpreted (sr)
Echo: Report Reviewed by me
Labs: Labs Reviewed by me
[2024-11-30] MEDS: NOVOLOG FLEXPEN-LOW RESISTANCE SC (08:58)
[2024-11-30] MEDS: ALDACTONE PO (08:59)
[2024-11-30] MEDS: COREG PO ×2 (09:00→22:42)
[2024-11-30] MEDS: PLAVIX 75 MG PO (09:01)
[2024-11-30] MEDS: GLUCOPHAGE 1000 MG PO ×2 (09:01→17:14)
[2024-11-30] MEDS: LOW STRENGTH ASPIRIN 81 MG PO (09:02)
[2024-11-30] MEDS: HUMULIN N KWIKPEN 8 UNITS SC ×2 (09:03→18:25)
[2024-11-30 12:00] LABS: Glucose - Point of Care 204 mg/dl (70-99)
[2024-11-30] MEDS: NOVOLOG FLEXPEN-LOW RESISTANCE 2 UNITS SC ×2 (13:10→18:26)
[2024-11-30 16:14] LABS: Glucose - Point of Care 225 mg/dl (70-99)
--- NOTE | 2024-11-30 16:24 | W.PN.HOSP.TC ---
Today's Communication/Plan
-
Remains orthostatic
Creatinine improved down to 1.2.
Monitor off diuretics.
Assessment / Plan
Assessment / Plan
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
Noted with accelerated hypertension upon admission, Acute mild pulmonary edema, elevated BNP
No evidence of respiratory distress. Patient not required supplemental oxygen upon presentation.
Not on diuretics prior to presentation, Reported they were discontinued in May 2024.
Exam with peripheral lower extremity edema that is now resolved
ECG without ischemia. Negative cardiac markers.
Dyspnea improved with diuresis
ABRIL with creatinine rising to 1.3 with orthostasis baseline
Hold Lasix
Hold Aldactone
Continue Coreg with caution but
Previously started ARB held as well due to soft BP/orthostasis
#Orthostatic hypotension
Secondary to GDMT; symptomatically presented 11/28
Orthostatic vital signs were positive and associated with symptoms
Discussed with cardiology who is holding ARNI
Monitor orthostatic vitals here
#CAD with history of CABG 05/20.
Chest pain-free on presentation
On DAPT, carvedilol, high intensity statin
Was on Nitropaste however discontinued
No signs of ACS here
#Accelerated hypertension
possibly in the settings of volume overload
Monitor BP trend with diuresis.
Was on carvedilol; Aldactone added here
Blood pressure remains borderline high
#IDDM 2
Hemoglobin A1c 8.5.
Suspect diabetic nephropathy given proteinuria
MONIK/ARB + SGLT2i would be beneficial given his diabetes
Continue current regimen with insulin and metformin.
Basal bolus protocol with serial Accu-Cheks
DVT prophylaxis: SCDs
CODE STATUS: Full code
Diet: Carb controlled, 48 ounce of far, 2 g sodium restriction
Family updated at the bedside 11/27
Anticipated Discharge: 24 - 48 hours
Subjective/Interval History
-
Date of Service: November 30, 2024
Objective Data
-
Labs:
Laboratory Results
11/30/24
06:45
Sodium 136
Potassium 4.6
Chloride 102
Carbon Dioxide 31 H
BUN 41 H
Creatinine 1.2
Glucose 134 H
Calcium 8.6
Vital Signs:
Vital Signs
Temp Pulse Resp BP Pulse Ox
98.0 F 94 16 129/77 97
11/30/24 15:32 11/30/24 15:32 11/30/24 15:32 11/30/24 15:32 11/30/24 15:32
I&O
11/29/24 11/30/24 12/01/24
06:59 06:59 06:59
Intake Total 1020 / 1020 840 / 840
Output Total 2024
Balance 1020 / 1020 -1185 / -1185
Physical Exam
-
General: Well Developed, Well Nourished, No Apparent Distress and Comfortable
HEENT: Normocephalic, Atraumatic, Moist Mucous Membranes and Anicteric
Respiratory: Clear to Auscultation and Non Labored Respirations; Negative Rales
Cardiac: Regular Rhythm and S1/S2; Negative Murmur, Rub or Gallop
GI: Soft, Nontender and Normal Bowel Sounds
Musculoskeletal: No Clubbing, No Cyanosis and No Edema
Skin: Warm, Dry and Normal Turgor; Negative Rash
Neuro: AO x 3 and Nonfocal/Grossly Intact
Psych: Calm
[2024-11-30] MEDS: LIPITOR 80 MG PO (17:14)
[2024-11-30] MEDS: COMPAZINE 5 MG IV (20:04)
[2024-11-30 21:40] LABS: Glucose - Point of Care 110 mg/dl (70-99)
[2024-12-01] VITALS (10 sets, daily range): BP systolic 72–158; BP diastolic 46–92; PULSE 85–130; BMI 27.1
[2024-12-01 08:15] LABS: Glucose - Point of Care 96 mg/dl (70-99)
--- NOTE | 2024-12-01 08:17 | W.PN.CD ---
Today's Communication / Plan
-
Give 1L IVF and reassess orthostatics
Give Carvedilol for SVT
Holding other GDMT and diuresis
Impression / Plan
-
54-year-old male known to Dr. Sampson history of CAD status post CABG in 2023, hypertension, & diabetes, presents for evaluation of increasing shortness of breath and weakness, found to have new HF with mildly reduced EF.
Orthostasis
- No improvement despite holding diuresis
- Give 1L IVF and reassess
- Encourage PO intake
- Entresto and MRA are being held
Supraventricular tachycardia
- Asymptomatic. Started 12/01 at 4 AM
- Carvedilol has been held for orthostasis
- Resume Carvedilol and give IVF as above for orthostasis
- Continue to monitor on telemetry
Zvast-wf-hrkfkws HFmrEF EF ~45%:
- TTE 11/25/2024: LVEF 46%, stage I DD, trace AR
- Appears too dry at 153 lb. IVF as above
- GDMT: Entresto, sglt2i are affordable
-- Continue carvedilol (increased to 12.5 twice daily this admission)
-- Hold spironolactone for ABRIL (started this admission)
-- Entresto stopped due to orthostasis.
-- SGLT2 inhibitor affordable but not started due to orthostasis and many med changes. Consider outpatient.
-CHF education
ABRIL
- Likely due to dehydration
- Improving with holding diuretics
- Continue to hold Spironolactone
CAD with hx CABG:
-stable
-on ASA, Plavix, statin, BB
-trops normal, EKG stable
HTN, not at goal, but meds just increased
DM, on insulin, consider GLP1 agonist
Subjective: Persistently orthostatic. No palpitations
Telemetry: SVT starting at 4 AM
Echo Nov 25 2024:
Mildly depressed left ventricular systolic function. Global hypokinesis.
Left ventricular ejection fraction is 46% by Smith's biplane method of discs.
Stage I diastolic dysfunction suggestive of abnormal relaxation and increased
filling pressures.
Trace aortic regurgitation.
Compared to the prior on 09/03/24, EF is now mildly depressed from 50-55% on the
prior study.
Physical Exam
Vital Signs/Labs
Vital Signs
Temp Pulse Resp BP Pulse Ox
97.7 F 92 18 132/88 97
12/01/24 03:39 12/01/24 03:39 12/01/24 03:39 12/01/24 03:39 12/01/24 03:39
11/30/24 12/01/24 12/02/24
06:59 06:59 06:59
Actual Weight 154 lb 7 oz 153 lb 1.6 oz
11/29/24 06:33
11/30/24 06:45
PT 14.1 Sec (11.4-14.6) 11/24/24 16:42
INR 1.04 11/24/24 16:42
Magnesium 2.0 mg/dl (1.6-2.3) 11/29/24 06:33
11/24/24
16:42
Jgg-S-Yxgwuoweoxs Pept 2710
Physical Exam
Constitutional: No acute distress and Comfortable
Cardiovascular: Rhythm & rate is regular (regular rhythm, fast rate), Pedal edema is absent, S1S2 is normal and Murmur/rub/gallop absent
Respiratory: Respiratory effort normal and Lungs clear to auscul.
Neuro/Psych: AO x 3
Data Reviewed
-
Date of Service: December 01, 2024
Medical Decision Making: Reviewed Test Results, Independent Historian Assessment, Test Interpretation and Review of Case with other Provider
EKG: Tracing Personally Visualized and interpreted
Echo: Report Reviewed by me
X-Ray/CT/US/MRI/NUC/PET: Report Reviewed by me
Labs: Labs Reviewed by me
[2024-12-01] MEDS: GLUCOPHAGE 1000 MG PO ×2 (08:56→17:00)
[2024-12-01] MEDS: PLAVIX 75 MG PO (08:56)
[2024-12-01] MEDS: NOVOLOG FLEXPEN-LOW RESISTANCE SC (08:56)
[2024-12-01] MEDS: HUMULIN N KWIKPEN 8 UNITS SC ×2 (08:56→17:04)
[2024-12-01] MEDS: LOW STRENGTH ASPIRIN 81 MG PO (08:56)
[2024-12-01] MEDS: COREG 12.5 MG PO ×2 (08:56→20:07)
[2024-12-01] MEDS: NSS 500 IV (09:03)
[2024-12-01 12:24] LABS: Glucose - Point of Care 233 mg/dl (70-99)
[2024-12-01] MEDS: NOVOLOG FLEXPEN-LOW RESISTANCE 2 UNITS SC (12:40)
--- NOTE | 2024-12-01 15:16 | W.PN.HOSP.TC ---
Today's Communication/Plan
-
Orthostatic with periods of SVT missing Coreg dose
Gentle rehydration.
Continue Coreg
Hold diuretics
Assessment / Plan
Assessment / Plan
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
Noted with accelerated hypertension upon admission, Acute mild pulmonary edema, elevated BNP
No evidence of respiratory distress. Patient not required supplemental oxygen upon presentation.
Not on diuretics prior to presentation, Reported they were discontinued in May 2024.
Exam with peripheral lower extremity edema that is now resolved
ECG without ischemia. Negative cardiac markers.
Dyspnea improved with diuresis
ABRIL with creatinine rising to 1.3 with orthostasis
Hold Lasix
Hold Aldactone
Continue Coreg with caution
Previously started ARB held as well due to soft BP/orthostasis
#Orthostatic hypotension
Secondary to GDMT; symptomatically presented 11/28
Orthostatic vital signs were positive and associated with symptoms
Discussed with cardiology who is holding ARNI
Monitor orthostatic vitals here
#CAD with history of CABG 05/20.
Chest pain-free on presentation
On DAPT, carvedilol, high intensity statin
Was on Nitropaste however discontinued
No signs of ACS here
#Accelerated hypertension
possibly in the settings of volume overload
Monitor BP trend with diuresis.
Was on carvedilol; Aldactone added here
Blood pressure remains borderline high
#IDDM 2
Hemoglobin A1c 8.5.
Suspect diabetic nephropathy given proteinuria
MONIK/ARB + SGLT2i would be beneficial given his diabetes
Continue current regimen with insulin and metformin.
Basal bolus protocol with serial Accu-Cheks
DVT prophylaxis: SCDs
CODE STATUS: Full code
Diet: Carb controlled, 48 ounce of far, 2 g sodium restriction
Family updated at the bedside 11/27
Anticipated Discharge: 24 - 48 hours
Subjective/Interval History
-
Date of Service: December 01, 2024
Objective Data
-
Vital Signs:
Vital Signs
Temp Pulse Resp BP Pulse Ox
98.2 F 87 18 151/92 100
12/01/24 11:58 12/01/24 11:58 12/01/24 11:58 12/01/24 11:58 12/01/24 11:58
I&O
11/30/24 12/01/24 12/02/24
06:59 06:59 06:59
Intake Total 840 / 840 840 / 840 500 / 500
Output Total 2024 1200 / 1200
Balance -1185 / -1185 -360 / -360 500 / 500
Physical Exam
-
General: Well Developed, Well Nourished, No Apparent Distress and Comfortable
HEENT: Normocephalic, Atraumatic, Moist Mucous Membranes and Anicteric
Respiratory: Clear to Auscultation and Non Labored Respirations; Negative Rales
Cardiac: Regular Rhythm and S1/S2; Negative Murmur, Rub or Gallop
GI: Soft, Nontender and Normal Bowel Sounds
Musculoskeletal: No Clubbing, No Cyanosis and No Edema
Skin: Warm, Dry and Normal Turgor; Negative Rash
Neuro: AO x 3 and Nonfocal/Grossly Intact
Psych: Calm
[2024-12-01] MEDS: LIPITOR 80 MG PO (17:00)
[2024-12-01] MEDS: NOVOLOG FLEXPEN-LOW RESISTANCE 3 UNITS SC (17:04)
[2024-12-01 17:05] LABS: Glucose - Point of Care 258 mg/dl (70-99)
[2024-12-01 21:02] LABS: Glucose - Point of Care 256 mg/dl (70-99)
[2024-12-02 03:14] VITALS: BP 135/70
[2024-12-02 06:00] VITALS: BMI 27.7
[2024-12-02 07:10] VITALS: BP 133/82; BP 168/94; BP 89/58; PULSE 79; PULSE 82; PULSE 85
[2024-12-02 07:16] LABS: Glucose - Point of Care 111 mg/dl (70-99)
[2024-12-02] MEDS: NOVOLOG FLEXPEN-LOW RESISTANCE SC ×3 (07:39→16:53)
[2024-12-02] MEDS: COREG 12.5 MG PO ×2 (08:18→19:57)
[2024-12-02] MEDS: GLUCOPHAGE 1000 MG PO ×2 (08:18→17:03)
[2024-12-02] MEDS: HUMULIN N KWIKPEN 8 UNITS SC ×2 (08:18→17:03)
[2024-12-02] MEDS: LOW STRENGTH ASPIRIN 81 MG PO (08:18)
[2024-12-02] MEDS: PLAVIX 75 MG PO (08:18)
[2024-12-02] MEDS: ZESTRIL 5 MG PO (08:31)
[2024-12-02] MEDS: FARXIGA 10 MG PO (08:32)
--- NOTE | 2024-12-02 08:57 | W.PN.CD ---
Today's Communication / Plan
-
- Will start Farxiga.
- Continue current dose of carvedilol (increased to 12.5 twice daily this admission); blood pressure is now stable, elevated this am.
- No Lasix for now.
- Entresto stopped due to orthostasis.
- Will place on lisinopril 5 mg daily for now.
- Will resume spironolactone at a lower dose of 12.5 mg tomorrow morning.
Impression / Plan
-
54-year-old male known to Dr. Sampson history of CAD status post CABG in 2023, hypertension, & diabetes, presents for evaluation of increasing shortness of breath and weakness, found to have new HF with mildly reduced EF.
Khutl-cx-exfsxuh HFmrEF EF ~45%:
- TTE 11/25/2024: LVEF 46%, stage I DD, trace AR
- Received IV fluids yesterday; hypotensive--appeared dry.
- GDMT:
- Will start Farxiga.
- Continue current dose of carvedilol (increased to 12.5 twice daily this admission); blood pressure is now stable, elevated this am.
- No Lasix for now.
- Entresto stopped due to orthostasis.
- Will place on lisinopril 5 mg daily for now.
- Will resume spironolactone at a lower dose of 12.5 mg tomorrow morning.
Supraventricular tachycardia
- Asymptomatic. Started 12/01 at 4 AM
- Currently stable on current dose of carvedilol; continue.
ABRIL
- Likely due to dehydration
- Improved with volume administration.
- Continue to monitor renal function.
CAD with hx CABG:
- Remains stable
-Continue ASA, Plavix, statin, BB
HTN
- Labile; plan as above.
DM, on insulin, consider GLP1 agonist
Echo Nov 25 2024:
Mildly depressed left ventricular systolic function. Global hypokinesis.
Left ventricular ejection fraction is 46% by Smith's biplane method of discs.
Stage I diastolic dysfunction suggestive of abnormal relaxation and increased
filling pressures.
Trace aortic regurgitation.
Compared to the prior on 09/03/24, EF is now mildly depressed from 50-55% on the
prior study.
Physical Exam
Vital Signs/Labs
Vital Signs
Temp Pulse Resp BP Pulse Ox
98.3 F 82 16 168/94 94
12/02/24 07:10 12/02/24 08:18 12/02/24 07:10 12/02/24 08:18 12/02/24 07:10
12/01/24 12/02/24 12/03/24
06:59 06:59 06:59
Actual Weight 69.445 kg 70.817 kg
11/29/24 06:33
11/30/24 06:45
PT 14.1 Sec (11.4-14.6) 11/24/24 16:42
INR 1.04 11/24/24 16:42
Magnesium 2.0 mg/dl (1.6-2.3) 11/29/24 06:33
11/24/24
16:42
Exj-Z-[id number] Pept 2710
Physical Exam
Constitutional: No acute distress and Comfortable
EENT: Anicteric
Cardiovascular: Rhythm & rate is regular, Pedal edema is absent, Systolic murmur absent and S1S2 is normal
Respiratory: Respiratory effort normal and Lungs clear to auscul.
GI: Soft
Neuro/Psych: AO x 3
Other: Skin (Warm, dry, intact)
Data Reviewed
-
Date of Service: December 02, 2024
EKG: Tracing Personally Visualized and interpreted (Telemetry: Sinus rhythm)
Labs: Labs Reviewed by me
--- NOTE | 2024-12-02 11:08 | CM ---
Patient functionally appears to be at baseline per nursing documentation.
Plan: Case management will continue to follow and assist with discharge planning. Will watch for needs.
[2024-12-02 11:17] VITALS: BP 120/76
[2024-12-02 11:45] LABS: Glucose - Point of Care 125 mg/dl (70-99)
--- NOTE | 2024-12-02 14:49 | W.PN.HOSP.TC ---
Today's Communication/Plan
-
Transient hypotension/Entresto with mild ABRIL improving.
Resuming Coreg, Aldactone with addition of lisinopril and Farxiga.
Monitor for recurrent orthostasis
Assessment / Plan
Assessment / Plan
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
Noted with accelerated hypertension upon admission, Acute mild pulmonary edema, elevated BNP
No evidence of respiratory distress. Patient not required supplemental oxygen upon presentation.
Not on diuretics prior to presentation, Reported they were discontinued in May 2024.
Exam with peripheral lower extremity edema that is now resolved
ECG without ischemia. Negative cardiac markers.
Dyspnea improved with diuresis
Transient hypotension/Entresto with mild ABRIL improving.
Resuming Coreg, Aldactone with addition of lisinopril and Farxiga.
Monitor for recurrent orthostasis
#CAD with history of CABG 05/20.
Chest pain-free on presentation
On DAPT, carvedilol, high intensity statin
Was on Nitropaste however discontinued
No signs of ACS here
#Accelerated hypertension
possibly in the settings of volume overload
Monitor BP trend with diuresis.
Was on carvedilol; Aldactone added here
Blood pressure remains borderline high
#IDDM 2
Hemoglobin A1c 8.5.
Suspect diabetic nephropathy given proteinuria
MONIK/ARB + SGLT2i would be beneficial given his diabetes
Continue current regimen with insulin and metformin.
Basal bolus protocol with serial Accu-Cheks
DVT prophylaxis: SCDs
CODE STATUS: Full code
Diet: Carb controlled, 48 ounce of far, 2 g sodium restriction
Family updated at the bedside 11/27
Anticipated Discharge: 24 - 48 hours
Subjective/Interval History
-
Date of Service: December 02, 2024
Objective Data
-
Vital Signs:
Vital Signs
Temp Pulse Resp BP Pulse Ox
98.2 F 88 16 120/76 98
12/02/24 11:17 12/02/24 11:17 12/02/24 11:17 12/02/24 11:17 12/02/24 11:17
I&O
12/01/24 12/02/24 12/03/24
06:59 06:59 06:59
Intake Total 840 / 840 1280 / 1280 640 / 640
Output Total 1200 / 1200 1900 / 1900 1475 / 1475
Balance -360 / -360 -620 / -620 -835 / -835
Physical Exam
-
General: Well Developed, Well Nourished, No Apparent Distress and Comfortable
HEENT: Normocephalic, Atraumatic, Moist Mucous Membranes and Anicteric
Respiratory: Clear to Auscultation and Non Labored Respirations; Negative Rales
Cardiac: Regular Rhythm and S1/S2; Negative Murmur, Rub or Gallop
GI: Soft, Nontender and Normal Bowel Sounds
Musculoskeletal: No Clubbing, No Cyanosis and No Edema
Skin: Warm, Dry and Normal Turgor; Negative Rash
Neuro: AO x 3 and Nonfocal/Grossly Intact
Psych: Calm
[2024-12-02 15:31] VITALS: BP 120/73
[2024-12-02 16:47] LABS: Glucose - Point of Care 107 mg/dl (70-99)
[2024-12-02] MEDS: LIPITOR 80 MG PO (17:03)
[2024-12-02 19:33] VITALS: BP 135/78
[2024-12-02 21:18] LABS: Glucose - Point of Care 111 mg/dl (70-99)
[2024-12-02 23:37] VITALS: BP 135/83
[2024-12-03 03:51] VITALS: BP 146/88
[2024-12-03 06:00] VITALS: BMI 27.4
[2024-12-03 07:30] VITALS: BP 110/71; BP 156/95; BP 70/48; PULSE 75; PULSE 76; PULSE 82
[2024-12-03 08:14] LABS: Glucose - Point of Care 90 mg/dl (70-99)
[2024-12-03 08:14] LABS: Blood Urea Nitrogen 35 mg/dl (9-20); Calcium 9.1 mg/dl (8.4-10.2); Carbon Dioxide 28 mmol/L (22-30); Chloride 104 mmol/L (98-107); Estimated Creatinine Clearance 63 ml/min; Glucose 97 mg/dl (70-99); Potassium 5.1 mmol/L (3.5-5.1); Sodium 140 mmol/L (135-145); eGFR > 60.00
--- NOTE | 2024-12-03 08:22 | W.PN.CD ---
Today's Communication / Plan
-
Cont current meds
Lasix 40 mg PO for weight gain of 3-5 lbs overnight or in a week
we will arrange follow up
We will sign off pls call with questions/concerns.
Impression / Plan
-
54-year-old male known to Dr. Sampson history of CAD status post CABG in 2023, hypertension, & diabetes, presents for evaluation of increasing shortness of breath and weakness, found to have new HF with mildly reduced EF.
Uuwlu-el-zzaozwu HFmrEF EF ~45%:
- TTE 11/25/2024: LVEF 46%, stage I DD, trace AR
- Received IV fluids yesterday; hypotensive--appeared dry.
- GDMT:
- Will start Farxiga.
- Continue current dose of carvedilol (increased to 12.5 twice daily this admission); blood pressure is now stable, elevated this am.
- No Lasix for now.
- Entresto stopped due to orthostasis.
- Will place on lisinopril 5 mg daily for now.
- Will resume spironolactone at a lower dose of 12.5 mg tomorrow morning.
Supraventricular tachycardia
- Asymptomatic. Started 12/01 at 4 AM
- Currently stable on current dose of carvedilol; continue.
ABRIL
- Likely due to dehydration
- Improved with volume administration.
- Continue to monitor renal function.
CAD with hx CABG:
- Remains stable
-Continue ASA, Plavix, statin, BB
HTN
- Labile; plan as above.
DM, on insulin, consider GLP1 agonist
Subjective:
Echo Nov 25 2024:
Mildly depressed left ventricular systolic function. Global hypokinesis.
Left ventricular ejection fraction is 46% by Smith's biplane method of discs.
Stage I diastolic dysfunction suggestive of abnormal relaxation and increased
filling pressures.
Trace aortic regurgitation.
Compared to the prior on 09/03/24, EF is now mildly depressed from 50-55% on the
prior study.
Physical Exam
Vital Signs/Labs
Vital Signs
Temp Pulse Resp BP Pulse Ox
97.9 F 89 15 146/88 95
12/03/24 03:51 12/03/24 03:51 12/03/24 03:51 12/03/24 03:51 12/03/24 03:51
12/02/24 12/03/24 12/04/24
06:59 06:59 06:59
Actual Weight 156 lb 2 oz 154 lb 7 oz
11/29/24 06:33
12/03/24 07:00
PT 14.1 Sec (11.4-14.6) 11/24/24 16:42
INR 1.04 11/24/24 16:42
Magnesium 2.0 mg/dl (1.6-2.3) 11/29/24 06:33
11/24/24
16:42
Rtc-H-Rasrrjzhrnh Pept 2710
Physical Exam
Constitutional: No acute distress and Comfortable
EENT: Anicteric
Cardiovascular: Rhythm & rate is regular and Pedal edema is absent
Respiratory: Respiratory effort normal and Lungs clear to auscul.
GI: Soft
Neuro/Psych: AO x 3
Data Reviewed
-
Date of Service: December 03, 2024
Medical Decision Making: Reviewed Test Results
EKG: Tracing Personally Visualized and interpreted (sr)
Echo: Report Reviewed by me
Labs: Labs Reviewed by me
[2024-12-03] MEDS: NOVOLOG FLEXPEN-LOW RESISTANCE SC ×2 (08:32→12:21)
[2024-12-03] MEDS: ZESTRIL 5 MG PO (09:51)
[2024-12-03] MEDS: COREG 12.5 MG PO (09:51)
[2024-12-03] MEDS: ALDACTONE 12.5 MG PO (09:51)
[2024-12-03] MEDS: LOW STRENGTH ASPIRIN 81 MG PO (09:51)
[2024-12-03] MEDS: GLUCOPHAGE 1000 MG PO (09:51)
[2024-12-03] MEDS: PLAVIX 75 MG PO (09:51)
[2024-12-03] MEDS: HUMULIN N KWIKPEN 8 UNITS SC (09:55)
[2024-12-03] MEDS: FARXIGA 10 MG PO (09:55)
--- NOTE | 2024-12-03 10:37 | W.DS.TRANS ---
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
-
Discharge Instructions:
Discharge Diagnosis/Procedures Acute CHF
Diet 2 Gram Sodium
Instructions: *CBC Heart Failure Instructions
Stand-Alone Forms:
Changes to Home Medications: Yes
Discharge Medications:
DC Medications w/original date entered in [facility]
acetaminophen 325 mg tablet 650 mg (2 x 325 mg) PO Q4HPRN PRN mild pain,headache,temp >101F #0 tabs 05/17/24
aspirin 81 mg chewable tablet 81 mg PO DAILY Blood clot prevention/tx #0 tabs 05/17/24
atorvastatin 80 mg tablet 80 mg PO QPM #30 tabs 05/17/24
clopidogrel 75 mg tablet 75 mg PO DAILY #30 tabs 05/17/24
insulin syringe-needle U-100 1 mL 29 gauge x 1/2' (Insulin Syringe) #100 ea 05/18/24
metformin 1,000 mg tablet 1,000 mg PO BID@0800,1700 #60 tabs 05/18/24
carvedilol 12.5 mg tablet 12.5 mg PO BID #60 tabs 12/03/24
dapagliflozin propanediol 10 mg tablet 10 mg PO DAILY #30 tabs 12/03/24
furosemide 40 mg tablet (Lasix) 40 mg PO DAILY PRN Weight gain #30 tabs 12/03/24
insulin human U-100 NPH-regulr 70-30 mix 100 unit/mL subcutaneous susp (Novolin 70/30 U-100 Insulin) 10 unit (0.1 mL) SC BID@0800,1700 Diabetes #0 mL 12/03/24
lisinopril 5 mg tablet 5 mg PO DAILY #30 tabs 12/03/24
spironolactone 25 mg tablet 12.5 mg (1/2 x 25 mg) PO DAILY #30 tabs 12/03/24
Home Medication Changes
Coreg increased.
Lisinopril initiated.
Farxiga initiated.
Aldactone initiated.
Lasix initiated on as needed basis for weight gain 3 to 5 pounds overnight or over 1 week.
Insulin dose reduced
Pending Results: No
[2024-12-03 11:20] VITALS: BP 151/93
[2024-12-03 12:17] LABS: Glucose - Point of Care 142 mg/dl (70-99)
--- NOTE | 2024-12-06 10:55 | W.HF.CON ---
Heart Failure
- LV Function
Left ventricular function study result: LV Ejection fraction 41-49%
Ejection Fraction Percentage: 46
- ARNI
Patient already on ARNI: No
Heart Failure ARNI Contraindication: Hypotension
- ACEI/ARB
Patient already on ACEI/ARB: Yes
- Beta Loy
Patient already on Evidence Based Beta Loy: Yes
- Mineralocorticord Receptor Antagonist
Patient already on MRA: Yes
- SGLT-2 Inhibitor
Patient already on SGLT-2 Inhibitor: Yes
- NYHA CHF Classification
NYHA CHF Classification Level: Class III - Symptoms w/ min exertion, interferes w/ nml daily activity
- ACC/AHA Stage
ACC/AHA Stage: Stage C: Symptomatic Heart Failure
== END 2024-12-03 13:28 | disposition home or self-care (01) | DRG 291 ==
LOC: 4 EAST ACU 21:26
PROVIDERS: Internal Medicine; ADMITTING PHYSICIAN Student in an Organized Health Care Education/Training Program; ATTENDING PHYSICIAN Internal Medicine; CONSULT PHYSICIAN Internal Medicine Cardiovascular Disease; EMERGENCY PHYSICIAN Emergency Medicine; FAMILY PHYSICIAN Family Medicine
DX: I11.0 Hypertensive heart disease with heart failure (principal); I50.21 Acute systolic (congestive) heart failure; N17.9 Acute kidney failure, unspecified; I47.10 Supraventricular tachycardia, unspecified; I25.10 Atherosclerotic heart disease of native coronary artery without angina pectoris; Z95.1 Presence of aortocoronary bypass graft; Z79.4 Long term (current) use of insulin; E11.9 Type 2 diabetes mellitus without complications; Z79.82 Long term (current) use of aspirin; Z79.84 Long term (current) use of oral hypoglycemic drugs; Z79.899 Other long term (current) drug therapy; Z79.02 Long term (current) use of antithrombotics/antiplatelets; I16.0 Hypertensive urgency; E86.0 Dehydration; Z82.49 Family history of ischemic heart disease and other diseases of the circulatory system; I95.2 Hypotension due to drugs
CPT/HCPCS: 71046; 80048; 80053; 82962; 83036; 83735; 83880; 84443; 84484; 85025; 85027; 85610; 93005; 93306; 96374; 99291

== ENCOUNTER 2025-05-13 11:56 | Inpatient (IN) | payer OTHER, SELFPAY ==
[2025-05-13] VITALS (7 sets, daily range): BP systolic 133–202; BP diastolic 68–84
--- NOTE | 2025-05-13 08:12 | ED.GENMED ---
History of Present Illness
<En Stewart MD, Resident - Last Filed: 05/13/25 10:19>
General
Chief Complaint: Breathing Problem
Source: patient and family
Exam Limitations: none
Time Seen by Provider: 05/13/25 07:54
History of Present Illness
History of Present Illness:
Patient is a 54-year-old male who presents with sudden shortness of breath associated with abdominal swelling, bilateral lower extremity swelling, dry cough, and a progressive weight gain since 1 month that has gotten progressively worse. Aggravated
on exertion and on lying flat. No fever, chills, nausea, vomiting, abdominal pain, diarrhea, constipation, palpitations, headache, visual disturbances, acute mental status changes, no hematochezia or melena. Daughter states patient was seen in
hospital in November for heart failure and was discharged on with as needed Lasix 20 mg once there is a weight gain of 3 to 5 pounds. Their primary care doctor changed the regiment to 5 mg a day but only gave them a 15-day prescription and patient was
unable to obtain Lasix from the pharmacy for over a month now. He has a past medical history significant for coronary artery disease status post CABG, hypertension, diabetes mellitus. He follows [facility] cardiology.
Past History
<En Stewart MD, Resident - Last Filed: 05/13/25 10:19>
Past History
ED Past Medical History: CAD, CHF, HTN and NIDDM
ED Past Surgical History: Cardiac (April 2024 three-vessel bypass, atrial clip)
Social History
Tobacco: Non-smoker
Alcohol: None
Drug: None
Personal:
Living: with family
Review of Systems
<En Stewart MD, Resident - Last Filed: 05/13/25 10:19>
Review of Systems
All Other Systems: ROS reviewed and negative except as documented in HPI and ROS
Phy Exam
<En Stewart MD, Resident - Last Filed: 05/13/25 10:19>
General Physical Exam
General Presentation: well appearing
General Skin: warm
General Habitus: normal
General Mental: alert
Cardiovascular Exam
Cardiovascular Exam: regular rate/rhythm, no JVD, no murmur and normal peripheral pulses
Pulmonary Exam
Pulmonary Exam: other (There is bilateral mild rales heard on auscultation )
Gastrointestinal Exam
Gastrointestinal Exam: normal bowel sounds, non tender, soft and distended
Neurological Exam
Neurological Exam: alert and oriented x3
Scores
<En Stewart MD, Resident - Last Filed: 05/13/25 10:19>
Heart Failure Risk
Heart Failure Risk Score: Yes
History of Stroke or TIA: No
History of intubation for respiratory distress: No
Heart rate on ED arrival >/= 110: No
SaO2 <90% on arrival on room air: No
HR >/=110 during 3min walk test (or too ill to perform test): No
ECG has acute ischemic changes: No
Urea >/=12mmol/L (BUN 33.6mg/dL): No
Serum CO2>/=35mmol/L: No
Troponin I or T elevated to IN Level (0.4mg/dL): No
NT-proBNP >/=5,000ng/L (5,000pg/ml): No
HF Risk Score: 0
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
Course
<En Stewart MD, Resident - Last Filed: 05/13/25 10:19>
Orders/Labs/Results
Orders:
Orders
05/13/25 07:36
Electrocardiogram (*1) Urgent
Reason for Study: Shortness of Breath
EKG- Treatment ONCE
05/13/25 08:01
Chest [CR Chest - 2 Views ] Urgent
Comment:
Reason For Exam: shortness of breath
05/13/25 08:14
Furosemide [Lasix] 40 mg IV NOW STA
05/13/25 08:15
CBC/With Diff [Complete Blood Count/With Diff] Urgent
CMP [Comprehensive Metabolic Panel] Urgent
Pro-BNP [NT-proBNP] Urgent
Troponin I Urgent
Abnormal Lab Results
05/13/25
08:15
RBC 2.91 L 10^6/uL
(4.70-6.10)
Hgb 8.2 L g/dL
(13.0-18.0)
Hct 26.1 L %
(39.0-52.0)
MCHC 31.4 L g/dL
(33.0-37.0)
MPV 13.8 H fL
(7.4-10.4)
Absolute Lymphs (auto) 1.1 L 10^3/uL
(1.2-3.4)
Neutrophils % 76.7 H %
(42.2-75.2)
Lymphocytes % 13.4 L %
(20.5-51.1)
Potassium 6.5 H* mmol/L
(3.5-5.1)
Chloride 114 H mmol/L
(98-107)
Carbon Dioxide 21 L mmol/L
(22-30)
BUN 36 H mg/dl
(9-20)
Creatinine 1.4 H mg/dL
(0.7-1.3)
Glucose 147 H mg/dl
(70-99)
05/13/25 08:15
05/13/25 08:15
Vital Signs
Initial and Last Documented VS:
Initial Vital Signs
Temp Pulse Resp BP Pulse Ox
98 F 84 16 159/81 94
05/13/25 07:37 05/13/25 07:37 05/13/25 07:37 05/13/25 07:37 05/13/25 07:37
Last Documented Vital Signs
Temp Pulse Resp BP Pulse Ox
98 F 85 19 159/81 95
05/13/25 07:37 05/13/25 08:00 05/13/25 08:00 05/13/25 07:37 05/13/25 08:21
<Del Stiles, DO - Last Filed: 05/13/25 09:58>
Orders/Labs/Results
Orders:
Orders
05/13/25 07:36
Electrocardiogram (*1) Urgent
Reason for Study: Shortness of Breath
EKG- Treatment ONCE
05/13/25 08:01
Chest [CR Chest - 2 Views ] Urgent
Comment:
Reason For Exam: shortness of breath
05/13/25 08:14
Furosemide [Lasix] 40 mg IV NOW STA
05/13/25 08:15
CBC/With Diff [Complete Blood Count/With Diff] Urgent
CMP [Comprehensive Metabolic Panel] Urgent
Pro-BNP [NT-proBNP] Urgent
Troponin I Urgent
Abnormal Lab Results
05/13/25
08:15
RBC 2.91 L 10^6/uL
(4.70-6.10)
Hgb 8.2 L g/dL
(13.0-18.0)
Hct 26.1 L %
(39.0-52.0)
MCHC 31.4 L g/dL
(33.0-37.0)
MPV 13.8 H fL
(7.4-10.4)
Absolute Lymphs (auto) 1.1 L 10^3/uL
(1.2-3.4)
Neutrophils % 76.7 H %
(42.2-75.2)
Lymphocytes % 13.4 L %
(20.5-51.1)
Potassium 6.5 H* mmol/L
(3.5-5.1)
Chloride 114 H mmol/L
(98-107)
Carbon Dioxide 21 L mmol/L
(22-30)
BUN 36 H mg/dl
(9-20)
Creatinine 1.4 H mg/dL
(0.7-1.3)
Glucose 147 H mg/dl
(70-99)
05/13/25 08:15
05/13/25 08:15
Vital Signs
Initial and Last Documented VS:
Initial Vital Signs
Temp Pulse Resp BP Pulse Ox
98 F 84 16 159/81 94
05/13/25 07:37 05/13/25 07:37 05/13/25 07:37 05/13/25 07:37 05/13/25 07:37
Last Documented Vital Signs
Temp Pulse Resp BP Pulse Ox
98 F 85 19 159/81 95
05/13/25 07:37 05/13/25 08:00 05/13/25 08:00 05/13/25 07:37 05/13/25 08:21
<En Stewart MD, Resident - Last Filed: 05/13/25 10:19>
MDM/Problems Addressed
Differential Diagnosis Includes:
acute exacerbation of heart failure, pneumonia, liver failure, renal failure, acute coronary syndrome
MDM/Problems Addressed:
Vitals are stable and patient is afebrile
- EKG: normal sinus rhythm
- Chest xay: mild interstitial edema
- CBC: hgb 8.2, MCV normal
- CMP: potassium 6.5 and creatinine 1.4
- Troponin: unremarkable
- Administered IV Lasix 40 mg to diurese patient and help bring down potassium level
- Will admit to hospitalist team for acute exacerbation of heart failure and hyperkalemia
<En Stewart MD, Resident - Last Filed: 05/13/25 10:19>
*Pulse Oximetry
SaO2: 95
Oxygen Mode of Delivery: Room air
Patient hypoxic: no
<Del Stiles, DO - Last Filed: 05/13/25 09:58>
*Critical Care Note
Total Time (30-74mins, 75-104mins- exclusive of procedures): 33 min
comment:
The high probability of a clinically significant, sudden or life threatening deterioration of the cardiovascular system(s) required my full and direct attention, intervention and personal management. The aggregate critical care time was 33 minutes.
This time is in addition to time spent performing reported procedures but includes the following:
[x] Data Review and interpretation
[x] Patient assessment and monitoring of vital signs
[x] Documentation
[x] Medication orders and management
<Del Stiles, DO - Last Filed: 05/13/25 09:58>
Update Note
Update Note:
9:45 AM patient found to be hyperkalemic. Patient was already given Lasix. Given the lab abnormalities and his symptoms, will talk to patient about admission
ED Attending Note
<En Stewart MD, Resident - Last Filed: 05/13/25 10:19>
-
Portions of this chart may have been created with voice recognition software.� Occasional wrong word or��sound alike� substitutions may have occurred due to the inherent limitations of voice recognition software.
<Del Stiles DO - Last Filed: 05/13/25 09:58>
ED Attending Note
Patient seen and examined by attending physician: Yes
I performed a history and physical exam of patient and discussed management with resident, I reviewed resident's note and agree with documented findings and plan of care.: Yes
ED Attending Note:
I have seen and evaluated the patient with a [id number] encounter. I have spoken to the resident and involved in the medical history, the physical exam, medical decision making.
Evaluation and management service: agree unless noted differently below.
Results interpretation: agree unless noted differently below.
Focused HPI: 54-year-old male presenting with shortness of breath. This has progressed over the past several days. Of note, patient has a history of CHF and was recently admitted to the hospital where he required IV diuresis. At that time, he was
discharged with a as needed dose of Lasix. Patient has found the instructions confusing for when to take the Lasix. He did follow-up with his primary care was placed on a daily dose of low-dose Lasix. That prescription ran out and symptoms
worsened
Physical exam: Poor air exchange. Pitting edema noted to bilateral lower extremities
Medical Decision Making: Patient is showing signs of CHF exacerbation. Chest x-ray appears to show mild pulm edema but it appears unchanged from prior. He is not hypoxic. Will give dose of IV Lasix and obtain basic blood work including BNP. Will
consider discharge home with a daily dose of Lasix if patient is feeling better. If not, will consider admission for cardiology evaluation and IV diuresis
Discharge Plan
Departure
Patient Disposition: Admit
Date of Disposition: 05/13/25
Time of Disposition: 10:14
Presentation/result/management discussed w/ accepting MD/DO: Hospitalist
Condition: Fair
Discharge Problem:
Acute exacerbation of chronic heart failure, Hyperkalemia
Prescriptions:
No Action
atorvastatin 80 mg Tablet
80 mg PO QPM Qty: 30 2RF
aspirin 81 mg Tablet,Chewable
81 mg PO DAILY Qty: 0 2RF
clopidogrel 75 mg Tablet
75 mg PO DAILY Qty: 30 2RF
acetaminophen 325 mg Tablet
650 mg PO Q4HPRN PRN (Reason: mild pain,headache,temp >101F ) Qty: 0 0RF
metformin 1,000 mg Tablet
1,000 mg PO BID@0800,1700 Qty: 60 0RF
(DME) insulin syringe-needle U-100 [Insulin Syringe] 1 mL 29 gauge x 1/2' Syringe
Qty: 100 0RF
Rx Instructions:
As Directed
carvedilol 12.5 mg Tablet
12.5 mg PO BID Qty: 60 0RF
spironolactone 25 mg Tablet
12.5 mg PO DAILY Qty: 30 0RF
lisinopril 5 mg Tablet
5 mg PO DAILY Qty: 30 0RF
dapagliflozin propanediol 10 mg Tablet
10 mg PO DAILY Qty: 30 0RF
furosemide [Lasix] 40 mg tablet
40 mg PO DAILY PRN (Reason: Weight gain ) Qty: 30 0RF
Rx Instructions:
weight gain over 3-5 lb overnight or over one week
Novolin 70/30 U-100 Insulin 100 unit/mL (70-30) suspension
10 unit SC BID@0800,1700 Qty: 0 0RF
Referrals:
Virginie Alvarez MD [Family Provider, Family Practice]
Interventions
Interventions:
*Risk Screen - Suicide Last Done: 05/13/25 07:37
*Neglect/Abuse Screening Last Done: 05/13/25 07:37
Discharge Date and Time
Print Language: ICELANDIC
[2025-05-13] MEDS: LASIX 40 MG IV (08:47)
[2025-05-13 09:02] LABS: Hematocrit 26.1 % (39.0-52.0); Hemoglobin 8.2 g/dL (13.0-18.0); Mean Corp Hgb Conc. 31.4 g/dL (33.0-37.0); Mean Corpuscular Volume 89.7 fL (80.0-94.0); Nucleated Red Blood Cells % 0 % (-); Platelet Count 133 10^3/uL (130-400); Red Cell Dist. Width 12.5 % (11.5-14.5)
[2025-05-13 09:18] LABS: Troponin I < 0.012 ng/ml
[2025-05-13 09:43] LABS: ALT (SGPT) 33 U/L (0-50); AST (SGOT) 27 U/L (17-59); Albumin 3.6 g/dl (3.5-5.0); Alkaline Phosphatase 80 U/L (38-126); Blood Urea Nitrogen 36 mg/dl (9-20); Calcium 8.9 mg/dl (8.4-10.2); Carbon Dioxide 21 mmol/L (22-30); Chloride 114 mmol/L (98-107); Glucose 147 mg/dl (70-99); Potassium 6.5 mmol/L (3.5-5.1); Sodium 140 mmol/L (135-145); Total Protein 6.8 g/dl (6.3-8.2); eGFR > 60.00
--- NOTE | 2025-05-13 10:53 | HPS.HSE ---
Addendum entered and electronically signed by John Magana MD 05/13/25 13:33:
I have personally supervised the history, physical exam, medical decision-making, and care plan for this patient in conjunction with the resident. I have reviewed and discussed the resident�s documentation and findings. I confirm that this note
accurately reflects my supervision and input in the care of this patient
Briefly 54 y/o M, Japanese speaker, with PMH HFrEF, CAD s/p triple-vessel CABG with atrial appendage clip, hypertension, IDDM, hyperlipidemia presents to ER with orthopnea/dyspnea and LE swelling. Patient was on prn Lasix at home but confused on
directions for use so called PCP who reportedly placed patient on Lasix 5mg daily for 2 weeks. Symptoms progressed and patient presented here in acute CHF. Received IV Lasix x 1 dose.
Admitted to hospital for further treatment. At time of encounter, denied any chest pain or SOB.
Also with hyperkalemia in ER requiring acute treatment
Exam:
General: No Apparent Distress and Comfortable
HEENT: Moist mucous membranes and PERRLA
Respiratory: Crackles (Bilateral lower lobe); No Wheezes, Rales or Rhonchi
Cardiac: S1/S2, Regular Rhythm and Other; No Murmur, Rub or Gallop
GI: Soft, Non Tender, Non Distended and Normal Bowel Sounds
Genito-urinary: Deferred by me
Musculoskeletal: No Clubbing, No Cyanosis and Other (2+ pitting edema in bilateral lower extremities extending up to mid thighs no sacral edema noted.)
Skin: Warm
Neuro: AO x 3 and No Motor Deficits
Psych: Calm
Plan:
Agree with Resident outlined plan
IV Lasix daily
I/Os, weights
CBC cards consult
Hyperkalemia treatment in ER and repeat BMP in afternoon; follow AM labs
Hold nephrotoxic agents for now
Continue usual home meds otherwise
Original Note:
Family Physician
-
Family Physician: Virginie Alvarez MD
Chief Complaint
-
Anasarca and dyspnea on exertion
History of Present Illness
54-year-old male Japanese speaking (huge language barrier) with past medical history significant for HFrEF, CAD s/p triple-vessel CABG with atrial appendage clip, hypertension, IDDM, hyperlipidemia presents to the emergency room with dyspnea on
exertion, orthopnea and anasarca. Patient states that he was given Lasix as needed per cardiology which were confusing instructions for them to follow, and they reached out to the primary who then switched him to Lasix 5 mg daily regimen for about
1 month. But patient states that they got only 2 weeks worth supply which patient took, and over the last 2 weeks patient started developing dyspnea on exertion. His baseline is his functionally mobile and does his activities of daily living and
independent living, but yesterday he had difficulty walking from his kitchen to bedroom after dinner which was a very short distance in the apartment. Overnight he was not able to lie down flat and sleep and had to prop up multiple pillows to help
himself fall asleep. Also states that his swelling progressively worsened into his legs and now he feels swollen and has abdomen as well.
He denies having chest pain, palpitations, syncope, black tarry stools or fresh blood per stool. He denies having dysuria, frequency, hesitancy.
This history is obtained from daughter who is translating to him and back to us (however she also does not seem to have strong understanding or communicating skills in Sinhala. Family prefers daughter to be the jack prizer except for and when she is
not available to answer the phone.)
Medical History
Past Medical History
Past Medical History: Reports Other (HFrEF, CAD s/p triple-vessel CABG with atrial appendage clip, hypertension, IDDM, hyperlipidemia)
Past Surgical History: Reports Other (CABG, triple-vessel with atrial appendage clip-2023.)
Social History
Tobacco: Non-smoker
Alcohol: None
Drug: None
Personal:
Living: With Family
Employment: Employed
Family History
Family History: Not pertinent
Allergies / Home Medications
Allergies reflects when Allergies were last updated in [facility].
Home Medications with original date entered in [facility]
Allergy/Medication List:
Allergies
Allergy/AdvReac Type Severity Reaction Status Date / Time
No Known Allergies Allergy Verified 11/24/24 16:24
Home Medications
aspirin 81 mg chewable tablet 81 mg PO DAILY Blood clot prevention/tx #0 tabs 05/17/24
atorvastatin 80 mg tablet 80 mg PO QPM #30 tabs 05/17/24
clopidogrel 75 mg tablet 75 mg PO DAILY #30 tabs 05/17/24
metformin 1,000 mg tablet 1,000 mg PO BID@0800,1700 #60 tabs 05/18/24
carvedilol 12.5 mg tablet 12.5 mg PO BID #60 tabs 12/03/24
dapagliflozin propanediol 10 mg tablet 10 mg PO DAILY #30 tabs 12/03/24
furosemide 40 mg tablet (Lasix) 40 mg PO DAILY PRN Weight gain #30 tabs 12/03/24
lisinopril 5 mg tablet 5 mg PO DAILY #30 tabs 12/03/24
insulin human U-100 NPH-regulr 70-30 mix 100 unit/mL subcutaneous susp (Novolin 70/30 U-100 Insulin) 18 unit SC BID@0730,1630 Diabetes 05/13/25
Review of Systems
-
History Source: Patient
Constitutional: Reports Fatigue
EENT: Reports No Symptoms
Respiratory: Reports Trouble Breathing
Cardiac: Reports Other (swelling of legs)
: Reports No Symptoms
Musculoskeletal: Reports Edema and Other (back pain)
Neurological: Reports No Symptoms
Endocrine: Reports No Symptoms
Hematologic/Lymphatic: Reports No Symptoms
Psych: Reports No Symptoms
Physical Exam
Vital Signs
Vital Signs
Temp Pulse Resp BP Pulse Ox
98 F 85 19 159/81 95
05/13/25 07:37 05/13/25 08:00 05/13/25 08:00 05/13/25 07:37 05/13/25 08:21
Physical Exam
General: No Apparent Distress and Comfortable
HEENT: Moist mucous membranes and PERRLA
Respiratory: Crackles (Bilateral lower lobe); No Wheezes, Rales or Rhonchi
Cardiac: S1/S2, Regular Rhythm and Other; No Murmur, Rub or Gallop
GI: Soft, Non Tender, Non Distended and Normal Bowel Sounds
Genito-urinary: Deferred by me
Musculoskeletal: No Clubbing, No Cyanosis and Other (2+ pitting edema in bilateral lower extremities extending up to mid thighs no sacral edema noted.)
Skin: Warm
Neuro: AO x 3 and No Motor Deficits
Psych: Calm
Laboratory Results
-
05/13/25 08:15
05/13/25 08:15
Laboratory Results
Total Bilirubin 0.4 mg/dl (0.2-1.3) 05/13/25 08:15
AST 27 U/L (17-59) 05/13/25 08:15
ALT 33 U/L (0-50) 05/13/25 08:15
Alkaline Phosphatase 80 U/L (38-126) 05/13/25 08:15
Troponin I < 0.012 ng/ml 05/13/25 08:15
Data Reviewed
-
Diagnostic Radiology: Image Personally Visualized and interpreted, Report Reviewed by me, Discussed with Physician, Discussed with Patient and Discussed with Family
Lab Data: Labs Reviewed by me, Discussed with Physician, Discussed with Patient and Discussed with Family
Impression/Plan
-
IMPRESSION: 54-year-old male Japanese speaking (huge language barrier) with past medical history significant for HFrEF, CAD s/p triple-vessel CABG with atrial appendage clip, hypertension, IDDM, hyperlipidemia presents to the emergency room with
dyspnea on exertion, orthopnea and anasarca. Diagnosed to be in acute heart failure, and being admitted to the hospital for acute heart failure management.
PLAN:
# Acute congestive heart failure-HFrEF, EF of 46% as of 12/19.
Admit to telemetry.
History of CAD and CABG triple-vessel with atrial appendage clip in 05/20.
Currently patient on GDMT-dapagliflozin, lisinopril, Coreg, and Aldactone.
Start the patient on IV Lasix 40 mg once a day.
Sodium and fluid restricted diet.
History of noncompliance due to language barrier.
Monitor daily weights and I's and O's.
Follow renal function, provide heart failure education using jack prizer.
# Acute hyperkalemia-
Hold MONIK and ARB's
S/p 1 dose of Lokelma, calcium gluconate and insulin.
Monitor serum potassium levels.
# ABRIL-prerenal
No history of CKD,
Baseline serum creatinine at 1
Serum creatinine today 1.4 likely from hypervolemia
Hold lisinopril and Aldactone. Avoid all nephrotoxic agents
Continue IV Lasix
Trend renal function, monitor for improvement
# Normocytic anemia-
Hematocrit dropped down to 26.1, hemoglobin at 8.2.
Likely a confluence of anemia of chronic disease, iron deficiency and dilutional from fluid overload.
Will obtain iron panel, and Hemoccult.
No colonoscopy in the past.
Follow iron panel.
# Type II IDDM-
Hold metformin,
Continue home dose of Novolin 18 units twice daily
Accu-Cheks, insulin sliding scale as needed.
Diabetic diet.
# Hyperlipidemia, ASCVD-
# CAD s/p CABG-
Continue DAPT and high intensity statin.
# DVT prophylaxis-
Heparin subcu twice daily
# CODE STATUS-
Full code.
[2025-05-13] MEDS: DEXTROSE 50% SYRINGE 25 GRAMS IV (12:54)
[2025-05-13] MEDS: NOVOLIN R 10 UNITS IV (12:54)
[2025-05-13] MEDS: LOKELMA 10 GRAM PO (12:54)
[2025-05-13 12:59] LABS: Glucose - Point of Care 120 mg/dl (70-99)
--- NOTE | 2025-05-13 14:19 | CON.CAR ---
Addendum entered and electronically signed by German Mccarty MD 05/13/25 17:28:
I saw and examined the patient independently and performed majority of MDM.
The CARDIOLOGY MANAGER's note was reviewed and I agree with the note with changes/additions as noted below.
Comment: 54 yo male with PMH of CAD/CABG 2023, ICM EF 45-50%, chronic HFrEF is admitted with SOB, edema. He reports running out of meds. Exam with RRR, no murmurs, 1+ LE edema. Echo 11/2024: EF 45-50%, no sig valve disease. Cr 1.4, K 6.5.
Acute on chronic HFrEF
-IV lasix with close monitoring of labs, tele
ICM EF 45-50%
-repeat echo
-stop ACEi due to hyperkalemia
Original Note:
Consultation
Consultation Request
Date/Time Consultation Requested: 05/13/2025 14:15
Date/Time Consultation Performed: 05/13/2025 14:35
Requesting Provider: Dr. Talbert
Performing Provider: ROBERTO CARLOS Chaudhry for Dr. Mccarty
Reason for Consultation: Acute on chronic HF
Medical History
-
Chief Complaint: Shortness of breath
History of Present Illness:
Lexii Donaldson is a 54-year-old male (known to Dr. Sampson, his primary order editor), with CAD s/p CABGx3 05/12/2024, ischemic cardiomyopathy, HFrEF, hypertension, hypercholesterolemia, type 2 diabetes mellitus, and former tobacco use, presented
to the emergency department with a chief complaint of shortness of breath. His shortness of breath started within the last week. He endorses associated orthopnea, lower extremity edema, and worsening HOBSON. He was found to be in acute on chronic
heart failure. He also presented with an BARIL and hyperkalemia. Cardiology was consulted for heart failure management.
Past Medical History
Past Medical History: CAD, CHF (HFrEF), HTN and Hypercholesterolemia
Past Surgical History: Cardiac (CABG)
Social History
Tobacco: Former Smoker
Personal:
Living: With Family
Family History
Family History: Reviewed & Not Pertinent
Allergies / Home Medications
Allergy/AdvReac Type Severity Reaction Status Date / Time
No Known Allergies Allergy Verified 11/24/24 16:24
�Medication �Instructions �Recorded �Confirmed �Type
aspirin 81 mg chewable tablet 81 mg PO DAILY Blood clot 05/17/24 05/13/25 Rx
prevention/tx #0 tabs
atorvastatin 80 mg tablet 80 mg PO QPM #30 tabs 05/17/24 05/13/25 Rx
clopidogrel 75 mg tablet 75 mg PO DAILY #30 tabs 05/17/24 05/13/25 Rx
metformin 1,000 mg tablet 1,000 mg PO BID@0800,1700 #60 tabs 05/18/24 05/13/25 Rx
carvedilol 12.5 mg tablet 12.5 mg PO BID #60 tabs 12/03/24 05/13/25 Rx
dapagliflozin propanediol 10 mg 10 mg PO DAILY #30 tabs 12/03/24 05/13/25 Rx
tablet
furosemide 40 mg tablet (Lasix) 40 mg PO DAILY PRN Weight gain 12/03/24 05/13/25 Rx
#30 tabs
lisinopril 5 mg tablet 5 mg PO DAILY #30 tabs 12/03/24 05/13/25 Rx
insulin human U-100 NPH-regulr 18 unit SC BID@0730,1630 Diabetes 05/13/25 05/13/25 History
70-30 mix 100 unit/mL subcutaneous
susp (Novolin 70/30 U-100 Insulin)
Review of Systems
-
History Source: Patient
All other systems: Negative unless noted
Constitutional: Fatigue
EENT: No Symptoms
Respiratory: Trouble Breathing
Abdomen/GI: No Symptoms
: No Symptoms
Musculoskeletal: Edema
Skin: No Symptoms
Neurological: No Symptoms
Endocrine: No Symptoms
Hematologic/Lymphatic: No Symptoms
Physical Exam
Vital Signs
Temp Pulse Resp BP Pulse Ox
98 F 88 18 202/80 96
05/13/25 07:37 05/13/25 13:15 05/13/25 13:15 05/13/25 10:00 05/13/25 13:15
Lab Results
05/13/25 08:15
Troponin I < 0.012 ng/ml 05/13/25 08:15
Vgg-E-Dqwrfnyvgil Pept 3960 pg/ml 05/13/25 08:15
Physical Exam
General: Well Developed, Well Nourished, No Apparent Distress and Comfortable
HEENT: Normocephalic, Anicteric and Moist Mucous Membranes
Respiratory: Clear and Non Labored Respirations
Cardiac: S1/S2 and Regular Rhythm
Breast: Deferred by me
GI: Soft, Non Tender, Non Distended and Normal Bowel Sounds
Rectal: Deferred by Provider
Genito-urinary: No Costovertebral Tender
Musculoskeletal: No Clubbing and No Cyanosis
Skin: Warm and Dry
Neuro: Awake and Alert
Hematologic/Lymphatic: No Lymphadenopathy
Psych: Calm
Impression / Plan
-
I/P: 54 Yoruba speaking male with CAD s/p CABGx3 05/12/2024, ischemic cardiomyopathy, HFrEF, hypertension, hypercholesterolemia, type 2 diabetes mellitus, and former tobacco use C/O SOB.
Primary order editor: Dr. Sampson
HFrEF, acute on chronic - severe requiring hospitalization
Ischemic cardiomyopathy
- Diuresis with furosemide 40 mg IV twice daily, this requires intensive monitoring
- GDMT as tolerated:
-MONIK/ARB/ARNI: Lisinopril on hold in the setting of hyperkalemia
-SGLT2 inhibitor: Farxiga 10 mg daily
-Aldosterone agonist: With deferred with hyperkalemia
-Beta kia: Carvedilol 12.5 mg BID
-Isosorbide/Hydralazine:�Can consider
-ICD: Reevaluate LVEF after maximally tolerated GDMT
- Trend Daily weight, I's/O, BMP with diuresis
- Heart failure education
Hyperkalemia
- Lisinopril on hold, status post 1 dose of Lokelma
- BMP ordered for this evening
ABRIL, prerenal
- Follow with diuresis, hold lisinopril
Accelerated hypertension
- Improved post diuresis, follow
Anemia, denies acute bleeding
- Stop clopidogrel, continue ASA
- Iron studies per primary service, Hemoccult stool
CAD
- s/p CABG x 3 (WE[place] to LAD, GSV to D1, GSV to OM1); LLE GSV; ELAA w/ a 45mm AtriClip on 05/12/24
- Stop clopidogrel in the setting of anemia, continue beta-kia and atorvastatin
PSVT, continue beta-kia
Type 2 diabetes mellitus, per primary service
Former smoker, continued cessation recommended
Data Reviewed
-
EKG: Report Reviewed by me (Sinus rhythm, nonspecific ST abnormality, rate 85)
Radiology: Report Reviewed by me
Medical Tests (Nuc Med, Echo etc): Report Reviewed by me
Labs: Labs Reviewed by me
Old Records: Reviewed
[2025-05-13 14:24] LABS: Glucose - Point of Care 100 mg/dl (70-99)
[2025-05-13 15:02] LABS: Iron 54 ug/dl (49-181); Total Iron Binding Capacity 304 ug/dl (261-462)
[2025-05-13 17:24] LABS: Glucose - Point of Care 110 mg/dl (70-99)
[2025-05-13] MEDS: NOVOLOG FLEXPEN-LOW RESISTANCE SC (17:30)
[2025-05-13] MEDS: LIPITOR 80 MG PO (18:08)
[2025-05-13] MEDS: NovoLIN R Flexpen 18 UNITS SC (18:24)
[2025-05-13 18:32] LABS: Blood Urea Nitrogen 33 mg/dl (9-20); Calcium 8.8 mg/dl (8.4-10.2); Carbon Dioxide 23 mmol/L (22-30); Chloride 111 mmol/L (98-107); Glucose 108 mg/dl (70-99); Potassium 4.9 mmol/L (3.5-5.1); Sodium 139 mmol/L (135-145); eGFR > 60.00
[2025-05-13 19:35] LABS: Glucose - Point of Care 151 mg/dl (70-99)
[2025-05-13] MEDS: COREG 12.5 MG PO (20:50)
[2025-05-13] MEDS: HEPARIN SC (20:50)
[2025-05-13 21:06] LABS: Glucose - Point of Care 221 mg/dl (70-99)
[2025-05-14] VITALS (9 sets, daily range): BP systolic 124–181; BP diastolic 65–92; PULSE 82–83; O2SAT 93–94
--- NOTE | 2025-05-14 08:30 | W.PN.HOSP.TC ---
Today's Communication/Plan
-
IV diuresis increased
Continue to monitor on telemetry
See plan
Assessment / Plan
Assessment / Plan
Physical Exam
General: No Apparent Distress and Comfortable
HEENT: Moist mucous membranes
Respiratory: Faint Crackles at the lower lobes bilaterally
Cardiac: S1/S2, Regular Rhythm
GI: Soft, Non Tender, Non Distended and Normal Bowel Sounds
Musculoskeletal: No Cyanosis and Other (2+ pitting edema in bilateral lower extremities extending up to mid thighs no sacral edema noted)
Skin: Warm. Dry.
Neuro: AAO x 3 and No Motor Deficits
Psych: Calm
Assessment/Plan
54 y/o male, Azeri speaker, with past medical history of HFrEF, CAD s/p triple-vessel CABG with atrial appendage clip, hypertension, IDDM and hyperlipidemia presented to the [facility] ER with orthopnea/dyspnea and lower extremity swelling/anasarca.
Patient was on prn Lasix at home but confused on directions for use so called PCP who reportedly placed patient on Lasix 5 mg daily for 4 weeks (but patient actually ended up taking the 2 weeks supply that he got). Symptoms progressed with patient
getting more SOB with exertion, and patient presented here in acute CHF. Received IV Lasix x 1 dose. Admitted to hospital for further treatment. Patient also had hyperkalemia in the emergency room requiring acute treatment. At the time of admission,
patient denied having chest pain, palpitations, syncope, black tarry stools or fresh blood per stool. He denies having dysuria, frequency, hesitancy.
# Acute congestive heart failure-HFrEF, EF of 46% as of 12/19.
Continue to monitor on telemetry.
History of CAD and CABG triple-vessel with atrial appendage clip in 05/20.
Currently as outpatient, patient is on GDMT-dapagliflozin, lisinopril, Coreg, and Aldactone.
Continue patient on IV Lasix 40 mg BID (IV Lasix increased to 40 mg BID on 05/14/25)
Sodium and fluid restricted diet.
History of noncompliance due to language barrier.
Monitor daily weights and I's and O's.
Follow renal function, provide heart failure education using customer support assistant.
# Acute hyperkalemia-
Resolved
Continue to hold MONIK and ARB's
S/p 1 dose of Lokelma, calcium gluconate and insulin.
Monitor serum potassium levels.
# ABRIL-prerenal
No history of CKD,
Baseline serum creatinine at 1
Serum creatinine today 1.4 likely from hypervolemia/cardiorenal syndrome -- now improving with IV Lasix
Hold lisinopril and Aldactone. Avoid nephrotoxic agents
Continue IV Lasix
Trend renal function, monitor for improvement
# Normocytic anemia-
Hematocrit dropped down to 26.1, hemoglobin at 8.2.
Likely a confluence of anemia of chronic disease, iron deficiency and dilutional from fluid overload.
Start Ferrous Sulfate 325 mg Q48H as iron studies suggest iron deficiency anemia
Recheck iron studies with PCP outpatient in 2 weeks after discharge
No colonoscopy in the past.
# Type II IDDM-
Hold metformin given renal function
Continue home dose of Novolin 18 units twice daily
Accu-Cheks, insulin sliding scale as needed.
Diabetic diet.
# Hyperlipidemia, ASCVD-
# CAD s/p CABG-
Per cardiology, no more Plavix. Continue high intensity statin.
# DVT prophylaxis-
Heparin subcu twice daily
# CODE STATUS-
Full code.
Anticipated Discharge: 24 - 48 hours
Subjective/Interval History
-
Date of Service: May 14, 2025
Patient was seen and examined. He denied any chest pain or shortness of breath.
Objective Data
-
Labs:
Laboratory Results
05/14/25
08:12
WBC Pending
Hgb Pending
Hct Pending
Plt Count Pending
Sodium Pending
Potassium Pending
Chloride Pending
Carbon Dioxide Pending
BUN Pending
Creatinine Pending
Glucose Pending
Calcium Pending
Total Bilirubin Pending
AST Pending
ALT Pending
Alkaline Phosphatase Pending
Vital Signs:
Vital Signs
Temp Pulse Resp BP Pulse Ox
98.2 F 70 18 128/65 95
05/14/25 03:39 05/14/25 03:39 05/14/25 03:39 05/14/25 03:39 05/14/25 03:39
[2025-05-14 08:49] LABS: Glucose - Point of Care 101 mg/dl (70-99)
[2025-05-14] MEDS: NOVOLOG FLEXPEN-LOW RESISTANCE SC ×2 (08:56→16:22)
[2025-05-14 08:59] LABS: Hematocrit 26.5 % (39.0-52.0); Hemoglobin 8.5 g/dL (13.0-18.0); Mean Corp Hgb Conc. 32.1 g/dL (33.0-37.0); Mean Corpuscular Volume 89.2 fL (80.0-94.0); Platelet Count 129 10^3/uL (130-400); Red Cell Dist. Width 12.4 % (11.5-14.5)
[2025-05-14 09:17] LABS: ALT (SGPT) 27 U/L (0-50); AST (SGOT) 21 U/L (17-59); Albumin 3.1 g/dl (3.5-5.0); Alkaline Phosphatase 86 U/L (38-126); Blood Urea Nitrogen 28 mg/dl (9-20); Calcium 8.9 mg/dl (8.4-10.2); Carbon Dioxide 23 mmol/L (22-30); Chloride 111 mmol/L (98-107); Glucose 89 mg/dl (70-99); Iron 47 ug/dl (49-181); Magnesium 1.8 mg/dl (1.6-2.3); Potassium 4.8 mmol/L (3.5-5.1); Sodium 140 mmol/L (135-145); Total Protein 6.2 g/dl (6.3-8.2); eGFR > 60.00
[2025-05-14] MEDS: COREG 12.5 MG PO ×2 (09:20→20:53)
[2025-05-14] MEDS: LOW STRENGTH ASPIRIN 81 MG PO (09:21)
[2025-05-14] MEDS: FARXIGA 10 MG PO (09:21)
[2025-05-14] MEDS: LASIX 40 MG IV ×2 (09:21→16:58)
[2025-05-14] MEDS: HEPARIN 5000 UNITS SC ×2 (09:21→20:53)
[2025-05-14] MEDS: NovoLIN R Flexpen 18 UNITS SC ×2 (09:22→12:25)
[2025-05-14 09:28] LABS: Total Iron Binding Capacity 281 ug/dl (261-462)
--- NOTE | 2025-05-14 09:50 | PTOTSP ---
PATIENT FUNCTIONING INDEPENDENTLY ON LEVEL SURFACES WELL ELEVATIONS WITHOUT COMPLAINTS OF SHORTNESS OF BREATH, LIGHTHEADEDNESS OR DIZZINESS. PATIENT REQUIRING NO FURTHER SKILLED ACUTE CARE P.T. AT THIS TIME. WILL DISCHARGE FROM P.T. SERVICES.
[2025-05-14 09:59] LABS: Ferritin 57.5 ng/ml (17.9-464.0)
[2025-05-14 10:32] LABS: Glycohemoglobin (HgbA1c) 7.2 % (4.0-5.6)
--- NOTE | 2025-05-14 11:50 | CM ---
Initial assessment completed. Patient is a 54 y/o M, Korean speaker, with PMH HFrEF, CAD s/p triple-vessel CABG with atrial appendage clip, hypertension, IDDM, hyperlipidemia presents to ER with orthopnea/dyspnea and LE swelling.
Patient resides w/ spouse and sister in a ground floor apartment, 6 steps to enter from the outside. Patient is independent w/ ambulating, no device required. Independent w/ ADLs. 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 No DME. Denies SNF hx. [facility] in
the past.
Address, points of contact and insurance verified
PCP: Virginie Alvarez
Pharmacy: [facility]
Therapy indicated no skilled needs as patient is functioning independently
Plan: Home, no needs anticipated
[2025-05-14 12:03] LABS: Glucose - Point of Care 175 mg/dl (70-99)
[2025-05-14] MEDS: NOVOLOG FLEXPEN-LOW RESISTANCE 1 UNITS SC (12:24)
--- NOTE | 2025-05-14 15:44 | W.PN.CD ---
Today's Communication / Plan
-
increase lasix to 40mg IV bid
Impression / Plan
-
I/P: 54 Indonesian speaking male with CAD s/p CABGx3 05/12/2024, ischemic cardiomyopathy, HFrEF, hypertension, hypercholesterolemia, type 2 diabetes mellitus, and former tobacco use C/O SOB.
Primary poultice machine operator: Dr. Sampson
HFpEF, acute on chronic - severe requiring hospitalization
Ischemic cardiomyopathy with LVEF improved to 60-65%
- Diuresis with furosemide 40 mg IV twice daily, this requires intensive monitoring
- GDMT as tolerated:
-MONIK/ARB/ARNI: Lisinopril on hold in the setting of hyperkalemia on admission
-SGLT2 inhibitor: Farxiga 10 mg daily
-Aldosterone agonist: With deferred with hyperkalemia
-Beta kia: Carvedilol 12.5 mg BID
-Isosorbide/Hydralazine:�Can consider
-ICD: Reevaluate LVEF after maximally tolerated GDMT
- Trend Daily weight, I's/O, BMP with diuresis
- Heart failure education
Hyperkalemia
- Lisinopril on hold, status post 1 dose of Lokelma
ABRIL, prerenal
- improved
Accelerated hypertension
- Improved post diuresis, follow
Anemia, denies acute bleeding
- Stop clopidogrel, continue ASA
- Iron studies per primary service, Hemoccult stool
CAD
- s/p CABG x 3 ([place] to LAD, GSV to D1, GSV to OM1); LLE GSV; ELAA w/ a 45mm AtriClip on 05/12/24
- Stop clopidogrel in the setting of anemia, continue beta-kia and atorvastatin
PSVT, continue beta-kia
Type 2 diabetes mellitus, per primary service
Former smoker, continued cessation recommended
Physical Exam
Vital Signs/Labs
Vital Signs
Temp Pulse Resp BP Pulse Ox
98.6 F 82 18 136/79 95
05/14/25 07:15 05/14/25 09:21 05/14/25 07:15 05/14/25 09:21 05/14/25 10:35
05/13/25 05/14/25 05/15/25
06:59 06:59 06:59
Actual Weight 77.706 kg
05/14/25 08:12
05/14/25 08:12
Magnesium 1.8 mg/dl (1.6-2.3) 05/14/25 08:12
05/13/25
08:15
Dwk-M-Oqagubgqull Pept 3960
LAB Results
05/13/25
08:15
Troponin I < 0.012
Physical Exam
Constitutional: No acute distress and Comfortable
EENT: Moist mucous membranes
Cardiovascular: Rhythm & rate is regular, Systolic murmur absent, Pedal edema present and JVD present
Respiratory: Respiratory effort normal and Lungs clear to auscul.
Neuro/Psych: AO x 3
Data Reviewed
-
Date of Service: May 14, 2025
EKG: Other (Tele: SR 60s-70s)
Labs: Labs Reviewed by me
[2025-05-14 16:08] LABS: Glucose - Point of Care 41 mg/dl (70-99)
[2025-05-14 16:29] LABS: Glucose - Point of Care 49 mg/dl (70-99)
[2025-05-14 16:46] LABS: Glucose - Point of Care 80 mg/dl (70-99)
[2025-05-14] MEDS: NovoLIN R Flexpen SC (16:51)
[2025-05-14] MEDS: LIPITOR 80 MG PO (17:00)
[2025-05-14] MEDS: FEOSOL 325 MG PO (17:00)
[2025-05-14 19:12] LABS: Glucose - Point of Care 282 mg/dl (70-99)
[2025-05-14 21:22] LABS: Glucose - Point of Care 325 mg/dl (70-99)
[2025-05-15 03:44] LABS: Glucose - Point of Care 159 mg/dl (70-99)
[2025-05-15 03:49] VITALS: BP 137/77
[2025-05-15 07:05] LABS: Hematocrit 28.7 % (39.0-52.0); Hemoglobin 9.1 g/dL (13.0-18.0); Mean Corp Hgb Conc. 31.7 g/dL (33.0-37.0); Mean Corpuscular Volume 89.7 fL (80.0-94.0); Platelet Count 153 10^3/uL (130-400); Red Cell Dist. Width 12.1 % (11.5-14.5)
[2025-05-15 07:18] VITALS: BP 153/86
[2025-05-15 07:25] LABS: ALT (SGPT) 31 U/L (0-50); AST (SGOT) 23 U/L (17-59); Albumin 3.3 g/dl (3.5-5.0); Alkaline Phosphatase 88 U/L (38-126); Blood Urea Nitrogen 30 mg/dl (9-20); Calcium 9.0 mg/dl (8.4-10.2); Carbon Dioxide 28 mmol/L (22-30); Chloride 105 mmol/L (98-107); Glucose 131 mg/dl (70-99); Magnesium 1.8 mg/dl (1.6-2.3); Potassium 5.0 mmol/L (3.5-5.1); Sodium 138 mmol/L (135-145); Total Protein 6.5 g/dl (6.3-8.2); eGFR > 60.00
[2025-05-15 08:48] LABS: Glucose - Point of Care 140 mg/dl (70-99)
[2025-05-15] MEDS: COREG 12.5 MG PO (08:59)
[2025-05-15] MEDS: LOW STRENGTH ASPIRIN 81 MG PO (09:00)
[2025-05-15] MEDS: HEPARIN 5000 UNITS SC (09:00)
[2025-05-15] MEDS: LASIX 40 MG IV (09:00)
[2025-05-15] MEDS: FARXIGA 10 MG PO (09:00)
--- NOTE | 2025-05-15 10:23 | W.PN.CD ---
Today's Communication / Plan
-
transition to lasix 40mg PO daily
Continue ASA 81mg daily, atorvastatin 80mg daily, coreg 25 mg bid (increased)
continue farxiga 10mg daily
plavix and lisinopril stopped
discharge planning; BMP in one week
please call us with additional questions
Impression / Plan
-
I/P: 54 Yoruba speaking male with CAD s/p CABGx3 05/12/2024, ischemic cardiomyopathy, HFrEF, hypertension, hypercholesterolemia, type 2 diabetes mellitus, and former tobacco use C/O SOB.
Primary shook splicer: Dr. Sampson
HFpEF, acute on chronic - severe requiring hospitalization, improved s/p IV lasix
Ischemic cardiomyopathy with LVEF improved to 60-65%
- transition to lasix 40mg PO daily tomorrow
- GDMT as tolerated:
-MONIK/ARB/ARNI: Lisinopril on hold in the setting of hyperkalemia on admission
-SGLT2 inhibitor: Farxiga 10 mg daily
-Aldosterone agonist: deferred with hyperkalemia
-Beta kia: Carvedilol 25 mg BID
-Isosorbide/Hydralazine:�Can consider later
-ICD: not indicated
- Trend Daily weight, I's/O, BMP with diuresis
- Heart failure education
Hyperkalemia
- Lisinopril on hold, status post 1 dose of Lokelma
ABRIL, prerenal
- improved
Accelerated hypertension
- Improved post diuresis, follow
Anemia, denies acute bleeding
- Stop clopidogrel, continue ASA
- Iron studies per primary service, Hemoccult stool
CAD
- s/p CABG x 3 (WE[place] to LAD, GSV to D1, GSV to OM1); LLE GSV; ELAA w/ a 45mm AtriClip on 05/12/24
- Stop clopidogrel in the setting of anemia, continue beta-kia and atorvastatin
PSVT, continue beta-kia
Type 2 diabetes mellitus, per primary service
Former smoker, continued cessation recommended
Physical Exam
Vital Signs/Labs
Vital Signs
Temp Pulse Resp BP Pulse Ox
98.8 F 79 16 153/86 94
05/15/25 07:18 05/15/25 08:59 05/15/25 07:18 05/15/25 08:59 05/15/25 07:18
05/14/25 05/15/25 05/16/25
06:59 06:59 06:59
Actual Weight 77.706 kg
05/15/25 06:20
05/15/25 06:20
Magnesium 1.8 mg/dl (1.6-2.3) 05/15/25 06:20
05/13/25
08:15
Jyh-L-Ikyaljcgwub Pept 3960
LAB Results
05/13/25
08:15
Troponin I < 0.012
Physical Exam
Constitutional: No acute distress and Comfortable
EENT: Moist mucous membranes
Cardiovascular: Rhythm & rate is regular, Pedal edema is absent, JVD pressure is normal and Systolic murmur absent
Respiratory: Respiratory effort normal and Lungs clear to auscul.
Neuro/Psych: AO x 3
Data Reviewed
-
Date of Service: May 15, 2025
EKG: Other (Tele: SR 80s)
Labs: Labs Reviewed by me
--- NOTE | 2025-05-15 10:50 | W.PN.HOSP.TC ---
Today's Communication/Plan
-
Discharge today
Assessment / Plan
Assessment / Plan
Physical Exam
General: No Apparent Distress and Comfortable
HEENT: Moist mucous membranes
Respiratory: Clear to Auscultation Bilaterally
Cardiac: S1/S2, Regular Rhythm
GI: Soft, Non Tender, Non Distended and Normal Bowel Sounds
Musculoskeletal: No Cyanosis. Bilateral lower extremity edema resolved.
Skin: Warm. Dry.
Neuro: AAO x 3 and No Motor Deficits
Psych: Calm
Assessment/Plan
54 y/o male, Vietnamese speaker, with past medical history of HFrEF, CAD s/p triple-vessel CABG with atrial appendage clip, hypertension, IDDM and hyperlipidemia presented to the [facility] ER with orthopnea/dyspnea and lower extremity swelling/anasarca.
Patient was on prn Lasix at home but confused on directions for use so called PCP who reportedly placed patient on Lasix 5 mg daily for 4 weeks (but patient actually ended up taking the 2 weeks supply that he got). Symptoms progressed with patient
getting more SOB with exertion, and patient presented here in acute CHF. Received IV Lasix x 1 dose. Admitted to hospital for further treatment. Patient also had hyperkalemia in the emergency room requiring acute treatment. At the time of admission,
patient denied having chest pain, palpitations, syncope, black tarry stools or fresh blood per stool. He denied having dysuria, frequency, hesitancy.
#Acute on Chronic Heart Failure with Preserved Ejection Fraction
#Ischemic cardiomyopathy with LVEF IMPROVED to 60-65%
Continue to monitor on telemetry.
History of CAD and CABG triple-vessel with atrial appendage clip in 05/20.
Currently as outpatient, patient is on GDMT-dapagliflozin, lisinopril, Coreg -- STOP LISINOPRIL ON discharge given hyperkalemia
Patient was on IV Lasix 40 mg BID (IV Lasix increased to 40 mg BID on 05/14/25)
On discharge, transition to Lasix PO 40 mg daily
Increased Carvedilol to 25 mg BID (from 12.5 mg BID) for better control of blood pressure since Lisinopril has been stopped
Sodium and fluid restricted diet.
History of noncompliance/running out of medications.
No aldosterone antagonist given hyperkalemia
Continue Farxiga
Monitor daily weights and I's and O's.
Follow renal function, provide heart failure education using nurses assistant.
# Acute hyperkalemia
Resolved
No MONIK-I's or ARB's medications on discharge. Stop Lisinopril
S/p 1 dose of Lokelma, calcium gluconate and insulin.
Monitor serum potassium levels.
# ABRIL-prerenal
No history of CKD,
Baseline serum creatinine at 1
Serum creatinine initially 1.4 likely from hypervolemia/cardiorenal syndrome -- now improving with IV Lasix
Hold lisinopril and Aldactone. Avoid nephrotoxic agents
Continue Lasix
Trend renal function, monitor for improvement
Recheck BMP outpatient
# Normocytic anemia
Hematocrit dropped down to 26.1, hemoglobin was at 8.2.
Likely a confluence of anemia of chronic disease, iron deficiency and dilutional from fluid overload.
Start Ferrous Sulfate 325 mg Q48H as iron studies suggest iron deficiency anemia
Recheck iron studies with PCP outpatient in 2 weeks after discharge
No colonoscopy in the past.
# Type II IDDM
Hold metformin given renal function
Continue home dose of Novolin 18 units twice daily
Accu-Cheks, insulin sliding scale as needed.
Diabetic diet.
# Hyperlipidemia, ASCVD-
# CAD s/p CABG-
Per cardiology, stop Plavix (given anemia). Continue high intensity statin.
Continue Aspirin 81 mg daily
# DVT prophylaxis-
Heparin subcu twice daily
# CODE STATUS-
Full code.
More than 30 minutes spent in discharge including
Final examination of the patient
Summarizing hospital stay
Instructions for continuing care to all relevant caregivers
Preparation of discharge records, prescriptions, and referral forms
Total time spent (in minutes): 36
Anticipated Discharge: Today
Subjective/Interval History
-
Date of Service: May 15, 2025
Patient was seen and examined. He denied any chest pain, shortness of breath or any other new symptoms or complaints.
Objective Data
-
Labs:
Laboratory Results
05/15/25
06:20
WBC 6.1
Hgb 9.1 L
Hct 28.7 L
Plt Count 153
Sodium 138
Potassium 5.0
Chloride 105
Carbon Dioxide 28
BUN 30 H
Creatinine 1.3
Glucose 131 H
Calcium 9.0
Total Bilirubin 0.4
AST 23
ALT 31
Alkaline Phosphatase 88
Vital Signs:
Vital Signs
Temp Pulse Resp BP Pulse Ox
98.8 F 79 16 153/86 94
05/15/25 07:18 05/15/25 08:59 05/15/25 07:18 05/15/25 08:59 05/15/25 07:18
I&O
05/14/25 05/15/25 05/16/25
06:59 06:59 06:59
Intake Total 780 / 780
Balance 780 / 780
[2025-05-15 12:02] VITALS: BP 128/64
[2025-05-15 12:06] LABS: Glucose - Point of Care 238 mg/dl (70-99)
--- NOTE | 2025-05-15 14:48 | W.DCSUMMARY ---
Discharge Summary
Discharge Data
Date of Admission: 05/13/25
Date of Discharge: 05/15/25
Total time spent discharging patient (in min): 36
-
Pending Results: No
Hospital Course
54-year-old male Polish speaking male with past medical history significant for HFrEF, CAD s/p triple-vessel CABG with atrial appendage clip, hypertension, IDDM and hyperlipidemia who presented to the emergency room with dyspnea on exertion,
orthopnea and anasarca. Patient stated that he was given Lasix as needed per cardiology which were confusing instructions for them to follow, and they reached out to the primary who then switched him to Lasix 5 mg daily regimen for about 1 month --
but patient stated that they got only 2 weeks worth supply which patient took (he ran out the Lasix medication), and over the 2 weeks (leading up to presentation), patient started developing dyspnea on exertion. His baseline is that he is
functionally mobile and does his activities of daily living and independent living, but on the day before presentation, he had difficulty walking (due to shortness of breath) from his kitchen to bedroom after dinner which was a very short distance
in the apartment. He was not able to lie down flat and sleep and had to prop up multiple pillows to help himself fall asleep. Patient also stated that his swelling progressively worsened into his legs and felt as if his abdomen was swollen as well.
Patient was started on intravenous Lasix. Cardiology was consulted. Patient had hyperkalemia with potassium 6.5 for which his Lisinopril was stopped, and for which he was given 1 dose of Lokelma, Calcium Gluconate and Insulin. For patient's anemia,
iron studies were done suggesting iron deficiency anemia; therefore he was started on iron medication. Patient's Plavix was stopped as per the recommendation of soaking pit operator and in the setting of his anemia. Echocardiogram was done showing
improvement in his ejection fraction from 45% to 50% in November 2024 to 60% to 65% on 05/13/25. Since patient's Lisinopril was stopped, patient's home Carvedilol was increased. Patient's swelling and shortness of breath improved significantly, and he
was stable for discharge.
Discharge Plan
-
Patient Disposition: Home (Routine Discharge)
Discharge Diagnosis/Procedures: #Acute on Chronic Heart Failure with Preserved Ejection Fraction
#Ischemic cardiomyopathy with LVEF IMPROVED to 60-65%
#Acute hyperkalemia
#Asymptomatic Hypoglycemia
#Acute Kidney Injury
#Normocytic anemia
#Type 2 Diabetes Mellitus
#Hyperlipidemia, Atherosclerotic Cardiovascular Disease
#Coronary Artery Disease status post CABG surgery
Condition: Good
Diet: Low Fat, Low Cholesterol, Low Sodium, Diabetic, Carb Controlled and Restrict fluids to 64 oz
Activity: As tolerated
Blood Work: CBC, BMP and Magnesium in 2 to 3 days. Check serum iron, TIBC and Ferritin in 2 weeks from today.
Specialty Instructions: Weigh Daily- Call MD for wt gain/loss 3 lbs overnight/5 lbs in 1 week
Activity Restrictions/Additional Instructions:
Avoid any NSAIDs (for example, avoid Motrin, Ibuprofen etc.)
Please take all of you medications and do not miss any doses. If you start to run out medications, please call cardiology outpatient office right away for refills.
Referrals:
German Mccarty MD [Active, Cardiology] - in one to two weeks
Virginie Alvarez MD [Family Provider, Family Practice] - in less than 1 week
Referral Note: Hospitalization Follow-Up
Additional Discharge Medication Instructions: Carvedilol has been increased to 25 mg BID.
Ferrous Sulfate is a new medication for iron deficiency anemia
Furosemide 40 mg daily is a new medication for fluid overload and heart failure -- you need to take 40 mg daily.
Your Novolin Insulin is on hold since you had low blood sugar in the hospital -- discuss this with your primary care provider in 2 to 3 days.
STOP taking your Lisinopril given you had high potassium.
STOP taking Clopidogrel given your anemia.
Prescriptions:
New
carvedilol 25 mg Tablet
25 mg PO BID Qty: 60 1RF
ferrous sulfate [FeroSul] 325 mg (65 mg iron) Tablet
325 mg PO Q48H Qty: 14 0RF
furosemide 40 mg Tablet
40 mg PO DAILY Qty: 30 1RF
Continued
atorvastatin 80 mg Tablet
80 mg PO QPM Qty: 30 2RF
aspirin 81 mg Tablet,Chewable
81 mg PO DAILY Qty: 0 2RF
metformin 1,000 mg Tablet
1,000 mg PO BID@0800,1700 Qty: 60 0RF
dapagliflozin propanediol 10 mg Tablet
10 mg PO DAILY Qty: 30 0RF
Held
Novolin 70/30 U-100 Insulin 100 unit/mL (70-30) suspension
18 unit SC BID@0730,1630
Hold Instructions: Resume on 05/27/25. Discuss with your primary care provider before resuming this medication.
Discontinued
clopidogrel 75 mg Tablet
75 mg PO DAILY Qty: 30 2RF
carvedilol 12.5 mg Tablet
12.5 mg PO BID Qty: 60 0RF
lisinopril 5 mg Tablet
5 mg PO DAILY Qty: 30 0RF
furosemide [Lasix] 40 mg tablet
40 mg PO DAILY PRN (Reason: Weight gain ) Qty: 30 0RF
Rx Instructions:
weight gain over 3-5 lb overnight or over one week
Discharge Orders:
Discharge Patient (As Directed); Ordered 05/15/25
Ordered By: Feliberto Chery
Discharge Date and Time
Discharge Date/Time: 05/15/25 17:36
Print Language: GUYANESE
[2025-05-15 15:09] VITALS: BP 171/86
== END 2025-05-15 17:36 | disposition home or self-care (01) | DRG 291 ==
LOC: 4 EAST ACU 11:56
PROVIDERS: Student in an Organized Health Care Education/Training Program; ADMITTING PHYSICIAN Internal Medicine; ATTENDING PHYSICIAN Hospitalist; CONSULT PHYSICIAN Internal Medicine; EMERGENCY PHYSICIAN Student in an Organized Health Care Education/Training Program; FAMILY PHYSICIAN Family Medicine
DX: I11.0 Hypertensive heart disease with heart failure (principal); I50.43 Acute on chronic combined systolic (congestive) and diastolic (congestive) heart failure; N17.9 Acute kidney failure, unspecified; E87.5 Hyperkalemia; I25.5 Ischemic cardiomyopathy; E11.649 Type 2 diabetes mellitus with hypoglycemia without coma; I25.10 Atherosclerotic heart disease of native coronary artery without angina pectoris; Z95.1 Presence of aortocoronary bypass graft; E78.00 Pure hypercholesterolemia, unspecified; Z79.84 Long term (current) use of oral hypoglycemic drugs; Z79.4 Long term (current) use of insulin; Z87.891 Personal history of nicotine dependence; Z79.82 Long term (current) use of aspirin; Z79.899 Other long term (current) drug therapy; Z79.02 Long term (current) use of antithrombotics/antiplatelets; Z91.198 Patient's noncompliance with other medical treatment and regimen for other reason; D50.9 Iron deficiency anemia, unspecified; D63.8 Anemia in other chronic diseases classified elsewhere; Z60.3 Acculturation difficulty
CPT/HCPCS: 71046; 80048; 80053; 82728; 82962; 83036; 83540; 83550; 83735; 83880; 84484; 85025; 85027; 93005; 93306; 96374; 97162; 97166; 99291

== ENCOUNTER 2025-07-20 13:15 | Emergency (ER) | payer OTHER, SELFPAY ==
[2025-07-20 13:31] VITALS: BP 142/76
[2025-07-20 13:59] LABS: Hematocrit 29.8 % (39.0-52.0); Hemoglobin 9.6 g/dL (13.0-18.0); Mean Corp Hgb Conc. 32.2 g/dL (33.0-37.0); Mean Corpuscular Volume 85.4 fL (80.0-94.0); Nucleated Red Blood Cells % 0 % (-); Platelet Count 117 10^3/uL (130-400); Red Cell Dist. Width 12.2 % (11.5-14.5)
[2025-07-20 14:05] LABS: ALT (SGPT) 24 U/L (0-50); AST (SGOT) 21 U/L (17-59); Albumin 3.5 g/dl (3.5-5.0); Alkaline Phosphatase 76 U/L (38-126); Blood Urea Nitrogen 42 mg/dl (9-20); Calcium 8.6 mg/dl (8.4-10.2); Carbon Dioxide 25 mmol/L (22-30); Chloride 105 mmol/L (98-107); Glucose 234 mg/dl (70-99); Potassium 5.1 mmol/L (3.5-5.1); Sodium 134 mmol/L (135-145); Total Protein 6.6 g/dl (6.3-8.2); eGFR > 60.00
--- NOTE | 2025-07-20 14:29 | ED.GENMED ---
History of Present Illness
General
Chief Complaint: Abnormal Lab Value
Source: patient
Exam Limitations: none
Time Seen by Provider: 07/20/25 14:25
History of Present Illness
History of Present Illness:
55-year-old male presenting by his doctor as his outpatient labs demonstrated elevated potassium. He is asymptomatic. No complaints offered.
Past History
Past History
ED Past Medical History: CAD, CHF, HTN and NIDDM
ED Past Surgical History: Cardiac (April 2024 three-vessel bypass, atrial clip)
Social History
Tobacco: Non-smoker
Alcohol: None
Drug: None
Personal:
Living: with family
Phy Exam
Physical Exam
Physical Exam:
General: Well-appearing male no acute distress
HEENT: Normal cephalic atraumatic
Heart: Regular rate and rhythm
Lungs: Clear no wheeze
Skin warm no rash
Course
Orders/Labs/Results
Orders:
Orders
07/20/25 13:30
EKG [Electrocardiogram (*1)] Urgent
Reason for Study: Other
Other Reason for Exam: high K
07/20/25 13:31
EKG- Treatment ONCE
07/20/25 13:41
CBC/With Diff [Complete Blood Count/With Diff] Urgent
CMP [Comprehensive Metabolic Panel] Urgent
Abnormal Lab Results
07/20/25
13:41
RBC 3.49 L 10^6/uL
(4.70-6.10)
Hgb 9.6 L g/dL
(13.0-18.0)
Hct 29.8 L %
(39.0-52.0)
MCHC 32.2 L g/dL
(33.0-37.0)
Plt Count 117 L 10^3/uL
(130-400)
Sodium 134 L mmol/L
(135-145)
BUN 42 H mg/dl
(9-20)
Glucose 234 H mg/dl
(70-99)
07/20/25 13:41
07/20/25 13:41
Vital Signs
Initial and Last Documented VS:
Initial Vital Signs
Temp Pulse Resp BP Pulse Ox
97.5 F 81 14 142/76 98
07/20/25 13:31 07/20/25 13:31 07/20/25 13:31 07/20/25 13:31 07/20/25 13:31
Last Documented Vital Signs
Temp Pulse Resp BP Pulse Ox
97.5 F 81 14 142/76 98
07/20/25 13:31 07/20/25 13:31 07/20/25 13:31 07/20/25 13:31 07/20/25 13:31
MDM/Problems Addressed
Differential Diagnosis Includes:
Patient asymptomatic potassium here today is 5.1. No indication for intermittent intervention. EKG was performed through triage which shows sinus rhythm
*Pulse Oximetry
SaO2: 98
Patient hypoxic: no
*Critical Care Note
Total Time (30-74mins, 75-104mins- exclusive of procedures): Not Applicable
ED Attending Note
-
Portions of this chart may have been created with voice recognition software.� Occasional wrong word or��sound alike� substitutions may have occurred due to the inherent limitations of voice recognition software.
Discharge Plan
Departure
Patient Disposition: Home (Routine Discharge)
Date of Disposition: 07/20/25
Time of Disposition: 14:30
Patient with high blood pressure during this ER visit?: No
Discharge Problem:
Blood potassium level greater than 5.0 mEq/L
Prescriptions:
No Action
atorvastatin 80 mg Tablet
80 mg PO QPM Qty: 30 2RF
aspirin 81 mg Tablet,Chewable
81 mg PO DAILY Qty: 0 2RF
metformin 1,000 mg Tablet
1,000 mg PO BID@0800,1700 Qty: 60 0RF
dapagliflozin propanediol 10 mg Tablet
10 mg PO DAILY Qty: 30 0RF
Novolin 70/30 U-100 Insulin 100 unit/mL (70-30) suspension
18 unit SC BID@0730,1630
carvedilol 25 mg Tablet
25 mg PO BID Qty: 60 1RF
ferrous sulfate [FeroSul] 325 mg (65 mg iron) Tablet
325 mg PO Q48H Qty: 14 0RF
furosemide 40 mg Tablet
40 mg PO DAILY Qty: 30 1RF
Referrals:
UNKNOWN - PT DOES,NOT KNOW [Family Provider]
Activity Restrictions/Additional Instructions:
Please return here for worsening symptoms otherwise follow-up with your drug counselor
Interventions
Interventions:
*General Assessment Last Done: 07/20/25 14:30
*Neglect/Abuse Screening Last Done: 07/20/25 14:30
*ED COVID-19 Vaccine History Last Done: 07/20/25 14:29
*ED Influenza Vaccine History Last Done: 07/20/25 14:29
[facility] Fall Risk Assessment Tool Last Done: 07/20/25 14:29
Discharge Date and Time
Print Language: BULGARIAN
--- NOTE | 2025-07-20 14:30 | EDRN ---
REviewed discharge instructions with patient and his . Verbalized understanding. Ambulated with steady gait to the [facility].
[2025-07-20 15:19] VITALS: BP 169/94
== END 2025-07-20 14:30 | disposition home or self-care (01) ==
LOC: EMR 13:15
PROVIDERS: Student in an Organized Health Care Education/Training Program; EMERGENCY PHYSICIAN Emergency Medicine
DX: E87.5 Hyperkalemia (principal); I11.0 Hypertensive heart disease with heart failure; E11.9 Type 2 diabetes mellitus without complications; I25.10 Atherosclerotic heart disease of native coronary artery without angina pectoris
CPT/HCPCS: 99284; 80053; 85025; 93005